=== PATIENT | male | born 1955 | race American Indian/Alaskan Native ===

== ENCOUNTER 2017-07-18 15:28 | Inpatient (IN) | payer OTHER ==
[~2017-07-18] VITALS: Ht 182.9 cm; Wt 102.6 kg
[~2017-07-18 15:28] MED LIST: ACET325 PO; ALLO100 PO; AMLO10 PO; AMLO5 PO; ASPI325; ASPI81CH PO; ATOR10 PO; ATOR40TA PO; Acidophilus La100 GM PO; Adalat/Procardi10 MG PO; CEPH500 PO; CHLO25B PO; CLOT1SO; COLCHICINE0.6 MG PO; Cipro500 MG PO; Cleocin HCl300 MG PO; Crutch1 EACH MISC; DEXT40GEL PO; DULO30 PO; FENO145 PO; FINA5 PO; FISH1000 PO; FLONASE ALLERG9.9 ML NS; FLUT110OIA INH; Flonase 0.05% N16 GM; GABA100 PO; GABA300 PO; Geri-Hydrolac140 GM; HYDACE10B PO; HYDMOR2 PO; HYDMOR4 PO; HYDR1TAB94 PO; HYOS.125 SL; Humalog100 UNIT/1 SC; Humulin R500 UNIT/1 IJ; Hydrocodone-Ap1 EA20 PO; INDO50 PO; INS70/30PN SC; INSDET100 SC; INSLIS75I SC; INSUGL100V SC; INSULANPEN; INSULANPEN SC; Indomethacin50 MG PO; Isosorbide Mono30 MG PO; LIDO700A20 TOP; LISI20 PO; LORA.5 PO; LORA1 PO; LORA2 PO; METCAR750 PO; METO10 PO; METO50 PO; METO50ER PO; MULVIT PO; Micro-K10 MEQ PO; NIFE10 PO; NIFE20 PO; NORT10 PO; NORT25 PO; Norco 10-325 T1 EACH PO; Norco 5-325 Ta1 EACH PO; OMEP10ER PO; OMEPRAZOLE MAGN20 MG PO; ONDA4 PO; ONDA4ODT MM; ONDA4ODT SL; OSEL75CA PO; PANT40 PO; PROC25S PR; PROM12.5S PR; PROM25S PR; Percocet 5-3251 EACH PO; Prilosec Otc20 MG PO; Prinivil10 MG PO; RANI150 PO; RASA1; ROSI4 PO; SENN187 PO; SPIHYD PO; TAMS.4ER PO; TORSE20 PO; TRAM50 PO; UREATC TOP; Zofran Odt4 MG SL; Zofran4 MG PO; Zofran8 MG PO; [UNRECOGNIZED DRUG - CODE] PO; [UNRECOGNIZED DRUG - CODE] PO; [UNRECOGNIZED DRUG - OTHER] IM
[2017-07-18 16:13] LABS: BASOPHILS ABSOLUTE AUTO 0.01 K/mm3 (0.00-0.23); BASOPHILS PERCENT AUTO 0 % (0-2); EOSINOPHILS ABSOLUTE AUTO 0.03 K/mm3 (0.00-0.68); EOSINOPHILS PERCENT AUTO 0 % (0-6); Hematocrit 36.6 % (37.0-53.0); IMMATURE GRAN ABSOLUTE AUTO 0.03 K/mm3 (0.00-0.10); IMMATURE GRAN PERCENT AUTO 0 % (0-1); LYMPHOCYTES ABSOLUTE AUTO 2.05 K/mm3 (0.84-5.20); LYMPHOCYTES PERCENT AUTO 19 % (21-46); MONOCYTES PERCENT AUTO 6 % (4-13); Mean Corpuscular HGB 31.9 pg (26.0-34.0); Mean Corpuscular HGB Conc 35.5 g/dL (31.5-36.5); Mean Corpuscular Volume 90 fL (80-100); Mean Platelet Volume 10.2 fL (9.1-12.4); NEUTROPHILS ABSOLUTE AUTO 8.16 K/mm3 (1.96-9.15); NEUTROPHILS PERCENT AUTO 75 % (41-73); Platelet Count 241 K/mm3 (150-400); RDW Coefficient Variation 13.5 % (11.7-14.2); RDW Standard Deviation 44.5 fL (35.1-46.3); Red Blood Cell Count 4.08 M/mm3 (4.30-5.90); White Blood Cell Count 10.88 K/mm3 (4.00-11.30)
[2017-07-18 16:33] LABS: Albumin, Blood 3.6 g/dL (3.4-5.0); Albumin/Globulin Ratio 0.7 (0.8-1.8); Bilirubin, Total 0.6 mg/dL (0.1-1.0); Bun/Creatinine Ratio 23.6 (12.0-20.0); Calcium, Blood 9.6 mg/dL (8.5-10.1); Creatinine, Blood 1.65 mg/dL (0.60-1.20); Globulin, Blood 5.2 g/dL (2.2-4.0); Potassium, Blood 4.3 mmol/L (3.5-5.5); Total Protein, Blood 8.8 g/dL (6.4-8.2); Troponin I 0.062 ng/mL (0.000-0.040)
[2017-07-19 05:50] LABS: Hematocrit 35.9 % (37.0-53.0); Hemoglobin 12.8 g/dL (13.5-17.5); Mean Corpuscular HGB 31.8 pg (26.0-34.0); Mean Corpuscular HGB Conc 35.7 g/dL (31.5-36.5); Mean Corpuscular Volume 89 fL (80-100); Mean Platelet Volume 10.2 fL (9.1-12.4); Platelet Count 234 K/mm3 (150-400); RDW Coefficient Variation 13.4 % (11.7-14.2); RDW Standard Deviation 43.7 fL (35.1-46.3); Red Blood Cell Count 4.03 M/mm3 (4.30-5.90); White Blood Cell Count 12.69 K/mm3 (4.00-11.30)
[2017-07-19 06:10] LABS: Bun/Creatinine Ratio 22.9 (12.0-20.0); Calcium, Blood 9.2 mg/dL (8.5-10.1); Creatinine, Blood 1.66 mg/dL (0.60-1.20); Potassium, Blood 4.2 mmol/L (3.5-5.5)
[2017-07-19 15:17] LABS: Source, Urine Clean Catch
[2017-07-19 15:22] LABS: Bilirubin, Urine Neg (Neg); Blood, Urine 3+ (Neg); Glucose Qualitative, Urine 3+ (Neg); Ketones, Urine 1+ (Neg); Leukocyte Esterase, Urine Neg (Neg); Nitrite, Urine Neg (Neg); Protein, Urine 4+ (Neg); Specific Gravity, Urine 1.015 (1.003-1.022); Urobilinogen, Urine NORM (Normal)
[2017-07-19 15:29] LABS: Appearance, Urine Clear (Clear); Color, Urine Yellow (P-Yellow)
[2017-07-19 15:30] LABS: Bacteria Mod /hpf; Red Blood Cells, Urine 0-2 /hpf (0-2); Squamous Epithelial Cells Not Seen /hpf (Few); White Blood Cells, Urine 0-2 /hpf (0-5)
[2017-07-21 05:54] LABS: Bun/Creatinine Ratio 18.2 (12.0-20.0); Calcium, Blood 8.9 mg/dL (8.5-10.1); Creatinine, Blood 1.48 mg/dL (0.60-1.20); Potassium, Blood 4.3 mmol/L (3.5-5.5)
[2017-07-21] MEDS ORDERED: DILT180 PO (13:46)
[2017-07-21] MEDS ORDERED: Novolog Fl100 UNIT/1 INJ (13:47)
[2017-07-21] MEDS ORDERED: NITR.4SL SL (13:49)
[2017-07-21] MEDS ORDERED: MIRALAX17 GM PO (13:51)
[2017-07-21] MEDS ORDERED: ONDA4ODT MM (13:52)
[2017-12-07] MEDS ORDERED: ATOR40TA PO (11:24)
[2017-12-07] MEDS ORDERED: TORSE20 PO (11:27)
== END 2017-07-21 14:44 | disposition home or self-care (01) | DRG 206 ==
LOC: ER 15:28 → MEDS 15:29 → ER 15:29 → MEDS 20:50 → ENPENDDIS 07-21 09:30 → MEDS 07-21 14:44
PROVIDERS: Internal Medicine; Physician Assistant
DX: M94.0 Chondrocostal junction syndrome [Tietze] (principal); E11.21 Type 2 diabetes mellitus with diabetic nephropathy; K31.84 Gastroparesis; I13.0 Hypertensive heart and chronic kidney disease with heart failure and stage 1 through stage 4 chronic kidney disease, or unspecified chronic kidney disease; I50.32 Chronic diastolic (congestive) heart failure; E87.1 Hypo-osmolality and hyponatremia; E11.43 Type 2 diabetes mellitus with diabetic autonomic (poly)neuropathy; R07.89 Other chest pain; I25.10 Atherosclerotic heart disease of native coronary artery without angina pectoris; R11.0 Nausea; T40.605A Adverse effect of unspecified narcotics, initial encounter; E11.22 Type 2 diabetes mellitus with diabetic chronic kidney disease; B19.20 Unspecified viral hepatitis C without hepatic coma; N18.3 Chronic kidney disease, stage 3 (moderate); E86.0 Dehydration; N40.0 Benign prostatic hyperplasia without lower urinary tract symptoms; F41.9 Anxiety disorder, unspecified; F32.9 Major depressive disorder, single episode, unspecified; M10.9 Gout, unspecified; F43.10 Post-traumatic stress disorder, unspecified; K83.4 Spasm of sphincter of Oddi; I25.5 Ischemic cardiomyopathy; I25.2 Old myocardial infarction; Z95.5 Presence of coronary angioplasty implant and graft; Z95.1 Presence of aortocoronary bypass graft; Z91.81 History of falling; Z79.82 Long term (current) use of aspirin; Z79.899 Other long term (current) drug therapy; Z79.4 Long term (current) use of insulin; Z88.5 Allergy status to narcotic agent
CPT/HCPCS: 36415; 71020; 71110; 78452; 80048; 80053; 81001; 82947; 84484; 85025; 85027; 87081; 87086; 93005; 93010; 93017; 96374; 96375; 99285; A9500; J0280; J0360; J1170; J1650; J1815; J2270; J2405; J2785; J3010; J7030

== ENCOUNTER 2017-08-08 18:34 | Observation (INO) | payer OTHER ==
[~2017-08-08] VITALS: Ht 182.9 cm; Wt 108.9 kg
[~2017-08-08 18:34] MED LIST changes: +DILT180 PO; +MIRALAX17 GM PO; +NITR.4SL SL; +Novolog Fl100 UNIT/1 INJ
[2017-08-08 19:20] LABS: BASOPHILS ABSOLUTE AUTO 0.01 K/mm3 (0.00-0.23); BASOPHILS PERCENT AUTO 0 % (0-2); EOSINOPHILS ABSOLUTE AUTO 0.01 K/mm3 (0.00-0.68); EOSINOPHILS PERCENT AUTO 0 % (0-6); Hematocrit 37.4 % (37.0-53.0); Hemoglobin 12.8 g/dL (13.5-17.5); IMMATURE GRAN ABSOLUTE AUTO 0.04 K/mm3 (0.00-0.10); IMMATURE GRAN PERCENT AUTO 0 % (0-1); LYMPHOCYTES ABSOLUTE AUTO 1.16 K/mm3 (0.84-5.20); LYMPHOCYTES PERCENT AUTO 11 % (21-46); MONOCYTES ABSOLUTE AUTO 0.35 K/mm3 (0.16-1.47); MONOCYTES PERCENT AUTO 3 % (4-13); Mean Corpuscular HGB 30.8 pg (26.0-34.0); Mean Corpuscular HGB Conc 34.2 g/dL (31.5-36.5); Mean Corpuscular Volume 90 fL (80-100); Mean Platelet Volume 9.4 fL (9.1-12.4); NEUTROPHILS ABSOLUTE AUTO 8.91 K/mm3 (1.96-9.15); NEUTROPHILS PERCENT AUTO 85 % (41-73); Platelet Count 189 K/mm3 (150-400); RDW Coefficient Variation 13.5 % (11.7-14.2); Red Blood Cell Count 4.15 M/mm3 (4.30-5.90); White Blood Cell Count 10.48 K/mm3 (4.00-11.30)
[2017-08-08] MEDS ORDERED: AMLODIPINE-BEN1 EAC1 PO (19:23)
[2017-08-08] MEDS ORDERED: Flonase 0.05% N16 GM (19:24)
[2017-08-08] MEDS ORDERED: LORA1 PO (19:24)
[2017-08-08] MEDS ORDERED: Omeprazole20 M1 (19:24)
[2017-08-08 19:37] LABS: Albumin, Blood 3.9 g/dL (3.4-5.0); Albumin/Globulin Ratio 0.8 (0.8-1.8); Bilirubin, Total 0.8 mg/dL (0.1-1.0); Bun/Creatinine Ratio 15.1 (12.0-20.0); Calcium, Blood 9.9 mg/dL (8.5-10.1); Creatinine, Blood 1.46 mg/dL (0.60-1.20); Globulin, Blood 5.1 g/dL (2.2-4.0); Potassium, Blood 4.7 mmol/L (3.5-5.5); Troponin I 0.049 ng/mL (0.000-0.040)
[2017-08-08 21:58] LABS: Source, Urine Clean Catch
[2017-08-08 22:01] LABS: Bilirubin, Urine Neg (Neg); Blood, Urine 3+ (Neg); Glucose Qualitative, Urine 4+ (Neg); Ketones, Urine 1+ (Neg); Leukocyte Esterase, Urine Neg (Neg); Nitrite, Urine Neg (Neg); Protein, Urine 4+ (Neg); Urobilinogen, Urine NORM (Normal)
[2017-08-08 22:08] LABS: Appearance, Urine Clear (Clear); Color, Urine Pale Yellow (P-Yellow)
[2017-08-08 22:11] LABS: White Blood Cells, Urine Not Seen /hpf (0-5)
[2017-08-08 22:12] LABS: Bacteria Not Seen /hpf; Red Blood Cells, Urine 0-2 /hpf (0-2); Squamous Epithelial Cells Not Seen /hpf (Few)
[2017-08-09 08:28] LABS: BASOPHILS ABSOLUTE AUTO 0.02 K/mm3 (0.00-0.23); BASOPHILS PERCENT AUTO 0 % (0-2); EOSINOPHILS ABSOLUTE AUTO 0.13 K/mm3 (0.00-0.68); EOSINOPHILS PERCENT AUTO 1 % (0-6); Hematocrit 34.4 % (37.0-53.0); Hemoglobin 11.7 g/dL (13.5-17.5); IMMATURE GRAN ABSOLUTE AUTO 0.04 K/mm3 (0.00-0.10); IMMATURE GRAN PERCENT AUTO 0 % (0-1); LYMPHOCYTES ABSOLUTE AUTO 1.65 K/mm3 (0.84-5.20); LYMPHOCYTES PERCENT AUTO 18 % (21-46); MONOCYTES ABSOLUTE AUTO 0.67 K/mm3 (0.16-1.47); MONOCYTES PERCENT AUTO 7 % (4-13); Mean Corpuscular HGB 31.3 pg (26.0-34.0); Mean Corpuscular Volume 92 fL (80-100); Mean Platelet Volume 9.8 fL (9.1-12.4); NEUTROPHILS ABSOLUTE AUTO 6.91 K/mm3 (1.96-9.15); NEUTROPHILS PERCENT AUTO 73 % (41-73); Platelet Count 151 K/mm3 (150-400); RDW Coefficient Variation 13.6 % (11.7-14.2); RDW Standard Deviation 45.2 fL (35.1-46.3); Red Blood Cell Count 3.74 M/mm3 (4.30-5.90); White Blood Cell Count 9.42 K/mm3 (4.00-11.30)
[2017-08-09 09:01] LABS: Albumin, Blood 3.5 g/dL (3.4-5.0); Albumin/Globulin Ratio 0.8 (0.8-1.8); Bilirubin, Total 0.9 mg/dL (0.1-1.0); Bun/Creatinine Ratio 16.9 (12.0-20.0); Calcium, Blood 9.2 mg/dL (8.5-10.1); Creatinine, Blood 1.36 mg/dL (0.60-1.20); Globulin, Blood 4.4 g/dL (2.2-4.0); Potassium, Blood 3.9 mmol/L (3.5-5.5); Total Protein, Blood 7.9 g/dL (6.4-8.2)
[2017-08-10 06:44] LABS: BASOPHILS ABSOLUTE AUTO 0.02 K/mm3 (0.00-0.23); BASOPHILS PERCENT AUTO 0 % (0-2); EOSINOPHILS ABSOLUTE AUTO 0.15 K/mm3 (0.00-0.68); EOSINOPHILS PERCENT AUTO 2 % (0-6); Hematocrit 32.9 % (37.0-53.0); Hemoglobin 11.2 g/dL (13.5-17.5); IMMATURE GRAN ABSOLUTE AUTO 0.02 K/mm3 (0.00-0.10); IMMATURE GRAN PERCENT AUTO 0 % (0-1); LYMPHOCYTES ABSOLUTE AUTO 1.95 K/mm3 (0.84-5.20); LYMPHOCYTES PERCENT AUTO 30 % (21-46); MONOCYTES ABSOLUTE AUTO 0.55 K/mm3 (0.16-1.47); MONOCYTES PERCENT AUTO 8 % (4-13); Mean Corpuscular HGB 31.5 pg (26.0-34.0); Mean Corpuscular Volume 92 fL (80-100); Mean Platelet Volume 9.9 fL (9.1-12.4); NEUTROPHILS ABSOLUTE AUTO 3.86 K/mm3 (1.96-9.15); NEUTROPHILS PERCENT AUTO 59 % (41-73); Platelet Count 135 K/mm3 (150-400); RDW Coefficient Variation 13.7 % (11.7-14.2); RDW Standard Deviation 46.2 fL (35.1-46.3); Red Blood Cell Count 3.56 M/mm3 (4.30-5.90); White Blood Cell Count 6.55 K/mm3 (4.00-11.30)
[2017-08-10 07:13] LABS: Alanine Aminotransfer (ALT/SGP 28 U/L (12-78); Albumin, Blood 3.2 g/dL (3.4-5.0); Albumin/Globulin Ratio 0.8 (0.8-1.8); Alk Phos 104 U/L (50-136); Anion Gap 9 mmol/L (6-16); Aspartate Aminotrans (AST/SGOT 15 U/L (12-37); Bilirubin, Direct 0.1 mg/dL (0.0-0.3); Bilirubin, Indirect 0.6 mg/dL (0.1-0.7); Bilirubin, Total 0.7 mg/dL (0.1-1.0); Blood Urea Nitrogen 22 mg/dL (8-24); Bun/Creatinine Ratio 17.5 (12.0-20.0); CO2, Blood 23 mmol/L (21-32); Calcium, Blood 8.8 mg/dL (8.5-10.1); Chloride, Blood 108 mmol/L (98-108); Creatinine, Blood 1.26 mg/dL (0.60-1.20); Globulin, Blood 3.9 g/dL (2.2-4.0); Glomerular Filtration Rate >60 (60-); Glucose, Blood 211 mg/dL (70-99); Potassium, Blood 3.6 mmol/L (3.5-5.5); Sodium, Blood 140 mmol/L (136-145); Total Protein, Blood 7.1 g/dL (6.4-8.2)
[2017-08-10] MEDS ORDERED: TAMS.4ER PO (14:03)
[2017-12-07] MEDS ORDERED: ATOR40TA PO (11:24)
[2017-12-07] MEDS ORDERED: TORSE20 PO (11:27)
== END 2017-08-10 14:18 | disposition home or self-care (01) ==
LOC: ER 18:34 → MEDS 18:35 → ENPENDDIS 08-10 13:00 → MEDS 08-10 14:18
PROVIDERS: Emergency Medicine; Family Medicine; Hospitalist
DX: R10.11 Right upper quadrant pain (principal); I13.10 Hypertensive heart and chronic kidney disease without heart failure, with stage 1 through stage 4 chronic kidney disease, or unspecified chronic kidney disease; E11.22 Type 2 diabetes mellitus with diabetic chronic kidney disease; N18.3 Chronic kidney disease, stage 3 (moderate); I25.10 Atherosclerotic heart disease of native coronary artery without angina pectoris; I45.5 Other specified heart block; I25.5 Ischemic cardiomyopathy; N40.0 Benign prostatic hyperplasia without lower urinary tract symptoms; K21.9 Gastro-esophageal reflux disease without esophagitis; F43.10 Post-traumatic stress disorder, unspecified; J30.9 Allergic rhinitis, unspecified; Z79.4 Long term (current) use of insulin; Z90.49 Acquired absence of other specified parts of digestive tract; Z86.19 Personal history of other infectious and parasitic diseases; Z79.899 Other long term (current) drug therapy; Z79.82 Long term (current) use of aspirin; Z95.1 Presence of aortocoronary bypass graft; Z98.890 Other specified postprocedural states
CPT/HCPCS: 36415; 74177; 76705; 78226; 80048; 80053; 80076; 81001; 82947; 83690; 84484; 85025; 93005; 93010; 96361; 96365; 96366; 96374; 96375; 96376; 99285; A9537; G0378; J0295; J0360; J1170; J1200; J1885; J2060; J2270; J2405; J7030; Q9967

== ENCOUNTER 2017-09-05 11:48 | Emergency (ER) | payer OTHER ==
[~2017-09-05] VITALS: Ht 182.9 cm; Wt 112.5 kg
[~2017-09-05 11:48] MED LIST changes: -ATOR40TA; -AZIT250 PO; -Acidophilus La100 GM; -CYCL10 PO; -DOCU100 PO; -FENT50TP TOP; -IBUP600 PO; -IBUP800 PO; -INSU100I6 SC; -Lotrel 10-40 M1 EACH PO; -METCAR500 PO; -Mucinex600 MG PO; -ONDA4ODT PO; -PRED20 PO; -PROM25S; -Prazosin HCl1 MG PO; -Senna8.6 MG PO
[2017-09-05] MEDS ORDERED: RANI150 PO (11:59)
[2017-09-05] MEDS ORDERED: TORSE20 PO (11:59)
[2017-09-05] MEDS ORDERED: PROM25S (11:59)
[2017-09-05] MEDS ORDERED: Senna8.6 MG PO (11:59)
[2017-09-05] MEDS ORDERED: NIFE10 PO (12:00)
[2017-09-05] MEDS ORDERED: METCAR500 PO (12:00)
[2017-09-05] MEDS ORDERED: Acidophilus La100 GM (12:00)
[2017-09-05] MEDS ORDERED: HYDMOR2 PO (12:01)
[2017-09-05] MEDS ORDERED: ALLO100 PO (12:01)
[2017-09-05] MEDS ORDERED: GABA100 PO (12:01)
[2017-09-05] MEDS ORDERED: ATOR40TA PO (12:01)
[2017-09-05] MEDS ORDERED: Mucinex600 MG PO (16:24)
[2017-09-05] MEDS ORDERED: Norco 5-325 Ta1 EACH PO (16:24)
[2017-09-05] MEDS ORDERED: AZIT250 PO (16:24)
[2017-09-05] MEDS ORDERED: IBUP800 PO (16:24)
[2017-12-07] MEDS ORDERED: ATOR40TA PO (11:24)
[2017-12-07] MEDS ORDERED: TORSE20 PO (11:27)
== END 2017-09-05 16:34 | disposition home or self-care (01) ==
LOC: ER 11:48
DX: R07.89 Other chest pain (principal); R05 Cough; Z79.899 Other long term (current) drug therapy; Z79.4 Long term (current) use of insulin; Z79.82 Long term (current) use of aspirin; F43.10 Post-traumatic stress disorder, unspecified; E11.43 Type 2 diabetes mellitus with diabetic autonomic (poly)neuropathy; K31.84 Gastroparesis
CPT/HCPCS: 36415; 71260; 83880; 84484; 93005; 93010; 99284; Q9967

== ENCOUNTER → 2017-09-05 | Outpatient (CLI) | payer OTHER ==
[~2017-09-05] MED LIST changes: +AMLODIPINE-BEN1 EAC1 PO; +ATOR40TA; +AZIT250 PO; +Acidophilus La100 GM; +CYCL10 PO; +DOCU100 PO; +FENT50TP TOP; +IBUP600 PO; +IBUP800 PO; +INSU100I6 SC; +Lotrel 10-40 M1 EACH PO; +METCAR500 PO; +Mucinex600 MG PO; +ONDA4ODT PO; +Omeprazole20 M1; +PRED20 PO; +PROM25S; +Prazosin HCl1 MG PO; +Senna8.6 MG PO
[2017-09-05 10:49] LABS: BASOPHILS ABSOLUTE AUTO 0.02 K/mm3 (0.00-0.23); BASOPHILS PERCENT AUTO 0 % (0-2); EOSINOPHILS PERCENT AUTO 8 % (0-6); Hematocrit 35.7 % (37.0-53.0); Hemoglobin 12.2 g/dL (13.5-17.5); IMMATURE GRAN ABSOLUTE AUTO 0.01 K/mm3 (0.00-0.10); IMMATURE GRAN PERCENT AUTO 0 % (0-1); LYMPHOCYTES ABSOLUTE AUTO 0.89 K/mm3 (0.84-5.20); LYMPHOCYTES PERCENT AUTO 19 % (21-46); MONOCYTES ABSOLUTE AUTO 0.65 K/mm3 (0.16-1.47); MONOCYTES PERCENT AUTO 14 % (4-13); Mean Corpuscular HGB 31.6 pg (26.0-34.0); Mean Corpuscular HGB Conc 34.2 g/dL (31.5-36.5); Mean Corpuscular Volume 93 fL (80-100); Mean Platelet Volume 10.1 fL (9.1-12.4); NEUTROPHILS PERCENT AUTO 59 % (41-73); Platelet Count 136 K/mm3 (150-400); RDW Coefficient Variation 14.5 % (11.7-14.2); RDW Standard Deviation 48.1 fL (35.1-46.3); Red Blood Cell Count 3.86 M/mm3 (4.30-5.90); White Blood Cell Count 4.77 K/mm3 (4.00-11.30)
[2017-09-05 11:03] LABS: Albumin, Blood 3.9 g/dL (3.4-5.0); Albumin/Globulin Ratio 0.8 (0.8-1.8); Bilirubin, Total 0.5 mg/dL (0.1-1.0); Bun/Creatinine Ratio 16.4 (12.0-20.0); Calcium, Blood 10.1 mg/dL (8.5-10.1); Creatinine, Blood 1.77 mg/dL (0.60-1.20); Globulin, Blood 4.7 g/dL (2.2-4.0); Potassium, Blood 5.2 mmol/L (3.5-5.5); Total Protein, Blood 8.6 g/dL (6.4-8.2); Troponin I 0.055 ng/mL (0.000-0.040)
== END | disposition home or self-care (01) ==
LOC: LAB EV 10:44
PROVIDERS: Physician Assistant
DX: R07.9 Chest pain, unspecified (principal)
CPT/HCPCS: 80053; 83880; 84484; 85025; 85379; 86140

== ENCOUNTER 2017-10-31 04:21 | Observation (INO) | payer OTHER ==
[~2017-10-31] VITALS: Ht 182.9 cm; Wt 107.1 kg
[~2017-10-31 04:21] MED LIST changes: +AZIT250 PO; +Acidophilus La100 GM; +IBUP800 PO; +METCAR500 PO; +Mucinex600 MG PO; +PROM25S; +Senna8.6 MG PO
[2017-10-31 05:12] LABS: BASOPHILS ABSOLUTE AUTO 0.02 K/mm3 (0.00-0.23); BASOPHILS PERCENT AUTO 0 % (0-2); EOSINOPHILS ABSOLUTE AUTO 0.11 K/mm3 (0.00-0.68); EOSINOPHILS PERCENT AUTO 1 % (0-6); Hematocrit 36.6 % (37.0-53.0); Hemoglobin 12.7 g/dL (13.5-17.5); IMMATURE GRAN ABSOLUTE AUTO 0.04 K/mm3 (0.00-0.10); IMMATURE GRAN PERCENT AUTO 1 % (0-1); LYMPHOCYTES ABSOLUTE AUTO 1.34 K/mm3 (0.84-5.20); LYMPHOCYTES PERCENT AUTO 15 % (21-46); MONOCYTES ABSOLUTE AUTO 0.29 K/mm3 (0.16-1.47); MONOCYTES PERCENT AUTO 3 % (4-13); Mean Corpuscular HGB 32.1 pg (26.0-34.0); Mean Corpuscular HGB Conc 34.7 g/dL (31.5-36.5); Mean Corpuscular Volume 92 fL (80-100); Mean Platelet Volume 10.5 fL (9.1-12.4); NEUTROPHILS ABSOLUTE AUTO 6.93 K/mm3 (1.96-9.15); NEUTROPHILS PERCENT AUTO 79 % (41-73); Platelet Count 167 K/mm3 (150-400); RDW Coefficient Variation 14.2 % (11.7-14.2); RDW Standard Deviation 48.5 fL (35.1-46.3); Red Blood Cell Count 3.96 M/mm3 (4.30-5.90); White Blood Cell Count 8.73 K/mm3 (4.00-11.30)
[2017-10-31 05:27] LABS: Albumin, Blood 4.2 g/dL (3.4-5.0); Albumin/Globulin Ratio 0.9 (0.8-1.8); Bilirubin, Total 0.7 mg/dL (0.1-1.0); Calcium, Blood 9.8 mg/dL (8.5-10.1); Creatinine, Blood 1.48 mg/dL (0.60-1.20); Globulin, Blood 4.8 g/dL (2.2-4.0); Potassium, Blood 4.8 mmol/L (3.5-5.5)
[2017-10-31 05:46] LABS: PCO2 Arterial 33.2 mmHg (35-45); PO2 Arterial 119 mmHg (80-100); pH Blood Arterial 7.34 (7.35-7.45)
[2017-10-31 07:33] LABS: Troponin I 0.037 ng/mL (0.000-0.040)
[2017-10-31 08:56] LABS: Potassium, Blood 5.7 mmol/L (3.5-5.5)
[2017-10-31 11:40] LABS: Potassium, Blood 4.8 mmol/L (3.5-5.5)
[2017-10-31] MEDS ORDERED: IBUP600 PO (12:16)
[2017-10-31] MEDS ORDERED: METO50ER PO (13:33)
[2017-10-31] MEDS ORDERED: Prazosin HCl1 MG PO (13:35)
[2017-10-31 20:34] LABS: Potassium, Blood 5.1 mmol/L (3.5-5.5)
[2017-11-01 04:20] LABS: BASOPHILS ABSOLUTE AUTO 0.01 K/mm3 (0.00-0.23); BASOPHILS PERCENT AUTO 0 % (0-2); EOSINOPHILS PERCENT AUTO 0 % (0-6); Hematocrit 33.2 % (37.0-53.0); Hemoglobin 11.1 g/dL (13.5-17.5); IMMATURE GRAN ABSOLUTE AUTO 0.05 K/mm3 (0.00-0.10); IMMATURE GRAN PERCENT AUTO 0 % (0-1); LYMPHOCYTES ABSOLUTE AUTO 1.42 K/mm3 (0.84-5.20); LYMPHOCYTES PERCENT AUTO 11 % (21-46); MONOCYTES ABSOLUTE AUTO 1.04 K/mm3 (0.16-1.47); MONOCYTES PERCENT AUTO 8 % (4-13); Mean Corpuscular HGB 31.4 pg (26.0-34.0); Mean Corpuscular HGB Conc 33.4 g/dL (31.5-36.5); Mean Corpuscular Volume 94 fL (80-100); Mean Platelet Volume 10.3 fL (9.1-12.4); NEUTROPHILS ABSOLUTE AUTO 10.03 K/mm3 (1.96-9.15); NEUTROPHILS PERCENT AUTO 80 % (41-73); Platelet Count 149 K/mm3 (150-400); RDW Coefficient Variation 14.6 % (11.7-14.2); RDW Standard Deviation 50.4 fL (35.1-46.3); Red Blood Cell Count 3.54 M/mm3 (4.30-5.90); White Blood Cell Count 12.55 K/mm3 (4.00-11.30)
[2017-11-01 04:46] LABS: Albumin, Blood 3.5 g/dL (3.4-5.0); Albumin/Globulin Ratio 0.8 (0.8-1.8); Bilirubin, Total 0.7 mg/dL (0.1-1.0); Bun/Creatinine Ratio 26.1 (12.0-20.0); Calcium, Blood 8.8 mg/dL (8.5-10.1); Creatinine, Blood 1.38 mg/dL (0.60-1.20); Globulin, Blood 4.2 g/dL (2.2-4.0); Potassium, Blood 5.3 mmol/L (3.5-5.5); Total Protein, Blood 7.7 g/dL (6.4-8.2)
[2017-11-01] MEDS ORDERED: NIFE10 PO (14:32)
[2017-11-01] MEDS ORDERED: Lotrel 10-40 M1 EACH PO (14:38)
[2017-11-01] MEDS ORDERED: CYCL10 PO (14:41)
[2017-11-01] MEDS ORDERED: INSU100I6 SC (14:47)
[2017-11-01] MEDS ORDERED: FENT50TP TOP (14:49)
[2017-11-01] MEDS ORDERED: LIDO700A20 TOP (14:50)
[2017-11-01] MEDS ORDERED: ONDA4ODT PO (14:54)
== END 2017-11-01 17:52 | disposition home or self-care (01) ==
LOC: ER 04:21 → ICUW 04:22 → ICUE 04:22 → ICUW 07:20 → ER 07:20 → ICUE 07:20 → ICUW 08:40 → ICUE 15:13
PROVIDERS: Emergency Medicine; Internal Medicine
DX: E11.10 Type 2 diabetes mellitus with ketoacidosis without coma (principal); R11.2 Nausea with vomiting, unspecified; E11.22 Type 2 diabetes mellitus with diabetic chronic kidney disease; I12.9 Hypertensive chronic kidney disease with stage 1 through stage 4 chronic kidney disease, or unspecified chronic kidney disease; N18.9 Chronic kidney disease, unspecified; M54.2 Cervicalgia; I25.10 Atherosclerotic heart disease of native coronary artery without angina pectoris; I25.5 Ischemic cardiomyopathy; F43.10 Post-traumatic stress disorder, unspecified; K21.9 Gastro-esophageal reflux disease without esophagitis; Z95.1 Presence of aortocoronary bypass graft; Z72.0 Tobacco use; Z79.82 Long term (current) use of aspirin; Z79.51 Long term (current) use of inhaled steroids; Z79.899 Other long term (current) drug therapy; Z79.84 Long term (current) use of oral hypoglycemic drugs
CPT/HCPCS: 36415; 36600; 80051; 80053; 82010; 82803; 82947; 83605; 83690; 83930; 84484; 85025; 87070; 87081; 93005; 93010; 96361; 96374; 96375; 96376; 99285; J0360; J1170; J1644; J1815; J2060; J2405; J2550; J2765; J3010; J7030

== ENCOUNTER 2017-11-11 08:52 | Emergency (ER) | payer OTHER ==
[~2017-11-11] VITALS: Ht 182.9 cm; Wt 108.9 kg
[~2017-11-11 08:52] MED LIST changes: +CYCL10 PO; +FENT50TP TOP; +IBUP600 PO; +INSU100I6 SC; +Lotrel 10-40 M1 EACH PO; +ONDA4ODT PO; +Prazosin HCl1 MG PO
[2017-11-11 10:11] LABS: BASOPHILS ABSOLUTE AUTO 0.02 K/mm3 (0.00-0.23); BASOPHILS PERCENT AUTO 0 % (0-2); EOSINOPHILS ABSOLUTE AUTO 0.23 K/mm3 (0.00-0.68); EOSINOPHILS PERCENT AUTO 2 % (0-6); Hematocrit 38.4 % (37.0-53.0); Hemoglobin 13.5 g/dL (13.5-17.5); IMMATURE GRAN ABSOLUTE AUTO 0.04 K/mm3 (0.00-0.10); IMMATURE GRAN PERCENT AUTO 0 % (0-1); LYMPHOCYTES ABSOLUTE AUTO 2.65 K/mm3 (0.84-5.20); LYMPHOCYTES PERCENT AUTO 22 % (21-46); MONOCYTES ABSOLUTE AUTO 0.83 K/mm3 (0.16-1.47); MONOCYTES PERCENT AUTO 7 % (4-13); Mean Corpuscular HGB 31.3 pg (26.0-34.0); Mean Corpuscular HGB Conc 35.2 g/dL (31.5-36.5); Mean Platelet Volume 10.6 fL (9.1-12.4); NEUTROPHILS ABSOLUTE AUTO 8.41 K/mm3 (1.96-9.15); NEUTROPHILS PERCENT AUTO 69 % (41-73); Platelet Count 173 K/mm3 (150-400); RDW Coefficient Variation 13.8 % (11.7-14.2); RDW Standard Deviation 45.1 fL (35.1-46.3); Red Blood Cell Count 4.31 M/mm3 (4.30-5.90); White Blood Cell Count 12.18 K/mm3 (4.00-11.30)
[2017-11-11 10:13] LABS: Mean Corpuscular Volume 89 fL (80-100)
[2017-11-11 10:41] LABS: Albumin, Blood 3.8 g/dL (3.4-5.0); Albumin/Globulin Ratio 0.8 (0.8-1.8); Bilirubin, Total 1.1 mg/dL (0.1-1.0); Bun/Creatinine Ratio 12.4 (12.0-20.0); Calcium, Blood 9.9 mg/dL (8.5-10.1); Creatinine, Blood 1.61 mg/dL (0.60-1.20); Globulin, Blood 4.8 g/dL (2.2-4.0); Potassium, Blood 4.1 mmol/L (3.5-5.5); Total Protein, Blood 8.6 g/dL (6.4-8.2)
[2017-11-11 11:49] LABS: Base Excess Venous -1.9 mmol/L; Bicarbonate Venous 23.9 mmol/L (24.0-30.0); PCO2 Venous 25.2 mmHg (38-42); PO2 Venous 171 mmHg (38-42); pH Blood Venous 7.52 (7.34-7.37)
[2017-11-11 12:10] LABS: Source, Urine Clean Catch
[2017-11-11 12:18] LABS: Bilirubin, Urine Neg (Neg); Blood, Urine 3+ (Neg); Glucose Qualitative, Urine Neg (Neg); Ketones, Urine 2+ (Neg); Leukocyte Esterase, Urine 1+ (Neg); Nitrite, Urine Neg (Neg); Protein, Urine 4+ (Neg); Urobilinogen, Urine NORM (Normal); pH, Urine 6.5 (5.0-8.0)
[2017-11-11 12:48] LABS: Appearance, Urine Clear (Clear); Color, Urine Yellow (P-Yellow)
[2017-11-11 12:50] LABS: Hyaline Casts 25-50 /lpf (0-2)
[2017-11-11 12:51] LABS: Bacteria Rare /hpf; Squamous Epithelial Cells Few /hpf (Few)
[2017-11-11 12:55] LABS: Calcium, Ionized (POC) 1.15 mmol/L (1.10-1.46); Chloride (POC) 102 mmol/L (98-108); Creatinine (POC) 1.6 mg/dL (0.8-1.3); Glucose (ISTAT POC) 146 mg/dL (70-99); Hemoglobin (POC) 12.2 g/dL (13.5-17.5); Potassium (POC) 3.8 mmol/L (3.5-5.5); Sodium (POC) 137 mmol/L (135-148); Total CO2 (POC) 22 mmol/L (21-32)
[2017-11-11] MEDS ORDERED: Percocet 5-3251 EACH PO (13:14)
[2017-11-11] MEDS ORDERED: Zofran8 MG PO (13:14)
== END 2017-11-11 13:20 | disposition home or self-care (01) ==
LOC: ER 08:52
PROVIDERS: Emergency Medicine; Physician Assistant
DX: R10.9 Unspecified abdominal pain (principal); G89.29 Other chronic pain; Z87.442 Personal history of urinary calculi; Z79.899 Other long term (current) drug therapy; Z79.4 Long term (current) use of insulin; Z79.82 Long term (current) use of aspirin; R11.2 Nausea with vomiting, unspecified; F43.10 Post-traumatic stress disorder, unspecified; E11.43 Type 2 diabetes mellitus with diabetic autonomic (poly)neuropathy; K31.84 Gastroparesis
CPT/HCPCS: 36415; 80047; 80053; 81001; 82803; 83690; 85014; 85025; 87086; 93005; 93010; 96361; 96372; 96374; 96375; 96376; 99284; J1815; J1885; J2405; J3010; J7030; J7120

== ENCOUNTER 2017-12-10 19:16 | Inpatient (IN) | payer OTHER ==
[~2017-12-10] VITALS: Ht 182.9 cm; Wt 111.4 kg
[2017-12-10 19:14] LABS: BASOPHILS ABSOLUTE AUTO 0.02 K/mm3 (0.00-0.23); BASOPHILS PERCENT AUTO 0 % (0-2); EOSINOPHILS ABSOLUTE AUTO 0.36 K/mm3 (0.00-0.68); EOSINOPHILS PERCENT AUTO 3 % (0-6); Hematocrit 28.7 % (37.0-53.0); Hemoglobin 9.6 g/dL (13.5-17.5); IMMATURE GRAN ABSOLUTE AUTO 0.04 K/mm3 (0.00-0.10); IMMATURE GRAN PERCENT AUTO 0 % (0-1); LYMPHOCYTES ABSOLUTE AUTO 1.94 K/mm3 (0.84-5.20); LYMPHOCYTES PERCENT AUTO 17 % (21-46); MONOCYTES ABSOLUTE AUTO 0.72 K/mm3 (0.16-1.47); MONOCYTES PERCENT AUTO 6 % (4-13); Mean Corpuscular HGB 31.4 pg (26.0-34.0); Mean Corpuscular HGB Conc 33.4 g/dL (31.5-36.5); Mean Corpuscular Volume 94 fL (80-100); Mean Platelet Volume 10.1 fL (9.1-12.4); NEUTROPHILS ABSOLUTE AUTO 8.25 K/mm3 (1.96-9.15); NEUTROPHILS PERCENT AUTO 73 % (41-73); Platelet Count 231 K/mm3 (150-400); RDW Coefficient Variation 13.3 % (11.7-14.2); RDW Standard Deviation 45.9 fL (35.1-46.3); Red Blood Cell Count 3.06 M/mm3 (4.30-5.90); White Blood Cell Count 11.33 K/mm3 (4.00-11.30)
[2017-12-10 22:40] LABS: Calcium, Ionized (POC) 1.12 mmol/L (1.10-1.46); Chloride (POC) 128 mmol/L (98-108); Creatinine (POC) 2.3 mg/dL (0.8-1.3); Glucose (ISTAT POC) 89 mg/dL (70-99); Hemoglobin (POC) 9.2 g/dL (13.5-17.5); Potassium (POC) 4.4 mmol/L (3.5-5.5); Sodium (POC) 137 mmol/L (135-148); Total CO2 (POC) 27 mmol/L (21-32)
[2017-12-10 23:03] LABS: Albumin, Blood 2.8 g/dL (3.4-5.0); Albumin/Globulin Ratio 0.6 (0.8-1.8); Bilirubin, Total 0.3 mg/dL (0.1-1.0); Bun/Creatinine Ratio 17.6 (12.0-20.0); Calcium, Blood 8.6 mg/dL (8.5-10.1); Creatinine, Blood 2.21 mg/dL (0.60-1.20); Globulin, Blood 4.8 g/dL (2.2-4.0); Potassium, Blood 5.1 mmol/L (3.5-5.5); Total Protein, Blood 7.6 g/dL (6.4-8.2)
[2017-12-11 04:42] LABS: Hematocrit 27.7 % (37.0-53.0); Mean Corpuscular HGB 30.1 pg (26.0-34.0); Mean Corpuscular HGB Conc 32.5 g/dL (31.5-36.5); Mean Corpuscular Volume 93 fL (80-100); Mean Platelet Volume 9.6 fL (9.1-12.4); Platelet Count 214 K/mm3 (150-400); RDW Coefficient Variation 13.2 % (11.7-14.2); RDW Standard Deviation 45.3 fL (35.1-46.3); Red Blood Cell Count 2.99 M/mm3 (4.30-5.90); White Blood Cell Count 9.02 K/mm3 (4.00-11.30)
[2017-12-11 05:08] LABS: Bun/Creatinine Ratio 18.6 (12.0-20.0); Calcium, Blood 8.7 mg/dL (8.5-10.1); Creatinine, Blood 1.88 mg/dL (0.60-1.20)
[2017-12-11 05:20] LABS: C-REACTIVE PROTEIN, EXT RANGE 12.7 mg/dL (0.000-0.300); Uric Acid, Blood 7.8 mg/dL (3.5-7.2)
[2017-12-12] MEDS ORDERED: CEPH500 PO (12:37)
[2017-12-12] MEDS ORDERED: PRED20 PO (12:38)
== END 2017-12-12 13:17 | disposition home or self-care (01) | DRG 603 ==
LOC: EDSTATUS 19:16 → ER 19:16 → MEDS 22:48 → ENPENDDIS 12-12 10:00 → MEDS 12-12 13:17
PROVIDERS: Emergency Medicine; Nurse Practitioner Acute Care; Physician Assistant Medical
DX: L03.113 Cellulitis of right upper limb (principal); M96.0 Pseudarthrosis after fusion or arthrodesis; N17.9 Acute kidney failure, unspecified; G44.209 Tension-type headache, unspecified, not intractable; M48.02 Spinal stenosis, cervical region; M48.03 Spinal stenosis, cervicothoracic region; M54.2 Cervicalgia; Z98.1 Arthrodesis status; D64.9 Anemia, unspecified; D72.829 Elevated white blood cell count, unspecified; N40.0 Benign prostatic hyperplasia without lower urinary tract symptoms; I25.10 Atherosclerotic heart disease of native coronary artery without angina pectoris; E11.9 Type 2 diabetes mellitus without complications; Z79.4 Long term (current) use of insulin; M10.9 Gout, unspecified; R53.81 Other malaise; E11.43 Type 2 diabetes mellitus with diabetic autonomic (poly)neuropathy; K31.84 Gastroparesis; N18.9 Chronic kidney disease, unspecified
CPT/HCPCS: 36415; 73200; 80047; 80048; 80053; 82306; 82947; 84550; 85014; 85025; 85027; 85651; 86140; 93971; 96360; 97110; 97165; 99285; G8987; G8988; J0360; J0690; J1644; J1815; J2930; J3010; J3370; J7030

== ENCOUNTER 2017-12-31 19:31 | Emergency (ER) | payer OTHER ==
[~2017-12-31] VITALS: Ht 182.9 cm; Wt 108.9 kg
[~2017-12-31 19:31] MED LIST changes: +PRED20 PO
[2017-12-31 20:25] LABS: BASOPHILS ABSOLUTE AUTO 0.02 K/mm3 (0.00-0.23); BASOPHILS PERCENT AUTO 0 % (0-2); EOSINOPHILS ABSOLUTE AUTO 0.33 K/mm3 (0.00-0.68); EOSINOPHILS PERCENT AUTO 4 % (0-6); Hematocrit 37.2 % (37.0-53.0); IMMATURE GRAN ABSOLUTE AUTO 0.01 K/mm3 (0.00-0.10); IMMATURE GRAN PERCENT AUTO 0 % (0-1); LYMPHOCYTES ABSOLUTE AUTO 1.84 K/mm3 (0.84-5.20); LYMPHOCYTES PERCENT AUTO 24 % (21-46); MONOCYTES PERCENT AUTO 5 % (4-13); Mean Corpuscular HGB 30.8 pg (26.0-34.0); Mean Corpuscular HGB Conc 32.3 g/dL (31.5-36.5); Mean Corpuscular Volume 95 fL (80-100); Mean Platelet Volume 10.9 fL (9.1-12.4); NEUTROPHILS ABSOLUTE AUTO 5.19 K/mm3 (1.96-9.15); NEUTROPHILS PERCENT AUTO 67 % (41-73); Platelet Count 138 K/mm3 (150-400); RDW Coefficient Variation 14.1 % (11.7-14.2); RDW Standard Deviation 48.8 fL (35.1-46.3); White Blood Cell Count 7.79 K/mm3 (4.00-11.30)
[2017-12-31 20:30] LABS: Albumin, Blood 3.3 g/dL (3.4-5.0); Albumin/Globulin Ratio 0.6 (0.8-1.8); Bilirubin, Total 0.5 mg/dL (0.1-1.0); Bun/Creatinine Ratio 12.9 (12.0-20.0); Calcium, Blood 9.4 mg/dL (8.5-10.1); Creatinine, Blood 1.39 mg/dL (0.60-1.20); Globulin, Blood 5.1 g/dL (2.2-4.0); Potassium, Blood 4.6 mmol/L (3.5-5.5); Total Protein, Blood 8.4 g/dL (6.4-8.2); Troponin I 0.037 ng/mL (0.000-0.040)
[2017-12-31 21:36] LABS: Source, Urine Clean Catch
[2017-12-31 21:50] LABS: Bilirubin, Urine Neg (Neg); Blood, Urine 3+ (Neg); Glucose Qualitative, Urine Neg (Neg); Ketones, Urine Neg (Neg); Leukocyte Esterase, Urine Neg (Neg); Nitrite, Urine Neg (Neg); Protein, Urine 3+ (Neg); Urobilinogen, Urine NORM (Normal)
[2017-12-31 21:59] LABS: Appearance, Urine Clear (Clear); Color, Urine Yellow (P-Yellow)
[2017-12-31 22:00] LABS: Bacteria Few /hpf; Squamous Epithelial Cells Few /hpf (Few)
== END 2017-12-31 23:00 | disposition home or self-care (01) ==
LOC: ER 19:31
PROVIDERS: Physician Assistant
DX: R11.2 Nausea with vomiting, unspecified (principal); R10.13 Epigastric pain; I25.10 Atherosclerotic heart disease of native coronary artery without angina pectoris; E11.43 Type 2 diabetes mellitus with diabetic autonomic (poly)neuropathy; K31.84 Gastroparesis; K21.9 Gastro-esophageal reflux disease without esophagitis; Z79.899 Other long term (current) drug therapy; Z79.4 Long term (current) use of insulin; Z79.52 Long term (current) use of systemic steroids; Z98.1 Arthrodesis status
CPT/HCPCS: 36415; 71046; 80053; 81001; 84484; 85025; 93005; 93010; 96374; 96375; 99283; J1200; J2765; J3490; J7120

== ENCOUNTER 2018-02-27 12:59 | Emergency (ER) | payer OTHER ==
[~2018-02-27] VITALS: Ht 182.9 cm; Wt 111.1 kg
[2018-02-27 13:43] LABS: BASOPHILS ABSOLUTE AUTO 0.02 K/mm3 (0.00-0.23); BASOPHILS PERCENT AUTO 0 % (0-2); EOSINOPHILS ABSOLUTE AUTO 0.31 K/mm3 (0.00-0.68); EOSINOPHILS PERCENT AUTO 3 % (0-6); Hematocrit 34.4 % (37.0-53.0); Hemoglobin 11.8 g/dL (13.5-17.5); IMMATURE GRAN ABSOLUTE AUTO 0.02 K/mm3 (0.00-0.10); IMMATURE GRAN PERCENT AUTO 0 % (0-1); LYMPHOCYTES ABSOLUTE AUTO 1.39 K/mm3 (0.84-5.20); LYMPHOCYTES PERCENT AUTO 15 % (21-46); MONOCYTES ABSOLUTE AUTO 0.59 K/mm3 (0.16-1.47); MONOCYTES PERCENT AUTO 6 % (4-13); Mean Corpuscular HGB 30.8 pg (26.0-34.0); Mean Corpuscular HGB Conc 34.3 g/dL (31.5-36.5); Mean Corpuscular Volume 90 fL (80-100); NEUTROPHILS ABSOLUTE AUTO 6.91 K/mm3 (1.96-9.15); NEUTROPHILS PERCENT AUTO 75 % (41-73); Platelet Count 124 K/mm3 (150-400); RDW Coefficient Variation 15.1 % (11.7-14.2); RDW Standard Deviation 49.3 fL (35.1-46.3); Red Blood Cell Count 3.83 M/mm3 (4.30-5.90); White Blood Cell Count 9.24 K/mm3 (4.00-11.30)
[2018-02-27 15:09] LABS: Albumin, Blood 3.8 g/dL (3.4-5.0); Albumin/Globulin Ratio 0.9 (0.8-1.8); Bilirubin, Total 0.7 mg/dL (0.1-1.0); Bun/Creatinine Ratio 19.3 (12.0-20.0); Calcium, Blood 9.3 mg/dL (8.5-10.1); Creatinine, Blood 1.61 mg/dL (0.60-1.20); Globulin, Blood 4.2 g/dL (2.2-4.0); Potassium, Blood 4.9 mmol/L (3.5-5.5)
[2018-02-27] MEDS ORDERED: Percocet 5-3251 EACH PO (15:27)
[2018-02-27] MEDS ORDERED: Zofran Odt4 MG SL (15:27)
== END 2018-02-27 15:58 | disposition home or self-care (01) ==
LOC: ER 12:59
PROVIDERS: Emergency Medicine; Physician Assistant
DX: R21 Rash and other nonspecific skin eruption (principal); Z79.899 Other long term (current) drug therapy; Z79.4 Long term (current) use of insulin; Z79.2 Long term (current) use of antibiotics; E11.43 Type 2 diabetes mellitus with diabetic autonomic (poly)neuropathy; K31.84 Gastroparesis; F43.10 Post-traumatic stress disorder, unspecified
CPT/HCPCS: 36415; 80053; 85025; 96361; 96374; 99283-25; J2405; J7030

== ENCOUNTER 2018-03-01 18:07 | Inpatient (IN) | payer OTHER ==
[~2018-03-01] VITALS: Ht 182.9 cm; Wt 113.2 kg
[2018-03-01] MEDS ORDERED: ATOR40TA (18:24)
[2018-03-01 18:36] LABS: BASOPHILS ABSOLUTE AUTO 0.02 K/mm3 (0.00-0.23); BASOPHILS PERCENT AUTO 0 % (0-2); EOSINOPHILS ABSOLUTE AUTO 0.07 K/mm3 (0.00-0.68); EOSINOPHILS PERCENT AUTO 1 % (0-6); Hematocrit 32.9 % (37.0-53.0); Hemoglobin 11.6 g/dL (13.5-17.5); IMMATURE GRAN ABSOLUTE AUTO 0.05 K/mm3 (0.00-0.10); IMMATURE GRAN PERCENT AUTO 1 % (0-1); LYMPHOCYTES ABSOLUTE AUTO 2.35 K/mm3 (0.84-5.20); LYMPHOCYTES PERCENT AUTO 22 % (21-46); MONOCYTES ABSOLUTE AUTO 0.93 K/mm3 (0.16-1.47); MONOCYTES PERCENT AUTO 9 % (4-13); Mean Corpuscular HGB 30.7 pg (26.0-34.0); Mean Corpuscular HGB Conc 35.3 g/dL (31.5-36.5); Mean Platelet Volume 10.5 fL (9.1-12.4); NEUTROPHILS ABSOLUTE AUTO 7.23 K/mm3 (1.96-9.15); NEUTROPHILS PERCENT AUTO 68 % (41-73); Platelet Count 141 K/mm3 (150-400); RDW Coefficient Variation 14.9 % (11.7-14.2); RDW Standard Deviation 47.4 fL (35.1-46.3); Red Blood Cell Count 3.78 M/mm3 (4.30-5.90); White Blood Cell Count 10.65 K/mm3 (4.00-11.30)
[2018-03-01 18:38] LABS: Mean Corpuscular Volume 87 fL (80-100)
[2018-03-01 19:11] LABS: Albumin, Blood 3.6 g/dL (3.4-5.0); Albumin/Globulin Ratio 0.9 (0.8-1.8); Bilirubin, Total 0.7 mg/dL (0.1-1.0); Bun/Creatinine Ratio 21.2 (12.0-20.0); Calcium, Blood 8.8 mg/dL (8.5-10.1); Creatinine, Blood 1.7 mg/dL (0.60-1.20); Globulin, Blood 3.9 g/dL (2.2-4.0); Potassium, Blood 3.7 mmol/L (3.5-5.5); Total Protein, Blood 7.5 g/dL (6.4-8.2); Troponin I 0.133 ng/mL (0.000-0.040)
[2018-03-02 03:04] LABS: Hematocrit 32.2 % (37.0-53.0); Hemoglobin 11.2 g/dL (13.5-17.5); Mean Corpuscular HGB 30.9 pg (26.0-34.0); Mean Corpuscular HGB Conc 34.8 g/dL (31.5-36.5); Mean Corpuscular Volume 89 fL (80-100); Mean Platelet Volume 9.9 fL (9.1-12.4); Platelet Count 119 K/mm3 (150-400); RDW Coefficient Variation 14.7 % (11.7-14.2); RDW Standard Deviation 47.9 fL (35.1-46.3); Red Blood Cell Count 3.62 M/mm3 (4.30-5.90); White Blood Cell Count 9.76 K/mm3 (4.00-11.30)
[2018-03-02 03:30] LABS: Albumin, Blood 3.2 g/dL (3.4-5.0); Albumin/Globulin Ratio 0.8 (0.8-1.8); Bilirubin, Total 0.7 mg/dL (0.1-1.0); Bun/Creatinine Ratio 19.5 (12.0-20.0); Calcium, Blood 8.5 mg/dL (8.5-10.1); Creatinine, Blood 1.54 mg/dL (0.60-1.20); Potassium, Blood 3.6 mmol/L (3.5-5.5); Total Protein, Blood 7.2 g/dL (6.4-8.2); Troponin I 0.115 ng/mL (0.000-0.040)
[2018-03-02 03:43] LABS: Creatine Kinase MB 2.7 ng/mL (0.0-3.6); Creatine Kinase MB Index 0.6 (0.0-4.0)
[2018-03-02 11:04] LABS: Troponin I 0.104 ng/mL (0.000-0.040)
[2018-03-02 11:18] LABS: Creatine Kinase MB 2.2 ng/mL (0.0-3.6); Creatine Kinase MB Index 0.7 (0.0-4.0)
[2018-03-03 04:52] LABS: BASOPHILS ABSOLUTE AUTO 0.01 K/mm3 (0.00-0.23); BASOPHILS PERCENT AUTO 0 % (0-2); EOSINOPHILS ABSOLUTE AUTO 0.08 K/mm3 (0.00-0.68); EOSINOPHILS PERCENT AUTO 1 % (0-6); Hematocrit 30.4 % (37.0-53.0); Hemoglobin 10.7 g/dL (13.5-17.5); IMMATURE GRAN ABSOLUTE AUTO 0.01 K/mm3 (0.00-0.10); IMMATURE GRAN PERCENT AUTO 0 % (0-1); LYMPHOCYTES ABSOLUTE AUTO 1.71 K/mm3 (0.84-5.20); LYMPHOCYTES PERCENT AUTO 29 % (21-46); MONOCYTES ABSOLUTE AUTO 0.59 K/mm3 (0.16-1.47); MONOCYTES PERCENT AUTO 10 % (4-13); Mean Corpuscular HGB 31.1 pg (26.0-34.0); Mean Corpuscular HGB Conc 35.2 g/dL (31.5-36.5); Mean Corpuscular Volume 88 fL (80-100); Mean Platelet Volume 9.6 fL (9.1-12.4); NEUTROPHILS ABSOLUTE AUTO 3.59 K/mm3 (1.96-9.15); NEUTROPHILS PERCENT AUTO 60 % (41-73); Platelet Count 101 K/mm3 (150-400); RDW Coefficient Variation 14.6 % (11.7-14.2); RDW Standard Deviation 47.2 fL (35.1-46.3); Red Blood Cell Count 3.44 M/mm3 (4.30-5.90); White Blood Cell Count 5.99 K/mm3 (4.00-11.30)
[2018-03-03 05:33] LABS: Albumin, Blood 2.9 g/dL (3.4-5.0); Albumin/Globulin Ratio 0.8 (0.8-1.8); Bilirubin, Total 0.8 mg/dL (0.1-1.0); Bun/Creatinine Ratio 16.5 (12.0-20.0); Calcium, Blood 8.4 mg/dL (8.5-10.1); Creatinine, Blood 1.58 mg/dL (0.60-1.20); Globulin, Blood 3.8 g/dL (2.2-4.0); Potassium, Blood 3.4 mmol/L (3.5-5.5); Total Protein, Blood 6.7 g/dL (6.4-8.2)
[2018-03-04 05:46] LABS: BASOPHILS ABSOLUTE AUTO 0.02 K/mm3 (0.00-0.23); BASOPHILS PERCENT AUTO 0 % (0-2); EOSINOPHILS PERCENT AUTO 0 % (0-6); Hematocrit 33.7 % (37.0-53.0); Hemoglobin 11.8 g/dL (13.5-17.5); IMMATURE GRAN ABSOLUTE AUTO 0.06 K/mm3 (0.00-0.10); IMMATURE GRAN PERCENT AUTO 0 % (0-1); LYMPHOCYTES ABSOLUTE AUTO 0.69 K/mm3 (0.84-5.20); LYMPHOCYTES PERCENT AUTO 5 % (21-46); MONOCYTES ABSOLUTE AUTO 1.12 K/mm3 (0.16-1.47); MONOCYTES PERCENT AUTO 8 % (4-13); Mean Corpuscular HGB 30.3 pg (26.0-34.0); Mean Corpuscular Volume 86 fL (80-100); Mean Platelet Volume 10.6 fL (9.1-12.4); NEUTROPHILS ABSOLUTE AUTO 12.21 K/mm3 (1.96-9.15); NEUTROPHILS PERCENT AUTO 87 % (41-73); Platelet Count 123 K/mm3 (150-400); RDW Coefficient Variation 14.8 % (11.7-14.2); RDW Standard Deviation 46.5 fL (35.1-46.3)
[2018-03-04 06:03] LABS: Bun/Creatinine Ratio 19.9 (12.0-20.0); Calcium, Blood 8.5 mg/dL (8.5-10.1); Creatinine, Blood 1.51 mg/dL (0.60-1.20); Potassium, Blood 3.6 mmol/L (3.5-5.5)
[2018-03-05] MEDS ORDERED: DOCU100 PO (08:44)
== END 2018-03-05 10:20 | disposition home or self-care (01) | DRG 419 ==
LOC: ER 18:07 → MEDS 18:08 → ICUW 18:08 → MEDS 21:10 → ICUW 03-03 19:15 → SURS 03-04 11:00
PROVIDERS: Emergency Medicine; Hospitalist; Internal Medicine; Surgery
PROC: BF141ZZ Fluoroscopy of Gallbladder, Bile Ducts and Pancreatic Ducts using Low Osmolar Contrast (ICD-10-PCS; 2018-03-03)
PROC: 0FT44ZZ Resection of Gallbladder, Percutaneous Endoscopic Approach (ICD-10-PCS; principal; 2018-03-03 14:00)
DX: K81.0 Acute cholecystitis (principal); B19.20 Unspecified viral hepatitis C without hepatic coma; Z95.4 Presence of other heart-valve replacement; Z95.1 Presence of aortocoronary bypass graft; F43.10 Post-traumatic stress disorder, unspecified; M10.9 Gout, unspecified; K21.9 Gastro-esophageal reflux disease without esophagitis; N40.0 Benign prostatic hyperplasia without lower urinary tract symptoms; Z79.4 Long term (current) use of insulin; I25.10 Atherosclerotic heart disease of native coronary artery without angina pectoris; E11.65 Type 2 diabetes mellitus with hyperglycemia; E87.6 Hypokalemia; M19.90 Unspecified osteoarthritis, unspecified site
CPT/HCPCS: 36415; 71045; 71046; 74300; 76705; 80048; 80053; 82550; 82553; 82947; 83036; 83690; 83735; 84484; 85025; 85027; 93005; 93010; 93306; 94660; 96361; 96374; 96375; 99285-25; C1729; C9113; G0378; J0360; J0690; J1100; J1650; J1885; J2001; J2060; J2250; J2370; J2405; J2550; J2710; J2765; J3010; J3480; J7030; J7120

== ENCOUNTER → 2018-11-18 18:01 | Emergency (ER) | payer SELFPAY ==
[~2018-11-18 18:01] MED LIST changes: +Aspirin EC81 MG PO; +CARV25 PO; +CLOP75 PO; +DOCU100 PO; +Glucose4 GM PO; -INSDET100 SC; -INSU100I6 SC; +Loratadine10 MG PO; +NIFE60ER PO; +NOVOLOG FL100 UNIT/1 SC; -Omeprazole20 M1; +Omeprazole20 M1 PO; +Zantac150 MG PO
== END | disposition left against medical advice (07) ==
LOC: ER 18:01
DX: Z53.21 Procedure and treatment not carried out due to patient leaving prior to being seen by health care provider (principal)

== ENCOUNTER 2018-11-18 18:06 | Inpatient (IN) | payer MEDICARE, OTHER ==
[~2018-11-18] VITALS: Ht 180.3 cm; Wt 109.1 kg
[~2018-11-18 18:06] MED LIST changes: -Aspirin EC81 MG PO; -CARV25 PO; -CLOP75 PO; -FINA5 PO; -Glucose4 GM PO; -Loratadine10 MG PO; -Omeprazole20 M1 PO; -Prazosin HCl1 MG PO; -Zantac150 MG PO
[2018-11-18 19:08] LABS: BASOPHILS ABSOLUTE AUTO 0.02 K/mm3 (0.00-0.23); BASOPHILS PERCENT AUTO 0 % (0-2); EOSINOPHILS ABSOLUTE AUTO 0.04 K/mm3 (0.00-0.68); EOSINOPHILS PERCENT AUTO 0 % (0-6); Hematocrit 35.5 % (37.0-53.0); Hemoglobin 12.1 g/dL (13.5-17.5); IMMATURE GRAN ABSOLUTE AUTO 0.07 K/mm3 (0.00-0.10); IMMATURE GRAN PERCENT AUTO 1 % (0-1); LYMPHOCYTES ABSOLUTE AUTO 1.94 K/mm3 (0.84-5.20); LYMPHOCYTES PERCENT AUTO 15 % (21-46); MONOCYTES PERCENT AUTO 6 % (4-13); Mean Corpuscular HGB 31.3 pg (26.0-34.0); Mean Corpuscular HGB Conc 34.1 g/dL (31.5-36.5); Mean Corpuscular Volume 92 fL (80-100); Mean Platelet Volume 10.8 fL (9.1-12.4); NEUTROPHILS ABSOLUTE AUTO 9.95 K/mm3 (1.96-9.15); NEUTROPHILS PERCENT AUTO 78 % (41-73); Platelet Count 160 K/mm3 (150-400); RDW Coefficient Variation 14.4 % (11.7-14.2); RDW Standard Deviation 48.3 fL (35.1-46.3); Red Blood Cell Count 3.86 M/mm3 (4.30-5.90); White Blood Cell Count 12.82 K/mm3 (4.00-11.30)
[2018-11-18 19:24] LABS: Albumin, Blood 3.6 g/dL (3.4-5.0); Albumin/Globulin Ratio 0.8 (0.8-1.8); Bilirubin, Total 0.7 mg/dL (0.1-1.0); Bun/Creatinine Ratio 16.9 (12.0-20.0); Calcium, Blood 8.9 mg/dL (8.5-10.1); Creatinine, Blood 2.25 mg/dL (0.60-1.20); Globulin, Blood 4.5 g/dL (2.2-4.0); Potassium, Blood 4.4 mmol/L (3.5-5.5); Total Protein, Blood 8.1 g/dL (6.4-8.2); Troponin I 0.189 ng/mL (0.000-0.040)
[2018-11-18 20:21] LABS: Prothrombin Time Results 10.6 Sec (9.7-11.5)
[2018-11-18] MEDS ORDERED: Aspirin EC81 MG PO (20:31)
[2018-11-18] MEDS ORDERED: Glucose4 GM PO (20:32)
[2018-11-18] MEDS ORDERED: Loratadine10 MG PO (20:32)
[2018-11-18] MEDS ORDERED: SENN187 PO (20:33)
[2018-11-18] MEDS ORDERED: METO50ER PO (20:57)
[2018-11-18] MEDS ORDERED: FINA5 PO (20:57)
[2018-11-18] MEDS ORDERED: Omeprazole20 M1 PO (20:58)
[2018-11-18] MEDS ORDERED: TAMS.4ER PO (20:58)
[2018-11-18] MEDS ORDERED: Zantac150 MG PO (20:59)
[2018-11-18] MEDS ORDERED: Prazosin HCl1 MG PO (20:59)
[2018-11-19 01:27] LABS: Hematocrit 34.2 % (37.0-53.0); Hemoglobin 11.6 g/dL (13.5-17.5)
--- NOTE | 2018-11-19 02:51 | NUR ---
ADMISSION: PATIENT ARRIVED TO [facility] AT APPROX 2200 VIA GURNEY FROM ER. PATIENT UNABLE TO GET TO BED, SLIDE SHEET TRANSFER. PATIENT ALERT AND ORIENTED X4, SKIN C/D/I, ADMISSION COMPLETED AND PATIENT ORIENTED TO ROOM, CALL LIGHT AND HOSPITAL POLICIES. PATIENT C/O RLQ ABDOMINAL PAIN AND BURNING SENSATION, 2225 MEDICATION ADMINISTERED PER MD ORDER. 2240 PATIENT STATED THAT PAIN MEDICATION BARELY HAD ANY EFFECT, 224 PATIENT ASLEEP AND SNORING. PATIENT CRYING AND STATING HE CANT TAKE THE PAIN ANYMORE WHEN STAFF IS IN THE ROOM, PATIENT SLEEPING AND QUIET WHEN STAFF IS NOT IN THE ROOM.
[2018-11-19 03:19] LABS: Stool Occult Blood Guaiac 1 Neg (Neg)
[2018-11-19 04:19] LABS: Adenovirus F 40/41 Not Detected (NOT DETECT); Astrovirus Not Detected (NOT DETECT); Campylobacter Sp Not Detected (NOT DETECT); Cryptosporidium Not Detected (NOT DETECT); Cyclospora Cayetanensis Not Detected (NOT DETECT); E. Coli O157 Not Detected (NOT DETECT); Entamoeba Histolytica Not Detected (NOT DETECT); Enteroaggregative E. coli-EAEC Not Detected (NOT DETECT); Enteropathogenic E. coli-EPEC Not Detected (NOT DETECT); Enterotoxigenic E. coli-ETEC Not Detected (NOT DETECT); Giardia Lamblia Not Detected (NOT DETECT); Norovirus GI/GII Not Detected (NOT DETECT); Plesiomonas Shigelloides Not Detected (NOT DETECT); Rotavirus A Not Detected (NOT DETECT); Salmonella Sp Not Detected (NOT DETECT); Sapovirus Not Detected (NOT DETECT); Shiga Toxin-prod E. coli-STEC Not Detected (NOT DETECT); Shigella/Enteroin E. coli-EIEC Not Detected (NOT DETECT); Vibrio Cholerae Not Detected (NOT DETECT); Vibrio Sp Not Detected (NOT DETECT); Yersinia Enterocolitica Not Detected (NOT DETECT)
[2018-11-19 05:10] LABS: Hematocrit 34.1 % (37.0-53.0); Hemoglobin 11.8 g/dL (13.5-17.5); Mean Corpuscular HGB 31.7 pg (26.0-34.0); Mean Corpuscular HGB Conc 34.6 g/dL (31.5-36.5); Mean Corpuscular Volume 92 fL (80-100); Mean Platelet Volume 10.2 fL (9.1-12.4); Platelet Count 144 K/mm3 (150-400); RDW Coefficient Variation 14.3 % (11.7-14.2); Red Blood Cell Count 3.72 M/mm3 (4.30-5.90); White Blood Cell Count 11.42 K/mm3 (4.00-11.30)
[2018-11-19 05:26] LABS: Bun/Creatinine Ratio 18.1 (12.0-20.0); Calcium, Blood 8.8 mg/dL (8.5-10.1); Creatinine, Blood 2.32 mg/dL (0.60-1.20); Potassium, Blood 4.2 mmol/L (3.5-5.5)
[2018-11-19 05:31] LABS: Source, Urine Catheter
[2018-11-19 05:36] LABS: Bilirubin, Urine Neg (Neg); Blood, Urine 3+ (Neg); Glucose Qualitative, Urine 2+ (Neg); Ketones, Urine Neg (Neg); Leukocyte Esterase, Urine Neg (Neg); Nitrite, Urine Neg (Neg); Protein, Urine 4+ (Neg); Specific Gravity, Urine 1.015 (1.003-1.022); Urobilinogen, Urine NORM (Normal)
[2018-11-19 05:53] LABS: Appearance, Urine Clear (Clear); Color, Urine Yellow (P-Yellow)
[2018-11-19 05:55] LABS: Bacteria Not Seen /hpf; Squamous Epithelial Cells Few /hpf (Few); White Blood Cells, Urine Rare /hpf (0-5)
--- NOTE | 2018-11-19 06:20 | NUR ---
SHIFT SUMMARY: PATIENT CONTINUED TO HAVE PAIN NOT WELL CONTROLLED WITH FENTANYL, MD NOTIFIED, ORDERS RECIEVED, NEW PAIN MEDICATION GIVEN PER MD ORDERS, PATIENT SLEEPING. PROTONIX GIVEN EARLY D/T SEVERE BURNING PAIN IN ABDOMINAL RLQ. BP STABLE AFTER PAIN MEDICATIONS, NO OTHER ISSUES NOTED, CALL LIGHT WITHIN REACH, BED LOW AND LOCKED WITH ALARM ON.
--- NOTE | 2018-11-19 07:25 | NUR ---
AM ASSESSMENT: Pt wailing in pain in his room, stating "I need something for pain! Please!!" Pt then starts to cough and gag as he is crying. Informed pt I would medicated him per orders. VS taken and BP very elevated. LS clear. HR reg. BT positive. Abd soft but pt states very tender, especially in R upper quadrant. Pulses palp. Medicated with Fentanyl per orders. Pt requesting dilaudid but not within the time frame for this. Will treat per orders. Right after medication given pt states his pain decreased to a 4/10. Will continue to monitor with call light in reach.
--- NOTE | 2018-11-19 11:26 | NUR ---
Echocardiogram completed.
--- NOTE | 2018-11-19 19:08 | NUR ---
shift summary: Pt resting in bed at this time. Dozing on and off. When he is woken pt alexandre and states that he is in pain then dozes back off at times. Pt has been C/O extreme pain in abd but when treated with dilaudid brings his pain down to a 4-5/10 and pt then goes to sleep. Pt had to be placed on 2L NC when he dozed off after narcotics given. CT of abd was ordered and obtained this afternoon. Cariologist saw Pt today and orders adjusted for BP control. See emar and orders. No other changes this shift. Pt continues to have severe abd pain when not asleep, and Nausia and gagging when he is craying. Report was given to night RN and care was transfered.
--- NOTE | 2018-11-20 02:39 | NUR ---
SHIFT SUMMARY: PATIENT STILL TEARFULL AND LOUDLY SOBBING WHEN STAFF ENTER ROOM STATING HE CANT HANDLE THE PAIN ANYMORE. PATIENT VERY IMPATIENT WITH STAFF AND DEMANDING THEY GET HIS DRINK BEFORE THEY FINISH THIER TASKS IN HIS ROOM. PATIENT ANGRY AT THE FREQUENT BLOOD SUGARS, REFUSED THE 0000 CBG. PATIENT APPEARS TO BE RETCHING AND VOMITING BUT UPON INSPECTION ONLY MUCUS IS SEEN IN HIS EMESIS BAG, WHEN ASKED IF HE IS SPITTING UP MUCUS FROM HIS LUNGS PATIENT STATES HE IS. ALL OTHER VSS, CALL LIGHT WITHIN REACH, BP GOOD WHEN PATIENT IS SLEEPING AND RELAXED.
[2018-11-20 04:33] LABS: BASOPHILS ABSOLUTE AUTO 0.01 K/mm3 (0.00-0.23); BASOPHILS PERCENT AUTO 0 % (0-2); EOSINOPHILS ABSOLUTE AUTO 0.04 K/mm3 (0.00-0.68); EOSINOPHILS PERCENT AUTO 1 % (0-6); Hematocrit 30.5 % (37.0-53.0); Hemoglobin 10.1 g/dL (13.5-17.5); IMMATURE GRAN ABSOLUTE AUTO 0.02 K/mm3 (0.00-0.10); IMMATURE GRAN PERCENT AUTO 0 % (0-1); LYMPHOCYTES ABSOLUTE AUTO 1.57 K/mm3 (0.84-5.20); LYMPHOCYTES PERCENT AUTO 21 % (21-46); MONOCYTES ABSOLUTE AUTO 0.54 K/mm3 (0.16-1.47); MONOCYTES PERCENT AUTO 7 % (4-13); Mean Corpuscular HGB 30.9 pg (26.0-34.0); Mean Corpuscular HGB Conc 33.1 g/dL (31.5-36.5); Mean Corpuscular Volume 93 fL (80-100); NEUTROPHILS ABSOLUTE AUTO 5.44 K/mm3 (1.96-9.15); NEUTROPHILS PERCENT AUTO 71 % (41-73); Platelet Count 131 K/mm3 (150-400); RDW Standard Deviation 47.8 fL (35.1-46.3); Red Blood Cell Count 3.27 M/mm3 (4.30-5.90); White Blood Cell Count 7.62 K/mm3 (4.00-11.30)
[2018-11-20 04:55] LABS: Bun/Creatinine Ratio 17.7 (12.0-20.0); Calcium, Blood 8.5 mg/dL (8.5-10.1); Creatinine, Blood 2.2 mg/dL (0.60-1.20)
--- NOTE | 2018-11-20 07:57 | NUR ---
The pt appeared to be resting comfortably when Sydni Collins Rn, and I entered the room for bedside handoff. He was quiet, eyes closed, and lying still. Upon our entrance, he spoke with us and then started crying loudly, holding his right lower quadrant, stating that he was having pain and saying, "oh why can't they find out what is causing this?" He is lying on his right side, and vital signs were taken and documented. I stated that he probably didn't want to eat at this time, due to the pain, which he affirmed.
--- NOTE | 2018-11-20 08:04 | NUR ---
The pt appears to be sleeping in the right side lying position. Eyes are closed, and respirations are even, unlabored.
--- NOTE | 2018-11-20 08:45 | NUR ---
Pt intermittently crying and pausing to talk with me. Affect is angry, defensive, raised voice in agitation at times. States, "I don't feel like talking right now" during my assessment and questions regarding his pain, condition, bowel habits. Also states, "if they don't give me some answers I'm just going to check myself out of the hospital, because they did the CT yesterday and I still don't have any answers." Explained that the hospitalist will be into see him, as he is rounding at this time.
--- NOTE | 2018-11-20 08:50 | NUR ---
Ambulatory to the bathroom for what he thought was a bowel movement; He passed some gas and voided light yellow urine. His walking is impulsive, rushed, and he also c/o feeling lightheaded.
[2018-11-20] MEDS ORDERED: INSULANPEN SC ×2 (09:47→09:48)
[2018-11-20] MEDS ORDERED: CARV25 PO (09:48)
[2018-11-20] MEDS ORDERED: CLOP75 PO (09:49)
--- NOTE | 2018-11-20 11:09 | NUR ---
Spoke at length with the pt's . She states that the pt had been constipated when all of his symptoms started, passing a very hard dry green/black stool at the [facility]. The pt tells me that he has not had any regular bowel movements. states that the pt has had multiple surgeries. The pt states that this pain he is having is the pain he has struggled with for 12 years. Normally he is sedentary at home, his states that he smokes marijuana "all day long, all the time". Discussed the possiblity of microscopic ischemic changes to small blood vessels as a result of smoking. states she doubts that the pt would be willing to stop smoking, since he has been a smoker for 40+ years, but perhaps would be willing to cut back. Discussed also the bowel care program which could be used at home with Miralax and docusate sodium to relieve his constipation.
== END 2018-11-20 13:21 | disposition home or self-care (01) | DRG 281 ==
LOC: ER 18:06 → PCU 20:37 → ERHOLD 20:37 → PCU 21:46
PROVIDERS: Emergency Medicine; Hospitalist; Nurse Practitioner Acute Care; ADMIT Internal Medicine
DX: I16.0 Hypertensive urgency (principal); I21.A1 Myocardial infarction type 2; N17.9 Acute kidney failure, unspecified; E87.2 Acidosis; I25.10 Atherosclerotic heart disease of native coronary artery without angina pectoris; B19.20 Unspecified viral hepatitis C without hepatic coma; M10.9 Gout, unspecified; Z95.5 Presence of coronary angioplasty implant and graft; E11.22 Type 2 diabetes mellitus with diabetic chronic kidney disease; I25.2 Old myocardial infarction; F43.10 Post-traumatic stress disorder, unspecified; K21.9 Gastro-esophageal reflux disease without esophagitis; I12.9 Hypertensive chronic kidney disease with stage 1 through stage 4 chronic kidney disease, or unspecified chronic kidney disease; G47.33 Obstructive sleep apnea (adult) (pediatric); Z87.891 Personal history of nicotine dependence; N40.0 Benign prostatic hyperplasia without lower urinary tract symptoms; E86.9 Volume depletion, unspecified; Z72.3 Lack of physical exercise; D69.6 Thrombocytopenia, unspecified; Z79.84 Long term (current) use of oral hypoglycemic drugs; Z79.82 Long term (current) use of aspirin; N18.3 Chronic kidney disease, stage 3 (moderate)
CPT/HCPCS: 36415; 71045; 74176; 80048; 80053; 81001; 82272; 82550; 82947; 83735; 83880; 84300; 84484; 85014; 85018; 85025; 85027; 85610; 85730; 86850; 86870; 86900; 86901; 86905; 87507; 93005; 93010; 93306; 96374; 96375; 96376; 99285-25; C9113; J0360; J1170; J1644; J2405; J3010; J7030

== ENCOUNTER 2018-12-10 16:12 | Inpatient (IN) | payer MEDICARE ==
[~2018-12-10] VITALS: Ht 180.3 cm; Wt 115.8 kg
[~2018-12-10 16:12] MED LIST changes: +Aspirin EC81 MG PO; +CARV25 PO; +CLOP75 PO; +FINA5 PO; +GABA400 PO; +Glucose4 GM PO; +Loratadine10 MG PO; +Omeprazole20 M1 PO; +PRAZ1 PO; +Zantac150 MG PO
[2018-12-10] MEDS ORDERED: ALBU2.5V5 NEB (16:34)
[2018-12-10] MEDS ORDERED: GENTEAL TEARS 015 ML BOTHEYES (16:36)
[2018-12-10] MEDS ORDERED: DIPH50 PO (16:36)
[2018-12-10] MEDS ORDERED: HYDR10 PO (16:57)
[2018-12-10] MEDS ORDERED: ONDA4 PO (17:04)
[2018-12-10] MEDS ORDERED: LORA.5 PO (17:58)
[2018-12-11 00:54] LABS: Source, Urine Catheter
[2018-12-11 00:57] LABS: Bilirubin, Urine Neg (Neg); Blood, Urine 4+ (Neg); Glucose Qualitative, Urine Neg (Neg); Ketones, Urine Neg (Neg); Leukocyte Esterase, Urine 1+ (Neg); Nitrite, Urine Neg (Neg); Protein, Urine 3+ (Neg); Urobilinogen, Urine NORM (Normal)
[2018-12-11 00:59] LABS: Appearance, Urine Clear (Clear); Color, Urine Yellow (P-Yellow)
[2018-12-11 01:02] LABS: Bacteria Mod /hpf; Squamous Epithelial Cells Not Seen /hpf (Few)
[2018-12-11] MEDS ORDERED: LACT PO (04:38)
[2018-12-11] MEDS ORDERED: Flonase 0.05% N16 GM (04:41)
[2018-12-11] MEDS ORDERED: Flonase 0.05% N16 GM INH (04:42)
--- NOTE | 2018-12-11 05:58 | NUR ---
END OF SHIFT SUMMARY ASSUMED CARE OF PT FROM ED @2155. PT TO ROOM VIAQ STRETCHER. PT COMPLAINING OF R SIDED CP. TYLENOL GIVEN PER EMAR. DR HALE CALLED REGARDING PAIN, DR COLMENARES TO CONTINUE ON THE TYLENOL, PLACES ORDER FOR NITRO SL IF TYLENOL DOES NOT SUCCESFULLY LOWER PAIN. PT HAD A VERY DIFFICULT TIME STAYING AWAKE FOR ADMISSION HX/ASSESMENT. PT HAS BEEN SLEEPING HEAVILY T/O SHIFT. PT'S INITIAL CBG UPON ADMITTING TO UNIT WAS 43, PT GIVEN OJ X 2 CARTONS, SANDWHICH, AND TAPIOCA X 2. CBG CHECKED AGAIN AND IT WAS 195. WILL BE CHECKED AGAIN WITH AM LAB DRAW. PT HAS BRITO UPON ADMISSION, NOT CHANGED OUT DUE TO IT BEING PLAC[facility] BY [facility] THAT DAY. URINE SAMPLE COLLECTED FROM TUBING AND HAS BEEN SENT TO LAB. PTS ASSESMENT INITALLY INDICATED NEED FOR MRSA CLEARANCE/CONTACT PRECAUTIONS. UPON FURTHER INVESTIGATION AND CALL FROM [employer], PT HAD BEEN CLEARED FROM MRSA ON A PREV HOSPITALIZATION. MRSA SWABS CANCELLED, PT REMOVED FROM ISOLATION. BNP 497, TROP 0.073, CREAT 2.4 UPON ADMISSION. PER [facility], POTASSIUM 5.8, DR PELLETIER, PT WILL BE DIURESING THIS DAY SHIFT. PT HAS REMAINED ON 4L NC THIS SHIFT. PT C/O OF CP AGAIN THIS EVENING BUT THEN FALLS ASLEEP UPON TALKING TO NURSE ABOUT PAIN. PT TO HAVE ECHO THIS AM. PT HAS BEEN PLACED ON 1500 ML FLUID RESTRICTION. CALL LIGHT WITHIN REACH. WILL CONTINUE TO MONITOR PT UNTIL SHIFT CHANGE.
[2018-12-11 07:02] LABS: Hematocrit 29.1 % (37.0-53.0); Hemoglobin 9.6 g/dL (13.5-17.5); Mean Corpuscular HGB 30.9 pg (26.0-34.0); Mean Corpuscular Volume 94 fL (80-100); Mean Platelet Volume 10.2 fL (9.1-12.4); Platelet Count 160 K/mm3 (150-400); RDW Coefficient Variation 14.6 % (11.7-14.2); Red Blood Cell Count 3.11 M/mm3 (4.30-5.90); White Blood Cell Count 4.85 K/mm3 (4.00-11.30)
[2018-12-11 07:28] LABS: Albumin, Blood 2.8 g/dL (3.4-5.0); Albumin/Globulin Ratio 0.7 (0.8-1.8); Bilirubin, Total 0.3 mg/dL (0.1-1.0); Bun/Creatinine Ratio 15.9 (12.0-20.0); Calcium, Blood 8.8 mg/dL (8.5-10.1); Creatinine, Blood 2.45 mg/dL (0.60-1.20); Magnesium, Blood 2.3 mg/dL (1.6-2.4); Phosphorus, Blood 4.9 mg/dL (2.5-4.9); Total Protein, Blood 6.8 g/dL (6.4-8.2)
--- NOTE | 2018-12-11 10:27 | NUR ---
partial echocardiogram complete
--- NOTE | 2018-12-11 12:31 | NUR ---
Patient is lying in bed and alert with spouse, Ai, bedside. Therapeutic alliance is easily established and patient openly shares about the struggles with depression and anxiety. I listen emapthically, provide pastoral risk reduction counselor, provide inspirational reading material and provide prayer. Patient responded well and showed signs of restored mora and hope and voiced appreciation for the visit.
--- NOTE | 2018-12-11 18:42 | NUR ---
SHIFT SUMMARY PT ALERT AND ORIENTED. VS STABLE. 02 SATS HAVE REMAINED ABOVE 90% ON 2L NC. PT DENIES ANY PAIN. BRITO CATHETER HAS BEEN REMOVED AND PT HAS VOIDED SINCE WITHOUT ANY PROBLEMS. PT ABLE TO AMBULATE TO BATHROOM NEEDED WITH SBA. WILL CONTINUE TO MONITOR AND REPORT TO ONCOMING RN. CALL LIGHT IN REACH.
--- NOTE | 2018-12-11 23:03 | NUR ---
PROVIDER NOTIFIED SR HALE CALLED REGARDING PT STATUS. TOLD THAT PT HAS NOT BEEN EXPERIENCING THE CP HE PRESENTED WITH SINCE LAST NOC SHIFT. VSS. AND THAT PT IS BEING DIURESED. ASKED IF STATUS COULD BE CHANGED TO MEDICAL STATUS. STATES THIS DECISION SHOULD BE MADE BY AM FOLLOWING PATIENTS CARE.
[2018-12-12 03:36] LABS: Hematocrit 29.4 % (37.0-53.0); Hemoglobin 9.8 g/dL (13.5-17.5); Mean Corpuscular HGB 31.9 pg (26.0-34.0); Mean Corpuscular HGB Conc 33.3 g/dL (31.5-36.5); Mean Corpuscular Volume 96 fL (80-100); Mean Platelet Volume 9.6 fL (9.1-12.4); Platelet Count 161 K/mm3 (150-400); RDW Coefficient Variation 14.6 % (11.7-14.2); RDW Standard Deviation 50.8 fL (35.1-46.3); Red Blood Cell Count 3.07 M/mm3 (4.30-5.90); White Blood Cell Count 5.58 K/mm3 (4.00-11.30)
[2018-12-12 03:51] LABS: Albumin, Blood 2.8 g/dL (3.4-5.0); Anion Gap 7 mmol/L (6-16); Blood Urea Nitrogen 38 mg/dL (8-24); Bun/Creatinine Ratio 15.6 (12.0-20.0); CO2, Blood 25 mmol/L (21-32); Calcium, Blood 8.7 mg/dL (8.5-10.1); Chloride, Blood 109 mmol/L (98-108); Creatinine, Blood 2.44 mg/dL (0.60-1.20); Glomerular Filtration Rate 28 (60-); Glucose, Blood 145 mg/dL (70-99); Phosphorus, Blood 3.5 mg/dL (2.5-4.9); Potassium, Blood 4.2 mmol/L (3.5-5.5); Sodium, Blood 141 mmol/L (136-145)
--- NOTE | 2018-12-12 05:04 | NUR ---
END OF SHIFT SUMMARY ASSUMED CARE OF PT @1900. PT ALERT AND ORIENTED, DENIES HAVING CHEST PAIN ALL DAY AND HAS CONTINUED TO DO SO THIS SHIFT. LUNGS HAVE REMAINED CLEAR. VSS THIS SHIFT BESIDE BP. BP HAS RISEN TO 170 SYSTOLICALLY. APRESOLINE PO GIVEN PER EMAR. CURENTLY WAITING FOR MEDICATION TO TAKE EFFECT TO REASSESS. CBG HAS REMAINED STABLE THIS SHIFT. PT HAD 5 BEAT RUN OF VTACH, ASYMPTOMATIC, NO INTERVENTION. PT HAS REQUIRED VERY LITTLE FROM STAFF THIS SHIFT. THIS NURSE HAS BEEN ABLE TO SIT DOWN WITH PATIENT AND TALK REGARDING CURRENT HEALTH, THINGS HE NEEDS TO DO TO BETTER HIS HEALTH, PSYCHOCOCIAL ASPECTS OF HIS PAST AND THEIR AFFECTS ON HIS HEALTH, ETC.
--- NOTE | 2018-12-12 09:00 | NUR ---
ASSUMED CARE PT ALERT AND ORIENTED. VS STABLE. BP ELEVATED. DR. MOISE NOTIFIED AND STATES SHE WILL PUT NEW ORDERS IN. PT ON 2L NC WITH SATS >90%. PT DENIES ANY PAIN. WILL CONTINUE TO MONITOR,.
--- NOTE | 2018-12-12 12:07 | NUR ---
BLOOD PRESSURE STILL ELEVATED. PT MEDICATED PER EMAR. WILL RECHECK BP.
--- NOTE | 2018-12-12 17:00 | NUR ---
REPORT CALLED TO MEDICAL FLOOR RN. PT TAKEN UP BY WHEELCHAIR
--- NOTE | 2018-12-12 17:19 | NUR ---
PT TRANSFERRED FROM PCU, SITTING UP AT THE EDGE OF THE BED EATING HIS DINNER, PT IS ALERT AND ORIENTED AND PLEASANT, ORIENTED PT TO THE ROOM AND CALL SYSTEM
--- NOTE | 2018-12-12 18:17 | NUR ---
SUMMARY PT SITTING UP IN BED WATCHING TV, JUST HAD A SHOWER AFTER DINNER, PT INDEPENDENT IN THE ROOM, DENIES PAIN OR SOB, WILL CONT TO MONITOR
--- NOTE | 2018-12-13 04:18 | NUR ---
SHIFT SUMMARY: PT IS ALERT AND ORIENTED. PT IS CALM AND COOPERATIVE WITH CARE. PT CALLS APPROPRIATELY. PT IS INDEPENDENT IN THE ROOM. PT EXPRESSED CONCERN ABOUT ELEVATED BP, MUCH IMPROVED OVERNIGHT. PT DENIES PAIN, NAUSEA, VOMITING, AND SOB. PT SLEPT INTERMITTENTLY THROUGHOUT THE NIGHT. NO ACUTE CHANGES OR COMPLICATIONS THIS SHIFT. BED IN LOW POSITION, CALL LIGHT WITHIN REACH. WILL REPORT TO DAY NURSE.
[2018-12-13 05:32] LABS: Anion Gap 4 mmol/L (6-16); Blood Urea Nitrogen 43 mg/dL (8-24); Bun/Creatinine Ratio 16.2 (12.0-20.0); CO2, Blood 27 mmol/L (21-32); Calcium, Blood 9.1 mg/dL (8.5-10.1); Chloride, Blood 107 mmol/L (98-108); Creatinine, Blood 2.66 mg/dL (0.60-1.20); Glomerular Filtration Rate 26 (60-); Glucose, Blood 142 mg/dL (70-99); Phosphorus, Blood 4.9 mg/dL (2.5-4.9); Potassium, Blood 4.5 mmol/L (3.5-5.5); Sodium, Blood 138 mmol/L (136-145)
[2018-12-13] MEDS ORDERED: HYDRA25 PO (11:51)
[2018-12-13] MEDS ORDERED: CLOP75 PO (11:55)
[2018-12-13] MEDS ORDERED: FURO20 PO (11:56)
--- NOTE | 2018-12-13 14:39 | NUR ---
DISCHARGE NOTE: PT WAS ALERT, ORIENTED, CALM AND COOPERATIVE IN ROOM. PT RECEIVED DISCHARGE EDUCATION AND DISCHARGE INSTRUCTIONS WITH S/O IN ROOM. PT STATES UNDERSTANDING OF DISCHARGE INSTRUCTIONS. IV REMOVED PRIOR TO DISCHARGE. WHEELCHAIR PROVIDED FOR PT, PT DENIED NEED AND SELF-AMBULATED TO CAR. PT APPEARED STEADY DURING AMBULATION. PRESCRIPTIONS FAXED TO [facility].
== END 2018-12-13 12:31 | disposition home or self-care (01) | DRG 280 ==
LOC: ER 16:12 → PCU 17:32 → MEDS 12-12 17:10 → ENPENDDIS 12-13 10:59 → MEDS 12-13 12:31
PROVIDERS: ADMIT Internal Medicine
DX: I13.0 Hypertensive heart and chronic kidney disease with heart failure and stage 1 through stage 4 chronic kidney disease, or unspecified chronic kidney disease (principal); I50.31 Acute diastolic (congestive) heart failure; I21.A1 Myocardial infarction type 2; J96.01 Acute respiratory failure with hypoxia; I47.2 Ventricular tachycardia; N17.9 Acute kidney failure, unspecified; N18.3 Chronic kidney disease, stage 3 (moderate); E11.22 Type 2 diabetes mellitus with diabetic chronic kidney disease; E87.5 Hyperkalemia; K21.9 Gastro-esophageal reflux disease without esophagitis; N40.0 Benign prostatic hyperplasia without lower urinary tract symptoms; G47.33 Obstructive sleep apnea (adult) (pediatric); M10.9 Gout, unspecified; E66.9 Obesity, unspecified; B19.20 Unspecified viral hepatitis C without hepatic coma; I25.10 Atherosclerotic heart disease of native coronary artery without angina pectoris; Z95.1 Presence of aortocoronary bypass graft; Z95.5 Presence of coronary angioplasty implant and graft; F43.10 Post-traumatic stress disorder, unspecified; Z79.4 Long term (current) use of insulin; Z87.891 Personal history of nicotine dependence; I25.2 Old myocardial infarction; Z68.34 Body mass index [BMI] 34.0-34.9, adult
CPT/HCPCS: 36415; 71046; 80053; 80069; 81001; 82947; 83735; 83880; 84100; 84443; 84484; 85027; 93005; 93010; 93308; 93321; 93971; 96374; 96375; 99285-25; J0360; J1650; J1940; J3010

== ENCOUNTER 2018-12-15 12:56 | Observation (INO) | payer MEDICARE ==
[~2018-12-15] VITALS: Ht 182.9 cm; Wt 115.1 kg
[~2018-12-15 12:56] MED LIST changes: +ALBU2.5V5 NEB; +DIPH50 PO; +FURO20 PO; +Flonase 0.05% N16 GM INH; +GENTEAL TEARS 015 ML BOTHEYES; +HYDR10 PO; +HYDRA25 PO; +LACT PO
[2018-12-15 13:31] LABS: BASOPHILS ABSOLUTE AUTO 0.02 K/mm3 (0.00-0.23); BASOPHILS PERCENT AUTO 0 % (0-2); EOSINOPHILS ABSOLUTE AUTO 0.63 K/mm3 (0.00-0.68); EOSINOPHILS PERCENT AUTO 8 % (0-6); Hematocrit 31.5 % (37.0-53.0); Hemoglobin 10.4 g/dL (13.5-17.5); IMMATURE GRAN ABSOLUTE AUTO 0.02 K/mm3 (0.00-0.10); IMMATURE GRAN PERCENT AUTO 0 % (0-1); LYMPHOCYTES PERCENT AUTO 27 % (21-46); MONOCYTES ABSOLUTE AUTO 0.67 K/mm3 (0.16-1.47); MONOCYTES PERCENT AUTO 9 % (4-13); Mean Corpuscular HGB 31.9 pg (26.0-34.0); Mean Corpuscular Volume 97 fL (80-100); Mean Platelet Volume 10.7 fL (9.1-12.4); NEUTROPHILS ABSOLUTE AUTO 4.14 K/mm3 (1.96-9.15); NEUTROPHILS PERCENT AUTO 55 % (41-73); Platelet Count 173 K/mm3 (150-400); RDW Coefficient Variation 14.6 % (11.7-14.2); RDW Standard Deviation 51.8 fL (35.1-46.3); Red Blood Cell Count 3.26 M/mm3 (4.30-5.90); White Blood Cell Count 7.48 K/mm3 (4.00-11.30)
[2018-12-15 13:49] LABS: Albumin, Blood 3.2 g/dL (3.4-5.0); Albumin/Globulin Ratio 0.7 (0.8-1.8); Bilirubin, Total 0.2 mg/dL (0.1-1.0); Bun/Creatinine Ratio 17.8 (12.0-20.0); Calcium, Blood 8.4 mg/dL (8.5-10.1); Creatinine, Blood 3.37 mg/dL (0.60-1.20); Globulin, Blood 4.3 g/dL (2.2-4.0); Potassium, Blood 5.2 mmol/L (3.5-5.5); Total Protein, Blood 7.5 g/dL (6.4-8.2); Troponin I 0.059 ng/mL (0.000-0.040)
--- NOTE | 2018-12-15 17:50 | NUR ---
ADMIT/SHIFT SUMMARY: ASSUMED CARE OF PT AT 1600, RECEVIED REPORT FROM LV SCHWARTZ RN. PT CAME UP TO UNIT VIA STRETCHER. PT TRANFERD TO BED INP, APPERED TO BE STEADY ON HIS FEET. PT IS ALERT AND ORIENTED X3.PT STATES THAT HE CAN BECOME DIZZY AND LIGHTHEADED. PT ALSO CLAIMS THAT HE FELL AT HOME IN THE SHOWER A FEW DAYS AGO, COULD NOT GIVE AN EXACT DATE. PT WAS INSTRUCTED TO USE URINAL IN BED AND IF HE NEEDED TO AMBULATE TO CALL FOR ASSISTANCE. PT IS EXPERIENCING DYSPNEA WITH ACTIVITY, AND IS CURRENTLY ON 3L OF 02 VIA [place] WITH 02 STAURATIONS ABOVE 90%. WHILE DOING MED RECONCILIATION, PT WAS BECOMING FRUSTRATED AND STATED " I DO KNOW WHAT ALL I TAKE, I TOOK ALL MY MEDS PERCRIBED, MORNING MEDS AT 0900 AND NIGHT MEDS AT 900 PM" HE CROSSED HIS ARMS AND BEGAN TO SIGH AND BREATH HARDER. PT WAS INSTRUCTED TO BRING IN HOME MEDS. PT WAS RECENTLY DISCHARGED TWO DAYS AGO AND MEDS ARE UP TO DATE. PT WAS ALSO UPSET THAT HE HAD NOT EATEN IN A WHILE AND HE STATED " I DO NOT SEE WHY YOU CANT JUST CALL THE KITCHEN AND GET ME A TRAY NOW" PT WAS THEN TOLD THAT TRAYS COME AT SCHEDULED TIMES AND THAT HE COULD HAVE A SNACK FROM THE [facility]. HE REFUSED ALL SNACKS. AFTER HIS TRAY WAS BROUGHT TO HIM, HE APOLOGIZED FOR HIS BEHAVIOR AND STATED THAT HE WOULD TRY AND BE MORE UNDERSTANDABLE. PT COMPLAINED OF CHRONIC NECK, HEAD AND UPPER BACK PAIN. WHEN ASKED WHAT HE TAKES AT HOME HE STATED " NOTHING". AFTER REVEWING THE EMAR PT WAS MEDICATED PERSCRIBED. WHEN ATTEMPTING TO REASSESS PAIN, PT WAS SLEEPING. WILL CONTINUE TO MONITOR PT STATUS UNTIL REPORT IS GIVEN TO ONCOMING SHIFT.
--- NOTE | 2018-12-16 01:34 | NUR ---
BLOOD SUGAR OF 41 PATIENT REQUESTED STAFF TO CHECK HIS BLOOD SUGAR. HE STATED HE FELT LIKE IT WAS GETTING LOW. BLOOD SUGAR WAS 41 WHEN CHECKED. PATIENT PROVIDED WITH ORANGE JUICE AND IS NOW EATING A TURKEY SANDWHICH. DR MACEDO NOTIFIED AND ORERED FOR PATIENT'S BLOOD SUGAR TO BE RECHECKED IN 2 HOURS. WILL CONTINUE TO MONITOR PATIENT.
--- NOTE | 2018-12-16 03:38 | NUR ---
BLOOD SUGAR OF 78: PATIENT GIVEN APPLE JUICE PER PATIENT REQUEST. PATIENT NOW RESTING AGAIN AND STATES HE'S GOING TO TRY TO GET MORE SLEEP. WILL CONTINUE TO MONITOR.
[2018-12-16 05:01] LABS: BASOPHILS ABSOLUTE AUTO 0.01 K/mm3 (0.00-0.23); BASOPHILS PERCENT AUTO 0 % (0-2); EOSINOPHILS ABSOLUTE AUTO 0.36 K/mm3 (0.00-0.68); EOSINOPHILS PERCENT AUTO 6 % (0-6); Hematocrit 29.5 % (37.0-53.0); Hemoglobin 9.3 g/dL (13.5-17.5); IMMATURE GRAN ABSOLUTE AUTO 0.02 K/mm3 (0.00-0.10); IMMATURE GRAN PERCENT AUTO 0 % (0-1); LYMPHOCYTES ABSOLUTE AUTO 1.19 K/mm3 (0.84-5.20); LYMPHOCYTES PERCENT AUTO 18 % (21-46); MONOCYTES ABSOLUTE AUTO 0.53 K/mm3 (0.16-1.47); MONOCYTES PERCENT AUTO 8 % (4-13); Mean Corpuscular HGB 31.4 pg (26.0-34.0); Mean Corpuscular HGB Conc 31.5 g/dL (31.5-36.5); Mean Corpuscular Volume 100 fL (80-100); Mean Platelet Volume 9.8 fL (9.1-12.4); NEUTROPHILS ABSOLUTE AUTO 4.38 K/mm3 (1.96-9.15); NEUTROPHILS PERCENT AUTO 68 % (41-73); Platelet Count 149 K/mm3 (150-400); RDW Coefficient Variation 14.5 % (11.7-14.2); RDW Standard Deviation 52.3 fL (35.1-46.3); Red Blood Cell Count 2.96 M/mm3 (4.30-5.90); White Blood Cell Count 6.49 K/mm3 (4.00-11.30)
[2018-12-16 05:22] LABS: Bun/Creatinine Ratio 18.8 (12.0-20.0); Calcium, Blood 8.2 mg/dL (8.5-10.1); Creatinine, Blood 2.88 mg/dL (0.60-1.20)
--- NOTE | 2018-12-16 07:48 | NUR ---
SHIFT SUMMARY: PATIENT MEDICATED FOR NECK PAIN PER EMAR LAST NIGHT. PATIENT STATED THAT HE HAD SURGERY ON HIS NECK AWHILE AGO AND THAT HE FELL A FEW DAYS AGO IN THE SHOWER AND HIS NECK IS SORE FROM THAT. PATIENT APPEARED TO SLEEP WELL THROUGHOUT THE NIGHT. BLOOD SUGAR CHARTED. REPORT GIVEN TO ONCOMING RN.
--- NOTE | 2018-12-16 14:53 | NUR ---
Patient is lying in bed and alert. Patient openly shares about the tension he lives in between fear that he each time he readmits to the hospital will be his last and the lack of hope to keep going because of the drain he places on those who are forced to take care of him. I explored with patient sources of meaning and dignity, provided emotional support and pastoral veterans' counselor. 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 I went a got my guitar and patient played and sang a song he wrote and I played a couple I wrote. Patient perked up and clearly was energized by music. I also provided prayer for the patient. Patient voiced appreciation for my time and care.
--- NOTE | 2018-12-16 18:17 | NUR ---
SHIFT SUMMARY: ASSUMED CARE OF PT AT 0700, RECEVIED REPORT FROM AMY CANO. PT IS ALERT AND ORIENTED X4. PT B/P HAS BEEN INCREASING DURING T/O SHIFT. WAS INFORMED AND SHE INCREASED HIS HYDRALAZINE FROM 10MG TO 25MG TID. PT IS AWARE OF CHANGES AND HE STATED " I AM WORRIED NOTHING CAN FIX IT" PT WAS THEN EDUCATED ON TX PLAN. PT IS CURRENTLY IN SINUS RUPA W/ FIRST DEGREE BLOCK WITH HR RANGING BETWEEN 50'S TO 60'S. PT HAS DENIED PAIN T/O SHIFT. WILL CONTINUE TO MONITOR PT UNTIL REPORT IS GIVEN TO ONCOMING SHIFT. CALL LIGHT WITHIN REACH, BED AT LOWEST LEVEL.
[2018-12-17 04:09] LABS: Albumin, Blood 2.8 g/dL (3.4-5.0); Anion Gap 4 mmol/L (6-16); Blood Urea Nitrogen 37 mg/dL (8-24); Bun/Creatinine Ratio 17.2 (12.0-20.0); CO2, Blood 24 mmol/L (21-32); Calcium, Blood 8.4 mg/dL (8.5-10.1); Chloride, Blood 113 mmol/L (98-108); Creatinine, Blood 2.15 mg/dL (0.60-1.20); Glomerular Filtration Rate 33 (60-); Glucose, Blood 145 mg/dL (70-99); Phosphorus, Blood 3.4 mg/dL (2.5-4.9); Sodium, Blood 141 mmol/L (136-145)
--- NOTE | 2018-12-17 05:45 | NUR ---
SHIFT SUMMARY PATIENT ALERT AND ORIENTED. PATIENT BP REMAINED ELEVATED THROUGHOUT SHIFT. HYDRALAZINE DC AND REPLACED WITH MINIPRESS AND PROCARDIA. HEART RHYTHM AT SINUS RHYTHM HEART RATE AT 67 PER INFANTRY WEAPONS OFFICER. BED LOCKED, LOW POSITION AND CALL LIGHT WITHIN REACH.
--- NOTE | 2018-12-17 08:07 | NUR ---
NURSING PCU DAYSHIFT: Assumed care of pt at approx 0700. A/O, immediately states "I want shipped to [facility]" during initial assessment. Skin is intact w/scattered bruising to abd and UE's, no breakdown noted. Denies any pain/discomfort, c/o chronic neuropathy in all ext's. Tele in place, NSR w/first degree, no c/o CP/pressure, SBP 170's prior to a.m. meds, no noted edema. L/S cta t/o, O2 sat low 90's on 1L NC, denies dyspnea, no noted cough. Abd mildly distended which pt states is normal, BT+, voiding w/o difficulty per pt. PIV x1, s/l. No s/s of acute distress at this time. Pt requesting transfer to [facility] for further care management, will discuss w/PMD. Call light in reach, cont to monitor for any changes.
--- NOTE | 2018-12-17 10:45 | NUR ---
Initial Visit: Palliative Care Consult for Readmission and Goals of Care. Pt currently on phone and states he is on hold. Pt engages in visit until no longer on hold. Pt began to discuss events leading up to hospitaly stay then requests visit to end so he can continue his phone call. He reports plan is for him to be discharged today and has no concerns. Spoke with Pt's bedside nurse Shannan and she reports Pt was feeling angry earlier but is doing better now. Shannan reports no concerns at this time. Palliative Care will remain available.
[2018-12-17] MEDS ORDERED: DOCU100 PO (12:48)
[2018-12-17] MEDS ORDERED: Percocet 5-3251 EACH PO (12:48)
--- NOTE | 2018-12-17 13:42 | NUR ---
NURSING PCU DISCHARGE SUMMARY: No acute changes noted t/o the a.m. Seen by PMD, discharge home d/o received. F/U appointments scheduled. Thorough discussion w/pt and spouse regarding plan of care, verbalized understanding and agreed w/outpatient plan. Records faxed to [facility], PIV dc'd w/cath intact. No s/s of acute distress at this time, cont to monitor until discharge is complete.
--- NOTE | 2018-12-17 14:20 | NUR ---
Patient is in the discharge process when I enter patien't room. Patient is receiving discharge instructions from RNShannan with spouse Ai leonel. Patient stated his appreciation for the hospital staff and for the visits from the spiritual care department. Patient expressed that I had a great impact on him and that he was inspired but our conversations. I walked patient out to his car.
== END 2018-12-17 14:20 | disposition home or self-care (01) ==
LOC: ER 12:56 → PCU 12:57
PROVIDERS: Emergency Medicine; ADMIT Internal Medicine
DX: N17.9 Acute kidney failure, unspecified (principal); I13.0 Hypertensive heart and chronic kidney disease with heart failure and stage 1 through stage 4 chronic kidney disease, or unspecified chronic kidney disease; E11.22 Type 2 diabetes mellitus with diabetic chronic kidney disease; I50.31 Acute diastolic (congestive) heart failure; N18.3 Chronic kidney disease, stage 3 (moderate); E86.0 Dehydration; E86.1 Hypovolemia; T50.2X5A Adverse effect of carbonic-anhydrase inhibitors, benzothiadiazides and other diuretics, initial encounter; I44.0 Atrioventricular block, first degree; I25.10 Atherosclerotic heart disease of native coronary artery without angina pectoris; E11.649 Type 2 diabetes mellitus with hypoglycemia without coma; E11.40 Type 2 diabetes mellitus with diabetic neuropathy, unspecified; I95.9 Hypotension, unspecified; R77.8 Other specified abnormalities of plasma proteins; K21.9 Gastro-esophageal reflux disease without esophagitis; N40.0 Benign prostatic hyperplasia without lower urinary tract symptoms; M10.9 Gout, unspecified; G47.33 Obstructive sleep apnea (adult) (pediatric); E66.9 Obesity, unspecified; Z86.19 Personal history of other infectious and parasitic diseases; Z90.49 Acquired absence of other specified parts of digestive tract; Z79.899 Other long term (current) drug therapy; Z79.4 Long term (current) use of insulin; Z79.82 Long term (current) use of aspirin; Z79.01 Long term (current) use of anticoagulants; Z87.891 Personal history of nicotine dependence; Z68.32 Body mass index [BMI] 32.0-32.9, adult
CPT/HCPCS: 36415; 71045; 71260; 80048; 80053; 80069; 82947; 83880; 84484; 85025; 93005; 93010; 96361-59; 96374-59; 96375-59; 99285-25; J0461; J0610; J1644; J2405; J7030; Q9967

== ENCOUNTER 2018-12-21 22:42 | Emergency (ER) | payer MEDICARE ==
[~2018-12-21] VITALS: Ht 182.9 cm; Wt 109.8 kg
[2018-12-21] MEDS ORDERED: FLUTICASONE-SA1 EAC3 INH (22:54)
[2018-12-21] MEDS ORDERED: HYDROMORPHO1 MG/1 M2 IM (22:59)
[2018-12-21] MEDS ORDERED: LORA.5 PO (23:02)
[2018-12-21 23:21] LABS: BASOPHILS ABSOLUTE AUTO 0.01 K/mm3 (0.00-0.23); BASOPHILS PERCENT AUTO 0 % (0-2); EOSINOPHILS ABSOLUTE AUTO 0.12 K/mm3 (0.00-0.68); EOSINOPHILS PERCENT AUTO 2 % (0-6); Hematocrit 31.4 % (37.0-53.0); Hemoglobin 10.4 g/dL (13.5-17.5); IMMATURE GRAN ABSOLUTE AUTO 0.01 K/mm3 (0.00-0.10); IMMATURE GRAN PERCENT AUTO 0 % (0-1); LYMPHOCYTES ABSOLUTE AUTO 1.03 K/mm3 (0.84-5.20); LYMPHOCYTES PERCENT AUTO 17 % (21-46); MONOCYTES PERCENT AUTO 7 % (4-13); Mean Corpuscular HGB 31.4 pg (26.0-34.0); Mean Corpuscular HGB Conc 33.1 g/dL (31.5-36.5); Mean Corpuscular Volume 95 fL (80-100); NEUTROPHILS ABSOLUTE AUTO 4.36 K/mm3 (1.96-9.15); NEUTROPHILS PERCENT AUTO 74 % (41-73); Platelet Count 149 K/mm3 (150-400); RDW Coefficient Variation 14.4 % (11.7-14.2); Red Blood Cell Count 3.31 M/mm3 (4.30-5.90); White Blood Cell Count 5.93 K/mm3 (4.00-11.30)
[2018-12-21 23:30] LABS: Bun/Creatinine Ratio 12.8 (12.0-20.0); Creatinine, Blood 2.11 mg/dL (0.60-1.20); Potassium, Blood 4.6 mmol/L (3.5-5.5)
[2018-12-22] MEDS ORDERED: PROM25S PR (00:50)
== END 2018-12-22 01:04 | disposition home or self-care (01) ==
LOC: ER 22:42
PROVIDERS: Physician Assistant
DX: R10.84 Generalized abdominal pain (principal); R11.2 Nausea with vomiting, unspecified; I12.9 Hypertensive chronic kidney disease with stage 1 through stage 4 chronic kidney disease, or unspecified chronic kidney disease; E11.22 Type 2 diabetes mellitus with diabetic chronic kidney disease; N18.9 Chronic kidney disease, unspecified; I25.2 Old myocardial infarction; I25.10 Atherosclerotic heart disease of native coronary artery without angina pectoris; Z88.5 Allergy status to narcotic agent; Z88.8 Allergy status to other drugs, medicaments and biological substances; Z79.899 Other long term (current) drug therapy; Z79.82 Long term (current) use of aspirin; Z79.4 Long term (current) use of insulin; Z87.891 Personal history of nicotine dependence
CPT/HCPCS: 80048; 85025; 96374; 96375; 99284-25; J0360; J1630

== ENCOUNTER 2019-03-04 04:52 | Inpatient (IN) | payer MEDICARE ==
[~2019-03-04] VITALS: Ht 170.2 cm; Wt 107.0 kg
[~2019-03-04 04:52] MED LIST changes: +FLUTICASONE-SA1 EAC3 INH; -FURO20 PO; +FURO40 PO; -GABA400 PO; +HYDROMORPHO1 MG/1 M2 IM
[2019-03-04 05:14] LABS: BASOPHILS ABSOLUTE AUTO 0.01 K/mm3 (0.00-0.23); BASOPHILS PERCENT AUTO 0 % (0-2); EOSINOPHILS ABSOLUTE AUTO 0.46 K/mm3 (0.00-0.68); EOSINOPHILS PERCENT AUTO 7 % (0-6); Hemoglobin 10.1 g/dL (13.5-17.5); IMMATURE GRAN ABSOLUTE AUTO 0.01 K/mm3 (0.00-0.10); IMMATURE GRAN PERCENT AUTO 0 % (0-1); LYMPHOCYTES ABSOLUTE AUTO 1.94 K/mm3 (0.84-5.20); LYMPHOCYTES PERCENT AUTO 28 % (21-46); MONOCYTES ABSOLUTE AUTO 0.57 K/mm3 (0.16-1.47); MONOCYTES PERCENT AUTO 8 % (4-13); Mean Corpuscular HGB 30.4 pg (26.0-34.0); Mean Corpuscular HGB Conc 32.6 g/dL (31.5-36.5); Mean Corpuscular Volume 93 fL (80-100); Mean Platelet Volume 10.6 fL (9.1-12.4); NEUTROPHILS ABSOLUTE AUTO 3.85 K/mm3 (1.96-9.15); NEUTROPHILS PERCENT AUTO 56 % (41-73); Platelet Count 136 K/mm3 (150-400); RDW Coefficient Variation 14.4 % (11.7-14.2); RDW Standard Deviation 48.9 fL (35.1-46.3); Red Blood Cell Count 3.32 M/mm3 (4.30-5.90); White Blood Cell Count 6.84 K/mm3 (4.00-11.30)
[2019-03-04] MEDS ORDERED: CARV6.25 PO (05:27)
[2019-03-04] MEDS ORDERED: Amlodipine Besy10 MG PO (05:28)
[2019-03-04] MEDS ORDERED: VITAMIN D31000 UNI2 PO (05:29)
[2019-03-04 05:37] LABS: Albumin, Blood 3.2 g/dL (3.4-5.0); Albumin/Globulin Ratio 0.8 (0.8-1.8); Bilirubin, Total 0.4 mg/dL (0.1-1.0); Bun/Creatinine Ratio 16.2 (12.0-20.0); Calcium, Blood 8.6 mg/dL (8.5-10.1); Creatinine, Blood 2.66 mg/dL (0.60-1.20); Potassium, Blood 4.8 mmol/L (3.5-5.5); Total Protein, Blood 7.2 g/dL (6.4-8.2); Troponin I 0.043 ng/mL (0.000-0.040)
--- NOTE | 2019-03-04 08:45 | NUR ---
ASSUMED CARE: RECEIVED REPORT FROM ED RN. PT ARIVES AND TRANSFERS TO ICU BED VIA PIVOT. PT STATES PAIN OF 2/10 PAIN UPON ARIVAL. A/O X 4, NO SIGNS OF DISTRESS. DR LIRA IN TO SEE PT. PT TO GO TO SUPPORT STAFF FOR ANGIO THIS MORNING. SUPPORT STAFF CALLED AND WILL BE ARIVING SOON TO GET PT. PT STATES 5/10 CHEST PAIN AT THIS TIME, MEDICATED PER ORDERS. FAMILY AND PT APPEARS TO BE WORRIED AND STRESSED WITH REPORT FROM OF POSSIBLE NEED FOR DIALYSIS. VSS AT THIS TIME. HOLDING ALL MEDS UNTIL AFTER CATH PROCEDURE.
[2019-03-04] MEDS ORDERED: INSULANPEN SC (09:16)
--- NOTE | 2019-03-04 09:54 | NUR ---
PROCECURE: PC TECHNICIAN STAFF IN ROOM AND PT LEAVING FOR PC TECHNICIAN PROCEDURE AT THIS TIME.
--- NOTE | 2019-03-04 11:28 | NUR ---
POST ANGIO: PT RETURNS FROM [facility] CARE SPECIALIST AT THIS TIME. TEMP 96.7, BLANKETS OVER PT AND PT DENIES NEEDING WARM BLANKETS. HEART RATE 58, PT APPEARS TO BE RELAXED. BLOOD PRESSURE 143/67 ON R ARM. OXYGEN SATURATIONS NOTED AT 92% ON 3L NC. NITRO IS CURRENTLY RUNNING @ 20MCG/MIN. PT LYING FLAT AND EDUCATED ON REMAING FLAT FOR AT LEAST 4 HOURS. R GROIN DRESSING C/D/I, NO BLEEDING, REDNESS OR TENDERNESS NOTED AT SITE. PT REPORTS 2/10 PAIN. WILL CONTINUE TO MONITOR AND ASSESS FURTHER.
[2019-03-04 13:34] LABS: Troponin I 0.031 ng/mL (0.000-0.040)
--- NOTE | 2019-03-04 17:24 | NUR ---
BLADDER SCAN AND STAND: PT STOOD AT SIDE OF BED TO URINATE AFTER LYING FLAT FOR OVER 5 HOURS AND SITTING UP AT 45 DEGREE ANGLE FOR APPROX 1 HOUR. NO BLEEDING, REDNESS OR HEMATOMA NOTED, MILD TENDERNESS WITH PALPATION. CALLED DR MÉNDEZ TO REPORT A BLADDER SCAN OF 325ML REMAINING. PT STATES HE DOES NOT WANT A BRITO CATH, DR MÉNDEZ NOTIFIED. NEW LAB ORDERS FOR AM RECEIVED.
--- NOTE | 2019-03-04 17:56 | NUR ---
SHIFT SUMMARY: PT ARIVED FROM ED ON NITRO DRIP AT 25 MCG/MIN RETURNED FROM WELDING EQUIPMENT REPAIRER SUPERVISOR WITH NITRO RUNNING AT 20MCG/MIN. PT C/O PAIN SINCE RETURN NO GREATER THAN 6/10 RELEIVED TO A TOLLERABLE LEVEL OF 3/10 WITH 25MCG OF FENTANYL. PT HAS STOOD AT THE SIDE OF THE BED WITH NO DIZZYNESS OR LIGHTHEADEDNESS, BUT PT DID HAVE SOME NAUSEA AFTERWARDS, RESOLVED WITH ZOFRAN. WILL CONTINUE TO MONITOR AND REPORT TO ONCOMING RN.
--- NOTE | 2019-03-04 19:10 | NUR ---
ASSESSMENT/ASSUMED CARE PT SLEEPING, AWAKENS EASILY TO VERBAL STIMULI. REPORTS CHEST DULL ACHE TO EPIGASTRIC AREA WITHOUT RADIATION. PAIN 2/10 WITH NITRO AT 20 MCQ/MIN. LUNGS CLEAR ON 4 LITERS O2 VIA NC, DECREASED TO 2 LITERS DUE TO SPO2 AT 100%. RESP EVEN AND NONLABORED. DENIES SOB OR COUGH. HEART RATE REGULAR. RIGHT GROIN STABLE AND SOFT TO PALPATION. NO BLEEDING OR HEMATOMA NOTED. BT+ ABD SOFT AND NONTENDER, DENIES N/V. IV 18G TO LEFT AC WITH NS AT TKO AND NTG AT 20 MCQ. IV 20G TO RIGHT FOREARM SALINE LOCKED, SITE CLEAR.
--- NOTE | 2019-03-04 20:20 | NUR ---
BLOOD GLUCOSE 203, 2 UNITS HUMALOG AND 32 UNITS LANTUS GIVEN. HS MEDS GIVEN. PT TOOK SNACK OF ICE CREAM
[2019-03-04 21:29] LABS: Troponin I 0.026 ng/mL (0.000-0.040)
--- NOTE | 2019-03-05 02:29 | NUR ---
SNACK PT AWAKE SITTING UP IN BED. STATES,"I'M A LITTLE HUNGRY". PT GIVEN SOUP AND CRACKERS. MOVING AND TURNING SELF IN BED.
[2019-03-05 03:10] LABS: BASOPHILS ABSOLUTE AUTO 0.01 K/mm3 (0.00-0.23); BASOPHILS PERCENT AUTO 0 % (0-2); EOSINOPHILS ABSOLUTE AUTO 0.41 K/mm3 (0.00-0.68); EOSINOPHILS PERCENT AUTO 6 % (0-6); Hematocrit 27.2 % (37.0-53.0); IMMATURE GRAN ABSOLUTE AUTO 0.02 K/mm3 (0.00-0.10); IMMATURE GRAN PERCENT AUTO 0 % (0-1); LYMPHOCYTES ABSOLUTE AUTO 1.27 K/mm3 (0.84-5.20); LYMPHOCYTES PERCENT AUTO 17 % (21-46); MONOCYTES ABSOLUTE AUTO 0.64 K/mm3 (0.16-1.47); MONOCYTES PERCENT AUTO 9 % (4-13); Mean Corpuscular HGB 31.1 pg (26.0-34.0); Mean Corpuscular HGB Conc 33.1 g/dL (31.5-36.5); Mean Corpuscular Volume 94 fL (80-100); Mean Platelet Volume 10.1 fL (9.1-12.4); NEUTROPHILS ABSOLUTE AUTO 5.08 K/mm3 (1.96-9.15); NEUTROPHILS PERCENT AUTO 68 % (41-73); Platelet Count 110 K/mm3 (150-400); RDW Coefficient Variation 14.4 % (11.7-14.2); RDW Standard Deviation 49.6 fL (35.1-46.3); Red Blood Cell Count 2.89 M/mm3 (4.30-5.90); White Blood Cell Count 7.43 K/mm3 (4.00-11.30)
--- NOTE | 2019-03-05 03:13 | NUR ---
NAUSEA PT C/O NAUSEA AFTER HARSH NONPRODUCTIVE COUGH. MED WITH ZOFRAN. PT TURNING AND MOVING SELF IN BED. VSS. LABS DRAWN.
[2019-03-05 03:32] LABS: Alanine Aminotransfer (ALT/SGP 76 U/L (12-78); Albumin, Blood 2.8 g/dL (3.4-5.0); Albumin/Globulin Ratio 0.8 (0.8-1.8); Alk Phos 135 U/L (50-136); Anion Gap 6 mmol/L (6-16); Aspartate Aminotrans (AST/SGOT 61 U/L (12-37); Bilirubin, Total 0.5 mg/dL (0.1-1.0); Blood Urea Nitrogen 43 mg/dL (8-24); Bun/Creatinine Ratio 16.9 (12.0-20.0); CO2, Blood 24 mmol/L (21-32); Calcium, Blood 8.5 mg/dL (8.5-10.1); Chloride, Blood 110 mmol/L (98-108); Creatinine, Blood 2.54 mg/dL (0.60-1.20); Globulin, Blood 3.6 g/dL (2.2-4.0); Glomerular Filtration Rate 27 (60-); Glucose, Blood 113 mg/dL (70-99); Magnesium, Blood 2.2 mg/dL (1.6-2.4); Potassium, Blood 4.9 mmol/L (3.5-5.5); Prostate Specific Antigen 0.483 ng/mL (0.000-4.000); Sodium, Blood 140 mmol/L (136-145); Total Protein, Blood 6.4 g/dL (6.4-8.2)
--- NOTE | 2019-03-05 05:39 | NUR ---
SHIFT SUMMARY PT SLEEPING MOST OF THE NIGHT. AWAKENS EASILY TO VERBAL STIMULI. NTG GTT TITRATED TO OFF THIS MORNING. BP STABLE. LUNGS CLEAR BUT DECREASE IN THE BASES, O2 TITRATED DOWN FROM 4 LITERS TO 2 LITERS VIA NC FOR SLEEP APNEA. RESP EVEN AND NONLABORED. HEART RATE REGULAR. PT REPORTED NAUSEA ONCE DURING THE NIGHT AFTER HARSHING COUGHING, MED WITH ZOFRAN WITH GOOD RELIEF. RIGHT GROIN STABLE. NO HEMATOMA OR BLEEDING. REPORT TO ON COMING NURSE
[2019-03-05] MEDS ORDERED: Donnatal E16.2 MG/5 PO (11:04)
[2019-03-05] MEDS ORDERED: CLOP75 PO (11:08)
[2019-03-05] MEDS ORDERED: Isosorbide Mono60 MG PO (11:10)
[2019-03-05] MEDS ORDERED: NITR.4SL SL (11:12)
[2019-03-05] MEDS ORDERED: PANT40 PO (11:13)
--- NOTE | 2019-03-05 12:15 | NUR ---
PT DISCHARGED VIA PRIVATE VEHICLE WITH HIS . DISCHARGE INSTRUCTIONS GIVEN TO PT AND HIS . ALL MEDICATIONS REVIEWED WITH THEM AND ALL QUESTIONS ANSWERED. ALL BELONGINGS DC'D WITH PT.
--- NOTE | 2019-03-05 14:35 | NUR ---
Provided theraputic listening, gentle pediatric genetic counselor, and prayer to Mr. Matson and his . He is being discharged soon and expressed gratitude for Compassionate care by [facility] staff.
== END 2019-03-05 12:15 | disposition home or self-care (01) | DRG 287 ==
LOC: ER 04:52 → ICUE 04:53 → ICUW 04:53 → ER 07:35 → ICUE 08:01
PROVIDERS: Emergency Medicine; ADMIT Internal Medicine
PROC: B2111ZZ Fluoroscopy of Multiple Coronary Arteries using Low Osmolar Contrast (ICD-10-PCS; principal; 2019-03-04)
PROC: 4A023N7 Measurement of Cardiac Sampling and Pressure, Left Heart, Percutaneous Approach (ICD-10-PCS; 2019-03-04)
DX: R07.89 Other chest pain (principal); I50.32 Chronic diastolic (congestive) heart failure; I13.0 Hypertensive heart and chronic kidney disease with heart failure and stage 1 through stage 4 chronic kidney disease, or unspecified chronic kidney disease; I25.110 Atherosclerotic heart disease of native coronary artery with unstable angina pectoris; E11.43 Type 2 diabetes mellitus with diabetic autonomic (poly)neuropathy; K22.0 Achalasia of cardia; Z95.1 Presence of aortocoronary bypass graft; Z79.82 Long term (current) use of aspirin; Z79.4 Long term (current) use of insulin; B19.20 Unspecified viral hepatitis C without hepatic coma; F43.10 Post-traumatic stress disorder, unspecified; E11.22 Type 2 diabetes mellitus with diabetic chronic kidney disease; M10.9 Gout, unspecified; Z87.891 Personal history of nicotine dependence; K21.9 Gastro-esophageal reflux disease without esophagitis; G47.30 Sleep apnea, unspecified; N40.0 Benign prostatic hyperplasia without lower urinary tract symptoms; N18.3 Chronic kidney disease, stage 3 (moderate); E66.9 Obesity, unspecified; E11.65 Type 2 diabetes mellitus with hyperglycemia; J44.9 Chronic obstructive pulmonary disease, unspecified; Z79.02 Long term (current) use of antithrombotics/antiplatelets; Z68.38 Body mass index [BMI] 38.0-38.9, adult
CPT/HCPCS: 36415; 71045; 76770; 80053; 82550; 82947; 83690; 83735; 84484; 85025; 85027; 93005; 93010; 93459; 96365; 96366; 96375; 96376; 99152; 99153; 99285-25; C1760; C1769; C1894; G0103; G0378; J1644; J2250; J2270; J2405; J3010; J7030; Q9967

== ENCOUNTER 2019-04-24 15:10 | Observation (INO) | payer MEDICARE ==
[~2019-04-24] VITALS: Ht 182.9 cm; Wt 106.6 kg
[~2019-04-24 15:10] MED LIST changes: +Amlodipine Besy10 MG PO; +CARV6.25 PO; +Donnatal E16.2 MG/5 PO; +Isosorbide Mono60 MG PO; +VITAMIN D31000 UNI2 PO
[2019-04-24 16:04] LABS: BASOPHILS ABSOLUTE AUTO 0.01 K/mm3 (0.00-0.23); BASOPHILS PERCENT AUTO 0 % (0-2); EOSINOPHILS ABSOLUTE AUTO 0.02 K/mm3 (0.00-0.68); EOSINOPHILS PERCENT AUTO 0 % (0-6); Hematocrit 30.3 % (37.0-53.0); Hemoglobin 10.3 g/dL (13.5-17.5); IMMATURE GRAN ABSOLUTE AUTO 0.03 K/mm3 (0.00-0.10); IMMATURE GRAN PERCENT AUTO 0 % (0-1); LYMPHOCYTES ABSOLUTE AUTO 1.43 K/mm3 (0.84-5.20); LYMPHOCYTES PERCENT AUTO 14 % (21-46); MONOCYTES ABSOLUTE AUTO 0.54 K/mm3 (0.16-1.47); MONOCYTES PERCENT AUTO 5 % (4-13); Mean Corpuscular HGB 31.4 pg (26.0-34.0); Mean Corpuscular Volume 92 fL (80-100); Mean Platelet Volume 9.9 fL (9.1-12.4); NEUTROPHILS ABSOLUTE AUTO 8.46 K/mm3 (1.96-9.15); NEUTROPHILS PERCENT AUTO 81 % (41-73); Platelet Count 128 K/mm3 (150-400); RDW Coefficient Variation 14.6 % (11.7-14.2); RDW Standard Deviation 49.1 fL (35.1-46.3); Red Blood Cell Count 3.28 M/mm3 (4.30-5.90); White Blood Cell Count 10.49 K/mm3 (4.00-11.30)
[2019-04-24 16:31] LABS: Albumin, Blood 3.5 g/dL (3.4-5.0); Albumin/Globulin Ratio 0.8 (0.8-1.8); Bilirubin, Total 0.7 mg/dL (0.1-1.0); Bun/Creatinine Ratio 19.4 (12.0-20.0); Calcium, Blood 8.9 mg/dL (8.5-10.1); Creatinine, Blood 2.52 mg/dL (0.60-1.20); Globulin, Blood 4.2 g/dL (2.2-4.0); Potassium, Blood 3.9 mmol/L (3.5-5.5); Total Protein, Blood 7.7 g/dL (6.4-8.2)
[2019-04-24 17:34] LABS: Source, Urine Clean Catch
[2019-04-24 17:41] LABS: Bilirubin, Urine Neg (Neg); Blood, Urine 3+ (Neg); Glucose Qualitative, Urine 2+ (Neg); Ketones, Urine Neg (Neg); Leukocyte Esterase, Urine Neg (Neg); Nitrite, Urine Neg (Neg); Protein, Urine 4+ (Neg); Specific Gravity, Urine 1.015 (1.003-1.022); Urobilinogen, Urine NORM (Normal)
[2019-04-24 18:01] LABS: Appearance, Urine Clear (Clear); Color, Urine Yellow (P-Yellow)
[2019-04-24 18:08] LABS: Bacteria Few /hpf; Squamous Epithelial Cells Rare /hpf (Few)
[2019-04-24] MEDS ORDERED: LACT PO (18:57)
[2019-04-24] MEDS ORDERED: ONDA4 PO (18:57)
[2019-04-24] MEDS ORDERED: HYDR10 PO (18:58)
[2019-04-24] MEDS ORDERED: Flonase 0.05% N16 GM (18:59)
[2019-04-24] MEDS ORDERED: ARTIFICIAL TEA1 EACH BOTHEYES (19:00)
[2019-04-24 22:30] LABS: Hematocrit 29.6 % (37.0-53.0); Hemoglobin 9.9 g/dL (13.5-17.5)
--- NOTE | 2019-04-24 23:36 | NUR ---
PT ARRIVED TO THE FLOOR AT 2210 IN CONSIDERABLE ABD PAIN. MORPHINE WAS GIVEN TO DECENT EFFECT. OTHER VSS. PT WAS ABLE TO TRANSFER INDEPENDENTLY TO THE BED FROM THE STRETCHER. WILL CONTINUE TO MONITOR.
[2019-04-25 00:43] LABS: Troponin I 0.102 ng/mL (0.000-0.040)
--- NOTE | 2019-04-25 04:19 | NUR ---
SHIFT SUMMARY PT'S PAIN WAS NOT ADEQUATELY COVERED WITH THE ORDERED MORPHINE. HOSPITALIST WAS CONTACTED AND CHANGED THE ANALGESIC TO DILAUDID. DILAUDID WAS MUCH MORE EFFECTIVE. PT HASN'T HAD ANY BM THIS SHIFT. ZOFRAN GIVEN ONCE FOR NAUSEA. PT REFUSED TO WEAR THE SEQUENTIAL COMPRESSION DEVICES DESPITE EDUCATION. PT WAS GIVEN HYDRALAZINE X1 FOR HTN. NO OTHER COMPLAINTS AT THIS TIME. WILL CONTINUE TO MONITOR.
[2019-04-25 04:42] LABS: Hematocrit 29.9 % (37.0-53.0); Hemoglobin 9.9 g/dL (13.5-17.5); Mean Corpuscular HGB 30.7 pg (26.0-34.0); Mean Corpuscular HGB Conc 33.1 g/dL (31.5-36.5); Mean Corpuscular Volume 93 fL (80-100); Mean Platelet Volume 11.3 fL (9.1-12.4); Platelet Count 117 K/mm3 (150-400); RDW Coefficient Variation 14.6 % (11.7-14.2); RDW Standard Deviation 49.9 fL (35.1-46.3); Red Blood Cell Count 3.22 M/mm3 (4.30-5.90); White Blood Cell Count 8.23 K/mm3 (4.00-11.30)
[2019-04-25 05:03] LABS: Albumin, Blood 3.2 g/dL (3.4-5.0); Albumin/Globulin Ratio 0.8 (0.8-1.8); Bilirubin, Total 0.6 mg/dL (0.1-1.0); Bun/Creatinine Ratio 18.8 (12.0-20.0); Calcium, Blood 8.5 mg/dL (8.5-10.1); Creatinine, Blood 2.5 mg/dL (0.60-1.20); Globulin, Blood 3.8 g/dL (2.2-4.0); Potassium, Blood 3.4 mmol/L (3.5-5.5)
--- NOTE | 2019-04-25 06:22 | NUR ---
PT WAS GETTING UPSET OVER THE FACT THAT HE WAS NPO HE HAS "NOT EATEN OR DRANK ANYTHING IN 3 DAYS". THE HOSPITALIST WAS CALLED AND PUT HIM ON AN ADA DIET. THIS RN SUGGESTED TO THE PT TO KEEP A CLEAR LIQUID DIET UNTIL THE GI CONSULT COULD BE DONE. PT WAS ALSO EDUCATED THAT HE HAD A DIABETIC DIET, AND SHOULD HE WANT SOLID FOOD, THIS RN WOULD SUPPLY HIM WITH SOLID FOOD. PT CHOSE TO KEEP WITH A CLEAR LIQUID DIET AT THIS TIME, DRINKING DIET SATNAM MIST AND WATER. WILL CONTINUE TO MONITOR.
[2019-04-25 08:55] LABS: Troponin I 0.098 ng/mL (0.000-0.040)
--- NOTE | 2019-04-25 10:48 | NUR ---
MORNING ASSESSMENT: PATIENT CONTINUES TO HAVE SHARP GASTRIC/ABDOMINAL PAIN. PATIENT DENIES NAUSEA. NO EMESIS OR BOWEL MOVEMENT. NO SIGNS OR SYMPTOMS OF BLEEDING. PRIOR TO NPO STATUS, PATIENT WAS ABLE TO TOLERATE A JELLO WITHOUT NAUSEA OR INCREASED GASTRIC DISCOMFORT. DR. BROWN ROUNDED ON PATIENT. PLAN IS FOR THE PATIENT TO GO FOR AN EGD TODAY. HE IS NOW STRICT NPO. PATIENT IS AWARE.
[2019-04-25 10:51] LABS: Hematocrit 31.2 % (37.0-53.0); Hemoglobin 10.2 g/dL (13.5-17.5)
--- NOTE | 2019-04-25 11:24 | NUR ---
PT TRANSPORTED TO [facility]. AGREES WITH PLANNED PROCEDURE.
--- NOTE | 2019-04-25 11:25 | NUR ---
04/25/19 Karan5 Tavon Bui See Anesthesia recordO2 VIA N/C INTACT THROUGHOUT SEDATION/PROCEDURE.
--- NOTE | 2019-04-25 12:12 | NUR ---
RETURN FROM PROCEDURE: PATIENT RESTING COMFORTABLY IN BED. ABLE TO TRANSFER FROM STRETCHER TO BED WITHOUT DIFFICULTY. PATIENT DENIES NAUSEA OR DIZZINESS. PATIENT REPORTS HE IS FEELING BETTER. PATIENT MILDLY DROWSY FROM PROCEDURE. PATIENT DENIES NEEDS. INITIAL POST-PROCEDURE VITALS SHOW ELEVATED BP (175/98). MEDICATED WITH IV HYDRALAZINE. TELEMETRY BACK ON PER ORDERS.
[2019-04-25] MEDS ORDERED: Amlodipine Besy10 MG PO (13:43)
--- NOTE | 2019-04-25 16:00 | NUR ---
LATE ENTRY: DISCHARGE SUMMARY PER MD ORDERS, PATIENT IS READY FOR DISCHARGE. AFTER EGD SCOPE, DR BROWN ROUNDED ON PATIENT AND INFORMED PATIENT AND RN THAT THE PATIENT IS READY FOR DISCHARGE FROM HIS PERSPECTIVE. PATIENT HAS PERMISSION TO HAVE X-RAY AN OUTPATIENT. NOTIFIED DR. LABOY. PATIENT HAD ELEVATED BP'S THIS AFTERNOON DURING POST-PROCEDURE VITALS. MEDICATED WITH PRN MEDICATION. ONCE ARRIVED, VERIFIED THAT PATIENT IS STILL ON AMLODIPINE. MEDICATED PER SCHEDULED MEDICATIONS. NOTIFIED DR. LABOY. PER DR. LABOY, PATIENT NEEDED ANOTHER BP TAKEN PRIOR TO DISCHARGE TO ENSURE DECREASED BP. PATIENT DOWN TO 168/90. PATIENT AND PATIENT'S REPORT THAT THIS IS A NORMAL BLOOD PRESSURE FOR THE PATIENT AT TIMES. PATIENT AND REPORTED THAT THEY ARE NOT CONCERNED ABOUT THIS BLOOD PRESSURE. PATIENT IS FREE FROM CP, SOB, DIZZINESS, NUMBNESS, OR PAIN IN THE EXTREMETIES. NOTIFIED DR. LABOY. PATIENT CONTINUES TO BE READY FOR DISCHARGE. NO NAUSEA OR EMESIS THROUGHOUT SHIFT. PATIENT TOLERATED FOOD THIS AFTERNOON WITHOUT INCREASED PAIN, NAUSEA OR EMESIS. NO BOWEL MOVEMENT. NO SIGNS OR SYMPTOMS OF BLEEDING. PATIENT EXPRESSED FRUSTRATION OF HAVING THIS PROBLEM FOR A LONG TIME WITHOUT GETTING A SOLUTION. PATIENT IS READY TO GO HOME. [facility] DISCHARGE INSTRUCTIONS AND EDUCATION PROVIDED TO PATIENT. PATIENT EXPRESSES UNDERSTANDING OF FOLLOW-UP XRAY AND APPOINTMENTS. ALL QUESTIONS AND CONCERNS ADDRESSED. PATIENT DISCHARGED IN WHEELCHAIR WITH RN. PATIENT STABLE AT TIME OF DISCHARGE.
== END 2019-04-25 16:06 | disposition home or self-care (01) ==
LOC: ER 15:10 → MEDS 15:11
PROVIDERS: Internal Medicine Gastroenterology; Physician Assistant; ADMIT Internal Medicine
PROC: 0DJ08ZZ Inspection of Upper Intestinal Tract, Via Natural or Artificial Opening Endoscopic (ICD-10-PCS; principal; 2019-04-25 11:00)
DX: K25.4 Chronic or unspecified gastric ulcer with hemorrhage (principal); K29.51 Unspecified chronic gastritis with bleeding; E11.65 Type 2 diabetes mellitus with hyperglycemia; R79.89 Other specified abnormal findings of blood chemistry; K21.9 Gastro-esophageal reflux disease without esophagitis; I13.0 Hypertensive heart and chronic kidney disease with heart failure and stage 1 through stage 4 chronic kidney disease, or unspecified chronic kidney disease; E11.22 Type 2 diabetes mellitus with diabetic chronic kidney disease; I50.32 Chronic diastolic (congestive) heart failure; N18.4 Chronic kidney disease, stage 4 (severe); I25.10 Atherosclerotic heart disease of native coronary artery without angina pectoris; G47.33 Obstructive sleep apnea (adult) (pediatric); F43.10 Post-traumatic stress disorder, unspecified; N40.0 Benign prostatic hyperplasia without lower urinary tract symptoms; M10.9 Gout, unspecified; Z98.890 Other specified postprocedural states; Z79.899 Other long term (current) drug therapy; Z79.82 Long term (current) use of aspirin; Z79.01 Long term (current) use of anticoagulants; Z79.4 Long term (current) use of insulin
CPT/HCPCS: 36415; 71046; 80053; 81001; 82272; 82550; 82947; 83690; 83880; 84484; 85014; 85018; 85025; 85027; 86850; 86870; 86900; 86901; 93005; 93010; 96361; 96374; 96375; 96376; 99285-25; C9113; G0378; J0360; J1170; J2270; J2405; J2704; J7030; J7120

== ENCOUNTER 2019-06-07 15:35 | Emergency (ER) | payer OTHER, MEDICARE ==
[~2019-06-07] VITALS: Ht 180.3 cm; Wt 111.1 kg
[~2019-06-07 15:35] MED LIST changes: +ARTIFICIAL TEA1 EACH BOTHEYES
[2019-06-07 16:05] LABS: BASOPHILS ABSOLUTE AUTO 0.02 K/mm3 (0.00-0.23); BASOPHILS PERCENT AUTO 0 % (0-2); EOSINOPHILS ABSOLUTE AUTO 0.75 K/mm3 (0.00-0.68); EOSINOPHILS PERCENT AUTO 7 % (0-6); Hematocrit 36.8 % (37.0-53.0); Hemoglobin 12.3 g/dL (13.5-17.5); IMMATURE GRAN ABSOLUTE AUTO 0.03 K/mm3 (0.00-0.10); IMMATURE GRAN PERCENT AUTO 0 % (0-1); LYMPHOCYTES ABSOLUTE AUTO 2.21 K/mm3 (0.84-5.20); LYMPHOCYTES PERCENT AUTO 21 % (21-46); MONOCYTES ABSOLUTE AUTO 0.69 K/mm3 (0.16-1.47); MONOCYTES PERCENT AUTO 7 % (4-13); Mean Corpuscular HGB 31.3 pg (26.0-34.0); Mean Corpuscular HGB Conc 33.4 g/dL (31.5-36.5); Mean Corpuscular Volume 94 fL (80-100); Mean Platelet Volume 9.1 fL (9.1-12.4); NEUTROPHILS ABSOLUTE AUTO 6.78 K/mm3 (1.96-9.15); NEUTROPHILS PERCENT AUTO 65 % (41-73); Platelet Count 157 K/mm3 (150-400); RDW Coefficient Variation 14.3 % (11.7-14.2); RDW Standard Deviation 49.1 fL (35.1-46.3); Red Blood Cell Count 3.93 M/mm3 (4.30-5.90); White Blood Cell Count 10.48 K/mm3 (4.00-11.30)
[2019-06-07 16:25] LABS: Potassium, Blood 4.9 mmol/L (3.5-5.5)
[2019-06-07 16:26] LABS: Albumin, Blood 3.8 g/dL (3.4-5.0); Albumin/Globulin Ratio 0.8 (0.8-1.8); Bilirubin, Total 0.4 mg/dL (0.1-1.0); Bun/Creatinine Ratio 20.6 (12.0-20.0); Calcium, Blood 9.6 mg/dL (8.5-10.1); Creatinine, Blood 2.62 mg/dL (0.60-1.20); Globulin, Blood 4.5 g/dL (2.2-4.0); Total Protein, Blood 8.3 g/dL (6.4-8.2)
[2019-08-06] MEDS ORDERED: Pepcid20 MG PO (18:26)
== END 2019-06-07 18:09 | disposition home or self-care (01) ==
LOC: ER 15:35
PROVIDERS: Physician Assistant
DX: E11.43 Type 2 diabetes mellitus with diabetic autonomic (poly)neuropathy (principal); K31.84 Gastroparesis; E11.22 Type 2 diabetes mellitus with diabetic chronic kidney disease; I12.9 Hypertensive chronic kidney disease with stage 1 through stage 4 chronic kidney disease, or unspecified chronic kidney disease; N18.9 Chronic kidney disease, unspecified; I25.2 Old myocardial infarction; Z87.891 Personal history of nicotine dependence; Z79.899 Other long term (current) drug therapy; Z79.82 Long term (current) use of aspirin; Z79.02 Long term (current) use of antithrombotics/antiplatelets; Z79.4 Long term (current) use of insulin
CPT/HCPCS: 36415; 80053; 82947; 83690; 85025; 93005; 93010; 96361; 96374; 96375; 96376; 99284-25; J2405; J2765; J3010; J7030

== ENCOUNTER 2019-08-04 17:37 | Emergency (ER) | payer OTHER ==
[~2019-08-04] VITALS: Ht 182.9 cm; Wt 113.4 kg
[2019-08-04 18:24] LABS: BASOPHILS ABSOLUTE AUTO 0.02 K/mm3 (0.00-0.23); BASOPHILS PERCENT AUTO 0 % (0-2); EOSINOPHILS ABSOLUTE AUTO 0.18 K/mm3 (0.00-0.68); EOSINOPHILS PERCENT AUTO 2 % (0-6); Hemoglobin 11.6 g/dL (13.5-17.5); IMMATURE GRAN ABSOLUTE AUTO 0.03 K/mm3 (0.00-0.10); IMMATURE GRAN PERCENT AUTO 0 % (0-1); LYMPHOCYTES PERCENT AUTO 16 % (21-46); MONOCYTES ABSOLUTE AUTO 0.36 K/mm3 (0.16-1.47); MONOCYTES PERCENT AUTO 4 % (4-13); Mean Corpuscular HGB 31.3 pg (26.0-34.0); Mean Corpuscular HGB Conc 34.1 g/dL (31.5-36.5); Mean Corpuscular Volume 92 fL (80-100); Mean Platelet Volume 9.6 fL (9.1-12.4); NEUTROPHILS ABSOLUTE AUTO 6.24 K/mm3 (1.96-9.15); NEUTROPHILS PERCENT AUTO 77 % (41-73); Platelet Count 128 K/mm3 (150-400); RDW Coefficient Variation 14.4 % (11.7-14.2); RDW Standard Deviation 48.6 fL (35.1-46.3); Red Blood Cell Count 3.71 M/mm3 (4.30-5.90); White Blood Cell Count 8.13 K/mm3 (4.00-11.30)
[2019-08-04] MEDS ORDERED: LORA.5 PO (18:42)
[2019-08-04] MEDS ORDERED: Zantac150 MG PO (18:44)
[2019-08-04] MEDS ORDERED: PROM25 PO (18:45)
[2019-08-04] MEDS ORDERED: Norco 5-325 Ta1 EACH PO ×2 (18:45→20:47)
[2019-08-04 18:49] LABS: Albumin, Blood 4.2 g/dL (3.4-5.0); Bilirubin, Total 0.8 mg/dL (0.1-1.0); Bun/Creatinine Ratio 17.7 (12.0-20.0); Calcium, Blood 9.2 mg/dL (8.5-10.1); Globulin, Blood 4.2 g/dL (2.2-4.0); Potassium, Blood 4.6 mmol/L (3.5-5.5); Total Protein, Blood 8.4 g/dL (6.4-8.2); Troponin I 0.062 ng/mL (0.000-0.040)
[2019-08-04] MEDS ORDERED: Zofran4 MG PO (20:47)
[2019-08-04] MEDS ORDERED: METO10 PO (20:47)
[2019-08-06] MEDS ORDERED: Pepcid20 MG PO (18:26)
== END 2019-08-04 21:03 | disposition home or self-care (01) ==
LOC: ER 17:37
PROVIDERS: Physician Assistant
DX: E11.43 Type 2 diabetes mellitus with diabetic autonomic (poly)neuropathy (principal); K31.84 Gastroparesis; I25.10 Atherosclerotic heart disease of native coronary artery without angina pectoris; I12.9 Hypertensive chronic kidney disease with stage 1 through stage 4 chronic kidney disease, or unspecified chronic kidney disease; E11.22 Type 2 diabetes mellitus with diabetic chronic kidney disease; N18.9 Chronic kidney disease, unspecified; I25.2 Old myocardial infarction; Z79.899 Other long term (current) drug therapy; Z79.82 Long term (current) use of aspirin; Z79.4 Long term (current) use of insulin
CPT/HCPCS: 36415; 71046; 80053; 83690; 84484; 85025; 93005; 93010; 96361; 96374; 96375; 99284-25; J0780; J1170; J2270; J2765; J7030

== ENCOUNTER 2019-08-08 05:31 | Inpatient (IN) | payer OTHER, MEDICARE ==
[~2019-08-08] VITALS: Ht 182.9 cm; Wt 109.9 kg
[~2019-08-08 05:31] MED LIST changes: +PROM25 PO; +Pepcid20 MG PO
[2019-08-08 06:11] LABS: BASOPHILS ABSOLUTE AUTO 0.02 K/mm3 (0.00-0.23); BASOPHILS PERCENT AUTO 0 % (0-2); EOSINOPHILS ABSOLUTE AUTO 0.13 K/mm3 (0.00-0.68); EOSINOPHILS PERCENT AUTO 2 % (0-6); Hematocrit 30.6 % (37.0-53.0); Hemoglobin 10.7 g/dL (13.5-17.5); IMMATURE GRAN ABSOLUTE AUTO 0.02 K/mm3 (0.00-0.10); IMMATURE GRAN PERCENT AUTO 0 % (0-1); LYMPHOCYTES ABSOLUTE AUTO 1.56 K/mm3 (0.84-5.20); LYMPHOCYTES PERCENT AUTO 21 % (21-46); MONOCYTES ABSOLUTE AUTO 0.71 K/mm3 (0.16-1.47); MONOCYTES PERCENT AUTO 10 % (4-13); Mean Corpuscular HGB 31.3 pg (26.0-34.0); Mean Corpuscular Volume 90 fL (80-100); Mean Platelet Volume 10.8 fL (9.1-12.4); NEUTROPHILS ABSOLUTE AUTO 5.03 K/mm3 (1.96-9.15); NEUTROPHILS PERCENT AUTO 67 % (41-73); Platelet Count 117 K/mm3 (150-400); RDW Standard Deviation 45.6 fL (35.1-46.3); Red Blood Cell Count 3.42 M/mm3 (4.30-5.90); White Blood Cell Count 7.47 K/mm3 (4.00-11.30)
[2019-08-08 06:36] LABS: Albumin, Blood 3.7 g/dL (3.4-5.0); Albumin/Globulin Ratio 0.9 (0.8-1.8); Bilirubin, Total 0.9 mg/dL (0.1-1.0); Bun/Creatinine Ratio 17.6 (12.0-20.0); Calcium, Blood 8.9 mg/dL (8.5-10.1); Creatinine, Blood 2.79 mg/dL (0.60-1.20); Globulin, Blood 3.9 g/dL (2.2-4.0); Potassium, Blood 3.9 mmol/L (3.5-5.5); Total Protein, Blood 7.6 g/dL (6.4-8.2)
[2019-08-08 06:38] LABS: Troponin I 0.126 ng/mL (0.000-0.040)
[2019-08-08 06:49] LABS: Source, Urine Clean Catch
[2019-08-08 07:08] LABS: Appearance, Urine Clear (Clear); Bilirubin, Urine Neg (Neg); Blood, Urine 2+ (Neg); Color, Urine Yellow (P-Yellow); Glucose Qualitative, Urine 4+ (Neg); Ketones, Urine Neg (Neg); Leukocyte Esterase, Urine Neg (Neg); Nitrite, Urine Neg (Neg); Protein, Urine 4+ (Neg); Specific Gravity, Urine 1.015 (1.003-1.022); Urobilinogen, Urine NORM (Normal)
[2019-08-08 07:19] LABS: Bacteria Few /hpf; Squamous Epithelial Cells Not Seen /hpf (Few); White Blood Cells, Urine 0-2 /hpf (0-5)
[2019-08-09 04:48] LABS: BASOPHILS ABSOLUTE AUTO 0.01 K/mm3 (0.00-0.23); BASOPHILS PERCENT AUTO 0 % (0-2); EOSINOPHILS ABSOLUTE AUTO 0.13 K/mm3 (0.00-0.68); EOSINOPHILS PERCENT AUTO 3 % (0-6); Hematocrit 27.7 % (37.0-53.0); Hemoglobin 9.6 g/dL (13.5-17.5); IMMATURE GRAN ABSOLUTE AUTO 0.01 K/mm3 (0.00-0.10); IMMATURE GRAN PERCENT AUTO 0 % (0-1); LYMPHOCYTES PERCENT AUTO 33 % (21-46); MONOCYTES ABSOLUTE AUTO 0.51 K/mm3 (0.16-1.47); MONOCYTES PERCENT AUTO 10 % (4-13); Mean Corpuscular HGB 31.3 pg (26.0-34.0); Mean Corpuscular HGB Conc 34.7 g/dL (31.5-36.5); Mean Corpuscular Volume 90 fL (80-100); Mean Platelet Volume 10.1 fL (9.1-12.4); NEUTROPHILS ABSOLUTE AUTO 2.63 K/mm3 (1.96-9.15); NEUTROPHILS PERCENT AUTO 54 % (41-73); Platelet Count 101 K/mm3 (150-400); RDW Coefficient Variation 14.2 % (11.7-14.2); RDW Standard Deviation 46.7 fL (35.1-46.3); Red Blood Cell Count 3.07 M/mm3 (4.30-5.90); White Blood Cell Count 4.89 K/mm3 (4.00-11.30)
[2019-08-09 05:05] LABS: International Normalized Ratio 0.97; Prothrombin Time Results 10.4 Sec (9.7-11.5)
[2019-08-09 05:11] LABS: Albumin, Blood 3.3 g/dL (3.4-5.0); Albumin/Globulin Ratio 0.9 (0.8-1.8); Bilirubin, Total 0.6 mg/dL (0.1-1.0); Bun/Creatinine Ratio 16.5 (12.0-20.0); Calcium, Blood 8.4 mg/dL (8.5-10.1); Creatinine, Blood 2.67 mg/dL (0.60-1.20); Globulin, Blood 3.5 g/dL (2.2-4.0); Total Protein, Blood 6.8 g/dL (6.4-8.2); Troponin I 0.109 ng/mL (0.000-0.040)
[2019-08-09 12:39] LABS: Amylase, Blood 23 U/L (25-115); C-REACTIVE PROTEIN, EXT RANGE <0.290 mg/dL (0.000-0.300)
[2019-08-09 13:24] LABS: U Amphetamine Screen Not Detected; U Barbituate Screen Not Detected; U Benzodiazapine Screen DETECTED; U Buprenorphine Screen Not Detected; U Cannabinoids Screen DETECTED; U Cocaine Screen Not Detected; U Methadone Screen Not Detected; U Methamphetamine Screen Not Detected; U Opiates Screen DETECTED; U Oxycodone Screen Not Detected; U Phencyclidine Screen Not Detected; U Propoxyphene Screen Not Detected
[2019-08-10 04:24] LABS: BASOPHILS ABSOLUTE AUTO 0.01 K/mm3 (0.00-0.23); BASOPHILS PERCENT AUTO 0 % (0-2); EOSINOPHILS ABSOLUTE AUTO 0.36 K/mm3 (0.00-0.68); EOSINOPHILS PERCENT AUTO 7 % (0-6); Hematocrit 28.6 % (37.0-53.0); Hemoglobin 10.1 g/dL (13.5-17.5); IMMATURE GRAN PERCENT AUTO 0 % (0-1); LYMPHOCYTES PERCENT AUTO 33 % (21-46); MONOCYTES ABSOLUTE AUTO 0.45 K/mm3 (0.16-1.47); MONOCYTES PERCENT AUTO 9 % (4-13); Mean Corpuscular HGB 31.3 pg (26.0-34.0); Mean Corpuscular HGB Conc 35.3 g/dL (31.5-36.5); Mean Corpuscular Volume 89 fL (80-100); Mean Platelet Volume 10.8 fL (9.1-12.4); NEUTROPHILS ABSOLUTE AUTO 2.48 K/mm3 (1.96-9.15); NEUTROPHILS PERCENT AUTO 51 % (41-73); Platelet Count 115 K/mm3 (150-400); RDW Coefficient Variation 14.2 % (11.7-14.2); RDW Standard Deviation 45.7 fL (35.1-46.3); Red Blood Cell Count 3.23 M/mm3 (4.30-5.90)
[2019-08-10 05:16] LABS: Albumin, Blood 3.3 g/dL (3.4-5.0); Albumin/Globulin Ratio 0.9 (0.8-1.8); Bilirubin, Total 0.7 mg/dL (0.1-1.0); Calcium, Blood 8.8 mg/dL (8.5-10.1); Creatinine, Blood 2.47 mg/dL (0.60-1.20); Globulin, Blood 3.6 g/dL (2.2-4.0); Potassium, Blood 4.5 mmol/L (3.5-5.5); Total Protein, Blood 6.9 g/dL (6.4-8.2)
[2019-08-11 04:55] LABS: BASOPHILS ABSOLUTE AUTO 0.01 K/mm3 (0.00-0.23); BASOPHILS PERCENT AUTO 0 % (0-2); EOSINOPHILS ABSOLUTE AUTO 0.36 K/mm3 (0.00-0.68); EOSINOPHILS PERCENT AUTO 7 % (0-6); Hematocrit 25.9 % (37.0-53.0); Hemoglobin 9.1 g/dL (13.5-17.5); IMMATURE GRAN ABSOLUTE AUTO 0.01 K/mm3 (0.00-0.10); IMMATURE GRAN PERCENT AUTO 0 % (0-1); LYMPHOCYTES ABSOLUTE AUTO 1.46 K/mm3 (0.84-5.20); LYMPHOCYTES PERCENT AUTO 27 % (21-46); MONOCYTES PERCENT AUTO 9 % (4-13); Mean Corpuscular HGB 31.6 pg (26.0-34.0); Mean Corpuscular HGB Conc 35.1 g/dL (31.5-36.5); Mean Corpuscular Volume 90 fL (80-100); NEUTROPHILS ABSOLUTE AUTO 3.03 K/mm3 (1.96-9.15); NEUTROPHILS PERCENT AUTO 56 % (41-73); Platelet Count 109 K/mm3 (150-400); RDW Coefficient Variation 14.1 % (11.7-14.2); RDW Standard Deviation 46.5 fL (35.1-46.3); Red Blood Cell Count 2.88 M/mm3 (4.30-5.90); White Blood Cell Count 5.37 K/mm3 (4.00-11.30)
[2019-08-11 05:15] LABS: Bun/Creatinine Ratio 15.8 (12.0-20.0); Calcium, Blood 8.5 mg/dL (8.5-10.1); Creatinine, Blood 2.6 mg/dL (0.60-1.20); Magnesium, Blood 1.9 mg/dL (1.6-2.4); Phosphorus, Blood 3.4 mg/dL (2.5-4.9)
[2019-08-11] MEDS ORDERED: FERSU300 PO (14:07)
[2019-08-11] MEDS ORDERED: PRAZ1 PO (14:14)
[2019-08-12 05:21] LABS: Hematocrit 28.4 % (37.0-53.0); Hemoglobin 9.5 g/dL (13.5-17.5); Mean Corpuscular HGB 31.3 pg (26.0-34.0); Mean Corpuscular HGB Conc 33.5 g/dL (31.5-36.5); Mean Platelet Volume 10.9 fL (9.1-12.4); Platelet Count 119 K/mm3 (150-400); RDW Coefficient Variation 14.7 % (11.7-14.2); RDW Standard Deviation 50.2 fL (35.1-46.3); Red Blood Cell Count 3.04 M/mm3 (4.30-5.90); White Blood Cell Count 6.04 K/mm3 (4.00-11.30)
[2019-08-12 05:33] LABS: Mean Corpuscular Volume 93 fL (80-100)
[2019-08-12 05:40] LABS: Bun/Creatinine Ratio 14.9 (12.0-20.0); Calcium, Blood 8.7 mg/dL (8.5-10.1); Creatinine, Blood 2.76 mg/dL (0.60-1.20); Potassium, Blood 4.4 mmol/L (3.5-5.5)
[2019-08-12] MEDS ORDERED: ZENPEP DR 20,01 EACH PO (09:36)
[2019-08-12] MEDS ORDERED: PANT40 PO (09:37)
[2019-08-15 07:08] LABS: CREATININE, URINE 67.8 mg/dL (Not Estab.)
== END 2019-08-12 11:56 | disposition home or self-care (01) | DRG 292 ==
LOC: ER 05:31 → MEDS 05:32 → ENPENDDIS 08-12 09:30 → MEDS 08-12 11:56
PROVIDERS: Emergency Medicine; Family Medicine; Internal Medicine Gastroenterology; Nurse Practitioner Acute Care; ADMIT Internal Medicine
DX: I13.0 Hypertensive heart and chronic kidney disease with heart failure and stage 1 through stage 4 chronic kidney disease, or unspecified chronic kidney disease (principal); I25.729 Atherosclerosis of autologous artery coronary artery bypass graft(s) with unspecified angina pectoris; I50.32 Chronic diastolic (congestive) heart failure; N18.4 Chronic kidney disease, stage 4 (severe); I25.119 Atherosclerotic heart disease of native coronary artery with unspecified angina pectoris; E11.22 Type 2 diabetes mellitus with diabetic chronic kidney disease; Z79.4 Long term (current) use of insulin; F43.10 Post-traumatic stress disorder, unspecified; B18.2 Chronic viral hepatitis C; K21.9 Gastro-esophageal reflux disease without esophagitis; N40.0 Benign prostatic hyperplasia without lower urinary tract symptoms; G47.33 Obstructive sleep apnea (adult) (pediatric); F32.9 Major depressive disorder, single episode, unspecified; E11.43 Type 2 diabetes mellitus with diabetic autonomic (poly)neuropathy; K31.84 Gastroparesis; E11.69 Type 2 diabetes mellitus with other specified complication; E66.9 Obesity, unspecified; Z68.33 Body mass index [BMI] 33.0-33.9, adult
CPT/HCPCS: 36415; 51701; 51798; 71046; 74176; 80048; 80053; 81001; 82150; 82947; 83036; 83605; 83690; 83735; 84100; 84110; 84484; 85025; 85027; 85610; 85651; 86140; 93005; 93010; 96372; 96374-59; 96375; 96375-59; 96376; 99285-25; C1751; C9113; G0378; J0360; J1170; J1200; J1630; J1644; J2270; J2405; J2550; J2765; J7030

== ENCOUNTER 2019-11-23 15:16 | Emergency (ER) | payer OTHER ==
[~2019-11-23] VITALS: Ht 180.3 cm; Wt 108.9 kg
[~2019-11-23 15:16] MED LIST changes: +ATOR80 PO; +CREON DR 24,001 EACH PO; +FERROUS GLUCON324 MG PO; +FERSU300 PO; +Isopto Tears15 ML BOTHEYES; +THERA-D2000 UNIT PO; -VITAMIN D31000 UNI2 PO; +ZENPEP DR 20,01 EACH PO
== END 2019-11-23 17:00 | disposition home or self-care (01) ==
LOC: ER 15:16
DX: I13.0 Hypertensive heart and chronic kidney disease with heart failure and stage 1 through stage 4 chronic kidney disease, or unspecified chronic kidney disease (principal); E11.22 Type 2 diabetes mellitus with diabetic chronic kidney disease; N18.4 Chronic kidney disease, stage 4 (severe); I50.32 Chronic diastolic (congestive) heart failure; I25.10 Atherosclerotic heart disease of native coronary artery without angina pectoris; E11.43 Type 2 diabetes mellitus with diabetic autonomic (poly)neuropathy; K31.84 Gastroparesis; Z79.02 Long term (current) use of antithrombotics/antiplatelets; I25.2 Old myocardial infarction; F32.9 Major depressive disorder, single episode, unspecified; K21.9 Gastro-esophageal reflux disease without esophagitis; F43.10 Post-traumatic stress disorder, unspecified; Z79.899 Other long term (current) drug therapy; Z79.82 Long term (current) use of aspirin; Z79.4 Long term (current) use of insulin
CPT/HCPCS: 96374; 99283-25; J0360

== ENCOUNTER 2020-03-02 16:35 | Inpatient (IN) | payer OTHER ==
[~2020-03-02] VITALS: Ht 182.9 cm; Wt 109.4 kg
[~2020-03-02 16:35] MED LIST changes: +BASAGLAR K100 UNIT/1 SC
[2020-03-02] MEDS ORDERED: CALC.25 PO (17:01)
[2020-03-02] MEDS ORDERED: FAMO20 PO (17:02)
[2020-03-02] MEDS ORDERED: PRAZ1 PO (17:05)
[2020-03-02 17:08] LABS: BASOPHILS ABSOLUTE AUTO 0.01 K/mm3 (0.00-0.23); BASOPHILS PERCENT AUTO 0 % (0-2); EOSINOPHILS ABSOLUTE AUTO 0.49 K/mm3 (0.00-0.68); EOSINOPHILS PERCENT AUTO 7 % (0-6); Hematocrit 30.6 % (37.0-53.0); Hemoglobin 9.9 g/dL (13.5-17.5); IMMATURE GRAN ABSOLUTE AUTO 0.01 K/mm3 (0.00-0.10); IMMATURE GRAN PERCENT AUTO 0 % (0-1); LYMPHOCYTES ABSOLUTE AUTO 1.36 K/mm3 (0.84-5.20); LYMPHOCYTES PERCENT AUTO 19 % (21-46); MONOCYTES ABSOLUTE AUTO 0.53 K/mm3 (0.16-1.47); MONOCYTES PERCENT AUTO 7 % (4-13); Mean Corpuscular HGB 31.4 pg (26.0-34.0); Mean Corpuscular HGB Conc 32.4 g/dL (31.5-36.5); Mean Corpuscular Volume 97 fL (80-100); Mean Platelet Volume 10.4 fL (9.1-12.4); NEUTROPHILS ABSOLUTE AUTO 4.75 K/mm3 (1.96-9.15); NEUTROPHILS PERCENT AUTO 67 % (41-73); Platelet Count 123 K/mm3 (150-400); RDW Coefficient Variation 14.6 % (11.7-14.2); RDW Standard Deviation 52.2 fL (35.1-46.3); Red Blood Cell Count 3.15 M/mm3 (4.30-5.90); White Blood Cell Count 7.15 K/mm3 (4.00-11.30)
[2020-03-02 17:50] LABS: Albumin, Blood 3.6 g/dL (3.4-5.0); Bilirubin, Total 0.4 mg/dL (0.1-1.0); Bun/Creatinine Ratio 15.8 (12.0-20.0); Calcium, Blood 8.6 mg/dL (8.5-10.1); Creatinine, Blood 4.19 mg/dL (0.60-1.20); Globulin, Blood 3.7 g/dL (2.2-4.0); Potassium, Blood 4.1 mmol/L (3.5-5.5); Total Protein, Blood 7.3 g/dL (6.4-8.2)
[2020-03-02] MEDS ORDERED: SODBIC650 PO (19:36)
[2020-03-02] MEDS ORDERED: BASAGLAR K100 UNIT/1 SC (19:38)
[2020-03-03 02:34] LABS: Adenovirus F 40/41 Not Detected (NOT DETECT); Astrovirus Not Detected (NOT DETECT); Campylobacter Sp Not Detected (NOT DETECT); Cryptosporidium Not Detected (NOT DETECT); Cyclospora Cayetanensis Not Detected (NOT DETECT); E. Coli O157 Not Detected (NOT DETECT); Entamoeba Histolytica Not Detected (NOT DETECT); Enteroaggregative E. coli-EAEC Not Detected (NOT DETECT); Enteropathogenic E. coli-EPEC Not Detected (NOT DETECT); Enterotoxigenic E. coli-ETEC Not Detected (NOT DETECT); Giardia Lamblia Not Detected (NOT DETECT); Norovirus GI/GII Not Detected (NOT DETECT); Plesiomonas Shigelloides Not Detected (NOT DETECT); Rotavirus A Not Detected (NOT DETECT); Salmonella Sp Not Detected (NOT DETECT); Sapovirus Not Detected (NOT DETECT); Shiga Toxin-prod E. coli-STEC Not Detected (NOT DETECT); Shigella/Enteroin E. coli-EIEC Not Detected (NOT DETECT); Vibrio Cholerae Not Detected (NOT DETECT); Vibrio Sp Not Detected (NOT DETECT); Yersinia Enterocolitica Not Detected (NOT DETECT)
--- NOTE | 2020-03-03 05:05 | NUR ---
SHIFT SUMMARY ADMITTED FOR GASTROPARESIS VS. PANCREATITIS. FULL CODE. PT VOMITING FREQUENTLY. CALLED HOSPITALIST - NEW NAUSEA MEDS IN EMAR. PLEASE ALTERNATE REGLAN AND ZOFRAN USE. PT HAVING DIARRHEA. STOOL SAMPLE ACCQUIRED THIS SHIFT - NEGATIVE. TELEMETRY: NSR @ 63 BPM. Q 6 HRS GLUCOSE CHECKS WHILE NPO.
[2020-03-03 05:16] LABS: Bun/Creatinine Ratio 15.4 (12.0-20.0); Calcium, Blood 8.6 mg/dL (8.5-10.1); Creatinine, Blood 4.21 mg/dL (0.60-1.20); Potassium, Blood 3.8 mmol/L (3.5-5.5)
--- NOTE | 2020-03-03 17:30 | NUR ---
RAPID RESPONSE NOTE- PT ALERT AND ORIENTED AND HAS HAD FREQUENT NEED FOR PAIN MEDICATION T/O THE SHIFT. PT WAS CALLING FOR PAIN MEDICATION, ASH HANDLER ENTERED WITH RN TO PERFORM FOLLOW UP VITALS FOR THE PRIOR ADMINISTRATION OF IV HYDRALIZINE. PT WAS CRYING WITH THE ABD PAIN, WRITHING AROUND IN THE BED MIXED THE PAIN MED IN [address] THROUGH THE PUSH THE PT EXHALED AND ALL MOVEMENT STOPPED. PT DID NOT INHALE AND WAS STARING AT THE CEILING, PULSE VISIBLE IN HIS CHEST THERE WAS NO OTHER MOVEMENT, SHOUTING AND STERNAL RUB SHAKING THE PT GAINED MINIMAL RESPONSE, CALLED RAPID RESPONSE TEAM. SBP WAS OVER 200 ON INITIAL VITALS RECHECK WAS IN THE 190'S PO CARVEDILOL WAS BEING PREPARED TO BE GIVEN AT THE TIME OF THE RAPID RESPONSE. MORE SHOUTS AND STERNAL RUB GOT THE PT RESPONDING FULLY. BITUMEN PLANT OPERATOR ARRIVED AND PT WAS NEARLY ASYMPTOMATIC. CRYING IN PAIN AGAIN, AND THEN THE PT LOOKED AROUND THE ROOM AND SAID "YOU GUYS ARE FREAKING ME OUT NOW!" "WHATS GOING ON." WHEN STAFF EXPLAINED WHAT HAD HAPPENED HE BEGAN TO CRY STATING "I'M SORRY I DIDN'T MEAN TO DO THAT." PT CALLED HIS SHORTLY AFTER. CALLED PT SPOUSE AND GAVE A FULL UPDATE SHE IS AWARE OF THE INCIDENT. CALLED DR SHI AFTER BITUMEN PLANT OPERATOR. APPROX [phone]. MED ORDERS CHANGED SEE ORDER MANAGEMENT FOR DETAILS.
--- NOTE | 2020-03-03 20:45 | NUR ---
SHIFT SUMMAARY- BEDSIDE REPORT COMPLETED PT SEEMS TO BE RESTING COMFORTABLY WITH NO S&S OF PAIN OR N/V RESP E/U ON 2L VIA NC. TELE STATES THERE HAVE BEEN NO EVENTS. SEE PREVIOUS NOTES FOR MORE DETAILS.
[2020-03-04 04:41] LABS: BASOPHILS ABSOLUTE AUTO 0.01 K/mm3 (0.00-0.23); BASOPHILS PERCENT AUTO 0 % (0-2); EOSINOPHILS ABSOLUTE AUTO 0.07 K/mm3 (0.00-0.68); EOSINOPHILS PERCENT AUTO 1 % (0-6); Hematocrit 28.7 % (37.0-53.0); Hemoglobin 9.2 g/dL (13.5-17.5); IMMATURE GRAN ABSOLUTE AUTO 0.03 K/mm3 (0.00-0.10); IMMATURE GRAN PERCENT AUTO 1 % (0-1); LYMPHOCYTES ABSOLUTE AUTO 0.98 K/mm3 (0.84-5.20); LYMPHOCYTES PERCENT AUTO 18 % (21-46); MONOCYTES ABSOLUTE AUTO 0.39 K/mm3 (0.16-1.47); MONOCYTES PERCENT AUTO 7 % (4-13); Mean Corpuscular HGB 31.6 pg (26.0-34.0); Mean Corpuscular HGB Conc 32.1 g/dL (31.5-36.5); Mean Corpuscular Volume 99 fL (80-100); Mean Platelet Volume 10.7 fL (9.1-12.4); NEUTROPHILS ABSOLUTE AUTO 4.01 K/mm3 (1.96-9.15); NEUTROPHILS PERCENT AUTO 73 % (41-73); Platelet Count 107 K/mm3 (150-400); RDW Coefficient Variation 14.8 % (11.7-14.2); RDW Standard Deviation 53.9 fL (35.1-46.3); Red Blood Cell Count 2.91 M/mm3 (4.30-5.90); White Blood Cell Count 5.49 K/mm3 (4.00-11.30)
[2020-03-04 05:08] LABS: Albumin, Blood 3.4 g/dL (3.4-5.0); Albumin/Globulin Ratio 0.9 (0.8-1.8); Bilirubin, Total 0.3 mg/dL (0.1-1.0); Bun/Creatinine Ratio 14.7 (12.0-20.0); Calcium, Blood 8.3 mg/dL (8.5-10.1); Creatinine, Blood 4.28 mg/dL (0.60-1.20); Globulin, Blood 3.7 g/dL (2.2-4.0); Potassium, Blood 3.9 mmol/L (3.5-5.5); Total Protein, Blood 7.1 g/dL (6.4-8.2)
--- NOTE | 2020-03-04 07:09 | NUR ---
CAMPAIGN DIRECTOR SUMMARY PT A/O X4. INDEPENDENT TO BSC. PT DID NOT COMPLAIN OF PAIN OVERNIGHT AND SLEPT GREAT. HE WAS IRRITIBLE WHENEVER STAFF CAME IN. PT DOES NOT LIKE BEING NPO. WHEN I GAVE HIS SCHEDULED NIGHT MEDS HE CHOKED ON THEM AND THROWN UP A LITTLE WHEN THIS HAPPENED. THIS WAS THE ONLY TIME PT HAD EMESIS. SCOPOLAMINE PATCH APPLIED IN BEGINNING OF THE SHIFT AND IT IS STILL IN PLACE NOW. PT COMPLAINED OF FEELING NAUSEOUS THIS MORNING ARUND 0500. HE REFUSED IV PHENERGAN. HE SAID HE RECIEVED IT BEFORE AND MADE HIM REALLY SICK. VSS.
--- NOTE | 2020-03-04 20:04 | NUR ---
SHIFT SUMMARY- PT ALERT AND ORIENTED. NO PAIN T/O THE SHIFT UNTIL THE END, PT BEGAN TO GET UP AND DOWN TO THE BATHROOM HAVING GREEN LIQUID STOOLS WITH SOME SOLID PIECES (CORN AND OTHER NOT COMPLETELY DIGESTED FOODS). AT THE TIME THE STOOL FREQUENCY INCREASED THE PT BECAME ANXIOUS AND WAS MEDICATED WITH HOME DOSE OF ATIVAN. PRIOR TO THE END OF SHIFT THE PT WAS MEDICATED WITH 0.5 MG OF DILAUDID, HE RELAXED AND HIS RESP RATE DECREASED PT STATED PAIN WAS DOWN TO 6/10 FROM 8 AND THEN DOWN TO 4/10 ON NEXT ROUNDS. FREQUENT ROUNDS FOR PT SAFETY AFTER THE PAIN MEDS D/T PREVIOUS ISSUE YESTERDAY EVENING SEE RAPID RESPONSE NOTE. BEDSIDE REPORT NOT PERFORMED THE PT REQUESTED STAFF DO IT OUTSIDE THE ROOM. CALLED PT JUST PRIOR TO SHIFT CHANGE TO UPDATE HER AT THE PT REQUEST. PT AWARE OF THE CALL. PT DIET WAS INCREASED (PT WAS QUITE INSISTENT THAT HE WAS GOING TO LEAVE IF HE DIDN'T GET SOME WATER) TO CLEAR LIQUIDS.
[2020-03-05 05:00] LABS: BASOPHILS ABSOLUTE AUTO 0.01 K/mm3 (0.00-0.23); BASOPHILS PERCENT AUTO 0 % (0-2); EOSINOPHILS ABSOLUTE AUTO 0.01 K/mm3 (0.00-0.68); EOSINOPHILS PERCENT AUTO 0 % (0-6); Hematocrit 26.8 % (37.0-53.0); Hemoglobin 8.8 g/dL (13.5-17.5); IMMATURE GRAN ABSOLUTE AUTO 0.03 K/mm3 (0.00-0.10); IMMATURE GRAN PERCENT AUTO 1 % (0-1); LYMPHOCYTES ABSOLUTE AUTO 1.03 K/mm3 (0.84-5.20); LYMPHOCYTES PERCENT AUTO 16 % (21-46); MONOCYTES ABSOLUTE AUTO 0.49 K/mm3 (0.16-1.47); MONOCYTES PERCENT AUTO 8 % (4-13); Mean Corpuscular HGB 31.5 pg (26.0-34.0); Mean Corpuscular HGB Conc 32.8 g/dL (31.5-36.5); Mean Corpuscular Volume 96 fL (80-100); Mean Platelet Volume 10.5 fL (9.1-12.4); NEUTROPHILS ABSOLUTE AUTO 4.76 K/mm3 (1.96-9.15); NEUTROPHILS PERCENT AUTO 75 % (41-73); Platelet Count 104 K/mm3 (150-400); RDW Coefficient Variation 14.3 % (11.7-14.2); RDW Standard Deviation 50.5 fL (35.1-46.3); Red Blood Cell Count 2.79 M/mm3 (4.30-5.90); White Blood Cell Count 6.33 K/mm3 (4.00-11.30)
[2020-03-05 05:28] LABS: Albumin, Blood 3.2 g/dL (3.4-5.0); Albumin/Globulin Ratio 0.9 (0.8-1.8); Bilirubin, Total 0.4 mg/dL (0.1-1.0); Calcium, Blood 7.9 mg/dL (8.5-10.1); Creatinine, Blood 4.32 mg/dL (0.60-1.20); Globulin, Blood 3.6 g/dL (2.2-4.0); Magnesium, Blood 2.4 mg/dL (1.6-2.4); Potassium, Blood 3.6 mmol/L (3.5-5.5); Thyroid Stimulating Hormone 1.05 uIU/mL (0.360-4.800); Total Protein, Blood 6.8 g/dL (6.4-8.2)
--- NOTE | 2020-03-05 06:25 | NUR ---
SHIFT SUMMARY: VSS. AFEB. AAOX3. ABLE TO COMMUNICATE NEEDS. SOME AGITATION ABOUT ATIVAN BEING SCHEDULED. SPOKE W/HOSPITALIST AND ORDER CHANGED TO PRN. ATIVAN ADMINISTERED X 1. PRN ANALGESICS X2 FOR ABD PAIN. PT STATES HELPFUL. ABD TENDER W/PALPATION. BT HYPOACTIVE. NO BM TONIGHT. DENIES N/V. NO ACUTE CHANGES OVERNIGHT.
--- NOTE | 2020-03-05 17:30 | NUR ---
SUMMARY PT IS A/O X 3-4. HE APPEARS WEAK/FATIGUE. STATES FEELING OF MALAISE, NO ENERGY. HE HAS SLEPT MOST OF DAY. IRRITABLE/GRUMPY AFFECT. HE IS SCEPTICAL OF MEDICATIONS & TREATMENT. REFUSES SCHEDULED CREON STATES THAT IT IS CAUSING DIARRHEA. HE STATE "MILD" NAUSEA, NO VOMITING T/O DAY, STATE ABDOMEN HURTS HE HAS DECLINED ANTIEMETICS. POOR APPETITE, MINIMAL ORAL INTAKE, DR ALBRIGHT ADV DIET TO [place] ADA. BLOOD SUGAR 153-171. THIS AFTERNOONS VITAL SIGNS DIE REPAIRER STAMPING REPORT BIOX 80 ON RA, PLACED ON O2 @ 4L, BIOX UP TO 93%, LUNG SOUNDS SEEM CLEAR, NO BLE EDEMA. HE HAS BEEN SOB w EXERT T/O DAY. TELE NSR 60-70 TODAY. HAS ONLY GOT UP TO USE BSC. GFR 15 THIS AM, DR MÉNDEZ CONSULTED, CHANGE IVF TO NS w BICARB @ 100 ML/HR. 24 HR URINE COLLECTION STARTED. BLADDER SCANS 300-380. HE HAS NOT REQUIRED STRAIT CATHS. BP HAS BEEN ELEVATED, SBP >160, HAVE GIVEN PRN HYDRALAZINE X2.
--- NOTE | 2020-03-05 23:58 | NUR ---
AFIB CALL FROM [facility] AROUND 2330 THAT PT CONVERTED TO AFIB FROM NSR 70'S .RATE IN THE 80'S. HE ALSO REPORTED THAT PT HAD A 3 SEC PAUSE. PT IS ASYMPTOMATIC AND SLEEPING. DR. MCGINNIS CALLED AND NOTIFIED. NO ADDITIONAL ORDERS GIVEN.
--- NOTE | 2020-03-05 23:59 | NUR ---
INCREASED SOB PT REPORTS INCREASED SOB AT 2200. PT STATES THAT HE HAS BEEN SOB BEFORE HIS ADMISSION, BUT HE REPORTS THAT IT HAS GOTTEN WORST. UPON ASSESSMENT PT BREATHING IS LABORED. LUNGS WITH EXPIRATORY WHEEZES. NO CRACKLES AUSCULTATED. PT HAS HX OF CHF. PT HAS HAD MAINTENANCE FLUIDS INFUSING AT 100ML/HR. DR. MCGINNIS CALLED AND NOTIFIED OF PT SOB. RECEIVED ORDER TO DC FLUIDS.
--- NOTE | 2020-03-06 05:03 | NUR ---
SHIFT SUMMARY PT CONTINUES TO FEEL GENERALLY UNWELL. HE CONTINUES TO REPORT ABD PAIN, DIARRHEA AND MILD NAUSEA. PT MEDICATED FOR ABD PAIN WITH EFFECT. PT DECLINES ANYTHING FOR NAUSEA. PT IS LABILE, AND BECOMES EASILY IRRITABLE WITH STAFF. PT HYPERTENSIVE, MEDICATED WITH PRN HYDRALYZINE ORDRED. PT REMAINS HYPERTENSIVE BUT TRENDS AROUND HIS BASELINE SINCE HIS ADMISSION WHICH IS USUALLY SBP 170'S. UNMEDICATED PT IN THE 190'S. PT ON SCHEDULED PO ANTIHYPERTESIVES ALSO. PT HAS HAD SOME INCREASED SOB THIS SHIFT. LUNG SOUNDS ARE DIMINISHED WITH SOME EXPIRATORY WHEEZES. HX OF CHF. DR. MCGINNIS NOTIFIED AND IVF WERE DC'D. Q SHIFT POST VOID BLADDER SCAN WAS 505, PT WAS ABLE TO VOID AGAIN AFTER SCAN AND VOIDED 125. PT IS ADAMANT THAT HE DOES NOT WANT TO BE STRAIGHT CATH AND REFUSES IF BLADDER SCAN IS EVER OVER 400. NO OTHER CHANGES TO REPORT THIS SHIFT. BED IN LOWEST POSITION, CALL LIGHT WITHIN REACH.
[2020-03-06 05:06] LABS: BASOPHILS ABSOLUTE AUTO 0.02 K/mm3 (0.00-0.23); BASOPHILS PERCENT AUTO 0 % (0-2); EOSINOPHILS ABSOLUTE AUTO 0.02 K/mm3 (0.00-0.68); EOSINOPHILS PERCENT AUTO 0 % (0-6); Hematocrit 26.2 % (37.0-53.0); Hemoglobin 8.6 g/dL (13.5-17.5); IMMATURE GRAN ABSOLUTE AUTO 0.05 K/mm3 (0.00-0.10); IMMATURE GRAN PERCENT AUTO 1 % (0-1); LYMPHOCYTES ABSOLUTE AUTO 0.76 K/mm3 (0.84-5.20); LYMPHOCYTES PERCENT AUTO 11 % (21-46); MONOCYTES ABSOLUTE AUTO 0.56 K/mm3 (0.16-1.47); MONOCYTES PERCENT AUTO 8 % (4-13); Mean Corpuscular HGB 31.7 pg (26.0-34.0); Mean Corpuscular HGB Conc 32.8 g/dL (31.5-36.5); Mean Corpuscular Volume 97 fL (80-100); Mean Platelet Volume 10.7 fL (9.1-12.4); NEUTROPHILS ABSOLUTE AUTO 5.33 K/mm3 (1.96-9.15); NEUTROPHILS PERCENT AUTO 79 % (41-73); Platelet Count 89 K/mm3 (150-400); RDW Coefficient Variation 14.6 % (11.7-14.2); Red Blood Cell Count 2.71 M/mm3 (4.30-5.90); White Blood Cell Count 6.74 K/mm3 (4.00-11.30)
[2020-03-06 05:39] LABS: Albumin, Blood 3.1 g/dL (3.4-5.0); Anion Gap 6 mmol/L (6-16); Blood Urea Nitrogen 69 mg/dL (8-24); Bun/Creatinine Ratio 15.9 (12.0-20.0); CO2, Blood 20 mmol/L (21-32); CPK Creatine Kinase 198 U/L (39-308); Calcium, Blood 8.2 mg/dL (8.5-10.1); Chloride, Blood 115 mmol/L (98-108); Creatinine, Blood 4.33 mg/dL (0.60-1.20); Glomerular Filtration Rate 15 (60-); Glucose, Blood 175 mg/dL (70-99); Magnesium, Blood 2.4 mg/dL (1.6-2.4); Phosphorus, Blood 3.9 mg/dL (2.5-4.9); Potassium, Blood 3.3 mmol/L (3.5-5.5); Sodium, Blood 141 mmol/L (136-145); Uric Acid, Blood 8.5 mg/dL (3.5-7.2)
--- NOTE | 2020-03-06 15:47 | NUR ---
SUMMARY PT CONTINUES TO STATE MALAISE, WEAKNESS/FATIGUE, UPPER ABDOMINAL PAIN. HE IS ANXIOUS FEARFUL @ X'S R/T UNCERTAINTY OF SOURCE. FREQUENT REASSURANCE PROVIDED. HE CAN BECOME IRRITABLE w HOSP ROUTINE, STATE NEED FOR REST/SLEEP, REQUESTS DOOR CLOSED, LIGHTS OUT. HE IS SBA/IND TO BSC. HAVE GIVEN IV DILAUDID 0.5MG FOR PAIN RELIEF/CONTROL. HE STATE NAUSEA RELIEF HOWEVER STATE UNABLE TO EAT, POOR APPETITE R/T MULT DAYS N/V. STATE DIARRHEA HAS IMPROVED SOMEWHAT, DR ALBRIGHT ORDER IMODIUM PRN. DR ALBRIGHT REVIEW & ADJUST MEDS. LOW K+ THIS AM, DR MÉNDEZ ORDER ORAL SUPPLEMENT. 24HR URINE COLLECTED/SENT TODAY. PT STATE SHORTNESS OF BREATH THAT INCREASES w EXERTION, O2 TITRATED 2L BIOX 95% BP CONTINUES ELEVATED, PRN HYDRALAZINE GIVEN. PT'S CALL THIS AM, PROVIDED UPDATE, STATE SHE WILL BE IN TOMORROW TO VISIT.
--- NOTE | 2020-03-06 22:27 | NUR ---
CONVERTED AFIB TO NSR CALL FROM [facility] AT 2227 THAT PT CONVERTED FROM AFIB TO NSR RATE IN THE 70'S.
--- NOTE | 2020-03-07 04:38 | NUR ---
PT REFUSED BLADDER SCAN, NURSE NOTIFIED.
--- NOTE | 2020-03-07 04:48 | NUR ---
SHIFT SUMMARY PT CONTINUES TO HAVE INTERMITTENT ABD PAIN. PT WAS IN TEARS THIS SHIFT DUE TO THE PAIN. MEDICATED PER EMAR WITH EFFECT. PT APPEARS TO HAVE BEEN ABLE TO REST COMFORTABLY SINCE THAT TIME AND DENIES NEEDS WHEN ASKED. PT REPORTS THAT HE DOES FEEL BETTER THAN HE DID YESTERDAY. APPETITE IS IMPROVED AND HE DID EAT SOME OF HIS DINNER TRAY. SOB WITH EXERTION WITH A DRY NON PRODUCTIVE COUGH. 2L O2 IN PLACE. [place] [facility] HE REFUSED Q SHIFT BLADDER SCAN, BUT HAS BEEN VOIDING THIS SHIFT. PT FLAT/WITHDRAWN AND SEEMS GENERALLY DEPRESSED AND UNMOVTIVATED. NO ACUTE CHANGES IN PT ASSESSMENT. BED IN LOWEST POSITION, CALL LIGHT WITHIN REACH.
[2020-03-07 05:35] LABS: BASOPHILS ABSOLUTE AUTO 0.01 K/mm3 (0.00-0.23); BASOPHILS PERCENT AUTO 0 % (0-2); EOSINOPHILS ABSOLUTE AUTO 0.04 K/mm3 (0.00-0.68); EOSINOPHILS PERCENT AUTO 1 % (0-6); Hematocrit 25.4 % (37.0-53.0); Hemoglobin 8.5 g/dL (13.5-17.5); IMMATURE GRAN ABSOLUTE AUTO 0.04 K/mm3 (0.00-0.10); IMMATURE GRAN PERCENT AUTO 1 % (0-1); LYMPHOCYTES ABSOLUTE AUTO 0.86 K/mm3 (0.84-5.20); LYMPHOCYTES PERCENT AUTO 16 % (21-46); MONOCYTES ABSOLUTE AUTO 0.46 K/mm3 (0.16-1.47); MONOCYTES PERCENT AUTO 8 % (4-13); Mean Corpuscular HGB Conc 33.5 g/dL (31.5-36.5); Mean Corpuscular Volume 96 fL (80-100); Mean Platelet Volume 11.2 fL (9.1-12.4); NEUTROPHILS ABSOLUTE AUTO 4.05 K/mm3 (1.96-9.15); NEUTROPHILS PERCENT AUTO 74 % (41-73); Platelet Count 103 K/mm3 (150-400); RDW Coefficient Variation 14.6 % (11.7-14.2); RDW Standard Deviation 50.5 fL (35.1-46.3); Red Blood Cell Count 2.66 M/mm3 (4.30-5.90); White Blood Cell Count 5.46 K/mm3 (4.00-11.30)
[2020-03-07 05:57] LABS: Albumin, Blood 3.1 g/dL (3.4-5.0); Albumin/Globulin Ratio 0.9 (0.8-1.8); Bilirubin, Total 0.4 mg/dL (0.1-1.0); Bun/Creatinine Ratio 16.6 (12.0-20.0); Calcium, Blood 8.5 mg/dL (8.5-10.1); Creatinine, Blood 4.63 mg/dL (0.60-1.20); Globulin, Blood 3.6 g/dL (2.2-4.0); Magnesium, Blood 2.6 mg/dL (1.6-2.4); Phosphorus, Blood 3.5 mg/dL (2.5-4.9); Potassium, Blood 3.4 mmol/L (3.5-5.5); Total Protein, Blood 6.7 g/dL (6.4-8.2)
--- NOTE | 2020-03-07 06:23 | NUR ---
PERMACATH PLACEMENT DR. MÉNDEZ IN TO SEE PT THIS SHIFT AT 0620. PT RENAL FUNCTION CONTINUES TO DECLINE. DR. MÉNDEZ WOULD LIKE TO PLACE PERMACATH TODAY AND START DIALYSIS. DR. MÉNDEZ EXPLAINED TO PT IN FULL THE REASON FOR NEEDING DIALYSIS AND PERMACATH PLACEMENT. PT IS RESISTANT TO HAVING DIALYSIS AND BECAME UPSET WITH THE NEWS. DR. MÉNDEZ IS RECOMMENDING STAYING IN THE HOSPITAL LONGER TO START DIALYSIS AND MONITOR RENAL FUNCTION. PT IS CURRENTLY DECLINING THIS PLAN AT THIS POINT IN TIME BUT HAS AGREED TO PERMACATH PLACEMENT AND OUTPAITENT DIALYSIS. RECEIVED ORDER TO PUT IN CONSULT FOR PERMACATH PLACEMENT FOR DR. MACK, AND TO NOTIFY PIPELINE CONSTRUCTION INSPECTOR. PIPELINE CONSTRUCTION INSPECTOR CALLED AND NOTIFED. LEFT MESSAGE ON [facility]. CONSULT BEING PLACED AT THIS TIME WITH FREDERICK. NURSING METAL HARDENER ELMER MOHAMUD, RN , CREAM RIPENER KEV WU AWARE. PT NOW NPO FOR POSSIBLE PROCEDURE.
--- NOTE | 2020-03-07 19:44 | NUR ---
SHIFT SUMMARY: NO ACUTE CHANGES/EVENTS TO REPORT THIS SHIFT. PT A&O; IRRITABLE. MEDICATED FOR ABD PAIN PER EMAR. AWAITING PERMACATH PLACEMENT TO BEGIN DIALYSIS; SURGERY PLANNED FOR 03/08; PT TO BE NPO AT MIDNIGHT. REPORT GIVEN TO ONCOMING RN.
--- NOTE | 2020-03-08 04:42 | NUR ---
TUNNELLER SUMMARY A&O, NO ACUTE DISTRESS. APPEARPED TO SLEEP T/O MOST OF THE NIGHT. C/O ABD PAIN THAT WAS MEDICATED PER EMAR. UP TO BSC WITH LOOSE STOOLS. SOME DYSPNEA NOTED WITH EXERTION. BED IN LOWEST POSITION WITH CALL LIGHT IN REACH. WILL CONTINUE TO MONITOR AND REPORT TO ONCOMING RN.
[2020-03-08 05:19] LABS: Anion Gap 7 mmol/L (6-16); Blood Urea Nitrogen 81 mg/dL (8-24); Bun/Creatinine Ratio 17.2 (12.0-20.0); CO2, Blood 18 mmol/L (21-32); Calcium, Blood 8.1 mg/dL (8.5-10.1); Chloride, Blood 118 mmol/L (98-108); Creatinine, Blood 4.72 mg/dL (0.60-1.20); Glomerular Filtration Rate 13 (60-); Glucose, Blood 196 mg/dL (70-99); Magnesium, Blood 2.4 mg/dL (1.6-2.4); Phosphorus, Blood 3.5 mg/dL (2.5-4.9); Potassium, Blood 3.4 mmol/L (3.5-5.5); Sodium, Blood 143 mmol/L (136-145)
[2020-03-08 05:31] LABS: Hematocrit 25.7 % (37.0-53.0); Hemoglobin 8.3 g/dL (13.5-17.5)
[2020-03-08 14:09] LABS: A/G RATIO 1.2 (0.7-1.7); ALPHA-1-GLOBULIN 0.1 g/dL (0.0-0.4); ALPHA-2-GLOBULIN 0.8 g/dL (0.4-1.0); BETA GLOBULIN 0.7 g/dL (0.7-1.3); GAMMA GLOBULIN 1.1 g/dL (0.4-1.8); GLOBULIN, TOTAL 2.7 g/dL (2.2-3.9); IMMUNOGLOBULIN A, QN, SERUM 309 mg/dL (61-437); IMMUNOGLOBULIN G, QN, SERUM 1134 mg/dL (603-1613); IMMUNOGLOBULIN M, QN, SERUM 32 mg/dL (20-172); M-SPIKE 0.2 g/dL (Not Observed); PROTEIN, TOTAL, SERUM 5.7 g/dL (6.0-8.5)
--- NOTE | 2020-03-08 18:39 | NUR ---
SHIFT SUMAMRY: NO ACUTE CHANGES TO REPORT THIS SHIFT. PT A&O; PAINFUL; COOPERATIVE WITH CARE. MEDICATED FOR ABDOMINAL PAIN PER EMAR. AWAITING PERMACATH PLACE; PROCEDURES RESCHEDULED FROM 03/08 TO 03/09; PT TO BE NPO AT MIDNIGHT. WCTM.
[2020-03-09 04:59] LABS: BASOPHILS ABSOLUTE AUTO 0.01 K/mm3 (0.00-0.23); BASOPHILS PERCENT AUTO 0 % (0-2); EOSINOPHILS ABSOLUTE AUTO 0.11 K/mm3 (0.00-0.68); EOSINOPHILS PERCENT AUTO 2 % (0-6); Hematocrit 25.8 % (37.0-53.0); Hemoglobin 8.5 g/dL (13.5-17.5); IMMATURE GRAN ABSOLUTE AUTO 0.04 K/mm3 (0.00-0.10); IMMATURE GRAN PERCENT AUTO 1 % (0-1); LYMPHOCYTES PERCENT AUTO 24 % (21-46); MONOCYTES ABSOLUTE AUTO 0.47 K/mm3 (0.16-1.47); MONOCYTES PERCENT AUTO 9 % (4-13); Mean Corpuscular HGB 31.8 pg (26.0-34.0); Mean Corpuscular HGB Conc 32.9 g/dL (31.5-36.5); Mean Corpuscular Volume 97 fL (80-100); Mean Platelet Volume 9.4 fL (9.1-12.4); NEUTROPHILS ABSOLUTE AUTO 3.47 K/mm3 (1.96-9.15); NEUTROPHILS PERCENT AUTO 64 % (41-73); NRBC ABSOLUTE 0.03 K/mm3 (0.00-0.02); NRBC Auto 0.6 /100 WBC (0.0-0.2); Platelet Count 107 K/mm3 (150-400); RDW Coefficient Variation 14.7 % (11.7-14.2); RDW Standard Deviation 51.6 fL (35.1-46.3); Red Blood Cell Count 2.67 M/mm3 (4.30-5.90)
[2020-03-09 05:26] LABS: Anion Gap 7 mmol/L (6-16); Blood Urea Nitrogen 80 mg/dL (8-24); Bun/Creatinine Ratio 16.3 (12.0-20.0); CO2, Blood 18 mmol/L (21-32); Calcium, Blood 8.1 mg/dL (8.5-10.1); Chloride, Blood 115 mmol/L (98-108); Creatinine, Blood 4.91 mg/dL (0.60-1.20); Glomerular Filtration Rate 13 (60-); Glucose, Blood 147 mg/dL (70-99); Magnesium, Blood 2.6 mg/dL (1.6-2.4); Phosphorus, Blood 3.4 mg/dL (2.5-4.9); Potassium, Blood 3.3 mmol/L (3.5-5.5); Sodium, Blood 140 mmol/L (136-145)
--- NOTE | 2020-03-09 05:32 | NUR ---
SHIFT SUMMARY PT HAS HAD NO ACUTE CHANGES THIS SHIFT, A&O, COOPERATIVE W/CARE, TEARFUL AT TIMES STATING HE IS TIRED OF THE PAIN, MEDICATED PER MAR FOR PAIN, NO OTHER C/O ANY KIND, NPO SINCE MID FOR PERMA CATH PLACEMENT THIS AM, SLEPT T/O THE NIGHT & SLEEPING AT THIS TIME, CALL LIGHT IN REACH, WILL CONT TO MONITOR UNTIL REPORT GIVEN TO DAY RN.
--- NOTE | 2020-03-09 09:40 | NUR ---
PT QUITE UPSET THIS MORNING ABOUT DELAYS IN PERMCATH PLACEMENT. SPOKE WITH HEART CENTER AND CARDIOLOGY OFFICE THIS MORNING WELL PTS AND THEN LISTENED TO PTS CONCERNS AND FRUSTRATION. HEART CENTER HERE NOW TO PICK PT UP FOR PROCEDURE. MEDICATED WITH DILAUDID FOR ABDOMENAL PAIN.
[2020-03-09 11:09] LABS: ANTIGLOMERULAR BM AB 3 units (0-20)
--- NOTE | 2020-03-09 11:15 | NUR ---
PT RETURNED TO ROOM FROM HEART CENTER WITH PERMCATH PLACED. AT BEDSIDE ON RETURN. SPOKE WITH DIALYSIS ROOM WITH PLANS FOR DIALYSIS AT 1200. PT AND AWARE. GAVE MORNING MEDICATIONS.
[2020-03-09 14:09] LABS: A/G RATIO 1.2 (0.7-1.7); ALBUMIN 3.3 g/dL (2.9-4.4); ALPHA-1-GLOBULIN 0.1 g/dL (0.0-0.4); ALPHA-2-GLOBULIN 0.8 g/dL (0.4-1.0); BETA GLOBULIN 0.8 g/dL (0.7-1.3); GAMMA GLOBULIN 1.1 g/dL (0.4-1.8); GLOBULIN, TOTAL 2.8 g/dL (2.2-3.9); IMMUNOGLOBULIN A, QN, SERUM 310 mg/dL (61-437); IMMUNOGLOBULIN G, QN, SERUM 1130 mg/dL (603-1613); IMMUNOGLOBULIN M, QN, SERUM 32 mg/dL (20-172); M-SPIKE 0.2 g/dL (Not Observed); PROTEIN, TOTAL, SERUM 6.1 g/dL (6.0-8.5)
[2020-03-09 15:09] LABS: M-SPIKE, % Not Observed % (Not Observed); PROTEIN,TOTAL,URINE 189.7 mg/dL (Not Estab.)
--- NOTE | 2020-03-09 19:44 | NUR ---
SHIFT SUMMARY PTS PAIN CONTROL APPEARS TO HAVE IMPROVED DAY HAS PROGRESSED. HAS CONTINUED TO EXPRESS ONGOING FRUSTRATION WITH DELAYS HE HAS EXPERIENCED AND AMBIGUOUS INFORMATION HE HAS RECEIVED THROUGHOUT HIS ILLNESS OVER THE LAST FEW YEARS. MOOD HAS IMPROVED GREATLY SINCE RETURN FROM CATH PLACEMENT AND DIALYSIS. OBTAINED NEW ORDERS FOR TRAMADOL AND DIET. HAD 2 EPISODES OF DIARRHEA TODAY AND NO MORE AFTER IMODIUM GIVEN. HEPARIN INJECTION GIVEN IN L ABDOMEN BLED ON INITIAL INJECTION WITH A BANDAID PLACED. DIALYSIS INFORMED ME OF IT BLEEDING THROUGH BANDAID AND A LITTLE BLOOD ON GOWN. LATER MORE BLEEDING NOTED AND 2X2 GAUZE APPLIED WITH TAPE. AT 1745 CALLED INTO ROOM WITH LOWER CORNER OF GOWN SATURATED AND A BIT OF PAD UNDER HIM COVERED IN BLOOD WELL THE 2X2 GAUZE, WHICH WAS SEVERAL, SOAKED THROUGH. MORE GAUZE APPLIED WITH PRESSURE TAPE AND NO FURTHER BLEEDING NOTED UP TO THIS TIME. PT AWARE TO CALL IF HE NOTICES FURTHER BLEEDING.
[2020-03-10 04:38] LABS: BASOPHILS ABSOLUTE AUTO 0.02 K/mm3 (0.00-0.23); BASOPHILS PERCENT AUTO 0 % (0-2); EOSINOPHILS ABSOLUTE AUTO 0.13 K/mm3 (0.00-0.68); EOSINOPHILS PERCENT AUTO 2 % (0-6); Hematocrit 25.3 % (37.0-53.0); Hemoglobin 8.5 g/dL (13.5-17.5); IMMATURE GRAN ABSOLUTE AUTO 0.06 K/mm3 (0.00-0.10); IMMATURE GRAN PERCENT AUTO 1 % (0-1); LYMPHOCYTES ABSOLUTE AUTO 1.37 K/mm3 (0.84-5.20); LYMPHOCYTES PERCENT AUTO 25 % (21-46); MONOCYTES ABSOLUTE AUTO 0.59 K/mm3 (0.16-1.47); MONOCYTES PERCENT AUTO 11 % (4-13); Mean Corpuscular HGB 31.8 pg (26.0-34.0); Mean Corpuscular HGB Conc 33.6 g/dL (31.5-36.5); Mean Corpuscular Volume 95 fL (80-100); Mean Platelet Volume 10.9 fL (9.1-12.4); NEUTROPHILS ABSOLUTE AUTO 3.42 K/mm3 (1.96-9.15); NEUTROPHILS PERCENT AUTO 61 % (41-73); NRBC ABSOLUTE 0.04 K/mm3 (0.00-0.02); NRBC Auto 0.7 /100 WBC (0.0-0.2); Platelet Count 114 K/mm3 (150-400); RDW Coefficient Variation 14.7 % (11.7-14.2); RDW Standard Deviation 50.2 fL (35.1-46.3); Red Blood Cell Count 2.67 M/mm3 (4.30-5.90); White Blood Cell Count 5.59 K/mm3 (4.00-11.30)
[2020-03-10 04:56] LABS: Anion Gap 5 mmol/L (6-16); Blood Urea Nitrogen 49 mg/dL (8-24); Bun/Creatinine Ratio 14.3 (12.0-20.0); CO2, Blood 24 mmol/L (21-32); Calcium, Blood 8.2 mg/dL (8.5-10.1); Chloride, Blood 111 mmol/L (98-108); Creatinine, Blood 3.43 mg/dL (0.60-1.20); Glomerular Filtration Rate 19 (60-); Glucose, Blood 117 mg/dL (70-99); Magnesium, Blood 2.4 mg/dL (1.6-2.4); Phosphorus, Blood 2.5 mg/dL (2.5-4.9); Potassium, Blood 3.1 mmol/L (3.5-5.5); Sodium, Blood 140 mmol/L (136-145)
--- NOTE | 2020-03-10 07:36 | NUR ---
SHIFT SUMMARY AOX4. VSS. TELE NSR c PVC HR 60'S. DENIES N/V OR DYSPNEA. REPORTS PAIN IN R SIDE NECK & MID ABD, MEDICATED 3X W/0.5 MG DILAUDID & 1X W/TYLENOL. REPORTS MILD RELIEF W/PAIN DECREASING TO 6/10. ABD IS FIRM, DISTENDED & PT REPORTS HE FEELS BLOATED. 1 EPISODE DIARRHEA LAST NIGHT, GAVE IMODIUM & NONE SINCE. [facility]ESSING IS C/D/I, BRUISING AROUND SITE. CALL LIGHT IN REACH.
[2020-03-10 09:12] LABS: HBSAG SCREEN Negative (Negative); HEP A AB, IGM Negative (Negative); HEP B CORE AB, IGM Negative (Negative); HEP C VIRUS AB >11.0 (0.0-0.9)
[2020-03-10 12:05] LABS: ANTIGLOMERULAR BM AB 3 units (0-20)
--- NOTE | 2020-03-10 12:57 | NUR ---
Patient is lying in bed and alert. Patient tells me about his 1st dialysis and about the emotional effects it was on him. Patient states that he feels like this is the beginning of the end. We talk at length about this perspective. I listen empathically, reinforce helpful attitudes and practices and provide anxiety containment, pastoral career guidance counselor and prayer. Patient responds well and shows signs of improved hope and peace. I will continue to address the emotional components of his medical conditions.
[2020-03-10 13:08] LABS: ANA DIRECT Negative (Negative); ANTIMYELOPEROXIDASE (MPO) ABS <9.0 U/mL (0.0-9.0); ANTIPROTEINASE 3 (PR-3) ABS <3.5 U/mL (0.0-3.5); ATYPICAL PANCA <1:20 titer (Neg:<1:20); CYTOPLASMIC (C-ANCA) <1:20 titer (Neg:<1:20); PERINUCLEAR (P-ANCA) <1:20 titer (Neg:<1:20)
[2020-03-10 13:08] LABS: ANA DIRECT Negative (Negative); ANTIMYELOPEROXIDASE (MPO) ABS <9.0 U/mL (0.0-9.0); ANTIPROTEINASE 3 (PR-3) ABS <3.5 U/mL (0.0-3.5); ATYPICAL PANCA <1:20 titer (Neg:<1:20); CYTOPLASMIC (C-ANCA) <1:20 titer (Neg:<1:20); PERINUCLEAR (P-ANCA) <1:20 titer (Neg:<1:20)
--- NOTE | 2020-03-10 18:29 | NUR ---
SHIFT SUMMARY PT IMPROVED MOOD TODAY OVER YESTERDAY. HAS BEEN UP TO COMMODE WITH THICK LIQUID STOOL THIS A.M. MEDICATED CONSISTANTLY WITH DILAUDID. OUT TO DIALYIS AT 1200. RAPID COVID COMPLETED. PLANS FOR PT TO DISCHARGE HOME TOMORROW AFTER FOLLOW UP COVID TEST FOR [facility]. HERE THIS AFTERNOON. REPORTS HAVING NO APPETITE. EATING SMALL AMOUNTS OF FOOD AT A TIME. NO FURTHER BLEEDING FROM HEPARIN INJECTION SITE FROM YESTERDAY.
--- NOTE | 2020-03-11 04:46 | NUR ---
SHIFT SUMMARY PT HAS HAD NO ACUTE CHANGES, MEDICATED Q4 W/DILAUDID FOR PAIN & 1X W/ULTRAM, ABD PAIN CONSISTENTLY 01/28 PT USUALLY SLEEPING AT REASSESSMENT, SLEPT T/O THE NIGHT, NO OTHER C/O ANY KIND, SLEEPING AT THIS TIME, CALL LIGHT IN REACH, WILL CONT TO MONITOR UNTIL REPORT GIVEN TO DAY RN.
[2020-03-11 05:23] LABS: BASOPHILS ABSOLUTE AUTO 0.01 K/mm3 (0.00-0.23); BASOPHILS PERCENT AUTO 0 % (0-2); EOSINOPHILS ABSOLUTE AUTO 0.17 K/mm3 (0.00-0.68); EOSINOPHILS PERCENT AUTO 3 % (0-6); Hematocrit 25.6 % (37.0-53.0); Hemoglobin 8.4 g/dL (13.5-17.5); IMMATURE GRAN ABSOLUTE AUTO 0.04 K/mm3 (0.00-0.10); IMMATURE GRAN PERCENT AUTO 1 % (0-1); LYMPHOCYTES ABSOLUTE AUTO 1.12 K/mm3 (0.84-5.20); LYMPHOCYTES PERCENT AUTO 21 % (21-46); MONOCYTES ABSOLUTE AUTO 0.61 K/mm3 (0.16-1.47); MONOCYTES PERCENT AUTO 11 % (4-13); Mean Corpuscular HGB 31.2 pg (26.0-34.0); Mean Corpuscular HGB Conc 32.8 g/dL (31.5-36.5); Mean Corpuscular Volume 95 fL (80-100); Mean Platelet Volume 11.3 fL (9.1-12.4); NEUTROPHILS ABSOLUTE AUTO 3.48 K/mm3 (1.96-9.15); NEUTROPHILS PERCENT AUTO 64 % (41-73); NRBC ABSOLUTE 0.02 K/mm3 (0.00-0.02); NRBC Auto 0.4 /100 WBC (0.0-0.2); Platelet Count 117 K/mm3 (150-400); RDW Coefficient Variation 14.9 % (11.7-14.2); RDW Standard Deviation 50.4 fL (35.1-46.3); Red Blood Cell Count 2.69 M/mm3 (4.30-5.90); White Blood Cell Count 5.43 K/mm3 (4.00-11.30)
[2020-03-11 05:41] LABS: Anion Gap 4 mmol/L (6-16); Blood Urea Nitrogen 33 mg/dL (8-24); Bun/Creatinine Ratio 11.7 (12.0-20.0); CO2, Blood 27 mmol/L (21-32); Calcium, Blood 8.2 mg/dL (8.5-10.1); Chloride, Blood 110 mmol/L (98-108); Creatinine, Blood 2.82 mg/dL (0.60-1.20); Glomerular Filtration Rate 24 (60-); Glucose, Blood 125 mg/dL (70-99); Magnesium, Blood 2.3 mg/dL (1.6-2.4); Phosphorus, Blood 2.7 mg/dL (2.5-4.9); Potassium, Blood 3.1 mmol/L (3.5-5.5); Sodium, Blood 141 mmol/L (136-145)
--- NOTE | 2020-03-11 11:01 | NUR ---
Patient is resting in bed but easily awakens to the sound of his name. Patient tells me his struggle with depression and what thoughts are his struggle in regards to his health and family. Patient also talks about the great friends and family that support him. Patient asks if we could talk about anything but his medical issues so I allow patient to tell many stories about his past and what has been good. I encourage patient to find the good in his present as well. I provide therapeutic listening, pastoral consumer credit counselor and prayer. Patient responds well and shows signs of improved hope and restored mora. I will continue to remain available to patient and family.
[2020-03-11] MEDS ORDERED: ONDA4 PO (11:21)
[2020-03-11] MEDS ORDERED: LOPE2C PO (11:21)
[2020-03-11] MEDS ORDERED: MIRT30 PO (11:21)
[2020-03-11] MEDS ORDERED: K-Dur20 MEQ PO (11:22)
[2020-03-11] MEDS ORDERED: TRAM50 PO (11:23)
[2020-03-11] MEDS ORDERED: ACET325 PO (11:24)
--- NOTE | 2020-03-11 13:38 | NUR ---
DISCHARGE SUMMARY PATIENT IS PLEASANT, ALERT AN D ORIENTED. INDEPENDENT IN THE ROOM. SPOKE WITH SPOUSE AND PATIENT. IV REMOVED. ALL ISNTRUCTIONS GIVEN TO THE PATIENT AND SPOUSE. KARY CUTE CONCERNS AT TIME OF DISCHARGE. DIALYSIS OUTPATIENT SET UP PRIOR TO DISCAHRGE AND ALL PAPERS SENT OT PRIMARY AND PHARMACY OF CHOICE. PATIENT WALKED OUT BY STAFF.
== END 2020-03-11 13:14 | disposition home or self-care (01) | DRG 73 ==
LOC: ER 16:35 → MEDS 16:36
PROVIDERS: Family Medicine; Internal Medicine; Internal Medicine Nephrology; Student in an Organized Health Care Education/Training Program; ADMIT Internal Medicine
PROC: 5A1D70Z Performance of Urinary Filtration, Intermittent, Less than 6 Hours Per Day (ICD-10-PCS; principal; 2020-03-09)
PROC: 05H533Z Insertion of Infusion Device into Right Subclavian Vein, Percutaneous Approach (ICD-10-PCS; 2020-03-09)
DX: E11.43 Type 2 diabetes mellitus with diabetic autonomic (poly)neuropathy (principal); N18.6 End stage renal disease; I50.32 Chronic diastolic (congestive) heart failure; E87.2 Acidosis; I13.2 Hypertensive heart and chronic kidney disease with heart failure and with stage 5 chronic kidney disease, or end stage renal disease; N17.9 Acute kidney failure, unspecified; K31.84 Gastroparesis; F41.9 Anxiety disorder, unspecified; E11.22 Type 2 diabetes mellitus with diabetic chronic kidney disease; Z99.2 Dependence on renal dialysis; G47.33 Obstructive sleep apnea (adult) (pediatric); I25.2 Old myocardial infarction; K21.9 Gastro-esophageal reflux disease without esophagitis; I25.10 Atherosclerotic heart disease of native coronary artery without angina pectoris; F32.9 Major depressive disorder, single episode, unspecified; E86.0 Dehydration; E86.9 Volume depletion, unspecified; E88.09 Other disorders of plasma-protein metabolism, not elsewhere classified
CPT/HCPCS: 0097U; 36415; 71045; 74176; 76937; 80048; 80053; 80069; 80074; 81050; 82550; 82784; 82947; 83516; 83520; 83690; 83735; 83880; 84100; 84156; 84165; 84166; 84443; 84550; 85014; 85018; 85025; 86038; 86256; 86317; 86334; 86335; 93005; 93010; 96361; 96372; 96374; 96375; 96376; 99152; 99285-25; A9270; A9270-GY; C1750; C1769; C1894; G0378; J0360; J0696; J0881; J1170; J1644; J2250; J2270; J2405; J2765; J3010; J3480; J7030; J7040; U0002

== ENCOUNTER 2020-03-21 10:12 | Emergency (ER) | payer OTHER ==
[~2020-03-21] VITALS: Ht 177.8 cm; Wt 106.6 kg
[~2020-03-21 10:12] MED LIST changes: -ATOR80 PO; +CALC.25 PO; +FAMO20 PO; +FLUT.05NI; +HYDRA50 PO; +K-Dur20 MEQ PO; +LOPE2C PO; +MIRT30 PO; +SODBIC650 PO; -THERA-D2000 UNIT PO; +Vitamin D2000 UNIT PO
[2020-03-21 12:34] LABS: Adenovirus F 40/41 Not Detected (NOT DETECT); Astrovirus Not Detected (NOT DETECT); Campylobacter Sp Not Detected (NOT DETECT); Cryptosporidium Not Detected (NOT DETECT); Cyclospora Cayetanensis Not Detected (NOT DETECT); E. Coli O157 Not Detected (NOT DETECT); Entamoeba Histolytica Not Detected (NOT DETECT); Enteroaggregative E. coli-EAEC Not Detected (NOT DETECT); Enteropathogenic E. coli-EPEC Not Detected (NOT DETECT); Enterotoxigenic E. coli-ETEC Not Detected (NOT DETECT); Giardia Lamblia Not Detected (NOT DETECT); Norovirus GI/GII Not Detected (NOT DETECT); Plesiomonas Shigelloides Not Detected (NOT DETECT); Rotavirus A Not Detected (NOT DETECT); Salmonella Sp Not Detected (NOT DETECT); Sapovirus Not Detected (NOT DETECT); Shiga Toxin-prod E. coli-STEC Not Detected (NOT DETECT); Shigella/Enteroin E. coli-EIEC Not Detected (NOT DETECT); Vibrio Cholerae Not Detected (NOT DETECT); Vibrio Sp Not Detected (NOT DETECT); Yersinia Enterocolitica Not Detected (NOT DETECT)
== END 2020-03-21 13:16 | disposition home or self-care (01) ==
LOC: ER 10:12
PROVIDERS: Emergency Medicine
DX: R19.7 Diarrhea, unspecified (principal); R50.9 Fever, unspecified; E11.43 Type 2 diabetes mellitus with diabetic autonomic (poly)neuropathy; K31.84 Gastroparesis; F43.10 Post-traumatic stress disorder, unspecified; Z79.899 Other long term (current) drug therapy; Z79.02 Long term (current) use of antithrombotics/antiplatelets; Z79.4 Long term (current) use of insulin
CPT/HCPCS: 0097U; 96365-59; 96368; 99284-25; J1580; J3370

== ENCOUNTER 2020-07-06 13:22 | Day surgery (SDC) | payer OTHER ==
[~2020-07-06] VITALS: Ht 180.3 cm; Wt 105.9 kg
[~2020-07-06 13:22] MED LIST changes: +Crestor40 MG; +MIDO5 PO; +RENAL VITAMIN0.8 MG PO
[2020-07-06 14:27] LABS: BASOPHILS ABSOLUTE AUTO 0.04 K/mm3 (0.00-0.23); BASOPHILS PERCENT AUTO 1 % (0-2); EOSINOPHILS ABSOLUTE AUTO 0.93 K/mm3 (0.00-0.68); EOSINOPHILS PERCENT AUTO 12 % (0-6); Hematocrit 36.6 % (37.0-53.0); Hemoglobin 11.9 g/dL (13.5-17.5); IMMATURE GRAN ABSOLUTE AUTO 0.02 K/mm3 (0.00-0.10); IMMATURE GRAN PERCENT AUTO 0 % (0-1); LYMPHOCYTES ABSOLUTE AUTO 2.05 K/mm3 (0.84-5.20); LYMPHOCYTES PERCENT AUTO 27 % (21-46); MONOCYTES ABSOLUTE AUTO 0.63 K/mm3 (0.16-1.47); MONOCYTES PERCENT AUTO 8 % (4-13); Mean Corpuscular HGB 31.9 pg (26.0-34.0); Mean Corpuscular HGB Conc 32.5 g/dL (31.5-36.5); Mean Corpuscular Volume 98 fL (80-100); Mean Platelet Volume 10.7 fL (9.1-12.4); NEUTROPHILS ABSOLUTE AUTO 4.05 K/mm3 (1.96-9.15); NEUTROPHILS PERCENT AUTO 52 % (41-73); Platelet Count 144 K/mm3 (150-400); RDW Coefficient Variation 15.1 % (11.7-14.2); RDW Standard Deviation 53.1 fL (35.1-46.3); Red Blood Cell Count 3.73 M/mm3 (4.30-5.90); White Blood Cell Count 7.72 K/mm3 (4.00-11.30)
[2020-07-06 14:32] LABS: International Normalized Ratio 0.96; Prothrombin Time Results 10.3 Sec (9.7-11.5)
[2020-07-06 14:33] LABS: Bun/Creatinine Ratio 5.4 (12.0-20.0); Calcium, Blood 9.1 mg/dL (8.5-10.1); Creatinine, Blood 3.73 mg/dL (0.60-1.20); Potassium, Blood 5.1 mmol/L (3.5-5.5)
--- NOTE | 2020-07-06 18:11 | NUR ---
PATIENT A&O. IV SITE DCED WITH CATHETER INTACT. LEFT INNER ELBOW DRESSING IN PLACE. BLEB OF BLOOD ON JELL DRESSING. NO SWELLING OR TENDERNESS AT SITE. ARM NUMB. SLING IN PLACE FOR SUPPORT. DENIES DISCOMFORT. DISCHARGE INSTRUCTIONS AND PRECAUTIONS GIVEN. PATIENT TRANSFERRED TO WAITING CAR VIA WHEEL CHAIR. INSTRUCTIONS AND PRECAUTIONS CONCERNING LEFT ARM GIVEN TO .
== END 2020-07-06 22:44 | disposition home or self-care (01) ==
LOC: MHTC 13:22 → VAS 13:22 → MHTC 13:30
PROVIDERS: Radiology Diagnostic Radiology
PROC: 031C3ZF Bypass Left Radial Artery to Lower Arm Vein, Percutaneous Approach (ICD-10-PCS; principal; 2020-07-06)
DX: I12.0 Hypertensive chronic kidney disease with stage 5 chronic kidney disease or end stage renal disease (principal); E11.22 Type 2 diabetes mellitus with diabetic chronic kidney disease; N18.6 End stage renal disease; E11.40 Type 2 diabetes mellitus with diabetic neuropathy, unspecified; Z99.2 Dependence on renal dialysis; N40.0 Benign prostatic hyperplasia without lower urinary tract symptoms; F43.10 Post-traumatic stress disorder, unspecified; Z95.5 Presence of coronary angioplasty implant and graft; Z90.49 Acquired absence of other specified parts of digestive tract; Z87.891 Personal history of nicotine dependence; Z79.02 Long term (current) use of antithrombotics/antiplatelets; Z79.82 Long term (current) use of aspirin; Z79.4 Long term (current) use of insulin; Z79.899 Other long term (current) drug therapy; Z91.030 Bee allergy status
CPT/HCPCS: 36415; 76937; 80048; 82947; 85025; 85610; 99152; A9270-GY; C1725; C1769; C1889; C1894; J1644; J2250; J3010; J7030; J7040

== ENCOUNTER 2020-08-01 05:48 | Day surgery (SDC) | payer OTHER ==
[~2020-08-01] VITALS: Ht 180.3 cm; Wt 106.0 kg
[~2020-08-01 05:48] MED LIST changes: -Crestor40 MG; +Crestor40 MG PO; +ISOSORBIDE MONO60 MG PO; -Isosorbide Mono60 MG PO
[2020-08-01] MEDS ORDERED: Aspirin EC81 MG PO (06:40)
[2020-08-01] MEDS ORDERED: CINA30 PO ×2 (06:42)
--- NOTE | 2020-08-01 10:11 | NUR ---
PT BACK TO RECOVERY ROOM VIA GURNEY AFTER PROCEDURE. SLEEPING, BUT ROUSES EASILY TO STIMULI. VSS. PERITONEAL DIALYSIS CATH SITE CLEAN, DRY, INTACT. GAUZE AND TEGADERM DRESSING IN PLACE. NO BLEEDING OR SWELLING NOTED AT SITE.
--- NOTE | 2020-08-01 10:34 | NUR ---
PT'S SPOUSE, FRANK, HAS BEEN CALLED AND GIVEN VERBAL DC INSTRUCTIONS FOR PT AFTER CARE AND FOLLOW UP INFORMATION. VIDA AT [facility] WILL GIVE PT INFORMATION TOMORROW AT DIALYSIS. PT CONTINUES TO SLEEP. VSS, CALL LIGHT IN REACH.
--- NOTE | 2020-08-01 12:18 | NUR ---
Patient up to bed side to get dressed byself. Denies any discomfort. dressings dry and intact. Patient discharged home. Transferred to waiting acr via wheelchair. wfe driving.
[2021-01-01] MEDS ORDERED: AMOCLA875 PO (15:06)
[2021-01-23] MEDS ORDERED: HYDR1TAB94 PO (16:41)
== END 2020-08-01 12:10 | disposition home or self-care (01) ==
LOC: MHTC 05:48
DX: I12.0 Hypertensive chronic kidney disease with stage 5 chronic kidney disease or end stage renal disease (principal); E11.22 Type 2 diabetes mellitus with diabetic chronic kidney disease; N18.6 End stage renal disease; E11.40 Type 2 diabetes mellitus with diabetic neuropathy, unspecified; N40.0 Benign prostatic hyperplasia without lower urinary tract symptoms; F43.10 Post-traumatic stress disorder, unspecified; Z87.891 Personal history of nicotine dependence; Z20.828 Contact with and (suspected) exposure to other viral communicable diseases; Z91.030 Bee allergy status; Z79.02 Long term (current) use of antithrombotics/antiplatelets; Z79.4 Long term (current) use of insulin; Z99.2 Dependence on renal dialysis; Z79.899 Other long term (current) drug therapy
CPT/HCPCS: 49418; 76937; 82947; 99152; 99153; C1750; C1769; C1887; C1894; J0690; J1644; J2250; J3010; J7030; J7040; Q9967

== ENCOUNTER 2020-08-05 06:02 | Emergency (ER) | payer OTHER, MEDICARE ==
[~2020-08-05] VITALS: Ht 172.7 cm; Wt 102.1 kg
[~2020-08-05 06:02] MED LIST changes: +CINA30 PO
[2020-08-05 07:52] LABS: BASOPHILS ABSOLUTE AUTO 0.02 K/mm3 (0.00-0.23); BASOPHILS PERCENT AUTO 0 % (0-2); EOSINOPHILS ABSOLUTE AUTO 0.88 K/mm3 (0.00-0.68); EOSINOPHILS PERCENT AUTO 13 % (0-6); Hematocrit 31.8 % (37.0-53.0); Hemoglobin 11.1 g/dL (13.5-17.5); IMMATURE GRAN ABSOLUTE AUTO 0.02 K/mm3 (0.00-0.10); IMMATURE GRAN PERCENT AUTO 0 % (0-1); LYMPHOCYTES PERCENT AUTO 25 % (21-46); MONOCYTES ABSOLUTE AUTO 0.58 K/mm3 (0.16-1.47); MONOCYTES PERCENT AUTO 8 % (4-13); Mean Corpuscular HGB 35.2 pg (26.0-34.0); Mean Corpuscular HGB Conc 34.9 g/dL (31.5-36.5); Mean Corpuscular Volume 101 fL (80-100); Mean Platelet Volume 10.9 fL (9.1-12.4); NEUTROPHILS ABSOLUTE AUTO 3.75 K/mm3 (1.96-9.15); NEUTROPHILS PERCENT AUTO 54 % (41-73); Platelet Count 113 K/mm3 (150-400); RDW Coefficient Variation 14.9 % (11.7-14.2); RDW Standard Deviation 54.2 fL (35.1-46.3); Red Blood Cell Count 3.15 M/mm3 (4.30-5.90); White Blood Cell Count 6.95 K/mm3 (4.00-11.30)
[2020-08-05] MEDS ORDERED: BASAGLAR K100 UNIT/1 (07:52)
[2020-08-05 08:07] LABS: International Normalized Ratio 0.92; Prothrombin Time Results 9.9 Sec (9.7-11.5)
[2020-08-05 08:14] LABS: Albumin, Blood 3.5 g/dL (3.4-5.0); Albumin/Globulin Ratio 0.8 (0.8-1.8); Bilirubin, Total 0.4 mg/dL (0.1-1.0); Bun/Creatinine Ratio 6.4 (12.0-20.0); Calcium, Blood 8.6 mg/dL (8.5-10.1); Creatinine, Blood 7.81 mg/dL (0.60-1.20); Globulin, Blood 4.3 g/dL (2.2-4.0); Total Protein, Blood 7.8 g/dL (6.4-8.2)
[2020-08-05 11:15] LABS: Influenza A, PCR Negative (NEGATIVE); Influenza B, PCR Negative (NEGATIVE); Resp Syncytial Virus, PCR Negative (NEGATIVE); SARS-Cov-2 (COVID-19) PCR, MMC Negative (NEGATIVE)
--- NOTE | 2020-08-05 12:36 | NUR ---
Ambulatory in Day Surgery History, Chart, Medications and Allergies reviewed before start of procedure.Lungs clear T/O to Auscultation. Patient confirms NPO status and agrees with scheduled surgery. Pre-Op teaching done. Pt verbalizes understanding.
--- NOTE | 2020-08-05 16:15 | NUR ---
Discharge instructions reviewed with patient. Patient verbalizes understanding. Copy given to patient to take home. PT ABLE TO AMBULATE AND DRESS SELF s DIFFICULTY. DENIES NAUSEA p FOOD/DRINK Patient States Post-Procedure ride home has been arranged. OTD IN NAD VIA TO SAFE RIDE HOME FRANK.
[2021-01-01] MEDS ORDERED: AMOCLA875 PO (15:06)
[2021-01-23] MEDS ORDERED: HYDR1TAB94 PO (16:41)
== END 2020-08-05 11:52 | disposition home or self-care (01) ==
LOC: ER 06:02
PROVIDERS: Emergency Medicine; Surgery
DX: T82.42XA Displacement of vascular dialysis catheter, initial encounter (principal); I25.2 Old myocardial infarction; K31.84 Gastroparesis; E11.22 Type 2 diabetes mellitus with diabetic chronic kidney disease; I13.0 Hypertensive heart and chronic kidney disease with heart failure and stage 1 through stage 4 chronic kidney disease, or unspecified chronic kidney disease; N18.4 Chronic kidney disease, stage 4 (severe); I50.30 Unspecified diastolic (congestive) heart failure; I25.10 Atherosclerotic heart disease of native coronary artery without angina pectoris; E11.43 Type 2 diabetes mellitus with diabetic autonomic (poly)neuropathy; Z79.4 Long term (current) use of insulin; Z79.899 Other long term (current) drug therapy; Z79.82 Long term (current) use of aspirin; Z79.02 Long term (current) use of antithrombotics/antiplatelets; Z20.822 Contact with and (suspected) exposure to COVID-19
CPT/HCPCS: 0241U; 36415; 77001; 80053; 82947; 85025; 85610; 85730; 99285-25; C1750; J0690; J1644; J1815; J2370; J2405; J2704; J3010; J7030

== ENCOUNTER 2020-09-07 10:50 | Day surgery (SDC) | payer OTHER ==
[~2020-09-07] VITALS: Ht 177.8 cm; Wt 110.0 kg
[~2020-09-07 10:50] MED LIST changes: +BASAGLAR K100 UNIT/1
--- NOTE | 2020-09-07 16:16 | NUR ---
2CC AIR REMOVED FROM TR BAND. SITE SOFT AND NONTENDER. DRESSING D&i TO LEFT FEMORAL ARTERY.
--- NOTE | 2020-09-07 17:15 | NUR ---
HEREWITH PATIENT. PATIENT UP TO BATHROOM. TOLERATED WELL. LEFT GROIN SITE REMAINS SOFT AND NONTENDER DRESSING DRY AND INTACT. LEFT RADIAL SITE SOFT AND NONTENDER.
--- NOTE | 2020-09-07 17:30 | NUR ---
TR BAND REMOVED.CLOTH DOT PLACED. WRIST BOARD PLACED. SITE SOFT AND NONTENDER.LEFT GROIN SITE DRESSING DRY AND INTACT. NO SWELLING NO BLEEDING. PATIENT DRESSING. DISCHARGE INSTRUCTIONS AND PRECAUTIONS GIVEN TO AND PATIENT. VERBALIZED UNDERSTANDING AND NO FURTHER QUESTIONS. PATIENT TRANSFERRED TO CAR VIA WHEEL CHAIR BY SANDRA CANO. DRIVING.
[2021-01-01] MEDS ORDERED: AMOCLA875 PO (15:06)
[2021-01-23] MEDS ORDERED: HYDR1TAB94 PO (16:41)
== END 2020-09-07 17:45 | disposition home or self-care (01) ==
LOC: MHTC 10:50
DX: I70.8 Atherosclerosis of other arteries (principal); E11.22 Type 2 diabetes mellitus with diabetic chronic kidney disease; I12.0 Hypertensive chronic kidney disease with stage 5 chronic kidney disease or end stage renal disease; N18.6 End stage renal disease; E11.40 Type 2 diabetes mellitus with diabetic neuropathy, unspecified; B19.20 Unspecified viral hepatitis C without hepatic coma; Z79.02 Long term (current) use of antithrombotics/antiplatelets; Z99.2 Dependence on renal dialysis; Z79.82 Long term (current) use of aspirin
CPT/HCPCS: 36140; 36221; 75710; 76937; 99152; 99153; C1760; C1769; C1887; C1894; J1644; J2250; J3010; J7030; J7050; Q9967

== ENCOUNTER 2020-09-14 20:58 | Emergency (ER) | payer OTHER ==
[~2020-09-14] VITALS: Ht 180.3 cm; Wt 111.6 kg
[2021-01-01] MEDS ORDERED: AMOCLA875 PO (15:06)
[2021-01-23] MEDS ORDERED: HYDR1TAB94 PO (16:41)
== END 2020-09-14 21:25 | disposition home or self-care (01) ==
LOC: ER 20:58
DX: T82.42XA Displacement of vascular dialysis catheter, initial encounter (principal); Z79.02 Long term (current) use of antithrombotics/antiplatelets; Z79.899 Other long term (current) drug therapy; Z79.82 Long term (current) use of aspirin
CPT/HCPCS: 99282

== ENCOUNTER 2020-09-26 08:23 | Day surgery (SDC) | payer OTHER ==
[~2020-09-26] VITALS: Ht 180.3 cm; Wt 111.4 kg
--- NOTE | 2020-09-26 09:35 | NUR ---
DR AVALOS AT BEDSIDE FOR PRE PROCEDURE ANESTHESIA ASSESSMENT
--- NOTE | 2020-09-26 11:10 | NUR ---
TO RECOVERY ROOM WITH ANESTHESIOLOGIST. PT IS SLEEPING, WAKES UP WITH STIMULATION. TR BAND INTACT WITH 8 CC AIR. CIRCULATION,MOTION, SENSATION NORMAL.
--- NOTE | 2020-09-26 13:50 | NUR ---
IV DC'D, CATH INTACT. PT GIVEN DC INSTRUCTIONS, VERBALIZED UNDERSTANDING. LEFT RADIAL SITE SOFT, NON-TENDER. NO BLEEDING OR SWELLING NOTED. OUT TO CAR VIA WHEELCHAIR BY RN.
[2021-01-01] MEDS ORDERED: AMOCLA875 PO (15:06)
[2021-01-23] MEDS ORDERED: HYDR1TAB94 PO (16:41)
== END 2020-09-26 13:50 | disposition home or self-care (01) ==
LOC: MHTC 08:23
DX: I12.0 Hypertensive chronic kidney disease with stage 5 chronic kidney disease or end stage renal disease (principal); N18.6 End stage renal disease; I77.1 Stricture of artery; E11.22 Type 2 diabetes mellitus with diabetic chronic kidney disease; Z91.030 Bee allergy status; Z79.4 Long term (current) use of insulin
CPT/HCPCS: 36902; 36907; 76937; 93005; 93010; A9270; C1725; C1769; C1887; C1894; J1644; J2250; J2370; J2405; J2704; J3010; J7030; J7120; Q9967

== ENCOUNTER 2020-12-26 08:27 | Emergency (ER) | payer OTHER ==
[~2020-12-26] VITALS: Ht 180.3 cm; Wt 110.2 kg
[2020-12-26 09:42] LABS: BASOPHILS ABSOLUTE AUTO 0.03 K/mm3 (0.00-0.23); BASOPHILS PERCENT AUTO 0 % (0-2); EOSINOPHILS ABSOLUTE AUTO 0.79 K/mm3 (0.00-0.68); EOSINOPHILS PERCENT AUTO 11 % (0-6); Hematocrit 30.2 % (37.0-53.0); Hemoglobin 10.5 g/dL (13.5-17.5); IMMATURE GRAN ABSOLUTE AUTO 0.01 K/mm3 (0.00-0.10); IMMATURE GRAN PERCENT AUTO 0 % (0-1); LYMPHOCYTES PERCENT AUTO 19 % (21-46); MONOCYTES ABSOLUTE AUTO 0.81 K/mm3 (0.16-1.47); MONOCYTES PERCENT AUTO 12 % (4-13); Mean Corpuscular HGB 33.4 pg (26.0-34.0); Mean Corpuscular HGB Conc 34.8 g/dL (31.5-36.5); Mean Corpuscular Volume 96 fL (80-100); Mean Platelet Volume 10.4 fL (9.1-12.4); NEUTROPHILS ABSOLUTE AUTO 4.04 K/mm3 (1.96-9.15); NEUTROPHILS PERCENT AUTO 58 % (41-73); Platelet Count 124 K/mm3 (150-400); RDW Coefficient Variation 13.3 % (11.7-14.2); RDW Standard Deviation 46.7 fL (35.1-46.3); Red Blood Cell Count 3.14 M/mm3 (4.30-5.90); White Blood Cell Count 6.98 K/mm3 (4.00-11.30)
[2020-12-26 09:57] LABS: Albumin/Globulin Ratio 0.7 (0.8-1.8); Bilirubin, Total 0.3 mg/dL (0.1-1.0); Bun/Creatinine Ratio 8.9 (12.0-20.0); Calcium, Blood 10.8 mg/dL (8.5-10.1); Creatinine, Blood 7.45 mg/dL (0.60-1.20); Globulin, Blood 4.1 g/dL (2.2-4.0); Potassium, Blood 4.6 mmol/L (3.5-5.5); Total Protein, Blood 7.1 g/dL (6.4-8.2)
[2020-12-26] MEDS ORDERED: Bactrim Ds Tab1 EACH PO (10:55)
[2020-12-26] MEDS ORDERED: HYDR1TAB94 PO (10:55)
[2020-12-26] MEDS ORDERED: CEPH500 PO (10:55)
[2021-01-01] MEDS ORDERED: AMOCLA875 PO (15:06)
[2021-01-23] MEDS ORDERED: HYDR1TAB94 PO (16:41)
== END 2020-12-26 11:46 | disposition home or self-care (01) ==
LOC: ER 08:27
PROVIDERS: Physician Assistant
DX: L02.31 Cutaneous abscess of buttock (principal); E11.43 Type 2 diabetes mellitus with diabetic autonomic (poly)neuropathy; K31.84 Gastroparesis; E11.22 Type 2 diabetes mellitus with diabetic chronic kidney disease; I13.0 Hypertensive heart and chronic kidney disease with heart failure and stage 1 through stage 4 chronic kidney disease, or unspecified chronic kidney disease; I50.32 Chronic diastolic (congestive) heart failure; Z79.899 Other long term (current) drug therapy; Z79.02 Long term (current) use of antithrombotics/antiplatelets; Z79.82 Long term (current) use of aspirin
CPT/HCPCS: 10060; 36415; 80053; 83690; 85025; 87070; 87075; 87205; 96374-59; 96376-59; 99283-25; A9270; J1170

== ENCOUNTER 2021-01-04 20:02 | Emergency (ER) | payer OTHER ==
[~2021-01-04] VITALS: Ht 180.3 cm; Wt 106.1 kg
[~2021-01-04 20:02] MED LIST changes: +AMOCLA875 PO; +Bactrim Ds Tab1 EACH PO
[2021-01-04 20:42] LABS: BASOPHILS ABSOLUTE AUTO 0.04 K/mm3 (0.00-0.23); BASOPHILS PERCENT AUTO 1 % (0-2); EOSINOPHILS ABSOLUTE AUTO 0.79 K/mm3 (0.00-0.68); EOSINOPHILS PERCENT AUTO 10 % (0-6); Hematocrit 32.7 % (37.0-53.0); Hemoglobin 11.3 g/dL (13.5-17.5); IMMATURE GRAN ABSOLUTE AUTO 0.03 K/mm3 (0.00-0.10); IMMATURE GRAN PERCENT AUTO 0 % (0-1); LYMPHOCYTES PERCENT AUTO 19 % (21-46); MONOCYTES ABSOLUTE AUTO 0.78 K/mm3 (0.16-1.47); MONOCYTES PERCENT AUTO 10 % (4-13); Mean Corpuscular HGB 32.9 pg (26.0-34.0); Mean Corpuscular HGB Conc 34.6 g/dL (31.5-36.5); Mean Corpuscular Volume 95 fL (80-100); Mean Platelet Volume 10.1 fL (9.1-12.4); NEUTROPHILS ABSOLUTE AUTO 4.96 K/mm3 (1.96-9.15); NEUTROPHILS PERCENT AUTO 61 % (41-73); Platelet Count 148 K/mm3 (150-400); RDW Coefficient Variation 13.6 % (11.7-14.2); RDW Standard Deviation 47.4 fL (35.1-46.3); Red Blood Cell Count 3.43 M/mm3 (4.30-5.90)
[2021-01-04 21:15] LABS: Albumin, Blood 3.5 g/dL (3.4-5.0); Albumin/Globulin Ratio 0.7 (0.8-1.8); Bilirubin, Total 0.2 mg/dL (0.1-1.0); Bun/Creatinine Ratio 7.2 (12.0-20.0); Calcium, Blood 10.1 mg/dL (8.5-10.1); Creatinine, Blood 8.53 mg/dL (0.60-1.20); Globulin, Blood 4.8 g/dL (2.2-4.0); Potassium, Blood 4.8 mmol/L (3.5-5.5); Total Protein, Blood 8.3 g/dL (6.4-8.2)
[2021-01-04] MEDS ORDERED: ATOR40TA PO (22:05)
[2021-01-04] MEDS ORDERED: CREON DR 24,001 EACH PO (22:07)
[2021-01-04] MEDS ORDERED: Calcium Acetat667 MG PO (22:07)
[2021-01-04] MEDS ORDERED: IRON18 MG PO (22:08)
[2021-01-23] MEDS ORDERED: HYDR1TAB94 PO (16:41)
== END 2021-01-05 00:13 | disposition home or self-care (01) ==
LOC: ER 20:02
PROVIDERS: Physician Assistant
DX: R41.82 Altered mental status, unspecified (principal); I25.2 Old myocardial infarction; E11.22 Type 2 diabetes mellitus with diabetic chronic kidney disease; I13.2 Hypertensive heart and chronic kidney disease with heart failure and with stage 5 chronic kidney disease, or end stage renal disease; I50.32 Chronic diastolic (congestive) heart failure; N18.6 End stage renal disease; K21.9 Gastro-esophageal reflux disease without esophagitis; Z79.02 Long term (current) use of antithrombotics/antiplatelets; Z79.899 Other long term (current) drug therapy
CPT/HCPCS: 36415; 70450; 71046; 80053; 85025; 93005; 93010; 99284-25

== ENCOUNTER 2021-01-24 18:45 | Observation (INO) | payer OTHER ==
[~2021-01-24] VITALS: Ht 180.3 cm; Wt 102.0 kg
[~2021-01-24 18:45] MED LIST changes: +Calcium Acetat667 MG PO; +IRON18 MG PO
[2021-01-24 19:26] LABS: BASOPHILS ABSOLUTE AUTO 0.02 K/mm3 (0.00-0.23); BASOPHILS PERCENT AUTO 0 % (0-2); EOSINOPHILS ABSOLUTE AUTO 0.03 K/mm3 (0.00-0.68); EOSINOPHILS PERCENT AUTO 0 % (0-6); Hematocrit 33.3 % (37.0-53.0); Hemoglobin 11.4 g/dL (13.5-17.5); IMMATURE GRAN ABSOLUTE AUTO 0.02 K/mm3 (0.00-0.10); IMMATURE GRAN PERCENT AUTO 0 % (0-1); LYMPHOCYTES ABSOLUTE AUTO 1.07 K/mm3 (0.84-5.20); LYMPHOCYTES PERCENT AUTO 14 % (21-46); MONOCYTES ABSOLUTE AUTO 0.36 K/mm3 (0.16-1.47); MONOCYTES PERCENT AUTO 5 % (4-13); Mean Corpuscular HGB 32.9 pg (26.0-34.0); Mean Corpuscular HGB Conc 34.2 g/dL (31.5-36.5); Mean Corpuscular Volume 96 fL (80-100); Mean Platelet Volume 10.8 fL (9.1-12.4); NEUTROPHILS ABSOLUTE AUTO 6.08 K/mm3 (1.96-9.15); NEUTROPHILS PERCENT AUTO 80 % (41-73); Platelet Count 152 K/mm3 (150-400); RDW Coefficient Variation 13.9 % (11.7-14.2); RDW Standard Deviation 48.3 fL (35.1-46.3); Red Blood Cell Count 3.47 M/mm3 (4.30-5.90); White Blood Cell Count 7.58 K/mm3 (4.00-11.30)
[2021-01-24 19:54] LABS: Albumin, Blood 3.3 g/dL (3.4-5.0); Albumin/Globulin Ratio 0.6 (0.8-1.8); Bilirubin, Total 0.5 mg/dL (0.1-1.0); Bun/Creatinine Ratio 8.8 (12.0-20.0); Calcium, Blood 8.7 mg/dL (8.5-10.1); Creatinine, Blood 6.95 mg/dL (0.60-1.20); Globulin, Blood 5.2 g/dL (2.2-4.0); Potassium, Blood 4.8 mmol/L (3.5-5.5); Total Protein, Blood 8.5 g/dL (6.4-8.2); Troponin I 0.046 ng/mL (0.000-0.040)
[2021-01-24 23:14] LABS: Magnesium, Blood 2.9 mg/dL (1.6-2.4)
[2021-01-25 00:02] LABS: Troponin I 0.043 ng/mL (0.000-0.040)
[2021-01-25 02:31] LABS: Albumin, Blood 3.1 g/dL (3.4-5.0); Anion Gap 9 mmol/L (6-16); Blood Urea Nitrogen 69 mg/dL (8-24); Bun/Creatinine Ratio 9.3 (12.0-20.0); CO2, Blood 27 mmol/L (21-32); Chloride, Blood 97 mmol/L (98-108); Creatinine, Blood 7.41 mg/dL (0.60-1.20); Glomerular Filtration Rate 8 (60-); Glucose, Blood 411 mg/dL (70-99); Phosphorus, Blood 6.1 mg/dL (2.5-4.9); Potassium, Blood 4.3 mmol/L (3.5-5.5); Sodium, Blood 133 mmol/L (136-145)
[2021-01-25 08:43] LABS: BASOPHILS ABSOLUTE AUTO 0.02 K/mm3 (0.00-0.23); BASOPHILS PERCENT AUTO 0 % (0-2); EOSINOPHILS ABSOLUTE AUTO 0.13 K/mm3 (0.00-0.68); EOSINOPHILS PERCENT AUTO 2 % (0-6); Hemoglobin 10.7 g/dL (13.5-17.5); IMMATURE GRAN ABSOLUTE AUTO 0.02 K/mm3 (0.00-0.10); IMMATURE GRAN PERCENT AUTO 0 % (0-1); LYMPHOCYTES ABSOLUTE AUTO 2.41 K/mm3 (0.84-5.20); LYMPHOCYTES PERCENT AUTO 32 % (21-46); MONOCYTES ABSOLUTE AUTO 0.66 K/mm3 (0.16-1.47); MONOCYTES PERCENT AUTO 9 % (4-13); Mean Corpuscular HGB 33.2 pg (26.0-34.0); Mean Corpuscular HGB Conc 33.4 g/dL (31.5-36.5); Mean Corpuscular Volume 99 fL (80-100); Mean Platelet Volume 10.2 fL (9.1-12.4); NEUTROPHILS ABSOLUTE AUTO 4.32 K/mm3 (1.96-9.15); NEUTROPHILS PERCENT AUTO 57 % (41-73); Platelet Count 133 K/mm3 (150-400); RDW Coefficient Variation 13.8 % (11.7-14.2); RDW Standard Deviation 49.6 fL (35.1-46.3); Red Blood Cell Count 3.22 M/mm3 (4.30-5.90); White Blood Cell Count 7.56 K/mm3 (4.00-11.30)
[2021-01-25] MEDS ORDERED: FURO40 PO (08:50)
[2021-01-25] MEDS ORDERED: LANTUS SOL100 UNIT/1 SC (08:54)
[2021-01-25] MEDS ORDERED: SERT50 PO (08:55)
[2021-01-25 09:12] LABS: Albumin, Blood 3.1 g/dL (3.4-5.0); Albumin/Globulin Ratio 0.6 (0.8-1.8); Bilirubin, Total 0.4 mg/dL (0.1-1.0); Bun/Creatinine Ratio 9.6 (12.0-20.0); Creatinine, Blood 7.74 mg/dL (0.60-1.20); Globulin, Blood 4.8 g/dL (2.2-4.0); Potassium, Blood 4.2 mmol/L (3.5-5.5); Total Protein, Blood 7.9 g/dL (6.4-8.2)
[2021-01-25] MEDS ORDERED: Flonase 0.05% N16 GM (09:35)
[2021-01-25] MEDS ORDERED: LORA.5 PO (09:37)
[2021-01-25] MEDS ORDERED: MIRT30 PO (09:38)
--- NOTE | 2021-01-25 14:12 | NUR ---
Patient is lying in bed and alert. Patient tells me about his at-home dialysis, his joys and struggles and his Hinduism mora. I provide therapeutic listening and prayer. Patient responds well and shows signs of an elevated mood. I will continue to remain available to patient and family.
[2021-01-25 17:46] LABS: Amylase, Blood 84 U/L (25-115)
--- NOTE | 2021-01-25 19:08 | NUR ---
SHIFT SUMMARY MEDICATED FOR PAIN PER EMAR X2 THIS SHIFT. NO COMPLAINTS OF NAUSEA AND PT REPORTS FEELING BETTER THIS EVENING WITH NO PAIN. PT REQUESTING TO HAVE SOMETHING TO EAT OR DRINK. THIS RN EXPLAINED TO PT REASON FOR NPO ORDER. IV CLINIMIX STARTED PER DR. MÉNDEZ ORDER. PT'S LIPASE SLIGHTLY BUMPED FROM EARLIER SO PT CONTINUES TO BE NPO AT THIS TIME. PHD INTERN HERE AND STARTING PERITONEAL DIALYSIS. CALL LIGHT IN REACH. WILL REPORT TO ONCOMING RN.
--- NOTE | 2021-01-25 20:05 | NUR ---
TO ROOM 326 TO START PERITONEAL DIALYSIS ON 65 YO MALE PATIENT. PT IS REGULAR PD PT OF DR MÉNDEZ AND SELF MANAGES WITH HIS SPOUSE AT HOME. PT IS HERE WITH PANCREATITIS AND CHEST PAIN. PT IS A&O, PLEASANT AND COOPERATIVE. DENIES PAIN AT THIS TIME. PT HAD A NUCLEAR MED STUDY EARLY FOR CARDIAC STRESS. PT CONTINUES TO BE NPO. PD CATH SITE CLEANED AND REDRESSED PER PROTOCOL WITH PROPER ASEPTIC TECHNIQUE. PT CONNECTED AT 1925 TO FIRST BAG OF FLUID 1.5%. TOLERATED WELL. REPORT TO NIGHT NURSE. JEANMARIE CANO
--- NOTE | 2021-01-26 05:35 | NUR ---
SHIFT SUMMARY- PT. A&O, ON PERITONEAL DIALYSIS DURING THE NIGHT. C/O LYNN LAST NIGHT, MEDICATED PER EMAR WITH GOOD EFFECT. PT. NPO DUE DX'S OF PANCREATITS, ALSO 2ND PART OF STRESS TEST TO BE DONE TODAY. USES URINAL AT THE BEDSIDE W/O DIFFICULTY. NO OTHER NEEDS T/O THE NIGHT, VSS. CALL LIGHT WITHIN REACH AND SIDE RAILS UPX2. WILL CONT TO MONITOR.
[2021-01-26 06:16] LABS: Hematocrit 33.1 % (37.0-53.0); Hemoglobin 11.2 g/dL (13.5-17.5)
[2021-01-26 06:30] LABS: Albumin, Blood 3.1 g/dL (3.4-5.0); Anion Gap 10 mmol/L (6-16); Blood Urea Nitrogen 65 mg/dL (8-24); Bun/Creatinine Ratio 9.6 (12.0-20.0); CO2, Blood 25 mmol/L (21-32); Calcium, Blood 8.3 mg/dL (8.5-10.1); Chloride, Blood 100 mmol/L (98-108); Creatinine, Blood 6.76 mg/dL (0.60-1.20); Glomerular Filtration Rate 9 (60-); Glucose, Blood 313 mg/dL (70-99); Phosphorus, Blood 5.4 mg/dL (2.5-4.9); Potassium, Blood 3.9 mmol/L (3.5-5.5); Sodium, Blood 135 mmol/L (136-145)
--- NOTE | 2021-01-26 11:12 | NUR ---
PT REFUSING TO TAKE ALL MEDS INCLUDING INSULIN. PT WAS ENCOURAGED TO TAKE HIS INSULIN WELL HIS HEART MEDICATIONS. PT STATED HE DOES NOT WANT TO TAKE ANYTHING ON AN EMPTY STOMACH. RAS WAS INFORMED AND ORDERED TO GO AHEAD AND START PT ON ADA DIET AFTER STRESS TEST IS COMPLETED. PT LIKELY TO BE DISCHARGED PENDING STRESS TEST RESULTS.
--- NOTE | 2021-01-26 17:43 | NUR ---
SHIFT SUMMARY PT REFUSING MOST OF CARE THIS SHIFT - REFUSED 2ND PORTION OF STRESS TEST AND ALL MEDICATIONS INCLUDING LONG ACTING INSULIN DESPITE ELEVATED SUGARS AND EDUCATION REGARDING RISKS. PT STATED "I DO NOT WANT TO TAKE ANYTHING ON AN EMPTY STOMACH". PROVIDER NOTIFIED AND INSULIN KWIKPEN ADDED TO EMAR. PT PLACED ON ADA DIET DUE TO POTENTIAL DC AFTER STRESS TEST COMPLETED. PT CALLED AND REPORTED SEVERE AMOUNTS OF PAIN IN THE ABD, PLACED BACK ON NPO AND THIS IS WHEN HE REFUSED HIS STRESS TEST. PT IS CURRENTLY RESTING NOW AND APPEARS TO BE IN NO DISTRESS. CALLS APPROPRAITELY.
--- NOTE | 2021-01-27 06:13 | NUR ---
SHIFT SUMMARY- AT THE BEGINNING OF SHIFT PT. VERY ANXIOUS, CRYING, AND C/O SEVERE ABD PAIN. YELLING OUT "HELP ME". CALL PLACED TO HOSPITALIST, RECEIVED ORDER FOR PRN ATIVAN. ADMINISTERED ATIVAN PER ORDER AND GAVE PAIN MED WELL. PT. REPORTED GOOD RELIEF. CALM, PLEASANT, AND COOPERATIVE WITH CARE. AGREED TO HAVE PERITONEAL DIALYSIS LAST NIGHT. MEDICATED MULTIPLE TIMES T/O THE NIGHT FOR ABD PAIN AND 1X FOR N/V. TOLERATED WELL. SLEPT T/O THE NIGHT, NO APPARENT DISTRESS NOTED. CONT TO USE URINAL AT BEDSIDE, HAD BM. DENIES NEED AT THIS TIME. RESTING QUIETLY IN BED, VSS, AND CLINIMIX INFUSING. CALL LIGHT WITHIN REACH AND SIDE RAILS UPX2. WILL CONT TO MONITOR.
--- NOTE | 2021-01-27 07:25 | NUR ---
PT IN BED, WAKENS EASILY, IN NO APPARENT DISTRESS. OVERNIGHT CCPD COMPLEAT. PT AESEPTICALLY DISCONNECTED AND CAPPED. EXIT SITE CARE DONE AND NEW DRESSING APPLIED. CYCLER STRIPPED AND CLEANED. DR MÉNDEZ CONSULTED VIA PHONE.
--- NOTE | 2021-01-27 16:54 | NUR ---
SHIFT SUMMARY NO ACUTE CHANGES, A&O, COOPERATIVE c CARE THIS SHIFT AND TAKING SCHEDULED MEDS DIET IS BEING ADVANCED TOLERATED. PT IRRITATED BRIEFLY TODAY BECAUSE 2ND PORTION OF STRESS TEST COULD NOT BE COMPLETED UNTIL TOMORROW. PROVIDER AND RN DISCUSSED c PT, PT WILLING TO STAY ANOTHER NIGHT. PT TO BE NPO AFTER MIDNIGHT, HE IS AWARE OF THIS. IMDUR ALSO NEEDING TO BE HELD IN AM. TREATED FOR PAIN AND ANXIETY X1, PT APPEARS TO BE IN LESS DISTRESS THIS SHIFT AND NOT REQUESTING PAIN MEDS OFTEN PRIOR SHIFT. PT IS CURRENTLY RESTING IN BED, CALL LIGHT WITHIN REACH. CALLS APPROPRIATELY.
--- NOTE | 2021-01-27 19:16 | NUR ---
PATIENT COMFORTABLE IN BED WATCHING TV AFTER DINNER. CYCLER STRUNG, PROGRAMMED AND PRIMED PER ORDERS. WHEN PRIME COMPLETED, PT AESEPTICALLY CONNECTED AND OVERNIGHT CCPD THERAPY STARTED. EXIT SITE CARE DONE AND NEW STERILE DRESSING APPLIED WITH 2 STRAIN RELIEFS. MED FLOOR STAFF AWARE OF OVERNIGHT THERPY IN PROGRESS AND EXPECTED COMPLETION BY APPROXIMATELY 0600 IN THE AM.
--- NOTE | 2021-01-27 22:08 | NUR ---
BLOOD GLUCOSE: BLOOD GLUCOSE AT HS IS 419, BLOOD GLUCOSE CHECKS AND SS ARE ORDERED Q 6 H. PATIENT IS EATING NOW AND NEEDS TO BE CHANGED TO AC&HS. DR MCGINNIS IS UPDATED ON ABOVE INFORMATION. BLOOD GLUCOSE CHECKS ARE CHANGED TO AC&HS COVER PER SCALE FOR BLOOD GLUCOSE OF 419.
--- NOTE | 2021-01-28 04:53 | NUR ---
SHIFT SUMMARY: PATIENT CONTINUES TO REPORT ABD. PAIN INTERMITTENTLY. PAIN COMES ON QUICKLY AND PATIENT IS IN TEARS AT TIMES. PRN NORCO GIVES POOR EFFECT, PATIENT HAS GOOD EFFECT FROM IV DILAUDID. PRN ATIVAN WAS GIVEN X1 FOR ANXIETY WITH GOOD FAIR EFFECT. HS COREG WAS HELD FOR HR OF 58 AND MIDIDRINE WAS HELD DUE TO SBP BEING ABOVE 130.
[2021-01-28 06:19] LABS: Albumin, Blood 2.7 g/dL (3.4-5.0); Anion Gap 7 mmol/L (6-16); Blood Urea Nitrogen 60 mg/dL (8-24); Bun/Creatinine Ratio 11.5 (12.0-20.0); CO2, Blood 27 mmol/L (21-32); Calcium, Blood 7.8 mg/dL (8.5-10.1); Chloride, Blood 102 mmol/L (98-108); Creatinine, Blood 5.21 mg/dL (0.60-1.20); Glomerular Filtration Rate 11 (60-); Glucose, Blood 317 mg/dL (70-99); Magnesium, Blood 2.4 mg/dL (1.6-2.4); Phosphorus, Blood 4.3 mg/dL (2.5-4.9); Potassium, Blood 3.2 mmol/L (3.5-5.5); Sodium, Blood 136 mmol/L (136-145)
--- NOTE | 2021-01-28 07:56 | NUR ---
DIALYSIS- PD DISCONNECTED PER PROTOCAL AT 0730. PT ALSEEP BUT EASILY WOKEN UP. SITE CLEAR, FLUID CLEAR. ID 1 ML. UF [id number]. PT HAS BEEN IN A LOT OF PAIN. WILL BE HAVING SECOND PART CARDIAC TESTING.
[2021-01-28] MEDS ORDERED: TAMS.4ER PO (13:46)
[2021-01-28] MEDS ORDERED: FINA5 PO (13:46)
--- NOTE | 2021-01-28 15:07 | NUR ---
DISCHARGE DISCHARGE INSTRUCTIONS, MEDICATION LIST AND FOLLOW UP APPOINTMENTS REVIEWED WITH PT.. QUESTIONS/CONCERNS ANSWERED. PT VERBALLY INDICATED UNDERSTANDING OF ALL INSTRUCTIONS RECEIVED. ESCORTED OUT VIA W/C BY LEON
== END 2021-01-28 14:23 | disposition home or self-care (01) ==
LOC: ER 18:45 → ERHOLD 18:46 → MEDS 18:46
PROVIDERS: Emergency Medicine; Family Medicine; Internal Medicine Nephrology; Physician Assistant; ADMIT Internal Medicine
DX: R07.9 Chest pain, unspecified (principal); K86.1 Other chronic pancreatitis; I13.2 Hypertensive heart and chronic kidney disease with heart failure and with stage 5 chronic kidney disease, or end stage renal disease; I50.32 Chronic diastolic (congestive) heart failure; N18.6 End stage renal disease; E11.22 Type 2 diabetes mellitus with diabetic chronic kidney disease; I25.10 Atherosclerotic heart disease of native coronary artery without angina pectoris; J44.9 Chronic obstructive pulmonary disease, unspecified; E86.9 Volume depletion, unspecified; E87.1 Hypo-osmolality and hyponatremia; D64.9 Anemia, unspecified; E88.09 Other disorders of plasma-protein metabolism, not elsewhere classified; I25.2 Old myocardial infarction; Z99.2 Dependence on renal dialysis; Z79.4 Long term (current) use of insulin
CPT/HCPCS: 36415; 71045; 78452; 80053; 80069; 82150; 82947; 83690; 83735; 84484; 85014; 85018; 85025; 93005; 93010; 93017; 96372; 96374; 96375; 96376; 99285-25; A9270; A9500; G0257; G0378; J0706; J1170; J1644; J1650; J1885; J2060; J2270; J2405; J2785; J3010; J3480; J7131

== ENCOUNTER 2021-05-10 16:07 | Emergency (ER) | payer OTHER ==
[~2021-05-10] VITALS: Ht 180.3 cm; Wt 98.0 kg
[~2021-05-10 16:07] MED LIST changes: +LANTUS SOL100 UNIT/1 SC; +SERT50 PO
[2021-05-10 17:04] LABS: BASOPHILS ABSOLUTE AUTO 0.02 K/mm3 (0.00-0.23); BASOPHILS PERCENT AUTO 0 % (0-2); EOSINOPHILS ABSOLUTE AUTO 0.13 K/mm3 (0.00-0.68); EOSINOPHILS PERCENT AUTO 1 % (0-6); Hematocrit 34.8 % (37.0-53.0); Hemoglobin 12.4 g/dL (13.5-17.5); IMMATURE GRAN ABSOLUTE AUTO 0.04 K/mm3 (0.00-0.10); IMMATURE GRAN PERCENT AUTO 0 % (0-1); LYMPHOCYTES ABSOLUTE AUTO 1.37 K/mm3 (0.84-5.20); LYMPHOCYTES PERCENT AUTO 13 % (21-46); MONOCYTES ABSOLUTE AUTO 0.45 K/mm3 (0.16-1.47); MONOCYTES PERCENT AUTO 4 % (4-13); Mean Corpuscular HGB 32.9 pg (26.0-34.0); Mean Corpuscular HGB Conc 35.6 g/dL (31.5-36.5); Mean Corpuscular Volume 92 fL (80-100); Mean Platelet Volume 10.9 fL (9.1-12.4); NEUTROPHILS ABSOLUTE AUTO 8.97 K/mm3 (1.96-9.15); NEUTROPHILS PERCENT AUTO 82 % (41-73); Platelet Count 172 K/mm3 (150-400); RDW Coefficient Variation 13.6 % (11.7-14.2); RDW Standard Deviation 45.6 fL (35.1-46.3); Red Blood Cell Count 3.77 M/mm3 (4.30-5.90); White Blood Cell Count 10.98 K/mm3 (4.00-11.30)
[2021-05-10 17:20] LABS: Prothrombin Time Results 10.5 Sec (9.7-11.5)
[2021-05-10 17:25] LABS: Albumin, Blood 3.5 g/dL (3.4-5.0); Albumin/Globulin Ratio 0.7 (0.8-1.8); Bilirubin, Total 0.7 mg/dL (0.1-1.0); Bun/Creatinine Ratio 10.1 (12.0-20.0); Calcium, Blood 11.1 mg/dL (8.5-10.1); Creatinine, Blood 6.06 mg/dL (0.60-1.20); Potassium, Blood 4.5 mmol/L (3.5-5.5); Total Protein, Blood 8.5 g/dL (6.4-8.2); Troponin I 0.024 ng/mL (0.000-0.040)
[2021-05-10] MEDS ORDERED: HALO.5 PO (18:21)
== END 2021-05-10 20:55 | disposition home or self-care (01) ==
LOC: ER 16:07
PROVIDERS: Physician Assistant
DX: R11.2 Nausea with vomiting, unspecified (principal); R07.89 Other chest pain; E86.0 Dehydration; I13.2 Hypertensive heart and chronic kidney disease with heart failure and with stage 5 chronic kidney disease, or end stage renal disease; E11.22 Type 2 diabetes mellitus with diabetic chronic kidney disease; I50.9 Heart failure, unspecified; N18.6 End stage renal disease; Z99.2 Dependence on renal dialysis; Z79.899 Other long term (current) drug therapy; Z79.02 Long term (current) use of antithrombotics/antiplatelets; Z79.4 Long term (current) use of insulin; Z79.82 Long term (current) use of aspirin
CPT/HCPCS: 71045; 80053; 82150; 83690; 83880; 84484; 85025; 85610; 85730; 93005; 93010; 96374; 96375; 96376; 99285-25; A9270; J1170; J1630; J2765; J7120

== ENCOUNTER 2021-05-12 14:54 | Inpatient (IN) | payer OTHER ==
[~2021-05-12] VITALS: Ht 180.3 cm; Wt 99.3 kg
[~2021-05-12 14:54] MED LIST changes: +HALO.5 PO
[2021-05-12 15:45] LABS: BASOPHILS ABSOLUTE AUTO 0.02 K/mm3 (0.00-0.23); BASOPHILS PERCENT AUTO 0 % (0-2); EOSINOPHILS ABSOLUTE AUTO 0.05 K/mm3 (0.00-0.68); EOSINOPHILS PERCENT AUTO 0 % (0-6); Hematocrit 34.8 % (37.0-53.0); Hemoglobin 12.4 g/dL (13.5-17.5); IMMATURE GRAN ABSOLUTE AUTO 0.06 K/mm3 (0.00-0.10); IMMATURE GRAN PERCENT AUTO 0 % (0-1); LYMPHOCYTES ABSOLUTE AUTO 1.87 K/mm3 (0.84-5.20); LYMPHOCYTES PERCENT AUTO 13 % (21-46); MONOCYTES ABSOLUTE AUTO 0.83 K/mm3 (0.16-1.47); MONOCYTES PERCENT AUTO 6 % (4-13); Mean Corpuscular HGB 32.8 pg (26.0-34.0); Mean Corpuscular HGB Conc 35.6 g/dL (31.5-36.5); Mean Corpuscular Volume 92 fL (80-100); NEUTROPHILS ABSOLUTE AUTO 11.19 K/mm3 (1.96-9.15); NEUTROPHILS PERCENT AUTO 80 % (41-73); Platelet Count 148 K/mm3 (150-400); RDW Coefficient Variation 13.3 % (11.7-14.2); RDW Standard Deviation 44.7 fL (35.1-46.3); Red Blood Cell Count 3.78 M/mm3 (4.30-5.90); White Blood Cell Count 14.02 K/mm3 (4.00-11.30)
[2021-05-12 16:03] LABS: Troponin I 0.072 ng/mL (0.000-0.040)
[2021-05-12 16:04] LABS: Albumin, Blood 3.3 g/dL (3.4-5.0); Albumin/Globulin Ratio 0.7 (0.8-1.8); Bilirubin, Total 0.6 mg/dL (0.1-1.0); Bun/Creatinine Ratio 10.4 (12.0-20.0); Calcium, Blood 9.9 mg/dL (8.5-10.1); Creatinine, Blood 5.5 mg/dL (0.60-1.20); Globulin, Blood 4.9 g/dL (2.2-4.0); Potassium, Blood 3.9 mmol/L (3.5-5.5); Total Protein, Blood 8.2 g/dL (6.4-8.2)
[2021-05-12] MEDS ORDERED: CALPHRON PO (17:10)
[2021-05-12] MEDS ORDERED: ACIDOPHILUS1 EAC3 PO (17:12)
[2021-05-12] MEDS ORDERED: HUMULIN N100 UNIT/1 SC (17:12)
[2021-05-12 17:39] LABS: CHOL/HDL RATIO 2.9; Cholesterol 98 mg/dL (50-200); HDL Cholesterol 34 mg/dL (>39); LDL/HDL RATIO 0.1; Low Density Lipoprotein Chol 3 mg/dL (0-110); Triglycerides 307 mg/dL (30-160); Very Low Density Lipoprot Chol 61 mg/dL (6-32)
[2021-05-12] MEDS ORDERED: DOCU100 PO (18:13)
[2021-05-12] MEDS ORDERED: Flonase 0.05% N16 GM (18:14)
[2021-05-12] MEDS ORDERED: FURO40 PO (18:14)
[2021-05-12] MEDS ORDERED: HUMULIN R100 UNIT/2 IP (18:17)
[2021-05-12] MEDS ORDERED: LORA.5 PO (18:19)
[2021-05-12] MEDS ORDERED: RENAL VITAMIN0.8 MG PO (18:20)
[2021-05-12] MEDS ORDERED: NARCAN4 M1 (18:21)
[2021-05-12] MEDS ORDERED: NITR.4SL SL (18:21)
[2021-05-12 18:23] LABS: Source, Urine Clean Catch
[2021-05-12 18:48] LABS: Appearance, Urine Clear (Clear); Bilirubin, Urine Neg (Neg); Blood, Urine 1+ (Neg); Color, Urine Yellow (P-Yellow); Glucose Qualitative, Urine Neg (Neg); Ketones, Urine Neg (Neg); Leukocyte Esterase, Urine 2+ (Neg); Nitrite, Urine Neg (Neg); Protein, Urine 2+ (Neg); Specific Gravity, Urine 1.015 (1.003-1.022); Urobilinogen, Urine NORM (Normal)
[2021-05-12 18:52] LABS: White Blood Cells, Urine 0-2 /hpf (0-5)
[2021-05-12 18:53] LABS: Bacteria Few /hpf; Squamous Epithelial Cells Rare /hpf (Few)
--- NOTE | 2021-05-12 21:01 | NUR ---
DR. MÉNDEZ NOTIFIED OF CONSULT FOR PERITONEAL DIALYSIS. DR. MÉNDEZ REQUESTED TO HAVE NURSING PORTER SAMPLE CASE CONTACT DIALYSIS NURSE FOR ORDERS. NURSING [facility] NOTIFIED. NURSING [employer] [employer] CALLED BACK AND STATED THAT DIALYSIS NURSE WAS MADE AWARE.
[2021-05-12 22:37] LABS: Body Fluid WBC Count 50 /mm3 (0-999)
[2021-05-12 22:38] LABS: RBC Count, Body Fluid 236 /mm3 (0-0)
[2021-05-12 22:59] LABS: Appearance, Body Fluid Clear (Clear); Color, Body Fluid Yellow (None-Yellow)
[2021-05-12 23:01] LABS: Total Cell Count, Body Fluid 100
[2021-05-12 23:53] LABS: Troponin I 0.07 ng/mL (0.000-0.040)
--- NOTE | 2021-05-13 00:01 | NUR ---
DIALYSIS-PD PT ASKING FOR PAIN MEDS EVERYTIME I GO IN THE ROOM. TOOK CELL CT STAT AND CALLED RESULTS TO DR MÉNDEZ. CONNECTED PT TO TX. DUE TO HIS PAIN DECREASED HIS FILLS TO 1700 ML.
[2021-05-13] MEDS ORDERED: SEVEC800 PO (05:35)
--- NOTE | 2021-05-13 06:54 | NUR ---
PT IS A&OX4. ON BED REST. PT IS NPO, ON 2L O2NC. PT HAD FREQUENT C/O PAIN R/T PANCREATITIS. ELEVATED BP AND ELEVATED BG ON THIS SHIFT. PRN MEDICATIONS ADMINISTERED PER EMAR. PT HAD GOOD EFFECTS FOR A SHORT WHILE. NOTIFIED.PT HAS PERITONEAL DIALYSIS RUNNING. ADLS PROVIDED. SAFETY MEASURES IN PLACE. WILL CONTINUE TO MONITOR.
[2021-05-13 07:31] LABS: BASOPHILS ABSOLUTE AUTO 0.03 K/mm3 (0.00-0.23); BASOPHILS PERCENT AUTO 0 % (0-2); EOSINOPHILS ABSOLUTE AUTO 0.07 K/mm3 (0.00-0.68); EOSINOPHILS PERCENT AUTO 1 % (0-6); Hemoglobin 13.2 g/dL (13.5-17.5); IMMATURE GRAN ABSOLUTE AUTO 0.03 K/mm3 (0.00-0.10); IMMATURE GRAN PERCENT AUTO 0 % (0-1); LYMPHOCYTES PERCENT AUTO 16 % (21-46); MONOCYTES ABSOLUTE AUTO 0.68 K/mm3 (0.16-1.47); MONOCYTES PERCENT AUTO 6 % (4-13); Mean Corpuscular HGB 32.9 pg (26.0-34.0); Mean Corpuscular HGB Conc 35.7 g/dL (31.5-36.5); Mean Corpuscular Volume 92 fL (80-100); NEUTROPHILS ABSOLUTE AUTO 9.18 K/mm3 (1.96-9.15); NEUTROPHILS PERCENT AUTO 77 % (41-73); Platelet Count 163 K/mm3 (150-400); RDW Coefficient Variation 13.2 % (11.7-14.2); RDW Standard Deviation 44.5 fL (35.1-46.3); Red Blood Cell Count 4.01 M/mm3 (4.30-5.90); White Blood Cell Count 11.89 K/mm3 (4.00-11.30)
[2021-05-13 07:55] LABS: Albumin, Blood 3.4 g/dL (3.4-5.0); Albumin/Globulin Ratio 0.7 (0.8-1.8); Bilirubin, Total 0.6 mg/dL (0.1-1.0); Bun/Creatinine Ratio 10.1 (12.0-20.0); Calcium, Blood 9.8 mg/dL (8.5-10.1); Creatinine, Blood 5.07 mg/dL (0.60-1.20); Magnesium, Blood 2.3 mg/dL (1.6-2.4); Phosphorus, Blood 3.1 mg/dL (2.5-4.9); Potassium, Blood 3.7 mmol/L (3.5-5.5); Total Protein, Blood 8.4 g/dL (6.4-8.2)
[2021-05-13 07:59] LABS: Troponin I 0.076 ng/mL (0.000-0.040)
--- NOTE | 2021-05-13 09:58 | NUR ---
PT AWAKE, ANXIOUS, URGENTLY REQUESTING PAIN MED FOR ABD DISCOMFORT DUE TO SUSPECTED PANCREATITIS. CHIEF FUNDRAISING OFFICER INFORMED OF PT NEEDS AND SHE IS ADDRESSING ISSUES ON URGENT BASIS. OVERNIGHT CCPD COMPLETE. EFFLUENT CLEAR/ MARY W/O FIBRIN. PT DISCONNECTED AND CAPPED. CYCLER STRIPPED AND CLEANED. DR MÉNDEZ CONSULTED VIA PHONE FOR NEW ORDERS/ PLAN OF CARE.
--- NOTE | 2021-05-13 18:19 | NUR ---
PT IN SIGNIFICANT PAIN MOST OF DAY DESPITE MULTIPLE PAIN MEDS GIVEN. DILAUDID WOULD LAST LESS THAN AN HOUR AND PT WOULD BE WRITHING IN BED MOANING AND CRYING OUT. MD NOTIFIED THIS MORNING AND CAME TO VISIT EARLY WITH ORDERS FOR EXTRA DILAUDID GIVEN. MINIAL EFFECT. TREATED FOR NAUSEA AND DRY HEAVES WELL. IN TO VISIT THIS AFTERNOON AND RECOMMENDED ATIVAN TO HELP HIM REST. 1 TIME ORDER GIVEN AND PT SLEPT FOR SEVERAL HOURS BUT IS NOW WAKING AGAIN AND MOANING AND CRYING LOUDLY IN ROOM. CLEAR LIQUID MEAL OFFERED WELL PAIN MEDS. PT REPORTS HX SLEEP APNEA BUT UNABLE TO TOLERATED CPAP MASK. CONTINUOUS PULSE OX PLACED FOR SAFETY. MEDICATED FOR HTN WITH EFFECT.
--- NOTE | 2021-05-13 20:06 | NUR ---
WHILE STARTING THE IV, THE PT HAD EXTREEM CRYING THE ENTIRE TIME, STATING HE COULDN'T TAKE IT ANYMORE, THE PAIN FROM THE IV START, THAT HE NEEDED PAIN MEDICATION. AN US WAS BEING USED TO START THE IV, EASILY GUIDING THE NEEDLE INTO THE VEIN, IT WAS NOT A DIFFICULT START AND DID NOT REQUIRE MUCH MOVEMENT FROM THE NEEDLE TO GET INTO THE VEIN. HE THEN BEGAN TO RECITE THE LORDS PRAYER. WHEN THE RN RACHEL FRNACO CAME TO CHECK ON HIM HE REQUESTED SATNAM MIST, STATING HE HAD BEEN WAITING FOR AN HOUR FOR SOMEONE TO BRING SOME TO HIM. RACHEL IMMEDIATELY GOT HIM SOME SATNAM MIST, BROUGHT IT INTO THE ROOM AND SET IT ON THE PT'S TABLE. THE PT GLANCED AT THE CUP AND STATED "THAT'S NOT SATNAM MIST". RACHEL REASSURRED HIM THAT IT WAS SATNAM MIST. THE PT STATED "NO IT'S NOT". RACHEL REASSURED HIM THAT HE HAD GOT THE SODA OUT OF THE SATNAM MIST TAP. THE PT STATES "LET ME TASTE IT". RACHEL HANDS HIM THE CUP, THE PT TASTES IT, THEN THE PT STATES "OK, IT IS SATNAM MIST."
--- NOTE | 2021-05-13 23:39 | NUR ---
AT SHIFT COMMENCE, VOICED PAIN OF ABD (DX PANCREATITIS), HE WAS HOOKED UP TO PD. RECEIVED PO PAIN MEDS, BUT EVENTUALLY VOICED WANTING IV PAIN MEDS AND WAS TEARY EYED. RECEIVED IV ANALGESIC WHEN MED WAS DUE - SEE MAR FOR DETAILS. PT VERBALLY DEMANDING AND ACCUSATORY. WILL CONTINUE TO ADDRESS PAIN ISSUES AND ENCOURAGE PT TO BE MORE AMIABLE TO STAFF. CURRENTLY RESTING QUIEETLY. CALL LIGHT IN REACH
--- NOTE | 2021-05-13 23:43 | NUR ---
LATE ENTRY - CHARTED ON WRONG PT EARLIER 1921 PATIENT REASTING QUIETLY AFTER MEDICATION FOR PAIN EARLIER. CYCLER STRUNG, PRIMED AND PROGRAMMED PER DR MÉNDEZ'S RX. PT AESEPTICALLY CONNECTED WHEN PRIME COMPLETE AND OVERNIGHT THERAPY STARTED. PT QUIET AND COMFORTABLE AT THIS TIME, EXIT SITE CARE DEFERRED UNTIL TOMORROW AM AFTER DISCONNECT. MED FLOOR STAFF AWARE OF CCPD THERAPY IN PROGRESS T/O NIGHT.
--- NOTE | 2021-05-14 03:32 | NUR ---
CASHIER WRAPPER SUMMARY HAS BEEN AWAKE AT INTERVALS THROUGH SHIFT WITH C/O ABD PAIN. SEE MAR FOR DETAILS RE MEDICATIONS FOR PAIN, ETC. PD WAS CONNECTED AT HS, RUNNING CONTINUOUSLY AT THIS TIME. BP ELEVATED AND RECEIVED MED, EFFECTIVE WAS 181/91 AND ABOUT AN HR LATER WAS 144/75. BECAME AGITATED LATER AND REQUESTED "ATIVAN" TO SLEEP. CALL PLACED TO MD, ORDER FOR ONE TIME DOSE OBTAINED AND GIVEN. CURRENTLY RESTING QUIETLY. CALL LIGHT IN REACH.
--- NOTE | 2021-05-14 03:59 | NUR ---
[employer] REPORTED PT FLIPPED TO "A FIB", THEN FLIPPED BACK TO SINUS RHYTHM. UPON ASSESSMENT AT BEDSIDE, PT SAID HE WAS "FINE", NOTED SOME LEG TWITCHING, BUT VSS. HR 86. BP 150/84. NO C/O PAIN. PD IN PROCESS. CALL LIGHT IN REACH.
--- NOTE | 2021-05-14 04:41 | NUR ---
MED TELE REPORTS FLIPPED BACK TO A FIB IN THE 140'S. CALL PLACED TO MD POLICE DISPATCHER, ORDERS FOR CARDIZEM IV 15 MG PUSH X 1. MED GIVEN OVER 5 MIN. HR REMAINS IN LOW 100S BUT STILL IN A FIB. PAIN OF ABD CONTINUES, ANALGESIC ADMINISTERED. CHARGE NURSE REVIEWED PT FOR SECOND OPINION. CALL LIGHT IN REACH. WILL CONTINUE TO MONITOR
[2021-05-14 05:16] LABS: BASOPHILS ABSOLUTE AUTO 0.03 K/mm3 (0.00-0.23); BASOPHILS PERCENT AUTO 0 % (0-2); EOSINOPHILS ABSOLUTE AUTO 0.07 K/mm3 (0.00-0.68); EOSINOPHILS PERCENT AUTO 1 % (0-6); Hematocrit 38.6 % (37.0-53.0); Hemoglobin 13.6 g/dL (13.5-17.5); IMMATURE GRAN ABSOLUTE AUTO 0.04 K/mm3 (0.00-0.10); IMMATURE GRAN PERCENT AUTO 0 % (0-1); LYMPHOCYTES ABSOLUTE AUTO 1.89 K/mm3 (0.84-5.20); LYMPHOCYTES PERCENT AUTO 18 % (21-46); MONOCYTES ABSOLUTE AUTO 0.73 K/mm3 (0.16-1.47); MONOCYTES PERCENT AUTO 7 % (4-13); Mean Corpuscular HGB 32.3 pg (26.0-34.0); Mean Corpuscular HGB Conc 35.2 g/dL (31.5-36.5); Mean Corpuscular Volume 92 fL (80-100); Mean Platelet Volume 10.7 fL (9.1-12.4); NEUTROPHILS ABSOLUTE AUTO 7.52 K/mm3 (1.96-9.15); NEUTROPHILS PERCENT AUTO 73 % (41-73); Platelet Count 160 K/mm3 (150-400); RDW Coefficient Variation 13.5 % (11.7-14.2); Red Blood Cell Count 4.21 M/mm3 (4.30-5.90); White Blood Cell Count 10.28 K/mm3 (4.00-11.30)
[2021-05-14 05:53] LABS: Albumin, Blood 3.3 g/dL (3.4-5.0); Anion Gap 14 mmol/L (6-16); Blood Urea Nitrogen 49 mg/dL (8-24); Bun/Creatinine Ratio 9.4 (12.0-20.0); CO2, Blood 18 mmol/L (21-32); Calcium, Blood 9.9 mg/dL (8.5-10.1); Chloride, Blood 101 mmol/L (98-108); Creatinine, Blood 5.19 mg/dL (0.60-1.20); Glomerular Filtration Rate 11 (60-); Glucose, Blood 359 mg/dL (70-99); Magnesium, Blood 2.2 mg/dL (1.6-2.4); Phosphorus, Blood 3.3 mg/dL (2.5-4.9); Sodium, Blood 133 mmol/L (136-145)
--- NOTE | 2021-05-14 06:43 | NUR ---
IRREGULAR HR CONTINUED, A FIB INCREASED INTO THE 140'S AGAIN, ASYMPTOMATIC [facility]ART [place] - I.E. NO CHEST PAIN. MD NOTIFIED, ORDERS OBTAINED FOR TRANSFER TO PCU FOR A CARDIZEM DRIP. PT TRANSFERRED TO PCU, PT ASKED FOR HIS TO BE NOTIFIED AND SHE WAS NOTIFIED OF TRANSFER TO PCU ROOM 15.
--- NOTE | 2021-05-14 08:00 | NUR ---
ASSUMPTION OF CARE NOTES PT NOW SLEEPING BUT RESPONDS TO VERBAL STIMULI, WHEN DIALYSIS NURSE WAS IN ROOM EARLIER THIS AM PT REPORTED PAIN. DILTIAZEM NOW INFUSING PER EMAR ORDERS AT 5MG/HR IN LEFT WRIST AC IV.
--- NOTE | 2021-05-14 08:28 | NUR ---
PT MOVED FROM MED FLOOR TO PCU THIS AM DUE TO CARDIAC IRREGULARITY. CCPD COMPLETE. PT DISCONNECTED AND CAPPED. CYCLER STRIPPED AND CLEANED. EXIT SITE CARE DONE. NEW STERILE DRESSING APPLIED WITH STRIN RELIEFS. DR MÉNDEZ CONSULTED FOR ORDERS / PLAN OF CARE.
--- NOTE | 2021-05-14 11:10 | NUR ---
CARE NOTE: PATIENT REPORTS 10/10 CHEST PAIN, DESCRIBING IT PRESSURE AND SHARP/SHOOTING. SITTING UP IN BED ROCKING BACK AND FORTH HOLDING CHEST. DR. WYLIE NOTIFIED, NEW ORDERS IN PLACE. EKG, LABS DRAWN AND CHEST XRAY DONE. VITAL SIGNS STABLE. NO CHANGES IN TELE RHYTHM, REMAINS AFIB. HR INCREASED TO 120'S FOR 1-2 MIN AND NOW BACK IN 80-90'S. UPON REASSESSMENT PATIENT REPORTS 5/10 PAIN. LAYING IN BED DRINKING ENSURE. WILL CONTINUE TO MONITOR AND UPDATE DR. WYLIE WITH LAB AND XRAY RESULTS.
--- NOTE | 2021-05-14 14:28 | NUR ---
CARE NOTE THIS NURSE TURNED MOIRA ZARATEIP PER DR. WYLIE'S ORDERS AT 1405, BUSINESS TAXES SPECIALIST MADE AWARE. WILL CONTINUE TO MONITOR CARDIAC STATUS. PT NOW APPEARS TO BE SLEEPING. CALL LIGHT IN REACH.
--- NOTE | 2021-05-14 18:09 | NUR ---
SHIFT SUMMARY PT HAS REMAINED ALERT AND ORIENTED THROUGHOUT SHIFT. HE IS EMOTIONALLY LABILE WHEN STAFF IS IN ROOM. PT HAS COMPLAINED OF PAIN IN ABDOMEN THROUGHOUT SHIFT THAT HAS HAD LITTLE IMPROVEMENT WITH MEDICATION ADMINISTRATION PER PT REPORT. HE HAS BEEN SLEEPING FOR MAJORITY OF SHIFT AND APPEARS COMFORTABLE BUT WHEN THIS NURSE IS IN ROOM HE HAS BEEN TEARFUL AT TIMES W/ COMPLAINTS OF PAIN. SPO2 REMAINS IN UPPER 90'S VIA ROOM AIR, HE IS IN AFIB SUSTAINING IN 70'S-90'S. PT COMPLAINED OF CHEST PAIN THIS EARLY AFTERNOON, DOCTOR MADE AWARE. EKG, CHEST X-RAY AND TROPONIN TREND ORDERED. PT REPORTED CHEST PAIN HAD RESOLVED UPON REASSESSMENT. IN AFTERNOON PT WAS ALSO DEMONSTRATING 3 SECOND HEART BEAT PAUSES X 3. THIS NURSE WENT INTO PATIENT ROOM TO ASSESS AND PATIENT HAD BEEN SLEEPING/WAS ASYMPTOMATIC. PT STATED THAT HE WAS UPSET THAT WE KEPT COMING INTO THE ROOM BOTHERING HIM/WAKING HIM UP. DR. WYLIE WAS MADE AWARE OF PAUSES, ORDERS FOR CARDIOLOGY CONSULT GIVEN FOR TOMORROW AM. [facility] NOTIFIED. SEE TELE STRIP IN CHART TO REFER TO PAUSES. DR. MÉNDEZ WAS NOTIFIED BY THIS NURSE IN REGARD TO POTASSIUM VALUE, ORDERS FOR KCL GIVEN. PT HAS BOTH A RIGHT FOREARM IV AND A LEFT WRIST IV THAT IS SALINE LOCKED. PT CONTINUES TO UTILIZE BEDSIDE URINAL. PT NOW RESTING. WILL CONTIUE TO MONITOR UNTIL REPORT GIVEN.
--- NOTE | 2021-05-14 18:57 | NUR ---
PT QUIET THIS EVENING. RESTING IN RELATIVE COMFORT. STILL NAUSEATED AT EATING POORLY CYCLER STRUNG, PRIMED AND PROGRAMMED PER RX. PT AESEPTICALLY CONNECTED WHEN PRIME COMLETE. EXIT SITE CARE DONE. VERY SMALL AMOUNT DRAINAGE NOTED. STERILE DRESSING APPLIED WITH 3 STRAIN RELIEFS.
--- NOTE | 2021-05-14 23:30 | NUR ---
THE PATIENT'S WAS CALLED BACK TO GIVE HER AN UPDATE ON HER . SHE STATED SHE WANTED TO TALK TO HER BUT HE STATED HE DID NOT TO TALK TO HIS BECAUSE HE WAS HURTING BAD. HIS WAS NOTIFED AND SHE STATED TO JUST LET THE PATIENT KNOW SHE LOVES HIM AND THINKING OF HIM WHICH RN DID.
--- NOTE | 2021-05-14 23:54 | NUR ---
DR HOBSON WAS CALLED TO ASK IF THE FREQUENCY OF THE PRN FENTANYL COULD BE DECREASE DUE TO THE PATIENT'S PAIN LEVEL, FREQUENCY AND INTENSITY. NEW ORDERS WERE PUT IN.
[2021-05-15 04:05] LABS: BASOPHILS ABSOLUTE AUTO 0.02 K/mm3 (0.00-0.23); BASOPHILS PERCENT AUTO 0 % (0-2); EOSINOPHILS ABSOLUTE AUTO 0.22 K/mm3 (0.00-0.68); EOSINOPHILS PERCENT AUTO 2 % (0-6); Hematocrit 34.4 % (37.0-53.0); Hemoglobin 12.3 g/dL (13.5-17.5); IMMATURE GRAN ABSOLUTE AUTO 0.03 K/mm3 (0.00-0.10); IMMATURE GRAN PERCENT AUTO 0 % (0-1); LYMPHOCYTES ABSOLUTE AUTO 2.71 K/mm3 (0.84-5.20); LYMPHOCYTES PERCENT AUTO 27 % (21-46); MONOCYTES ABSOLUTE AUTO 0.76 K/mm3 (0.16-1.47); MONOCYTES PERCENT AUTO 8 % (4-13); Mean Corpuscular HGB 33.1 pg (26.0-34.0); Mean Corpuscular HGB Conc 35.8 g/dL (31.5-36.5); Mean Corpuscular Volume 93 fL (80-100); Mean Platelet Volume 10.6 fL (9.1-12.4); NEUTROPHILS ABSOLUTE AUTO 6.32 K/mm3 (1.96-9.15); NEUTROPHILS PERCENT AUTO 63 % (41-73); Platelet Count 153 K/mm3 (150-400); RDW Coefficient Variation 13.4 % (11.7-14.2); RDW Standard Deviation 45.3 fL (35.1-46.3); Red Blood Cell Count 3.72 M/mm3 (4.30-5.90); White Blood Cell Count 10.06 K/mm3 (4.00-11.30)
[2021-05-15 04:23] LABS: Albumin, Blood 2.8 g/dL (3.4-5.0); Anion Gap 10 mmol/L (6-16); Blood Urea Nitrogen 54 mg/dL (8-24); Bun/Creatinine Ratio 9.9 (12.0-20.0); CO2, Blood 24 mmol/L (21-32); Calcium, Blood 9.4 mg/dL (8.5-10.1); Chloride, Blood 100 mmol/L (98-108); Creatinine, Blood 5.45 mg/dL (0.60-1.20); Glomerular Filtration Rate 11 (60-); Glucose, Blood 301 mg/dL (70-99); Magnesium, Blood 2.1 mg/dL (1.6-2.4); Phosphorus, Blood 3.3 mg/dL (2.5-4.9); Potassium, Blood 3.3 mmol/L (3.5-5.5); Sodium, Blood 134 mmol/L (136-145)
--- NOTE | 2021-05-15 07:41 | NUR ---
TAM SUMMARY. PATIENT IS RESTING IN BED COMFORTABLY. BED IS IN LOW POSITION. CALL LIGHT IS IN REACH. THE PATIENT COMPLAINED OF PAIN DURING THE SHIFT SEE EMAR FOR PAIN MANAGEMENT. HIS BLOOD PRESSURE DID GO UP AND HE WAS MEDICATED WITH PRN BLOOD PRESSURE MEDICATION. HE ALSO HAD PERITONEAL DIALYSIS DURING THE NIGHT IT ENDED THIS MORNING. PATIENT IS ON ROOM AIR SATURATING ABOVE 95%. CONTROLLED AFIB DURING THE NIGHT. RN UPDATED THE PATIENT'S THIS MORNING AND SHE WAS INFOMRED SHE IS ALLOWED TO COME IN ANYTIME AFTER 10AM SINCE SHE WORKS AT 1PM. PATIENT ABLE TO USE BEDSIDE COMMODE WITH ASSISTANCE. PATIENT WOULD EASILY GET IRRITATED AND AGITATED DURING THE NIGHT AND RN WOULD TRY TO EDUCATE AND TALK TO PAITENT TO HELP HIM CALM DOWN. WILL CONTINUE TO MONITOR. REPORT GIVEN TO SAMUEL CANO.
--- NOTE | 2021-05-15 08:21 | NUR ---
NOTIFIED DR SHI OF [facility] THIS AM. NO NEW ORDERS, WILL CONTINUE TO MONITOR.
--- NOTE | 2021-05-15 10:25 | NUR ---
Echocardiogram completed.
--- NOTE | 2021-05-15 11:20 | NUR ---
DIALYSIS-PD DCED TX PER PROTOCAL AT 0730. ID [id number], UF [id number] ML. SOLUTION CLEAR. PT TALKING TO . SHE ASKED TO TALK TO ME. SHE SAID THAT THEY HAVE BEEN TREATING TUNNEL INFECTION AT THE PORT SITE, USING GENTAMYCIN OINT. CLEANED AND REDRESSED. I WILL PLACE AN ORDER FOR GENTAMYCIN OINT.
--- NOTE | 2021-05-15 14:44 | NUR ---
SHIFT SUMMARY/DISCHARGE PATIENT ALERT AND ORIENTED X4 UNTIL DISCHARGE. VSS. DENIES CHEST PAIN OR PRESSURE. REMAINED ON RA WITH OXYGEN SATURATION ABOVE 90%. PERITONEAL DIALYSIS PORT PRESENT, DRESSING IS C/D/I. PATIENT'S SAT AT THE BEDSIDE WITH THE PATIENT THIS MORNING. UPON DISCHARGE, PATIENT WAS EDUCATED ON DISCHARGE INSTRUCTIONS, MEDICATIONS AND FOLLOW UP APPOINTMENTS. PATIENT WAS ESCORTED OUT BY STAFF VIA WHEELCHAIR WITH ALL PERSONAL BELONGINGS.
== END 2021-05-15 13:34 | disposition home or self-care (01) | DRG 438 ==
LOC: ER 14:54 → MEDS 16:52 → PCU 16:52 → MEDS 18:45 → PCU 05-14 06:28
PROVIDERS: Family Medicine; Internal Medicine Nephrology; Physician Assistant; ADMIT Internal Medicine
PROC: 3E1M39Z Irrigation of Peritoneal Cavity using Dialysate, Percutaneous Approach (ICD-10-PCS; principal; 2021-05-13)
DX: K86.1 Other chronic pancreatitis (principal); N18.6 End stage renal disease; I13.2 Hypertensive heart and chronic kidney disease with heart failure and with stage 5 chronic kidney disease, or end stage renal disease; I50.32 Chronic diastolic (congestive) heart failure; N25.81 Secondary hyperparathyroidism of renal origin; E87.1 Hypo-osmolality and hyponatremia; E11.22 Type 2 diabetes mellitus with diabetic chronic kidney disease; E78.5 Hyperlipidemia, unspecified; E11.65 Type 2 diabetes mellitus with hyperglycemia; I25.10 Atherosclerotic heart disease of native coronary artery without angina pectoris; F43.10 Post-traumatic stress disorder, unspecified; B19.20 Unspecified viral hepatitis C without hepatic coma; M10.9 Gout, unspecified; F32.A Depression, unspecified; E88.09 Other disorders of plasma-protein metabolism, not elsewhere classified; K21.9 Gastro-esophageal reflux disease without esophagitis; G47.30 Sleep apnea, unspecified; I49.5 Sick sinus syndrome; I48.0 Paroxysmal atrial fibrillation; D72.829 Elevated white blood cell count, unspecified; E87.6 Hypokalemia; E86.9 Volume depletion, unspecified; D64.9 Anemia, unspecified; E11.51 Type 2 diabetes mellitus with diabetic peripheral angiopathy without gangrene; I51.7 Cardiomegaly; I51.5 Myocardial degeneration; I25.2 Old myocardial infarction; Z99.2 Dependence on renal dialysis; Z95.1 Presence of aortocoronary bypass graft; Z79.899 Other long term (current) drug therapy; Z79.02 Long term (current) use of antithrombotics/antiplatelets; Z79.82 Long term (current) use of aspirin; Z79.4 Long term (current) use of insulin
CPT/HCPCS: 36415; 71045; 74176; 76705; 80053; 80061; 80069; 81001; 82550; 82947; 83690; 83735; 84100; 84132; 84443; 84484; 85025; 87070; 87075; 87086; 87205; 89051; 93005; 93010; 93246; 93306; 94762; 96372-59; 96374; 96375; 96376; 99285-25; A9270; C9113; J0360; J1170; J1644; J1815; J2405; J3010; J3480; J7030; J7050

== ENCOUNTER 2021-05-25 13:19 | Emergency (ER) | payer OTHER ==
[~2021-05-25] VITALS: Ht 180.3 cm; Wt 98.0 kg
[~2021-05-25 13:19] MED LIST changes: +ACIDOPHILUS1 EAC3 PO; +CALPHRON PO; +HUMULIN N100 UNIT/1 SC; +HUMULIN R100 UNIT/2 IP; +NARCAN4 M1; +SEVEC800 PO
[2021-05-25 13:51] LABS: BASOPHILS ABSOLUTE AUTO 0.02 K/mm3 (0.00-0.23); BASOPHILS PERCENT AUTO 0 % (0-2); EOSINOPHILS ABSOLUTE AUTO 0.48 K/mm3 (0.00-0.68); EOSINOPHILS PERCENT AUTO 5 % (0-6); Hematocrit 30.3 % (37.0-53.0); Hemoglobin 10.3 g/dL (13.5-17.5); IMMATURE GRAN ABSOLUTE AUTO 0.03 K/mm3 (0.00-0.10); IMMATURE GRAN PERCENT AUTO 0 % (0-1); LYMPHOCYTES ABSOLUTE AUTO 1.19 K/mm3 (0.84-5.20); LYMPHOCYTES PERCENT AUTO 11 % (21-46); MONOCYTES ABSOLUTE AUTO 0.62 K/mm3 (0.16-1.47); MONOCYTES PERCENT AUTO 6 % (4-13); Mean Corpuscular HGB 33.3 pg (26.0-34.0); Mean Corpuscular Volume 98 fL (80-100); Mean Platelet Volume 10.3 fL (9.1-12.4); NEUTROPHILS ABSOLUTE AUTO 8.22 K/mm3 (1.96-9.15); NEUTROPHILS PERCENT AUTO 78 % (41-73); Platelet Count 109 K/mm3 (150-400); RDW Coefficient Variation 14.1 % (11.7-14.2); RDW Standard Deviation 50.7 fL (35.1-46.3); Red Blood Cell Count 3.09 M/mm3 (4.30-5.90); White Blood Cell Count 10.56 K/mm3 (4.00-11.30)
[2021-05-25 14:13] LABS: Albumin, Blood 2.3 g/dL (3.4-5.0); Albumin/Globulin Ratio 0.5 (0.8-1.8); Bilirubin, Total 0.4 mg/dL (0.1-1.0); Bun/Creatinine Ratio 8.4 (12.0-20.0); Calcium, Blood 8.9 mg/dL (8.5-10.1); Creatinine, Blood 4.64 mg/dL (0.60-1.20); Globulin, Blood 4.2 g/dL (2.2-4.0); Potassium, Blood 5.2 mmol/L (3.5-5.5); Total Protein, Blood 6.5 g/dL (6.4-8.2)
[2021-05-25] MEDS ORDERED: AURYXIA210 MG PO ×2 (14:13→14:14)
[2021-05-25] MEDS ORDERED: ACIDOPHILUS1 EAC3 PO (14:17)
[2021-05-25] MEDS ORDERED: CARV6.25 PO (14:18)
[2021-05-25] MEDS ORDERED: RENAL VITAMIN0.8 MG PO (14:18)
[2021-05-25] MEDS ORDERED: Benadryl 50 mg50 MG PO (15:19)
[2021-05-25] MEDS ORDERED: Prednisone20 MG PO (15:19)
[2021-05-25] MEDS ORDERED: Cleocin HCl300 MG PO (15:19)
== END 2021-05-25 15:34 | disposition home or self-care (01) ==
LOC: ER 13:19
PROVIDERS: Emergency Medicine
DX: K14.8 Other diseases of tongue (principal); E11.22 Type 2 diabetes mellitus with diabetic chronic kidney disease; I13.2 Hypertensive heart and chronic kidney disease with heart failure and with stage 5 chronic kidney disease, or end stage renal disease; I50.32 Chronic diastolic (congestive) heart failure; N18.6 End stage renal disease; K21.9 Gastro-esophageal reflux disease without esophagitis; Z79.899 Other long term (current) drug therapy
CPT/HCPCS: 80053; 85025; 96374; 99285-25; A9270; J1100

== ENCOUNTER 2021-06-15 09:21 | Emergency (ER) | payer OTHER ==
[~2021-06-15] VITALS: Ht 182.9 cm; Wt 98.0 kg
[~2021-06-15 09:21] MED LIST changes: +AURYXIA210 MG PO; +Benadryl 50 mg50 MG PO; +Prednisone20 MG PO
[2021-06-15 09:55] LABS: BASOPHILS ABSOLUTE AUTO 0.02 K/mm3 (0.00-0.23); BASOPHILS PERCENT AUTO 0 % (0-2); EOSINOPHILS ABSOLUTE AUTO 0.22 K/mm3 (0.00-0.68); EOSINOPHILS PERCENT AUTO 3 % (0-6); Hematocrit 36.4 % (37.0-53.0); Hemoglobin 12.9 g/dL (13.5-17.5); IMMATURE GRAN ABSOLUTE AUTO 0.03 K/mm3 (0.00-0.10); IMMATURE GRAN PERCENT AUTO 0 % (0-1); LYMPHOCYTES ABSOLUTE AUTO 1.34 K/mm3 (0.84-5.20); LYMPHOCYTES PERCENT AUTO 17 % (21-46); MONOCYTES ABSOLUTE AUTO 0.47 K/mm3 (0.16-1.47); MONOCYTES PERCENT AUTO 6 % (4-13); Mean Corpuscular HGB 32.9 pg (26.0-34.0); Mean Corpuscular HGB Conc 35.4 g/dL (31.5-36.5); Mean Corpuscular Volume 93 fL (80-100); Mean Platelet Volume 10.7 fL (9.1-12.4); NEUTROPHILS ABSOLUTE AUTO 6.04 K/mm3 (1.96-9.15); NEUTROPHILS PERCENT AUTO 74 % (41-73); Platelet Count 159 K/mm3 (150-400); RDW Coefficient Variation 13.2 % (11.7-14.2); Red Blood Cell Count 3.92 M/mm3 (4.30-5.90); White Blood Cell Count 8.12 K/mm3 (4.00-11.30)
[2021-06-15 10:16] LABS: Albumin, Blood 3.3 g/dL (3.4-5.0); Albumin/Globulin Ratio 0.7 (0.8-1.8); Bilirubin, Total 0.7 mg/dL (0.1-1.0); Bun/Creatinine Ratio 7.5 (12.0-20.0); Calcium, Blood 10.3 mg/dL (8.5-10.1); Creatinine, Blood 4.25 mg/dL (0.60-1.20); Globulin, Blood 4.9 g/dL (2.2-4.0); Potassium, Blood 4.3 mmol/L (3.5-5.5); Total Protein, Blood 8.2 g/dL (6.4-8.2); Troponin I 0.044 ng/mL (0.000-0.040)
[2021-06-15 10:21] LABS: Base Excess Venous 3.3 mmol/L; Bicarbonate Venous 27.6 mmol/L (24.0-30.0); PCO2 Venous 32.3 mmHg (38-42); PO2 Venous 80.6 mmHg (38-42); pH Blood Venous 7.52 (7.34-7.37)
[2021-06-15 10:55] LABS: Influenza A, PCR NEGATIVE (NEGATIVE); Influenza B, PCR NEGATIVE (NEGATIVE); Resp Syncytial Virus, PCR NEGATIVE (NEGATIVE); SARS-Cov-2 (COVID-19) PCR, MMC NEGATIVE (NEGATIVE)
[2021-06-15 13:42] LABS: Automated BF WBC Count 0.004 K/mm3 (0-999); Body Fluid WBC Count 4 /mm3 (0-999)
[2021-06-15 14:14] LABS: RBC Count, Body Fluid 30 /mm3 (0-0)
[2021-06-15 14:23] LABS: Appearance, Body Fluid Clear (Clear); Color, Body Fluid No color (None-Yellow)
[2021-06-15 14:38] LABS: Total Cell Count, Body Fluid 30
[2021-06-15] MEDS ORDERED: PHENERGAN25 MG PR (15:11)
[2021-06-15] MEDS ORDERED: HYDR1TAB94 PO (15:11)
== END 2021-06-15 15:30 | disposition home or self-care (01) ==
LOC: ER 09:21
PROVIDERS: Emergency Medicine
DX: R10.9 Unspecified abdominal pain (principal); R11.2 Nausea with vomiting, unspecified; I13.2 Hypertensive heart and chronic kidney disease with heart failure and with stage 5 chronic kidney disease, or end stage renal disease; N18.6 End stage renal disease; I50.32 Chronic diastolic (congestive) heart failure; Z99.2 Dependence on renal dialysis; Z79.899 Other long term (current) drug therapy; Z79.82 Long term (current) use of aspirin; Z79.4 Long term (current) use of insulin; Z79.52 Long term (current) use of systemic steroids; M10.9 Gout, unspecified; E78.5 Hyperlipidemia, unspecified; E11.9 Type 2 diabetes mellitus without complications; I25.10 Atherosclerotic heart disease of native coronary artery without angina pectoris; F43.10 Post-traumatic stress disorder, unspecified; K21.9 Gastro-esophageal reflux disease without esophagitis; G47.33 Obstructive sleep apnea (adult) (pediatric); Z20.822 Contact with and (suspected) exposure to COVID-19
CPT/HCPCS: 0241U; 36415; 71045; 74176; 80053; 82803; 83690; 84484; 85025; 89051; 93005; 93010; 96374; 96375; 96376; 99285-25; A9270; J1170; J2405

== ENCOUNTER 2021-06-17 08:31 | Emergency (ER) | payer OTHER ==
[~2021-06-17] VITALS: Ht 182.9 cm; Wt 88.5 kg
[~2021-06-17 08:31] MED LIST changes: +PHENERGAN25 MG PR
[2021-06-17 09:09] LABS: BASOPHILS ABSOLUTE AUTO 0.01 K/mm3 (0.00-0.23); BASOPHILS PERCENT AUTO 0 % (0-2); EOSINOPHILS ABSOLUTE AUTO 0.13 K/mm3 (0.00-0.68); EOSINOPHILS PERCENT AUTO 1 % (0-6); Hematocrit 34.9 % (37.0-53.0); Hemoglobin 12.2 g/dL (13.5-17.5); IMMATURE GRAN ABSOLUTE AUTO 0.04 K/mm3 (0.00-0.10); IMMATURE GRAN PERCENT AUTO 0 % (0-1); LYMPHOCYTES ABSOLUTE AUTO 1.31 K/mm3 (0.84-5.20); LYMPHOCYTES PERCENT AUTO 12 % (21-46); MONOCYTES ABSOLUTE AUTO 0.64 K/mm3 (0.16-1.47); MONOCYTES PERCENT AUTO 6 % (4-13); Mean Corpuscular HGB 32.8 pg (26.0-34.0); Mean Corpuscular Volume 94 fL (80-100); Mean Platelet Volume 10.3 fL (9.1-12.4); NEUTROPHILS ABSOLUTE AUTO 8.65 K/mm3 (1.96-9.15); NEUTROPHILS PERCENT AUTO 80 % (41-73); Platelet Count 161 K/mm3 (150-400); RDW Coefficient Variation 12.5 % (11.7-14.2); Red Blood Cell Count 3.72 M/mm3 (4.30-5.90); White Blood Cell Count 10.78 K/mm3 (4.00-11.30)
[2021-06-17 09:32] LABS: Troponin I 0.079 ng/mL (0.000-0.040)
[2021-06-17 09:38] LABS: Albumin/Globulin Ratio 0.7 (0.8-1.8); Bilirubin, Total 0.6 mg/dL (0.1-1.0); Bun/Creatinine Ratio 9.3 (12.0-20.0); Calcium, Blood 9.5 mg/dL (8.5-10.1); Creatinine, Blood 3.87 mg/dL (0.60-1.20); Globulin, Blood 4.5 g/dL (2.2-4.0); Potassium, Blood 4.3 mmol/L (3.5-5.5); Total Protein, Blood 7.5 g/dL (6.4-8.2)
[2021-06-17 13:57] LABS: Glucose, Blood 567 mg/dL (70-99)
[2021-06-17] MEDS ORDERED: FAMO10 PO (15:48)
== END 2021-06-17 16:00 | disposition home or self-care (01) ==
LOC: ER 08:31
PROVIDERS: Emergency Medicine
DX: I13.2 Hypertensive heart and chronic kidney disease with heart failure and with stage 5 chronic kidney disease, or end stage renal disease (principal); E11.22 Type 2 diabetes mellitus with diabetic chronic kidney disease; N18.6 End stage renal disease; I50.30 Unspecified diastolic (congestive) heart failure; R10.9 Unspecified abdominal pain; M10.9 Gout, unspecified; E78.5 Hyperlipidemia, unspecified; I25.10 Atherosclerotic heart disease of native coronary artery without angina pectoris; G47.33 Obstructive sleep apnea (adult) (pediatric); Z99.2 Dependence on renal dialysis; Z79.899 Other long term (current) drug therapy
CPT/HCPCS: 36415; 80053; 82947; 83690; 84484; 85025; 93005; 93010; 96374; 96375; 96376; 99284-25; A9270; J1170; J1815; J2060; J2405; J2550; J7030

== ENCOUNTER 2021-07-26 15:19 | Emergency (ER) | payer OTHER ==
[~2021-07-26] VITALS: Ht 180.3 cm; Wt 97.1 kg
[~2021-07-26 15:19] MED LIST changes: +FAMO10 PO
[2021-07-26 15:58] LABS: BASOPHILS ABSOLUTE AUTO 0.02 K/mm3 (0.00-0.23); BASOPHILS PERCENT AUTO 0 % (0-2); EOSINOPHILS ABSOLUTE AUTO 0.61 K/mm3 (0.00-0.68); EOSINOPHILS PERCENT AUTO 7 % (0-6); Hematocrit 32.3 % (37.0-53.0); Hemoglobin 11.5 g/dL (13.5-17.5); IMMATURE GRAN ABSOLUTE AUTO 0.01 K/mm3 (0.00-0.10); IMMATURE GRAN PERCENT AUTO 0 % (0-1); LYMPHOCYTES ABSOLUTE AUTO 1.67 K/mm3 (0.84-5.20); LYMPHOCYTES PERCENT AUTO 20 % (21-46); MONOCYTES ABSOLUTE AUTO 0.56 K/mm3 (0.16-1.47); MONOCYTES PERCENT AUTO 7 % (4-13); Mean Corpuscular HGB 33.2 pg (26.0-34.0); Mean Corpuscular HGB Conc 35.6 g/dL (31.5-36.5); Mean Corpuscular Volume 93 fL (80-100); Mean Platelet Volume 9.9 fL (9.1-12.4); NEUTROPHILS ABSOLUTE AUTO 5.33 K/mm3 (1.96-9.15); NEUTROPHILS PERCENT AUTO 65 % (41-73); Platelet Count 141 K/mm3 (150-400); RDW Coefficient Variation 13.1 % (11.7-14.2); RDW Standard Deviation 44.6 fL (35.1-46.3); Red Blood Cell Count 3.46 M/mm3 (4.30-5.90)
[2021-07-26 16:39] LABS: Albumin, Blood 3.2 g/dL (3.4-5.0); Albumin/Globulin Ratio 0.8 (0.8-1.8); Bilirubin, Total 0.4 mg/dL (0.1-1.0); Calcium, Blood 9.6 mg/dL (8.5-10.1); Creatinine, Blood 5.36 mg/dL (0.60-1.20); Globulin, Blood 4.1 g/dL (2.2-4.0); Potassium, Blood 5.1 mmol/L (3.5-5.5); Total Protein, Blood 7.3 g/dL (6.4-8.2)
[2021-07-26] MEDS ORDERED: HYDR1TAB94 PO (18:20)
[2021-07-26] MEDS ORDERED: Cleocin HCl300 MG PO (18:20)
== END 2021-07-26 18:36 | disposition home or self-care (01) ==
LOC: ER 15:19
PROVIDERS: Physician Assistant
DX: L02.211 Cutaneous abscess of abdominal wall (principal); I13.2 Hypertensive heart and chronic kidney disease with heart failure and with stage 5 chronic kidney disease, or end stage renal disease; E11.22 Type 2 diabetes mellitus with diabetic chronic kidney disease; N18.6 End stage renal disease; I50.32 Chronic diastolic (congestive) heart failure; M10.9 Gout, unspecified; E78.5 Hyperlipidemia, unspecified; I25.10 Atherosclerotic heart disease of native coronary artery without angina pectoris; Z99.2 Dependence on renal dialysis; I25.2 Old myocardial infarction; K21.9 Gastro-esophageal reflux disease without esophagitis; G47.33 Obstructive sleep apnea (adult) (pediatric); Z79.4 Long term (current) use of insulin; Z79.899 Other long term (current) drug therapy
CPT/HCPCS: 76705; 80053; 83690; 85025; 86140; 99284-25; A9270

== ENCOUNTER 2021-09-17 22:50 | Inpatient (IN) | payer OTHER ==
[~2021-09-17] VITALS: Ht 180.3 cm; Wt 100.6 kg
[2021-09-17 23:32] LABS: BASOPHILS ABSOLUTE AUTO 0.03 K/mm3 (0.00-0.23); BASOPHILS PERCENT AUTO 0 % (0-2); EOSINOPHILS ABSOLUTE AUTO 0.75 K/mm3 (0.00-0.68); EOSINOPHILS PERCENT AUTO 8 % (0-6); Hematocrit 34.8 % (37.0-53.0); Hemoglobin 11.9 g/dL (13.5-17.5); IMMATURE GRAN ABSOLUTE AUTO 0.02 K/mm3 (0.00-0.10); IMMATURE GRAN PERCENT AUTO 0 % (0-1); LYMPHOCYTES ABSOLUTE AUTO 2.08 K/mm3 (0.84-5.20); LYMPHOCYTES PERCENT AUTO 23 % (21-46); MONOCYTES ABSOLUTE AUTO 0.66 K/mm3 (0.16-1.47); MONOCYTES PERCENT AUTO 7 % (4-13); Mean Corpuscular HGB 33.1 pg (26.0-34.0); Mean Corpuscular HGB Conc 34.2 g/dL (31.5-36.5); Mean Corpuscular Volume 97 fL (80-100); Mean Platelet Volume 10.3 fL (9.1-12.4); NEUTROPHILS ABSOLUTE AUTO 5.68 K/mm3 (1.96-9.15); NEUTROPHILS PERCENT AUTO 62 % (41-73); Platelet Count 142 K/mm3 (150-400); RDW Coefficient Variation 13.3 % (11.7-14.2); Red Blood Cell Count 3.59 M/mm3 (4.30-5.90); White Blood Cell Count 9.22 K/mm3 (4.00-11.30)
[2021-09-17 23:59] LABS: Albumin, Blood 3.3 g/dL (3.4-5.0); Albumin/Globulin Ratio 0.7 (0.8-1.8); Bilirubin, Total 0.3 mg/dL (0.1-1.0); Bun/Creatinine Ratio 8.1 (12.0-20.0); Calcium, Blood 9.9 mg/dL (8.5-10.1); Creatinine, Blood 6.3 mg/dL (0.60-1.20); Globulin, Blood 4.6 g/dL (2.2-4.0); Potassium, Blood 5.2 mmol/L (3.5-5.5); Total Protein, Blood 7.9 g/dL (6.4-8.2)
--- NOTE | 2021-09-18 02:57 | NUR ---
SHIFT SUMMARY: PATIENT ARRIVED TO THE UNIT CALM AND COOPERATIVE, DURING ADMISSION ASSESSMENT PATIENT BECAME DIAPHERTIC, TREMULOS, AND DROSWY. STAT CBG OBTAINED AND RESULTED 40. PATIENT GIVEN SNACKS TO RAISE BLOOD SUGAR WHILE MD CONTACTED. PATIENT COMPLAINED OF ONGOING PAIN, STATED MEDICATION IN ED DID NOT PROVIDE ANY RELEIF. THIS WAS RELAYED TO DR. MCGINNIS ALONG WITH AIME MALIN. NEW ORDERS OBTAINED. PATIENT HAS CONSUMED SNACKS AND STATES HE IS FEELING MUCH BETTER RECHECK CBG 75. WCTM.
[2021-09-18] MEDS ORDERED: CREON DR 24,001 EACH PO (05:08)
[2021-09-18] MEDS ORDERED: DICLOFENAC SOD100 G1 TOP (05:09)
[2021-09-18] MEDS ORDERED: FLUO10 PO (05:10)
[2021-09-18] MEDS ORDERED: HYDR1TAB94 PO (05:13)
[2021-09-18] MEDS ORDERED: NITR.4SL SL (05:17)
[2021-09-18] MEDS ORDERED: SEVEC800 PO (05:18)
[2021-09-18] MEDS ORDERED: RENAL VITAMIN0.8 MG PO (05:18)
[2021-09-18] MEDS ORDERED: TRAZ50 PO (05:19)
[2021-09-18] MEDS ORDERED: TAMS.4ER PO (05:19)
[2021-09-18 06:50] LABS: Bun/Creatinine Ratio 8.4 (12.0-20.0); Calcium, Blood 9.3 mg/dL (8.5-10.1); Creatinine, Blood 6.31 mg/dL (0.60-1.20); Potassium, Blood 4.3 mmol/L (3.5-5.5)
[2021-09-18 09:35] LABS: Automated BF WBC Count 0.172 K/mm3 (0-999); Body Fluid WBC Count 172 /mm3 (0-999)
[2021-09-18 10:44] LABS: RBC Count, Body Fluid 405 /mm3 (0-0)
[2021-09-18 11:18] LABS: Appearance, Body Fluid Clear (Clear); Color, Body Fluid Yellow (None-Yellow); Total Cell Count, Body Fluid 100
--- NOTE | 2021-09-18 15:37 | NUR ---
Patient is lying in bed in the dark and resting. He awakens quickly to the sound of his name. He immediately tells me about his medical history, his family, his Sabianism belief system and his struggle with depression. We talk at length about his struggle of feeling like a burden because of his physical limitations and needs. We explore sources of meaning, value and worth and discuss the Sabianism foundational beliefs about those topics. I nomralize his feelings and struggles, and provide therapeutic listening, pastoral travel counselor and prayer. Patient responds well and shows signs of being reflective and of having some new insights. I will continue to remain available to patient and family.
--- NOTE | 2021-09-18 15:38 | NUR ---
SHIFT SUMMARY PT RESTING QUIETLY AT START OF SHIFT. WOKE EASILY FOR CARE, BUT GRUMPY AND IRRATABLE, WANTING TO SLEEP. AM MEDS ORDERED AND GIVEN. PT C/O L SIDE ABD PAIN. MEDICATED PER EMAR. [place] FROM DIALYSIS HERE TO OBTAIN FLUID FOR CX FROM PERITONEAL DIALYSIS PORT. ABD US ORDERED PER DR MÉNDEZ. IMAGING HERE TO RM AT BREAKFAST. PT USING URINAL AT BS MOST OF DAY. UP TO BTHRM A COUPLE OF TIMES TO ATTEMPT BM. C/O NAUSEA AFTER GETTING UP TO BTHRM. MEDICATED PER EMAR, PT REPORTING MEDICATION EFFECTIVE. DR MACARIO AND DR HOBSON IN TO SEE PT THIS AM. PT STILL SOMEWHAT IRRATABLE, BUT IMPROVING. PAIN MEDICATION ADJUSTED AND MANAGED. PT HAS BEEN RESTING QUIETLY THIS AFTERNOON. MEDICATED AGAIN FOR NAUSEA/ VOMITING. WHITE SOURER HERE TO CHANGE DRSG TO L ABD AND SET UP PERITONEAL DIALYSIS FOR TONIGHT. DENIES FURTHER NEEDS AT THIS TIME. CALL LT IN REACH.
--- NOTE | 2021-09-18 21:49 | NUR ---
DIALYSIS-PD PT VERY SLEEPY, BUT WAKES UP EASILY. CATH SITE RED BUT DRY. CLEANED AND DRESSED. CONNECTED PT TO TX PER PROTOCAL. [place]OL [id number] ML. 11 HOURS, 2000 ML DWELL VOLUME, LAST FILL 400 ML. 5 CYCLES. 1:46 DWELL TIME.
[2021-09-19 05:44] LABS: BASOPHILS ABSOLUTE AUTO 0.01 K/mm3 (0.00-0.23); BASOPHILS PERCENT AUTO 0 % (0-2); EOSINOPHILS ABSOLUTE AUTO 0.03 K/mm3 (0.00-0.68); EOSINOPHILS PERCENT AUTO 0 % (0-6); Hematocrit 37.2 % (37.0-53.0); Hemoglobin 12.9 g/dL (13.5-17.5); IMMATURE GRAN ABSOLUTE AUTO 0.04 K/mm3 (0.00-0.10); IMMATURE GRAN PERCENT AUTO 0 % (0-1); LYMPHOCYTES ABSOLUTE AUTO 0.63 K/mm3 (0.84-5.20); LYMPHOCYTES PERCENT AUTO 7 % (21-46); MONOCYTES ABSOLUTE AUTO 0.18 K/mm3 (0.16-1.47); MONOCYTES PERCENT AUTO 2 % (4-13); Mean Corpuscular HGB 33.3 pg (26.0-34.0); Mean Corpuscular HGB Conc 34.7 g/dL (31.5-36.5); Mean Corpuscular Volume 96 fL (80-100); Mean Platelet Volume 10.2 fL (9.1-12.4); NEUTROPHILS ABSOLUTE AUTO 8.18 K/mm3 (1.96-9.15); NEUTROPHILS PERCENT AUTO 90 % (41-73); Platelet Count 133 K/mm3 (150-400); RDW Coefficient Variation 13.2 % (11.7-14.2); RDW Standard Deviation 46.4 fL (35.1-46.3); Red Blood Cell Count 3.87 M/mm3 (4.30-5.90); White Blood Cell Count 9.07 K/mm3 (4.00-11.30)
[2021-09-19 06:37] LABS: Albumin, Blood 3.3 g/dL (3.4-5.0); Anion Gap 11 mmol/L (6-16); Blood Urea Nitrogen 49 mg/dL (8-24); Bun/Creatinine Ratio 7.8 (12.0-20.0); CO2, Blood 24 mmol/L (21-32); Calcium, Blood 9.8 mg/dL (8.5-10.1); Chloride, Blood 100 mmol/L (98-108); Creatinine, Blood 6.25 mg/dL (0.60-1.20); Glomerular Filtration Rate 9 (60-); Glucose, Blood 419 mg/dL (70-99); Magnesium, Blood 2.6 mg/dL (1.6-2.4); Phosphorus, Blood 5.9 mg/dL (2.5-4.9); Potassium, Blood 4.7 mmol/L (3.5-5.5); Sodium, Blood 135 mmol/L (136-145)
--- NOTE | 2021-09-19 06:46 | NUR ---
Patient continue to have nausea and vomiting, abdominal pain throughout the night, Medicated per EMAR. He stayed Irritable until he slept a litle. His Peritoneal treatment ended. Bed in low position , call light in reach. We will continue to monitor for acute changes.
--- NOTE | 2021-09-19 06:52 | NUR ---
RESTING QUIETLY IN BED. WAKENS EASILY TO FULL ORIENT. OVERNIGHT CCPD COMPLETE ORDERED. PT AESEPTICALLY DISCONNECTED AND CAPPED. CYCLER STRIPPED AND CLEANED. DR MÉNDEZ CONSULTED VIA PHONE FOR NEW ORDERES / PLAN OF CARE.
--- NOTE | 2021-09-19 15:54 | NUR ---
MONITORING ELEVATED BLOOD PRESSURE, PRN B/P MED WELL SCHEDULED MEDS ADMINISTRATED. BG ELEVATED, INSULIN ADJUSTED PER MD. PATIENT CONTINUES ON IV ABT'S. C/O NAUSEA AND ABDOMINAL PAIN THIS MORNING, PRN MEDS GIVEN AND EFFECTIVE. WILL CNTINUE TO MONITOR.
--- NOTE | 2021-09-19 16:05 | NUR ---
Patient struggling with understanding what the plan of care is for him and struggling with some personal issues that we had discussed yesterday. 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 I also speak with pt's RN about his confusion, who immediately responded and went into pt's rm to discuss plan of care. I also provide prayer for pt which he says was "very meaningful and uplifting." I will continue to kylah available to patient and family.
--- NOTE | 2021-09-19 18:04 | NUR ---
DIALYSIS-PD PT SEEMS MORE AWAKE THEN LAST NIGHT. SAYS HE FEEL HORRIBLE, BUT LOOKS BETTER THAN THE NIGHT BEFORE. HE WAS TALKATIVE. SAYS HE IS VERY CONCERNED ABOUT THE WOUND AROUND HIS PD CATH. SAYS HIS TAKES CARE OF IT AND IT LOOKS LIKE IT IS IMPROVING AND THEN COMES BACK WITH A VENGEANCE. IT IS VERY TENDER TO THE TOUCH. SAME PD PROGRAM LAST NIGHT. NOT ALOT OF "UF" THIS AM, BUT PT DOES STILL URINATE.
[2021-09-20 05:08] LABS: BASOPHILS ABSOLUTE AUTO 0.01 K/mm3 (0.00-0.23); BASOPHILS PERCENT AUTO 0 % (0-2); EOSINOPHILS ABSOLUTE AUTO 0.04 K/mm3 (0.00-0.68); EOSINOPHILS PERCENT AUTO 0 % (0-6); Hematocrit 32.9 % (37.0-53.0); Hemoglobin 11.5 g/dL (13.5-17.5); IMMATURE GRAN ABSOLUTE AUTO 0.03 K/mm3 (0.00-0.10); IMMATURE GRAN PERCENT AUTO 0 % (0-1); LYMPHOCYTES ABSOLUTE AUTO 1.27 K/mm3 (0.84-5.20); LYMPHOCYTES PERCENT AUTO 13 % (21-46); MONOCYTES PERCENT AUTO 6 % (4-13); Mean Corpuscular HGB 33.7 pg (26.0-34.0); Mean Corpuscular Volume 97 fL (80-100); Mean Platelet Volume 9.7 fL (9.1-12.4); NEUTROPHILS ABSOLUTE AUTO 7.52 K/mm3 (1.96-9.15); NEUTROPHILS PERCENT AUTO 80 % (41-73); Platelet Count 131 K/mm3 (150-400); RDW Coefficient Variation 13.2 % (11.7-14.2); RDW Standard Deviation 47.3 fL (35.1-46.3); Red Blood Cell Count 3.41 M/mm3 (4.30-5.90); White Blood Cell Count 9.47 K/mm3 (4.00-11.30)
[2021-09-20 05:49] LABS: Anion Gap 9 mmol/L (6-16); Blood Urea Nitrogen 49 mg/dL (8-24); Bun/Creatinine Ratio 6.8 (12.0-20.0); CO2, Blood 28 mmol/L (21-32); Calcium, Blood 9.6 mg/dL (8.5-10.1); Chloride, Blood 100 mmol/L (98-108); Creatinine, Blood 7.24 mg/dL (0.60-1.20); Glomerular Filtration Rate 8 (60-); Glucose, Blood 318 mg/dL (70-99); Phosphorus, Blood 5.2 mg/dL (2.5-4.9); Potassium, Blood 4.5 mmol/L (3.5-5.5); Sodium, Blood 137 mmol/L (136-145)
--- NOTE | 2021-09-20 09:56 | NUR ---
DIALYSIS-PD PT SLEEPY, ALITTLE GRUMPY. DC'D TX PER PROTOCAL. FLUID CLEAR, SITE REMAINS RED. UF 800 ML ID [id number] ML. [employer] LAWYER.
--- NOTE | 2021-09-20 16:45 | NUR ---
MONITORING FOR ELEVATED BP AMD BS. PATIENT CONTINUES ON IV ANTIBIOTICS. AT 11:14 PATIENT C/O OF CHEST PAIN WELL ABDPMINAL PAIN. DR. MACARIO NOTIFIED. ATTEMPTED TO ADMINISTRATED PAIN MEDICATION, BUT PATIENT REFUSED TO TAKE PO MEDS, STATED HE HIS NOT ABLE TO SWALLOW WHOLE PILL, OFFERED MED CRUSHED, AND PATIENT STILL REFUSED. PATIENT DENIES ANY PAIN AT THIS TIME. WILL CONTINUE TO MONITOR.
--- NOTE | 2021-09-20 18:00 | NUR ---
TO ROOM 335 FOR EVENING PD TREATMENT. PT CLAMMY AND DIAPHORETIC. CBG 43 PER RN, GIVEN OJ AND PEANUT BUTTER BY RN. PT STATES HE IS HUNGRY AND DINNER IS COMING PER TECH.PD INITIATED UNDER ASEPTIC TECHNIQUE. SITE DRESSED WITH CLEAN GAUZE. TX INITIATED PER MD ORDERS. PT IS ALERT AND FEELING BETTER. LEFT IN STABLE CONDITION. CYNDY
[2021-09-21 05:31] LABS: Hematocrit 32.9 % (37.0-53.0); Hemoglobin 11.5 g/dL (13.5-17.5)
[2021-09-21 05:58] LABS: Albumin, Blood 2.9 g/dL (3.4-5.0); Anion Gap 10 mmol/L (6-16); Blood Urea Nitrogen 49 mg/dL (8-24); Bun/Creatinine Ratio 6.2 (12.0-20.0); CO2, Blood 26 mmol/L (21-32); Calcium, Blood 9.2 mg/dL (8.5-10.1); Chloride, Blood 98 mmol/L (98-108); Creatinine, Blood 7.94 mg/dL (0.60-1.20); Glomerular Filtration Rate 7 (60-); Glucose, Blood 348 mg/dL (70-99); Magnesium, Blood 2.5 mg/dL (1.6-2.4); Phosphorus, Blood 4.5 mg/dL (2.5-4.9); Sodium, Blood 134 mmol/L (136-145)
--- NOTE | 2021-09-21 07:04 | NUR ---
pt sleeping on R side; PD tx complete. dc'd per protocol. pt stable, site clear. michelle
[2021-09-21] MEDS ORDERED: Vitamin B-Comp1 EACH PO (11:48)
[2021-09-21] MEDS ORDERED: CEFP200 PO (11:49)
[2021-09-21] MEDS ORDERED: HYDRA50 PO (11:50)
[2021-09-21] MEDS ORDERED: HUMALOG KW100 UNIT/1 SC (11:51)
--- NOTE | 2021-09-21 12:11 | NUR ---
Patient tells me about his struggles with PTSD and shares many of the images that haunt him and the scares he has from hand to hand combat. He talks about the guilt he feels and the depression that he carries. I encourage self-care, hear confession, and provide therapeutic listening, anxiety containment, spiritual guidance and prayer. Patient responds well and shows signs of catharsis and increased peace. I will continue to remain available to pt and family.
--- NOTE | 2021-09-21 16:45 | NUR ---
DISCHARGE SUMMARY IV REMOVED PRIOR TO DISCHARGE. DISCHARGE EDUCATION PROVIDED, REVIEWED WITH AND SIGNED BY PT. PT TRANSFERED VIA WHEELCHAIR, ALONG WITH PERSONAL BELONGINGS, TO [facility] WHERE HE WAS PICKED UP BY HIS . MEDS FAXED TO PHARMACY.
== END 2021-09-21 13:10 | disposition home or self-care (01) | DRG 919 ==
LOC: ER 22:50 → MEDS 22:51
PROVIDERS: Emergency Medicine; Family Medicine; Internal Medicine Nephrology; ADMIT Internal Medicine
PROC: 3E1M39Z Irrigation of Peritoneal Cavity using Dialysate, Percutaneous Approach (ICD-10-PCS; principal; 2021-09-19)
DX: T85.71XA Infection and inflammatory reaction due to peritoneal dialysis catheter, initial encounter (principal); N18.6 End stage renal disease; L02.211 Cutaneous abscess of abdominal wall; K86.1 Other chronic pancreatitis; I13.2 Hypertensive heart and chronic kidney disease with heart failure and with stage 5 chronic kidney disease, or end stage renal disease; N25.81 Secondary hyperparathyroidism of renal origin; B96.20 Unspecified Escherichia coli [E. coli] as the cause of diseases classified elsewhere; E11.22 Type 2 diabetes mellitus with diabetic chronic kidney disease; N40.0 Benign prostatic hyperplasia without lower urinary tract symptoms; F41.9 Anxiety disorder, unspecified; Z28.21 Immunization not carried out because of patient refusal; D63.1 Anemia in chronic kidney disease; I25.10 Atherosclerotic heart disease of native coronary artery without angina pectoris; I50.9 Heart failure, unspecified; J44.9 Chronic obstructive pulmonary disease, unspecified; M10.9 Gout, unspecified; K21.9 Gastro-esophageal reflux disease without esophagitis; I25.2 Old myocardial infarction; I16.0 Hypertensive urgency; E78.5 Hyperlipidemia, unspecified; G47.00 Insomnia, unspecified; Z98.890 Other specified postprocedural states; Z99.2 Dependence on renal dialysis; Z90.49 Acquired absence of other specified parts of digestive tract; Z95.1 Presence of aortocoronary bypass graft; Z79.899 Other long term (current) drug therapy; Z79.02 Long term (current) use of antithrombotics/antiplatelets; Y82.8 Other medical devices associated with adverse incidents
CPT/HCPCS: 36415; 74177; 76705; 80048; 80053; 80069; 82947; 83690; 83735; 84132; 85014; 85018; 85025; 87070; 87075; 87077; 87186; 87205; 89051; 96366; 96367; 96372; 96375; 96376; 99285-25; A9270; G0378; J0690; J0696; J0744; J1170; J1644; J1815; J2405; J2550; J3010; J7050; Q9967

== ENCOUNTER 2021-10-03 09:54 | Day surgery (SDC) | payer OTHER ==
[~2021-10-03] VITALS: Ht 180.3 cm; Wt 105.2 kg
[~2021-10-03 09:54] MED LIST changes: +CEFP200 PO; +DICLOFENAC SOD100 G1 TOP; +FLUO10 PO; +GABAPENTIN250 MG/51 PO; +HUMALOG KW100 UNIT/1 SC; +TRAZ50 PO; +Vitamin B-Comp1 EACH PO
--- NOTE | 2021-10-03 14:39 | NUR ---
PT BLEEDING FROM INSERTION SITE OF PERM CATH. DR. EPLLETIER, PRESSURE DRESSING APPLIED. PT HAD REACHED OVER AND STRAINED FOR A PHONE CALL, WHICH LEAD TO PT BLEEDING. WILL CONTINUE TO MONITOR
--- NOTE | 2021-10-03 15:27 | NUR ---
PT STILL BLEEDING, DR AWARE. NEW PRESSURE DRESSING APPLIED. WILL CONTINUE TO MONITOR FOR 2 HOURS.
[2021-10-03 17:41] LABS: BASOPHILS ABSOLUTE AUTO 0.04 K/mm3 (0.00-0.23); BASOPHILS PERCENT AUTO 0 % (0-2); EOSINOPHILS ABSOLUTE AUTO 0.63 K/mm3 (0.00-0.68); EOSINOPHILS PERCENT AUTO 4 % (0-6); Hematocrit 32.5 % (37.0-53.0); Hemoglobin 11.2 g/dL (13.5-17.5); IMMATURE GRAN ABSOLUTE AUTO 0.06 K/mm3 (0.00-0.10); IMMATURE GRAN PERCENT AUTO 0 % (0-1); LYMPHOCYTES PERCENT AUTO 11 % (21-46); MONOCYTES ABSOLUTE AUTO 0.89 K/mm3 (0.16-1.47); MONOCYTES PERCENT AUTO 6 % (4-13); Mean Corpuscular HGB 32.8 pg (26.0-34.0); Mean Corpuscular HGB Conc 34.5 g/dL (31.5-36.5); Mean Corpuscular Volume 95 fL (80-100); Mean Platelet Volume 9.9 fL (9.1-12.4); NEUTROPHILS ABSOLUTE AUTO 11.06 K/mm3 (1.96-9.15); NEUTROPHILS PERCENT AUTO 78 % (41-73); Platelet Count 136 K/mm3 (150-400); RDW Coefficient Variation 13.2 % (11.7-14.2); Red Blood Cell Count 3.41 M/mm3 (4.30-5.90); White Blood Cell Count 14.28 K/mm3 (4.00-11.30)
[2021-10-03 17:58] LABS: International Normalized Ratio 0.98; Prothrombin Time Results 10.3 Sec (9.7-11.5)
--- NOTE | 2021-10-03 18:00 | NUR ---
CHECKED PERM CATH SITE WHERE CATH WAS TUNNLED THROUGH AT 1700. SITE BLED THROUGH THE PRESSURE DRESSING. REMOVED PRESSURE DRESSING AND HELP MANUAL PRESSURE WITH ULTRAFOAM AND GAUZE [id number]. PT THEN REPORTED ABD PAIN. LARGE GRAPEFRUITE SIZED LUMP PALPIABLE FROM WHERE THE PD CATH WAS REMOVED. PT THEN REPORTS NAUSEA AND STARTED VOMITING. MD NOTIFIED. VERBAL ORDERS FOR FENTANYL 100MCG IV FOR PAIN AND ZOFRAN 4MG IV FOR NAUSEA. PT RATES ABD PAIN 11/10. NO FURTHER ORDERS FOR ABD PAIN. THERE IS A SMALL AMOUNT OF BLOOD NOTIED ON THE ABD DRESSING BUT IS NOT SATURATED. PT VSS. PT THEN ADMITTED TO HOSPITALIST TO PCU RM 12. PT TAKEN TO PCU VIA PCU BED. AT BEDSIDE. ASSUMING RN INFORMED TO CALL DR. MACK AND DR. DEWITT WITH LAB RESULTS ONCE RECIEVED. NUMBERS PROVIDED TO RN. FULL REPORT GIVEN TO ACCEPTING RN AT BEDSIDE. RECIEVING RN DENIES ANY QUESTIONS OR CONCERNS UPON ASSUMING CARE OF PT.
--- NOTE | 2021-10-03 18:38 | NUR ---
ARRIVAL TO PCU/SHIFT SUMMARY PATIENT ARRIVED TO PCU VIA PCU BED. ARRIVED AT 1750. PATIENT VSS. PATIENT NEURO IS INTACT. PERRLA. PATIENT REPORTS NUMBNESS AND TINGLING TO LOWER EXTREMITEIS AND UPPER EXTREMITIES FINGERTIPS. PATIENT REPORTS NO CHEST PAIN/PRESSURE. TELE SR 64. STRONG RADIAL AND PEDIS PULSES. PATIENT LUNG SOUNDS CLEAR/DIM AND REPORTS NO SHORTNESS OF BREATH. PATIENT REPORS ABD PAIN, LEFT LOWER QUADRANT, WHERE THEY REMOVED CATH. THERE IS SLIGHT OOZING OF BLOOD AT SITE. PATIENT RATES PAIN AT 7. PATIENT HAS A GRAPEFRUTI SIZE HEMATOMA THAT YOU CAN FEEL AND IS PAINFUL TO TOUCH. PATIENT REPORTS RIGHT NECK PAIN AT 5, THAT IS PAINFUL TO TOUCH, THIS IS THE SITE FROM THE PERMA CATH PLACEMENT. PATIENT HAS APPROX AV[place]ADO SIZE HEMATOMA THAT IS PAINFUL TO TOUCH AND BRUSING AT SITE. PATIENT MEDICATED PER EMAR. PATIENT HAS HYPOACTIVE BOWEL SOUNDS AND ABD IS TENDER TO TOUCH. ROSY NUMBER IS ON THE BOARD IN THE ROOM AND WANTS TO BE CALLED WITH ANY CHANGES. MD DEWITT IN TO SEE PATIENT. CALL LIGHT IS WITHIN REACH AND BED IN LOWEST POSITION. WILL CONTINUE TO MONITOR AND PROVIDE CARE UNTIL HAND OFF WITH NEXT SHIFT.
[2021-10-03 22:49] LABS: Albumin, Blood 2.8 g/dL (3.4-5.0); Anion Gap 4 mmol/L (6-16); Blood Urea Nitrogen 42 mg/dL (8-24); Bun/Creatinine Ratio 7.1 (12.0-20.0); CO2, Blood 27 mmol/L (21-32); Calcium, Blood 8.6 mg/dL (8.5-10.1); Chloride, Blood 103 mmol/L (98-108); Creatinine, Blood 5.93 mg/dL (0.60-1.20); Glomerular Filtration Rate 10 (60-); Glucose, Blood 321 mg/dL (70-99); Phosphorus, Blood 5.6 mg/dL (2.5-4.9); Potassium, Blood 6.2 mmol/L (3.5-5.5); Sodium, Blood 134 mmol/L (136-145)
[2021-10-04 02:15] LABS: BASOPHILS ABSOLUTE AUTO 0.02 K/mm3 (0.00-0.23); BASOPHILS PERCENT AUTO 0 % (0-2); EOSINOPHILS ABSOLUTE AUTO 0.42 K/mm3 (0.00-0.68); EOSINOPHILS PERCENT AUTO 5 % (0-6); Hematocrit 25.8 % (37.0-53.0); Hemoglobin 9.1 g/dL (13.5-17.5); IMMATURE GRAN ABSOLUTE AUTO 0.02 K/mm3 (0.00-0.10); IMMATURE GRAN PERCENT AUTO 0 % (0-1); LYMPHOCYTES ABSOLUTE AUTO 1.43 K/mm3 (0.84-5.20); LYMPHOCYTES PERCENT AUTO 16 % (21-46); MONOCYTES ABSOLUTE AUTO 0.57 K/mm3 (0.16-1.47); MONOCYTES PERCENT AUTO 6 % (4-13); Mean Corpuscular HGB Conc 35.3 g/dL (31.5-36.5); Mean Corpuscular Volume 96 fL (80-100); Mean Platelet Volume 10.1 fL (9.1-12.4); NEUTROPHILS ABSOLUTE AUTO 6.42 K/mm3 (1.96-9.15); NEUTROPHILS PERCENT AUTO 72 % (41-73); Platelet Count 105 K/mm3 (150-400); RDW Coefficient Variation 13.3 % (11.7-14.2); RDW Standard Deviation 46.5 fL (35.1-46.3); Red Blood Cell Count 2.68 M/mm3 (4.30-5.90); White Blood Cell Count 8.88 K/mm3 (4.00-11.30)
--- NOTE | 2021-10-04 05:55 | NUR ---
SHIFT SUMMARY PT RESTED SOME THROUGH THE NIGHT. ALERT AND ORIENTED, ABLE TO MAKE NEEDS KNOWN. COOPERATIVE [facility] PLAN OF CARE. C/O 10/10 PAIN IN R NECK AND LLQ R/T HEMATOMA DEVELOPMENT. TEARFUL AT TIMES, SEE EMAR FOR PAIN RELIEF. SATS >95% ON ROOM AIR. TELE READS NSR. VOIDING TO URINAL - ADEQUATE UOP. MONITORING LABS FOR NEPHROLOGY AND MONITORING H/H FOR CONCERNS FOR BLEEDING. HEADED DOWN FOR CT AT THIS TIME @0558. WILL DRAW AM LABS AFTER PATIENT IS BACK FROM CT. VSS. CALL LIGHT WITHIN REACH, BED IN LOWEST POSITION. WILL CONTINUE TO MONITOR.
[2021-10-04 06:36] LABS: BASOPHILS ABSOLUTE AUTO 0.02 K/mm3 (0.00-0.23); BASOPHILS PERCENT AUTO 0 % (0-2); EOSINOPHILS PERCENT AUTO 6 % (0-6); Hematocrit 26.7 % (37.0-53.0); Hemoglobin 9.2 g/dL (13.5-17.5); IMMATURE GRAN ABSOLUTE AUTO 0.03 K/mm3 (0.00-0.10); IMMATURE GRAN PERCENT AUTO 0 % (0-1); LYMPHOCYTES PERCENT AUTO 24 % (21-46); MONOCYTES PERCENT AUTO 7 % (4-13); Mean Corpuscular HGB 33.2 pg (26.0-34.0); Mean Corpuscular HGB Conc 34.5 g/dL (31.5-36.5); Mean Corpuscular Volume 96 fL (80-100); Mean Platelet Volume 9.8 fL (9.1-12.4); NEUTROPHILS ABSOLUTE AUTO 5.34 K/mm3 (1.96-9.15); NEUTROPHILS PERCENT AUTO 62 % (41-73); Platelet Count 107 K/mm3 (150-400); RDW Coefficient Variation 13.4 % (11.7-14.2); RDW Standard Deviation 47.2 fL (35.1-46.3); Red Blood Cell Count 2.77 M/mm3 (4.30-5.90); White Blood Cell Count 8.59 K/mm3 (4.00-11.30)
[2021-10-04 06:42] LABS: Albumin, Blood 2.8 g/dL (3.4-5.0); Albumin/Globulin Ratio 0.7 (0.8-1.8); Bilirubin, Total 0.3 mg/dL (0.1-1.0); Bun/Creatinine Ratio 7.2 (12.0-20.0); Calcium, Blood 9.1 mg/dL (8.5-10.1); Creatinine, Blood 6.26 mg/dL (0.60-1.20); Globulin, Blood 3.8 g/dL (2.2-4.0); Magnesium, Blood 2.8 mg/dL (1.6-2.4); Total Protein, Blood 6.6 g/dL (6.4-8.2)
--- NOTE | 2021-10-04 08:05 | NUR ---
RACHAEL Concepcion contacted me with pt request to have a spiritual care visit. Pt explains about his challenging medical situation and requests that I come back and pray with his Patricia and himself later this afternoon. I, of course agree. I provide therapeutic listening and a calming presence. I will continue to remain available to patient and family.
--- NOTE | 2021-10-04 08:23 | NUR ---
AM NOTE: PATIENT ALERT AND ORIENTED X4. NEURO AT PATIENT BASELINE. HISTORY OF NEUROPATHY. PERRLA. ON ROOM AIR, SATING UPPER 90'S. DENIES SOB/COUGH. LUNGS SOUNDING CLEAR. TELE SHOWING SINUS RHYTHM WITH HR 60-70'S. DENIES CHEST PAIN/PRESSURE. NO SIGNS OF EDEMA. COMPLAINS OF SOME ABDOMINAL TENDERNESS. POST PERITONEAL CATH REMOVAL. LLQ HEMATOMA UNCHANGED, DRESSING IN PLACE WITH MINIMAL DRAINAGE. BRUISING TO LLQ. RIGHT CHEST/NECK PERMCATH IN PLACE. MODERATE HEMATOMA, UNCHANGED. BRUISING TO SITE. DIALYSIS NURSE [place] IN THIS AM TO ASSESS PORT. POSSIBLE DIALYSIS TODAY. PATIENT COMPLAINS OF 9/10 INTERMITTENT PAIN TO RIGHT NECK. SEE [facility] FOR PAIN MEDS. ABDOMINAL CT DONE THIS AM, RESULTS PENDING. ACHS BLOOD SUGARS. ABLE TO TURN SELF IN BED. VERY ANXIOUS AND TEARFUL THIS AM. ABLE TO CONSOLE PATIENT WITH WORDS AND AM CARES. [facility] CALLED THIS AM PER PATIENT REQUEST. CALL LIGHT IN REACH. WILL CONTINUE TO MONITOR.
--- NOTE | 2021-10-04 15:47 | NUR ---
DISCHARGE: NO ACUTE CHANGES. SEE PREVIOUS NOTE. DIALYSIS COMPLETED. DR. COX AND DR. MACK CALLED TO UPDATE ON DIALYSIS STATUS. DISCHARGE ORDERS IN PLACE. PATIENT AND BOTH EDUCATED ON DISCHARGE ORDERS. TO STOP PLAVIX UNTIL FOLLOW UP WITH DR. MACK. FOLLOW UP APPOINTMENTS WITH DR. MÉNDEZ, DR. MACK AND [facility]. [facility]IENT TO [facility] TODAY TO SET [facility]. DISCUSSED NEXT HEMODIALYSIS APPOINTMENT AND IMPORTANCE OF WATCHING FOR SIGNS AND SYMPTOMS OF INFECTION AT PORT. IV REMOVAL WNL. PATIENT AND ABLE TO TEACH BACK INSTRUCTIONS. TAKEN TO CAR VIA WHEELCHAIR WITH ALL PERSONAL BELONGINGS.
[2021-11-22] MEDS ORDERED: HUMALOG KW100 UNIT/1 SC ×2 (20:37→20:39)
[2021-11-23] MEDS ORDERED: ASPI81CH PO (12:43)
[2021-11-23] MEDS ORDERED: CLOP75 PO (12:43)
[2021-11-23] MEDS ORDERED: PANT40 PO (12:44)
[2021-12-27] MEDS ORDERED: ALLO100 PO (12:00)
[2021-12-27] MEDS ORDERED: Calcium Acetat667 MG PO (12:02)
[2021-12-27] MEDS ORDERED: THERA-D2000 UNIT PO (12:04)
[2021-12-27] MEDS ORDERED: CREON DR 24,001 EACH PO (12:05)
[2021-12-27] MEDS ORDERED: COLACE100 MG PO (12:06)
[2021-12-27] MEDS ORDERED: HYDR10 PO (12:09)
[2021-12-27] MEDS ORDERED: AMIL5 PO (13:01)
[2021-12-27] MEDS ORDERED: RENAL VITAMIN0.8 MG PO (13:03)
[2021-12-27] MEDS ORDERED: INSULANI SC (13:07)
[2021-12-27] MEDS ORDERED: HUMULIN N100 UNIT/1 SC (13:08)
[2022-02-02] MEDS ORDERED: CALCITRIOL0.5 MC1 PO (10:24)
[2022-02-02] MEDS ORDERED: GABA300 PO (10:27)
[2022-02-02] MEDS ORDERED: HYDROCODONE-AC1 EA18 PO (10:28)
[2022-02-02] MEDS ORDERED: LOSA25 PO (10:30)
[2022-02-02] MEDS ORDERED: MIDO5 PO (10:31)
[2022-04-14] MEDS ORDERED: EPLE25 PO (10:59)
[2022-04-14] MEDS ORDERED: FLUDROCORTISON0.1 M1 PO (11:00)
[2022-04-14] MEDS ORDERED: HUMALOG KW100 UNIT/1 SC (11:01)
[2022-04-14] MEDS ORDERED: SENNA LAXATIVE8.6 MG PO (11:02)
== END 2021-10-04 14:52 | disposition home or self-care (01) ==
LOC: PCU 09:54 → MHTC 09:54 → PCU 17:49 → MHTC 10-04 14:52
PROVIDERS: Internal Medicine; Internal Medicine Nephrology; Radiology Diagnostic Radiology
DX: E11.22 Type 2 diabetes mellitus with diabetic chronic kidney disease (principal); I12.0 Hypertensive chronic kidney disease with stage 5 chronic kidney disease or end stage renal disease; N18.6 End stage renal disease; T85.71XA Infection and inflammatory reaction due to peritoneal dialysis catheter, initial encounter; S30.1XXA Contusion of abdominal wall, initial encounter; S10.93XA Contusion of unspecified part of neck, initial encounter; I25.10 Atherosclerotic heart disease of native coronary artery without angina pectoris; F41.9 Anxiety disorder, unspecified; G47.00 Insomnia, unspecified; E78.5 Hyperlipidemia, unspecified; M10.9 Gout, unspecified; N40.0 Benign prostatic hyperplasia without lower urinary tract symptoms; K86.1 Other chronic pancreatitis; Z79.4 Long term (current) use of insulin
CPT/HCPCS: 36558; 49422; 74176; 76937; 77001; 80053; 80069; 82947; 83735; 85025; 85384; 85610; 85730; 99152; 99153; A9270; C1750; C1769; C1887; C1894; J0690; J1170; J1644; J1815; J2250; J2405; J3010; J7030; J7040; Q9967

== ENCOUNTER 2021-10-09 16:35 | Inpatient (IN) | payer OTHER ==
[~2021-10-09] VITALS: Ht 180.3 cm; Wt 96.1 kg
[~2021-10-09 16:35] MED LIST changes: -GABAPENTIN250 MG/51 PO
[2021-10-09 17:10] LABS: BASOPHILS ABSOLUTE AUTO 0.02 K/mm3 (0.00-0.23); BASOPHILS PERCENT AUTO 0 % (0-2); EOSINOPHILS ABSOLUTE AUTO 0.21 K/mm3 (0.00-0.68); EOSINOPHILS PERCENT AUTO 3 % (0-6); Hematocrit 27.5 % (37.0-53.0); Hemoglobin 9.9 g/dL (13.5-17.5); IMMATURE GRAN ABSOLUTE AUTO 0.02 K/mm3 (0.00-0.10); IMMATURE GRAN PERCENT AUTO 0 % (0-1); LYMPHOCYTES ABSOLUTE AUTO 0.85 K/mm3 (0.84-5.20); LYMPHOCYTES PERCENT AUTO 14 % (21-46); MONOCYTES ABSOLUTE AUTO 0.37 K/mm3 (0.16-1.47); MONOCYTES PERCENT AUTO 6 % (4-13); Mean Corpuscular Volume 95 fL (80-100); Mean Platelet Volume 10.1 fL (9.1-12.4); NEUTROPHILS ABSOLUTE AUTO 4.84 K/mm3 (1.96-9.15); NEUTROPHILS PERCENT AUTO 77 % (41-73); Platelet Count 126 K/mm3 (150-400); RDW Coefficient Variation 13.6 % (11.7-14.2); RDW Standard Deviation 46.4 fL (35.1-46.3); Red Blood Cell Count 2.91 M/mm3 (4.30-5.90); White Blood Cell Count 6.31 K/mm3 (4.00-11.30)
[2021-10-09 17:30] LABS: Albumin, Blood 3.4 g/dL (3.4-5.0); Albumin/Globulin Ratio 0.7 (0.8-1.8); Bilirubin, Total 0.8 mg/dL (0.1-1.0); Bun/Creatinine Ratio 6.8 (12.0-20.0); Calcium, Blood 9.8 mg/dL (8.5-10.1); Creatinine, Blood 6.15 mg/dL (0.60-1.20); Globulin, Blood 4.6 g/dL (2.2-4.0); Potassium, Blood 5.2 mmol/L (3.5-5.5)
--- NOTE | 2021-10-09 22:20 | NUR ---
Arrived from ER to unit. Admission assessment attempted, yelling out, thrashing and rolling around on bed. Will not lay supine in bed for assessement- laying prone in bed. states abd hurts and lying on abd is only way can lay. Unable to assess abd wound at this time. Dialysis nurse to start dialysis.
--- NOTE | 2021-10-09 23:35 | NUR ---
AFTER HOURS DIALYSIS ORDERED BY DR MÉNDEZ FOR CHRONIC HEMODIALYSIS PATIENT WHO MISSED SCHEDULED OUTPATIENT TREATMENT TODAY AND PRESENTED TO ER WITH HYPERTENSION , FLUID EXCESS , AND ACUTE ABD PAIN POST PD CATH REMOVAL LAST WEEK.
--- NOTE | 2021-10-10 00:30 | NUR ---
Continues to scream out, rolling around in bed. yelling "I hate my life, I can't handle this pain". unable to calm. Nurse unable to do any care due to thrashing and rolling around in bed. Dr Vasquez called. Order recv'd.
[2021-10-10 00:56] LABS: Hematocrit 34.8 % (37.0-53.0); Hemoglobin 12.5 g/dL (13.5-17.5)
--- NOTE | 2021-10-10 01:15 | NUR ---
resting quietly, dialysis complete, blood pressure 79/53. nitro drip stopped. Will continue to monitor.
[2021-10-10 02:31] LABS: Source, Urine Foley catheter
[2021-10-10 02:33] LABS: Bilirubin, Urine Neg (Neg); Blood, Urine 1+ (Neg); Glucose Qualitative, Urine 4+ (Neg); Ketones, Urine 1+ (Neg); Leukocyte Esterase, Urine Neg (Neg); Nitrite, Urine Neg (Neg); Protein, Urine 3+ (Neg); Urobilinogen, Urine NORM (Normal)
[2021-10-10 02:49] LABS: Color, Urine Yellow (P-Yellow)
[2021-10-10 02:50] LABS: Appearance, Urine Clear (Clear)
[2021-10-10 02:51] LABS: Bacteria Rare /hpf; Squamous Epithelial Cells Rare /hpf (Few); White Blood Cells, Urine 0-2 /hpf (0-5)
[2021-10-10 05:18] LABS: BASOPHILS ABSOLUTE AUTO 0.01 K/mm3 (0.00-0.23); BASOPHILS PERCENT AUTO 0 % (0-2); EOSINOPHILS ABSOLUTE AUTO 0.01 K/mm3 (0.00-0.68); EOSINOPHILS PERCENT AUTO 0 % (0-6); Hemoglobin 11.3 g/dL (13.5-17.5); IMMATURE GRAN ABSOLUTE AUTO 0.04 K/mm3 (0.00-0.10); IMMATURE GRAN PERCENT AUTO 0 % (0-1); LYMPHOCYTES ABSOLUTE AUTO 0.96 K/mm3 (0.84-5.20); LYMPHOCYTES PERCENT AUTO 9 % (21-46); MONOCYTES ABSOLUTE AUTO 0.55 K/mm3 (0.16-1.47); MONOCYTES PERCENT AUTO 5 % (4-13); Mean Corpuscular HGB 34.1 pg (26.0-34.0); Mean Corpuscular HGB Conc 35.3 g/dL (31.5-36.5); Mean Corpuscular Volume 97 fL (80-100); Mean Platelet Volume 9.8 fL (9.1-12.4); NEUTROPHILS ABSOLUTE AUTO 9.44 K/mm3 (1.96-9.15); NEUTROPHILS PERCENT AUTO 86 % (41-73); Platelet Count 148 K/mm3 (150-400); RDW Coefficient Variation 13.7 % (11.7-14.2); RDW Standard Deviation 47.2 fL (35.1-46.3); Red Blood Cell Count 3.31 M/mm3 (4.30-5.90); White Blood Cell Count 11.01 K/mm3 (4.00-11.30)
[2021-10-10 05:42] LABS: Albumin, Blood 3.8 g/dL (3.4-5.0); Albumin/Globulin Ratio 0.8 (0.8-1.8); Bilirubin, Total 0.9 mg/dL (0.1-1.0); Bun/Creatinine Ratio 6.6 (12.0-20.0); Calcium, Blood 9.8 mg/dL (8.5-10.1); Creatinine, Blood 4.22 mg/dL (0.60-1.20); Magnesium, Blood 2.5 mg/dL (1.6-2.4); Phosphorus, Blood 5.3 mg/dL (2.5-4.9); Potassium, Blood 4.5 mmol/L (3.5-5.5); Total Protein, Blood 8.8 g/dL (6.4-8.2)
--- NOTE | 2021-10-10 06:08 | NUR ---
Medicated as needed for pain and anxiety per eMAR. Nitro drip on standby, blood pressure stable. resting at this time, lying prone. when awake very restless, rolling around in bed and yelling out. responds well to ativan and pain meds.
--- NOTE | 2021-10-10 12:54 | NUR ---
PT HAS BEEN A/O X4. PLEASANT AND COOPERATIVE. LESS ANXIOUS NOW AND HAS BEEN USING CALL LIGHT APPROPRIATELY. ABLE TO SIT UP AND EAT MEALS WITHOUT ASSISTANCE. STARTED ON PO BP MEDS THIS AM. TAKES MEDS WITH WATER WITHOUT DIFFICULTY. NO DIALYSIS TODAY. PERMACATH TO RCW WITH DEEP PURPLE BRUISING. 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 PT IS MOVING TO PCU 12, REPORT GIVEN TO IVY CANO. NO SIGN OF DISTRESS.
--- NOTE | 2021-10-10 13:53 | NUR ---
PT ARRIVED TO PCU 12 VIA BED FROM ICU. PT STATES HE IS UNABLE TO STAND AND TRANSFER D/T PAIN. PT SILD ACROSS ONTO PCU BED, ORIENTED TO ROOM, CALL LIGHT AND UNIT ROUTINES. CALL LIGHT IN REACH. PT PROVIDED WITH KPAD FOR HEAT THERAPY FOR PAIN IN ABD. NO FURTHER NEEDS IDENTIFIED AT THIS TIME. PT ROLLED ONTO R SIDE AND APPEARED TO FALL ASLEEP, EYES CLOSED, RESPIRATIONS UNLABORED AND EVEN.
--- NOTE | 2021-10-10 17:36 | NUR ---
NO ACUTE EVENTS SINCE PT TRANSFERRED TO PCU 12. PT HAS APPEARED TO SLEEP MOST OF THE TIME W/O SIGNS OF DISTRESS. WHEN AWOKEN FOR MEDICATION PT C/O PAIN, MEDICATED W PRN FENTANYL PER ORDERS. PT CONTINUES TO CRY, MOAN AND COMPLAIN OF PAIN IN HIS ABD. PT GIVEN A HEATING PAD, REPOSITIONED AND EDUCATED TO SUPPORT HIS ABD WITH A PILLOW WHEN HE COUGHS OR MOVES. DR COX IS AWARE OF PT'S C/O OF CONTINUED PAIN. WILL CONTINUE TO MONITOR AND GIVE REPORT TO ONCOMING RN.
--- NOTE | 2021-10-10 21:45 | NUR ---
PHYSICIAN NOTIFIED PT REPORTS CRUSHING CHEST PAIN ON L SIDE UP INTO NECK. PT SCREAMING IN BED STATING, "GOD PLEASE TAKE ME,I CAN'T DO THIS." 12 LEAD EKG DONE, 1 NITRO GIVEN ON OVERIDE. PHYSICIAN NOTIFIED AND AWARE. ORDERS TO GIVE FENTANYL SCHEDULED PRN.
[2021-10-11 04:22] LABS: BASOPHILS ABSOLUTE AUTO 0.02 K/mm3 (0.00-0.23); BASOPHILS PERCENT AUTO 0 % (0-2); EOSINOPHILS ABSOLUTE AUTO 0.18 K/mm3 (0.00-0.68); EOSINOPHILS PERCENT AUTO 2 % (0-6); Hematocrit 30.2 % (37.0-53.0); Hemoglobin 10.5 g/dL (13.5-17.5); IMMATURE GRAN ABSOLUTE AUTO 0.03 K/mm3 (0.00-0.10); IMMATURE GRAN PERCENT AUTO 0 % (0-1); LYMPHOCYTES ABSOLUTE AUTO 1.54 K/mm3 (0.84-5.20); LYMPHOCYTES PERCENT AUTO 16 % (21-46); MONOCYTES ABSOLUTE AUTO 0.76 K/mm3 (0.16-1.47); MONOCYTES PERCENT AUTO 8 % (4-13); Mean Corpuscular HGB 33.4 pg (26.0-34.0); Mean Corpuscular HGB Conc 34.8 g/dL (31.5-36.5); Mean Corpuscular Volume 96 fL (80-100); Mean Platelet Volume 9.9 fL (9.1-12.4); NEUTROPHILS ABSOLUTE AUTO 7.05 K/mm3 (1.96-9.15); NEUTROPHILS PERCENT AUTO 74 % (41-73); Platelet Count 146 K/mm3 (150-400); RDW Standard Deviation 47.4 fL (35.1-46.3); Red Blood Cell Count 3.14 M/mm3 (4.30-5.90); White Blood Cell Count 9.58 K/mm3 (4.00-11.30)
[2021-10-11 04:49] LABS: Albumin, Blood 3.3 g/dL (3.4-5.0); Anion Gap 12 mmol/L (6-16); Blood Urea Nitrogen 46 mg/dL (8-24); Bun/Creatinine Ratio 7.5 (12.0-20.0); CO2, Blood 25 mmol/L (21-32); Calcium, Blood 9.4 mg/dL (8.5-10.1); Chloride, Blood 97 mmol/L (98-108); Creatinine, Blood 6.17 mg/dL (0.60-1.20); Glomerular Filtration Rate 9 (60-); Glucose, Blood 149 mg/dL (70-99); Magnesium, Blood 2.4 mg/dL (1.6-2.4); Phosphorus, Blood 5.9 mg/dL (2.5-4.9); Potassium, Blood 4.1 mmol/L (3.5-5.5); Sodium, Blood 134 mmol/L (136-145)
--- NOTE | 2021-10-11 06:12 | NUR ---
SHIFT SUMMARY PT ALERT AND ORIENTED X 4. VERY ANXIOUS AT TIMES. YELLING OUT AND CRYING DURING SHIFT. MEDICATED FOR ANXIETY AND PAIN, SEE EMAR. PT REPORTS CP AT BEGINNING OF SHIFT, SEE NOTE. 12 LEAD EKG DONE, NO ST CHANGES. PHYSICIAN AWARE. PT SBA TO COMMODE. HR STABLE. BP STABLE. OXYGEN SATURATION MAINTAINED ABOVE 92% ON RA. PT ABLE TO TURN SELF IN BED NEEDED. BED ALARM IN PLACE. WILL CONT TO MONITOR UNTIL REPORT GIVEN TO DAYSHIFT RN.
--- NOTE | 2021-10-11 11:06 | NUR ---
PT CONVERTED TO AFIB PER MANAGER WIRELESS RATE RANGING 115-130'S, PT CURRENTLY DOING DIALYSIS AT THIS TIME AND IS RESTING. CARVEDILOL AND LOSARTAN WAS HELD PER DIALYSIS NURSE, PT BP IS STABLE AT THIS TIME SYSTOLIC AT 110'S-130'S, CARVEDILOL MORNING DOSE WAS GIVEN, DR DEWITT CALLED AND MADE AWARE. PT DENIES CHEST PAIN MOSTLY ABD PAIN FROM PERITONEAL CATH/HEMATOMA. WILL MONITOR PT
--- NOTE | 2021-10-11 15:17 | NUR ---
Patient is lying on his side and moaning in pain and shows me all his bruises. Pt's spouse, Ai is bedside. Pt states that he was recently given pain medications. They ask for prayer, which I gladly provide. Pt responds well and ask if I could come tomorrow to visit because he is not able to focus on conversation. I agree to do so.
--- NOTE | 2021-10-11 18:21 | NUR ---
PT SUMMARY: SEE PREVIOUS NOTES. PT REMAINS AFIB RANGE 90-110'S, BP SYSTOLIC 120', SATS ABOVE 95% ON RA, AFEBRILE. PT SBA TO THE BATHROOM HAD A BED BATH TODAY AFTER DIALYSIS. CAME IN TO VISIT WAS ABLE TO TALK TO DR BROOKE CLIFTON PT'S PLAN OF CARE. PT STILL CRIES AND MOANS FOR PAIN NOW STARTING TO GET BETTER SINCE OXYCODONE INCREASED TO 10 MG. PT REFUSED MEALS FOR BREAKFAST AND LUNCH, HAS BEEN REQUESTING FULL LIQUID AND SOUP, OFFERED NEPRO FOR LUNCH HAD ABOUT 50%, PT HAD TOMATO SOUP AND CRACKERS FOR DINNER ABLE TO TOLERATE. PT NOW RESTING IN BED, PLAN TO DC TOMORROW IF STABLE. NO OTHER ISSUES FOR THE SHIFT, PT ABLE TO MAKE NEEDS KNOWN, TAMRA LIGHTS IN REACH WILL REPORT TO ONCOMING SHIFT.
[2021-10-12 04:15] LABS: Hematocrit 35.5 % (37.0-53.0); Hemoglobin 12.2 g/dL (13.5-17.5)
[2021-10-12 04:42] LABS: Albumin, Blood 3.5 g/dL (3.4-5.0); Anion Gap 9 mmol/L (6-16); Blood Urea Nitrogen 36 mg/dL (8-24); Bun/Creatinine Ratio 6.6 (12.0-20.0); CO2, Blood 30 mmol/L (21-32); Calcium, Blood 9.7 mg/dL (8.5-10.1); Chloride, Blood 97 mmol/L (98-108); Creatinine, Blood 5.42 mg/dL (0.60-1.20); Glomerular Filtration Rate 11 (60-); Glucose, Blood 52 mg/dL (70-99); Magnesium, Blood 2.6 mg/dL (1.6-2.4); Phosphorus, Blood 5.1 mg/dL (2.5-4.9); Potassium, Blood 3.5 mmol/L (3.5-5.5); Sodium, Blood 136 mmol/L (136-145)
--- NOTE | 2021-10-12 05:19 | NUR ---
SHIFT SUMMARY PT ALERT AND ORIENTED X4. CRIES AND MOANS OUT AT TIMES. PAIN APPEARED TO BE MANAGABLE AT START OF SHIFT. AT AROUND 2200 PT STARTED TO CRY, STATING HE IS IN THE MOST PAIN HES EVER BEEN IN, 04/30, AND HE WISHES HIS LIFE WOULD END. RELIEVED PER IV FENTANYL. PT EDUCATED THAT HE WILL NOT BE RECEIVING THIS AT HOME. ON RA SATS OVER 95%. BP STABLE. CONVERTED FROM AFLUTTER TO SR AT 2043. AFEBRILE. IN BED SLEEPING WITH CALL ALARM AT SIDE. WILL CONTINUE TO MONITOR UNTIL REPORT GIVEN TO DAYSHIFT RN
[2021-10-12] MEDS ORDERED: CLOP75 PO (10:59)
[2021-10-12] MEDS ORDERED: Carvedilol12.5 MG PO (11:16)
[2021-10-12] MEDS ORDERED: LOSA25 PO (11:16)
[2021-10-12] MEDS ORDERED: OXYC10ER PO (11:17)
[2021-10-12] MEDS ORDERED: ONDA4ODT MM (11:17)
--- NOTE | 2021-10-12 12:15 | NUR ---
DISCHARGE UPDATE DISCHARGE INSTRUCTIONS GONE OVER WITH PT AND PT AT 1155. PT LEFT UNIT AT 1200 VIA WHEELCHAIR AND ON RA. PT BELONGINGS IN BAGS AND WITH PT DURING DISCHARGE. DISCHARGE PACKET WITH PT .
--- NOTE | 2021-10-12 13:46 | NUR ---
Patient is lying in bed and alert. Patient tells me that he will d/c today. He shares about the reconnection he was able to have with his daughter, [facility] frustration with the [facility] to his who is his inpatient care manager rn and his frustrations with feeling like he is not getting the answers he needs about his medical conditions. He explains that he feels like he is in a cycle of infections over and over. He also states that he feels like he is on a downward trend and that "he won't live very much longer." I talk with patient about all that he has overcome, all the good that is still up ahead and about the wonderful possibilities of someone from the outside coming into his home to provide aid (maybe his would love the help). I provide therapeutic listening, companionship and prayer. Patient responds well and shows signs of an elevated hope for today and the future.
== END 2021-10-12 11:58 | disposition home or self-care (01) | DRG 304 ==
LOC: ER 16:35 → ICUE 21:56 → ICUW 21:56 → ICUE 22:09 → PCU 10-10 13:39
PROVIDERS: Emergency Medicine; Family Medicine; Internal Medicine Nephrology; ADMIT Internal Medicine
DX: I16.1 Hypertensive emergency (principal); N18.6 End stage renal disease; I50.32 Chronic diastolic (congestive) heart failure; I12.0 Hypertensive chronic kidney disease with stage 5 chronic kidney disease or end stage renal disease; E11.22 Type 2 diabetes mellitus with diabetic chronic kidney disease; M10.9 Gout, unspecified; E78.5 Hyperlipidemia, unspecified; F43.10 Post-traumatic stress disorder, unspecified; B18.2 Chronic viral hepatitis C; I25.2 Old myocardial infarction; Z95.5 Presence of coronary angioplasty implant and graft; F32.A Depression, unspecified; K21.9 Gastro-esophageal reflux disease without esophagitis; G47.33 Obstructive sleep apnea (adult) (pediatric); Z90.49 Acquired absence of other specified parts of digestive tract; Z98.890 Other specified postprocedural states; Z98.84 Bariatric surgery status; Z79.899 Other long term (current) drug therapy; Z79.82 Long term (current) use of aspirin; Z79.4 Long term (current) use of insulin
CPT/HCPCS: 36415; 71275; 74177; 80053; 80069; 81001; 82947; 83690; 83735; 84100; 84484; 85014; 85018; 85025; 93005; 93010; 96365; 96366; 96367; 96375; 96376; 99285-25; A9270; C9113; J1170; J1644; J1815; J2060; J2405; J3010; Q9967

== ENCOUNTER 2021-11-20 21:43 | Emergency (ER) | payer OTHER ==
[~2021-11-20] VITALS: Ht 180.3 cm; Wt 98.0 kg
[~2021-11-20 21:43] MED LIST changes: +Carvedilol12.5 MG PO; +LOSA25 PO; +OXYC10ER PO
[2021-11-20 22:52] LABS: BASOPHILS ABSOLUTE AUTO 0.02 K/mm3 (0.00-0.23); BASOPHILS PERCENT AUTO 0 % (0-2); EOSINOPHILS ABSOLUTE AUTO 0.01 K/mm3 (0.00-0.68); EOSINOPHILS PERCENT AUTO 0 % (0-6); Hematocrit 35.1 % (37.0-53.0); Hemoglobin 12.7 g/dL (13.5-17.5); IMMATURE GRAN ABSOLUTE AUTO 0.08 K/mm3 (0.00-0.10); IMMATURE GRAN PERCENT AUTO 1 % (0-1); LYMPHOCYTES ABSOLUTE AUTO 0.87 K/mm3 (0.84-5.20); LYMPHOCYTES PERCENT AUTO 6 % (21-46); MONOCYTES ABSOLUTE AUTO 0.36 K/mm3 (0.16-1.47); MONOCYTES PERCENT AUTO 3 % (4-13); Mean Corpuscular HGB 34.7 pg (26.0-34.0); Mean Corpuscular HGB Conc 36.2 g/dL (31.5-36.5); Mean Corpuscular Volume 96 fL (80-100); Mean Platelet Volume 10.4 fL (9.1-12.4); NEUTROPHILS ABSOLUTE AUTO 12.63 K/mm3 (1.96-9.15); NEUTROPHILS PERCENT AUTO 90 % (41-73); Platelet Count 173 K/mm3 (150-400); RDW Coefficient Variation 13.5 % (11.7-14.2); Red Blood Cell Count 3.66 M/mm3 (4.30-5.90); White Blood Cell Count 13.97 K/mm3 (4.00-11.30)
[2021-11-20 22:54] LABS: Albumin, Blood 4.3 g/dL (3.4-5.0); Albumin/Globulin Ratio 0.9 (0.8-1.8); Bilirubin, Total 1.1 mg/dL (0.1-1.0); Bun/Creatinine Ratio 9.6 (12.0-20.0); Calcium, Blood 10.5 mg/dL (8.5-10.1); Creatinine, Blood 6.23 mg/dL (0.60-1.20); Globulin, Blood 4.6 g/dL (2.2-4.0); Potassium, Blood 5.5 mmol/L (3.5-5.5); Total Protein, Blood 8.9 g/dL (6.4-8.2)
[2021-11-20 23:07] LABS: Beta-hydroxybutyrate 31.6 mg/dL (0.2-2.8)
[2021-11-20 23:26] LABS: Source, Urine Clean Catch
[2021-11-20 23:30] LABS: Bilirubin, Urine Neg (Neg); Blood, Urine 2+ (Neg); Glucose Qualitative, Urine 4+ (Neg); Ketones, Urine 2+ (Neg); Leukocyte Esterase, Urine Neg (Neg); Nitrite, Urine Neg (Neg); Protein, Urine 3+ (Neg); Urobilinogen, Urine NORM (Normal)
[2021-11-20 23:39] LABS: Base Excess Venous -1.4 mmol/L; Bicarbonate Venous 23.4 mmol/L (24.0-30.0); PCO2 Venous 39.5 mmHg (38-42); PO2 Venous 103 mmHg (38-42); pH Blood Venous 7.39 (7.34-7.37)
[2021-11-20 23:42] LABS: Appearance, Urine Clear (Clear); Color, Urine Yellow (P-Yellow)
[2021-11-20 23:45] LABS: Bacteria Not Seen /hpf; Red Blood Cells, Urine 0-2 /hpf (0-2); Squamous Epithelial Cells Not Seen /hpf (Few); White Blood Cells, Urine Not Seen /hpf (0-5)
[2021-11-22] MEDS ORDERED: HUMALOG KW100 UNIT/1 SC ×2 (20:37→20:39)
[2021-11-23] MEDS ORDERED: ASPI81CH PO (12:43)
[2021-11-23] MEDS ORDERED: CLOP75 PO (12:43)
[2021-11-23] MEDS ORDERED: PANT40 PO (12:44)
== END 2021-11-21 01:27 | disposition home or self-care (01) ==
LOC: ER 21:43
PROVIDERS: Physician Assistant; Student in an Organized Health Care Education/Training Program
DX: R10.31 Right lower quadrant pain (principal); E11.65 Type 2 diabetes mellitus with hyperglycemia; E11.22 Type 2 diabetes mellitus with diabetic chronic kidney disease; I13.2 Hypertensive heart and chronic kidney disease with heart failure and with stage 5 chronic kidney disease, or end stage renal disease; N18.6 End stage renal disease; I50.32 Chronic diastolic (congestive) heart failure; D64.9 Anemia, unspecified; R79.89 Other specified abnormal findings of blood chemistry; E78.5 Hyperlipidemia, unspecified; I25.10 Atherosclerotic heart disease of native coronary artery without angina pectoris; Z79.82 Long term (current) use of aspirin; Z79.899 Other long term (current) drug therapy; Z79.4 Long term (current) use of insulin; Z95.1 Presence of aortocoronary bypass graft; Z99.2 Dependence on renal dialysis
CPT/HCPCS: 36415; 71045; 74176; 80053; 81001; 82010; 82803; 83690; 83880; 84484; 85025; 93005; 93010; 96374; 96375; 96376; 99284-25; A9270; J1170; J2405; J7030

== ENCOUNTER 2021-11-27 02:39 | Emergency (ER) | payer OTHER ==
[~2021-11-27] VITALS: Ht 180.3 cm; Wt 99.8 kg
[2021-11-27 04:24] LABS: BASOPHILS ABSOLUTE AUTO 0.02 K/mm3 (0.00-0.23); BASOPHILS PERCENT AUTO 0 % (0-2); EOSINOPHILS ABSOLUTE AUTO 0.18 K/mm3 (0.00-0.68); EOSINOPHILS PERCENT AUTO 2 % (0-6); Hematocrit 28.7 % (37.0-53.0); Hemoglobin 10.1 g/dL (13.5-17.5); IMMATURE GRAN ABSOLUTE AUTO 0.05 K/mm3 (0.00-0.10); IMMATURE GRAN PERCENT AUTO 1 % (0-1); LYMPHOCYTES ABSOLUTE AUTO 0.89 K/mm3 (0.84-5.20); LYMPHOCYTES PERCENT AUTO 8 % (21-46); MONOCYTES ABSOLUTE AUTO 0.64 K/mm3 (0.16-1.47); MONOCYTES PERCENT AUTO 6 % (4-13); Mean Corpuscular HGB 34.6 pg (26.0-34.0); Mean Corpuscular HGB Conc 35.2 g/dL (31.5-36.5); Mean Corpuscular Volume 98 fL (80-100); Mean Platelet Volume 10.4 fL (9.1-12.4); NEUTROPHILS PERCENT AUTO 83 % (41-73); Platelet Count 131 K/mm3 (150-400); RDW Coefficient Variation 13.7 % (11.7-14.2); RDW Standard Deviation 49.5 fL (35.1-46.3); Red Blood Cell Count 2.92 M/mm3 (4.30-5.90); White Blood Cell Count 10.78 K/mm3 (4.00-11.30)
[2021-11-27 04:46] LABS: Albumin, Blood 3.6 g/dL (3.4-5.0); Albumin/Globulin Ratio 0.9 (0.8-1.8); Bilirubin, Total 0.8 mg/dL (0.1-1.0); Bun/Creatinine Ratio 6.8 (12.0-20.0); Calcium, Blood 9.8 mg/dL (8.5-10.1); Creatinine, Blood 6.19 mg/dL (0.60-1.20); Globulin, Blood 3.8 g/dL (2.2-4.0); Potassium, Blood 4.8 mmol/L (3.5-5.5); Total Protein, Blood 7.4 g/dL (6.4-8.2)
[2021-11-27 04:59] LABS: Source, Urine Clean Catch
[2021-11-27 05:02] LABS: Bilirubin, Urine Neg (Neg); Blood, Urine Neg (Neg); Glucose Qualitative, Urine 4+ (Neg); Ketones, Urine Neg (Neg); Leukocyte Esterase, Urine Neg (Neg); Nitrite, Urine Neg (Neg); Protein, Urine 3+ (Neg); Urobilinogen, Urine NORM (Normal)
[2021-11-27 05:14] LABS: Amorphous Light (0-Heavy); Appearance, Urine Clear (Clear); Bacteria Not Seen /hpf; Color, Urine Yellow (P-Yellow); Red Blood Cells, Urine Not Seen /hpf (0-2); Squamous Epithelial Cells Rare /hpf (Few); White Blood Cells, Urine Not Seen /hpf (0-5)
== END 2021-11-27 08:09 | disposition home or self-care (01) ==
LOC: ER 02:39
PROVIDERS: Student in an Organized Health Care Education/Training Program
DX: R10.13 Epigastric pain (principal); R11.2 Nausea with vomiting, unspecified; I13.2 Hypertensive heart and chronic kidney disease with heart failure and with stage 5 chronic kidney disease, or end stage renal disease; E11.22 Type 2 diabetes mellitus with diabetic chronic kidney disease; N18.6 End stage renal disease; I50.32 Chronic diastolic (congestive) heart failure; I25.10 Atherosclerotic heart disease of native coronary artery without angina pectoris; G47.33 Obstructive sleep apnea (adult) (pediatric); K21.9 Gastro-esophageal reflux disease without esophagitis; Z95.1 Presence of aortocoronary bypass graft; Z99.2 Dependence on renal dialysis; Z79.899 Other long term (current) drug therapy; Z79.4 Long term (current) use of insulin; Z79.82 Long term (current) use of aspirin; Z79.02 Long term (current) use of antithrombotics/antiplatelets
CPT/HCPCS: 36415; 74176; 80053; 81001; 83690; 84484; 85025; 93005; 93010; C9113; J3010

== ENCOUNTER 2021-12-03 11:26 | Emergency (ER) | payer OTHER ==
[~2021-12-03] VITALS: Ht 180.3 cm; Wt 99.8 kg
[2021-12-03 12:12] LABS: BASOPHILS ABSOLUTE AUTO 0.02 K/mm3 (0.00-0.23); BASOPHILS PERCENT AUTO 0 % (0-2); EOSINOPHILS PERCENT AUTO 7 % (0-6); Hematocrit 29.9 % (37.0-53.0); Hemoglobin 10.6 g/dL (13.5-17.5); IMMATURE GRAN ABSOLUTE AUTO 0.03 K/mm3 (0.00-0.10); IMMATURE GRAN PERCENT AUTO 0 % (0-1); LYMPHOCYTES ABSOLUTE AUTO 1.22 K/mm3 (0.84-5.20); LYMPHOCYTES PERCENT AUTO 14 % (21-46); MONOCYTES ABSOLUTE AUTO 0.66 K/mm3 (0.16-1.47); MONOCYTES PERCENT AUTO 8 % (4-13); Mean Corpuscular HGB 34.5 pg (26.0-34.0); Mean Corpuscular HGB Conc 35.5 g/dL (31.5-36.5); Mean Corpuscular Volume 97 fL (80-100); Mean Platelet Volume 9.8 fL (9.1-12.4); NEUTROPHILS ABSOLUTE AUTO 6.11 K/mm3 (1.96-9.15); NEUTROPHILS PERCENT AUTO 71 % (41-73); Platelet Count 149 K/mm3 (150-400); RDW Coefficient Variation 13.5 % (11.7-14.2); RDW Standard Deviation 48.4 fL (35.1-46.3); Red Blood Cell Count 3.07 M/mm3 (4.30-5.90); White Blood Cell Count 8.64 K/mm3 (4.00-11.30)
[2021-12-03 12:31] LABS: Albumin, Blood 3.3 g/dL (3.4-5.0); Albumin/Globulin Ratio 0.8 (0.8-1.8); Bilirubin, Total 0.6 mg/dL (0.1-1.0); Bun/Creatinine Ratio 5.2 (12.0-20.0); Calcium, Blood 9.8 mg/dL (8.5-10.1); Creatinine, Blood 4.81 mg/dL (0.60-1.20); Globulin, Blood 4.3 g/dL (2.2-4.0); Potassium, Blood 3.9 mmol/L (3.5-5.5); Total Protein, Blood 7.6 g/dL (6.4-8.2)
[2021-12-03] MEDS ORDERED: HYDR10 PO (17:15)
[2021-12-03] MEDS ORDERED: LOSA50 PO (17:15)
== END 2021-12-03 17:38 | disposition home or self-care (01) ==
LOC: ER 11:26
PROVIDERS: Emergency Medicine
DX: I13.2 Hypertensive heart and chronic kidney disease with heart failure and with stage 5 chronic kidney disease, or end stage renal disease (principal); E11.22 Type 2 diabetes mellitus with diabetic chronic kidney disease; N18.6 End stage renal disease; I50.32 Chronic diastolic (congestive) heart failure; R07.9 Chest pain, unspecified; I25.10 Atherosclerotic heart disease of native coronary artery without angina pectoris; G47.33 Obstructive sleep apnea (adult) (pediatric); I25.2 Old myocardial infarction; Z95.1 Presence of aortocoronary bypass graft; F32.A Depression, unspecified; Z99.2 Dependence on renal dialysis; Z79.4 Long term (current) use of insulin; Z79.899 Other long term (current) drug therapy; Z79.82 Long term (current) use of aspirin; Z79.02 Long term (current) use of antithrombotics/antiplatelets
CPT/HCPCS: 36415; 71045; 80053; 84484; 85025; A9270; J2270; J2405

== ENCOUNTER 2022-02-15 09:14 | Emergency (ER) | payer OTHER ==
[~2022-02-15] VITALS: Ht 182.9 cm; Wt 90.7 kg
[~2022-02-15 09:14] MED LIST changes: +AMIL5 PO; +CALCITRIOL0.5 MC1 PO; +COLACE100 MG PO; +GABAPENTIN250 MG/51 PO; +HYDROCODONE-AC1 EA18 PO; +INSULANI SC; +LOSA50 PO; +THERA-D2000 UNIT PO
[2022-02-15 09:46] LABS: BASOPHILS ABSOLUTE AUTO 0.03 K/mm3 (0.00-0.23); BASOPHILS PERCENT AUTO 0 % (0-2); EOSINOPHILS PERCENT AUTO 4 % (0-6); Hemoglobin 9.9 g/dL (13.5-17.5); IMMATURE GRAN ABSOLUTE AUTO 0.08 K/mm3 (0.00-0.10); IMMATURE GRAN PERCENT AUTO 1 % (0-1); LYMPHOCYTES ABSOLUTE AUTO 0.76 K/mm3 (0.84-5.20); LYMPHOCYTES PERCENT AUTO 8 % (21-46); MONOCYTES ABSOLUTE AUTO 0.92 K/mm3 (0.16-1.47); MONOCYTES PERCENT AUTO 10 % (4-13); Mean Corpuscular HGB 33.6 pg (26.0-34.0); Mean Corpuscular HGB Conc 34.1 g/dL (31.5-36.5); Mean Corpuscular Volume 98 fL (80-100); Mean Platelet Volume 9.4 fL (9.1-12.4); NEUTROPHILS ABSOLUTE AUTO 7.13 K/mm3 (1.96-9.15); NEUTROPHILS PERCENT AUTO 76 % (41-73); Platelet Count 143 K/mm3 (150-400); RDW Coefficient Variation 13.2 % (11.7-14.2); RDW Standard Deviation 46.8 fL (35.1-46.3); Red Blood Cell Count 2.95 M/mm3 (4.30-5.90); White Blood Cell Count 9.32 K/mm3 (4.00-11.30)
[2022-02-15 10:36] LABS: Bun/Creatinine Ratio 3.6 (12.0-20.0); Calcium, Blood 9.6 mg/dL (8.5-10.1); Creatinine, Blood 16.7 mg/dL (0.60-1.20); Potassium, Blood 4.5 mmol/L (3.5-5.5)
[2022-02-15] MEDS ORDERED: INSULIN (11:28)
[2022-02-15] MEDS ORDERED: CREON DR 12,001 EACH PO (11:30)
[2022-02-15] MEDS ORDERED: VITAMIN D310 MC4 PO (11:32)
[2022-02-15] MEDS ORDERED: HYDR1TAB94 PO (12:24)
== END 2022-02-15 12:45 | disposition home or self-care (01) ==
LOC: ER 09:14
PROVIDERS: Emergency Medicine
DX: S09.90XA Unspecified injury of head, initial encounter (principal); S40.011A Contusion of right shoulder, initial encounter; M54.2 Cervicalgia; I13.2 Hypertensive heart and chronic kidney disease with heart failure and with stage 5 chronic kidney disease, or end stage renal disease; E11.22 Type 2 diabetes mellitus with diabetic chronic kidney disease; N18.6 End stage renal disease; I50.32 Chronic diastolic (congestive) heart failure; I25.10 Atherosclerotic heart disease of native coronary artery without angina pectoris; I25.2 Old myocardial infarction; Z95.1 Presence of aortocoronary bypass graft; Z99.2 Dependence on renal dialysis; G47.33 Obstructive sleep apnea (adult) (pediatric); Z79.899 Other long term (current) drug therapy; Z79.02 Long term (current) use of antithrombotics/antiplatelets; Z79.4 Long term (current) use of insulin; W18.30XA Fall on same level, unspecified, initial encounter; Y92.009 Unspecified place in unspecified non-institutional (private) residence as the place of occurrence of the external cause
CPT/HCPCS: 70450; 71045; 72125; 73030; 80048; 85025; 93005; 93010; 96374; 99285-25; A9270; J3010

== ENCOUNTER 2022-03-05 21:35 | Emergency (ER) | payer OTHER ==
[~2022-03-05] VITALS: Ht 182.9 cm; Wt 90.7 kg
[~2022-03-05 21:35] MED LIST changes: +CREON DR 12,001 EACH PO; +INSULIN; +VITAMIN D310 MC4 PO
[2022-03-06] MEDS ORDERED: OXYC5 PO (00:16)
== END 2022-03-06 01:49 | disposition home or self-care (01) ==
LOC: ER 21:35
DX: S82.62XA Displaced fracture of lateral malleolus of left fibula, initial encounter for closed fracture (principal); S76.012A Strain of muscle, fascia and tendon of left hip, initial encounter; S80.02XA Contusion of left knee, initial encounter; W19.XXXA Unspecified fall, initial encounter; Z79.899 Other long term (current) drug therapy; Z79.82 Long term (current) use of aspirin; Z79.4 Long term (current) use of insulin
CPT/HCPCS: 73502; 73562-LT; 73610; A9270

== ENCOUNTER 2022-03-11 16:30 | Observation (INO) | payer OTHER ==
[~2022-03-11] VITALS: Ht 182.9 cm; Wt 87.8 kg
[~2022-03-11 16:30] MED LIST changes: +OXYC5 PO
[2022-03-11 19:18] LABS: BASOPHILS ABSOLUTE AUTO 0.02 K/mm3 (0.00-0.23); BASOPHILS PERCENT AUTO 0 % (0-2); EOSINOPHILS PERCENT AUTO 1 % (0-6); Hematocrit 24.5 % (37.0-53.0); Hemoglobin 8.3 g/dL (13.5-17.5); IMMATURE GRAN ABSOLUTE AUTO 0.08 K/mm3 (0.00-0.10); IMMATURE GRAN PERCENT AUTO 1 % (0-1); LYMPHOCYTES ABSOLUTE AUTO 0.56 K/mm3 (0.84-5.20); LYMPHOCYTES PERCENT AUTO 5 % (21-46); MONOCYTES ABSOLUTE AUTO 0.69 K/mm3 (0.16-1.47); MONOCYTES PERCENT AUTO 6 % (4-13); Mean Corpuscular HGB 32.8 pg (26.0-34.0); Mean Corpuscular HGB Conc 33.9 g/dL (31.5-36.5); Mean Corpuscular Volume 97 fL (80-100); Mean Platelet Volume 10.7 fL (9.1-12.4); NEUTROPHILS ABSOLUTE AUTO 10.37 K/mm3 (1.96-9.15); NEUTROPHILS PERCENT AUTO 88 % (41-73); NRBC ABSOLUTE 0.02 K/mm3 (0.00-0.02); NRBC Auto 0.2 /100 WBC (0.0-0.2); Platelet Count 125 K/mm3 (150-400); RDW Coefficient Variation 14.2 % (11.7-14.2); RDW Standard Deviation 48.7 fL (35.1-46.3); Red Blood Cell Count 2.53 M/mm3 (4.30-5.90); White Blood Cell Count 11.82 K/mm3 (4.00-11.30)
[2022-03-11 19:38] LABS: Ethanol (Alcohol), Blood, Med <3 mg/dL; Magnesium, Blood 2.6 mg/dL (1.6-2.4); Salicylate 2.8 mg/dL (2.8-20.0)
[2022-03-11 19:48] LABS: Alanine Aminotransfer (ALT/SGP 24 U/L (12-78); Albumin, Blood 1.5 g/dL (3.4-5.0); Albumin/Globulin Ratio 0.3 (0.8-1.8); Alk Phos 397 U/L (50-136); Anion Gap 18 mmol/L (6-16); Aspartate Aminotrans (AST/SGOT 26 U/L (12-37); Bilirubin, Total 0.6 mg/dL (0.1-1.0); Blood Urea Nitrogen 57 mg/dL (8-24); Bun/Creatinine Ratio 4.1 (12.0-20.0); CO2, Blood 22 mmol/L (21-32); Calcium, Blood 9.3 mg/dL (8.5-10.1); Chloride, Blood 88 mmol/L (98-108); Globulin, Blood 5.3 g/dL (2.2-4.0); Glomerular Filtration Rate 3 (60-); Glucose, Blood 232 mg/dL (70-99); Potassium, Blood 4.3 mmol/L (3.5-5.5); Sodium, Blood 128 mmol/L (136-145); Total Protein, Blood 6.8 g/dL (6.4-8.2)
[2022-03-11 19:49] LABS: Acetaminophen, Random <2.0 ug/mL (10.0-30.0)
[2022-03-11 20:47] LABS: Bicarbonate Venous 22.9 mmol/L (24.0-30.0); PCO2 Venous 39.4 mmHg (38-42); pH Blood Venous 7.38 (7.34-7.37)
[2022-03-11 21:24] LABS: Influenza A, PCR NEGATIVE (NEGATIVE); Influenza B, PCR NEGATIVE (NEGATIVE); Resp Syncytial Virus, PCR NEGATIVE (NEGATIVE); SARS-Cov-2 (COVID-19) PCR, MMC NEGATIVE (NEGATIVE)
--- NOTE | 2022-03-12 06:07 | NUR ---
SHIFT SUMMARY PATIENT ALERT AND ORIENTED X3. MEDICATED PER EMAR FOR PAIN. NO ACUTE ISSUES NOTED OVERNIGHT. CALL LIGHT WITHIN REACH. REPORT GIVEN TO ONCOMING RN.
[2022-03-12 06:11] LABS: BASOPHILS ABSOLUTE AUTO 0.02 K/mm3 (0.00-0.23); BASOPHILS PERCENT AUTO 0 % (0-2); EOSINOPHILS ABSOLUTE AUTO 0.13 K/mm3 (0.00-0.68); EOSINOPHILS PERCENT AUTO 1 % (0-6); Hematocrit 22.1 % (37.0-53.0); Hemoglobin 7.5 g/dL (13.5-17.5); IMMATURE GRAN ABSOLUTE AUTO 0.07 K/mm3 (0.00-0.10); IMMATURE GRAN PERCENT AUTO 1 % (0-1); LYMPHOCYTES ABSOLUTE AUTO 1.17 K/mm3 (0.84-5.20); LYMPHOCYTES PERCENT AUTO 12 % (21-46); MONOCYTES PERCENT AUTO 9 % (4-13); Mean Corpuscular HGB 32.5 pg (26.0-34.0); Mean Corpuscular HGB Conc 33.9 g/dL (31.5-36.5); Mean Corpuscular Volume 96 fL (80-100); Mean Platelet Volume 10.5 fL (9.1-12.4); NEUTROPHILS ABSOLUTE AUTO 7.89 K/mm3 (1.96-9.15); NEUTROPHILS PERCENT AUTO 78 % (41-73); Platelet Count 124 K/mm3 (150-400); RDW Coefficient Variation 14.2 % (11.7-14.2); Red Blood Cell Count 2.31 M/mm3 (4.30-5.90); White Blood Cell Count 10.18 K/mm3 (4.00-11.30)
[2022-03-12 06:22] LABS: Albumin, Blood 1.9 g/dL (3.4-5.0); Albumin/Globulin Ratio 0.4 (0.8-1.8); Bilirubin, Total 0.5 mg/dL (0.1-1.0); Bun/Creatinine Ratio 4.2 (12.0-20.0); Creatinine, Blood 14.8 mg/dL (0.60-1.20); Globulin, Blood 4.6 g/dL (2.2-4.0); Potassium, Blood 3.9 mmol/L (3.5-5.5); Total Protein, Blood 6.5 g/dL (6.4-8.2)
[2022-03-12] MEDS ORDERED: GENT15TO TOP (10:57)
[2022-03-12] MEDS ORDERED: HEMATEX PO (11:00)
[2022-03-12] MEDS ORDERED: RENAL VITAMIN0.8 MG PO (11:02)
[2022-03-12 11:03] LABS: Percent Saturation 64.9 % (20.0-50.0)
--- NOTE | 2022-03-12 18:57 | NUR ---
SHIFT SUMMARY PT AxOx4. PT WORKED WITH PHYSICAL AND OCCUPATIONAL THERAPY THIS SHIFT. PT IS ON BEDREST OR LIFT FOR TRANSFER TO RECLINER FOR SIGNIFICANT WEAKNESS AND FX OF LEFT ANKLE. ORTHO CONSULTED. L KNEE IN IMMOBILIZER. PT REPORTS PAIN IN L LEG AND BACK. MEDICATED PER EMAR. MEDS RECONCILED. IN ROOM TODAY, UPDATED ON PLAN OF CARE. PT IS SCHEDULED FOR PD TONIGHT IN ROOM. PT CURRENTLY RESTING IN BED. CALL LIGHT IN REACH. DENIES NEEDS AT THIS TIME.
--- NOTE | 2022-03-12 20:05 | NUR ---
DIALYSIS-PD PT IN BED C/O FOOT PAIN. CLEANED AND REDRESSED SITE PER PROTOCAL. SITE CLEAR. CONNECTED TO TX PER PROTOCAL. STARTED TX AT 1830. COMPLETED ID WITH OUT ALARMS, TOTAL VOLUME [id number] ML. 9 HOURS TX. FILL VOLUMNE 2400 ML. LAST FILL 1400 ML. 4 CYCLES. 1HR AND 42 MINS DWELL. 1.5% DEXTROSE DIANEAL BAGS X 2.
--- NOTE | 2022-03-13 04:45 | NUR ---
SUMMARY: PT A/OX4, CALLS APPROPRIATELY TO SPECIFY NEEDS AND IS PLEASANT AND COOPERATIVE W/CARE. PERITONEAL DIALYSIS RECIEVED T/O NOCTE. HE REMAINS ON BEDREST D/T L.ANKLE FRACTURE W/LEG IMMOBILIZER IN PLACE AND [place] WRAP INTACT UP TO [facility]. ORTHO CX PENDING. PT MEDICATED FOR TOLERABLE RELIEF OF LEG PAIN W/DILAUDID AND TYLENOL. FENTANYL RX'D FOR BREAK THROUGH PRN. HE USED BEDPAN FOR BM AND STATES HE RARELY MAKES URINE. NO ACUTE CHANGES, VSS/AFEBRILE. WCTM AND REPORT TO DAY RN.
[2022-03-13 05:32] LABS: BASOPHILS ABSOLUTE AUTO 0.02 K/mm3 (0.00-0.23); BASOPHILS PERCENT AUTO 0 % (0-2); EOSINOPHILS ABSOLUTE AUTO 0.16 K/mm3 (0.00-0.68); EOSINOPHILS PERCENT AUTO 2 % (0-6); Hematocrit 21.7 % (37.0-53.0); Hemoglobin 7.6 g/dL (13.5-17.5); IMMATURE GRAN ABSOLUTE AUTO 0.05 K/mm3 (0.00-0.10); IMMATURE GRAN PERCENT AUTO 1 % (0-1); LYMPHOCYTES ABSOLUTE AUTO 0.81 K/mm3 (0.84-5.20); LYMPHOCYTES PERCENT AUTO 10 % (21-46); MONOCYTES ABSOLUTE AUTO 0.74 K/mm3 (0.16-1.47); MONOCYTES PERCENT AUTO 9 % (4-13); Mean Corpuscular HGB 33.2 pg (26.0-34.0); Mean Corpuscular Volume 95 fL (80-100); Mean Platelet Volume 10.4 fL (9.1-12.4); NEUTROPHILS PERCENT AUTO 78 % (41-73); Platelet Count 123 K/mm3 (150-400); RDW Coefficient Variation 14.2 % (11.7-14.2); RDW Standard Deviation 48.5 fL (35.1-46.3); Red Blood Cell Count 2.29 M/mm3 (4.30-5.90); White Blood Cell Count 8.08 K/mm3 (4.00-11.30)
[2022-03-13 06:06] LABS: Magnesium, Blood 2.6 mg/dL (1.6-2.4)
[2022-03-13 06:21] LABS: Albumin, Blood 1.7 g/dL (3.4-5.0); Anion Gap 16 mmol/L (6-16); Blood Urea Nitrogen 57 mg/dL (8-24); Bun/Creatinine Ratio 4.4 (12.0-20.0); CO2, Blood 23 mmol/L (21-32); Calcium, Blood 8.9 mg/dL (8.5-10.1); Chloride, Blood 90 mmol/L (98-108); Glomerular Filtration Rate 4 (60-); Glucose, Blood 171 mg/dL (70-99); Phosphorus, Blood 6.5 mg/dL (2.5-4.9); Potassium, Blood 3.9 mmol/L (3.5-5.5); Sodium, Blood 129 mmol/L (136-145)
--- NOTE | 2022-03-13 07:15 | NUR ---
PT AWAKE / ALERT / ORIENTED. VERB NO COMPLAINT. OVERNIGHT CCPD COMPLETE ORDERED. EFFLUENT DARK MARY / CLEAR. PT AESEPTICALLY DISCONNECTED AND CAPPED. CYCLER STRIPPED AND CLEANED. DR MÉNDEZ CONSULTED VIA PHONE FOR NEW ORDERS / PLAN OF CARE.
--- NOTE | 2022-03-13 09:38 | NUR ---
ORTHO ([facility]) UP ON FLOOR TO REMOVE LEG MOBILIZER AND SPLINT. THEY ARE ORDERING PATIENT A CAM BOOT. THEY INSTRUCTED THE PATIENT THAT ONCE THE PAIN LESSENS IN A FEW WEEKS, HE WILL BE ABLE TO MOBILZE/WEIGHT BEAR TOLERTED.
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
--- NOTE | 2022-03-13 13:50 | NUR ---
DISCHARGE 1345 PATIENT WAS DISCHARGED TO HOME. PRESENT AND TRANSPORTING. IV WAS REMOVED. PATIENT AND WERE PRESENT FOR DISCHARGE INSTRUCTIONS, PATIENT EDUCATION. PATIENT HAD [facility], [facility] WILL SENIOR PATROL AGENT SLIDE BOARD AND OTHER ITEMS. MEDICATIONS ARE ALSO FILL[facility] THROUGH THE [facility].
== END 2022-03-13 13:49 | disposition home or self-care (01) ==
LOC: ER 16:30 → MEDS 16:31
PROVIDERS: Internal Medicine; Internal Medicine Nephrology; Student in an Organized Health Care Education/Training Program; ADMIT Internal Medicine
DX: G93.40 Encephalopathy, unspecified (principal); R55 Syncope and collapse; I13.2 Hypertensive heart and chronic kidney disease with heart failure and with stage 5 chronic kidney disease, or end stage renal disease; I50.32 Chronic diastolic (congestive) heart failure; N18.6 End stage renal disease; E11.22 Type 2 diabetes mellitus with diabetic chronic kidney disease; D63.1 Anemia in chronic kidney disease; J96.01 Acute respiratory failure with hypoxia; S82.62XA Displaced fracture of lateral malleolus of left fibula, initial encounter for closed fracture; E87.1 Hypo-osmolality and hyponatremia; E86.9 Volume depletion, unspecified; E88.09 Other disorders of plasma-protein metabolism, not elsewhere classified; E86.0 Dehydration; K86.1 Other chronic pancreatitis; I25.10 Atherosclerotic heart disease of native coronary artery without angina pectoris; J44.9 Chronic obstructive pulmonary disease, unspecified; E78.00 Pure hypercholesterolemia, unspecified; K21.9 Gastro-esophageal reflux disease without esophagitis; I25.2 Old myocardial infarction; Z79.899 Other long term (current) drug therapy; Z79.4 Long term (current) use of insulin; Z79.82 Long term (current) use of aspirin; Z79.02 Long term (current) use of antithrombotics/antiplatelets; Z99.2 Dependence on renal dialysis; Z95.1 Presence of aortocoronary bypass graft; W19.XXXA Unspecified fall, initial encounter
CPT/HCPCS: 0241U; 36415; 70450; 71045; 80053; 80069; 82140; 82728; 82803; 82947; 83540; 83550; 83605; 83690; 83735; 83880; 84484; 85025; 93005; 93010; 96372; 97110; 97162; 97166; 97530; 97535; 99285-25; A9270; G0257; G0378; G0480; J1644; J1815; J3010; J7030; P9047

== ENCOUNTER 2022-04-26 10:16 | Emergency (ER) | payer OTHER ==
[~2022-04-26] VITALS: Ht 182.9 cm; Wt 90.7 kg
[~2022-04-26 10:16] MED LIST changes: +EPLE25 PO; +FLUDROCORTISON0.1 M1 PO; +GENT15TO TOP; +HEMATEX PO; +SENNA LAXATIVE8.6 MG PO
[2022-04-26] MEDS ORDERED: OXYC5 PO (11:11)
== END 2022-04-26 11:31 | disposition home or self-care (01) ==
LOC: ER 10:16
DX: R55 Syncope and collapse (principal)
CPT/HCPCS: 93005; 93010; 99284-25; A9270

== ENCOUNTER 2022-06-03 06:33 | Inpatient (IN) | payer OTHER ==
[~2022-06-03] VITALS: Ht 182.9 cm; Wt 86.1 kg
[2022-06-03 08:54] LABS: Albumin, Blood 2.3 g/dL (3.4-5.0); Albumin/Globulin Ratio 0.4 (0.8-1.8); Bilirubin, Total 0.6 mg/dL (0.1-1.0); Bun/Creatinine Ratio 4.1 (12.0-20.0); Calcium, Blood 9.8 mg/dL (8.5-10.1); Creatinine, Blood 7.77 mg/dL (0.60-1.20); Potassium, Blood 2.9 mmol/L (3.5-5.5); Total Protein, Blood 8.3 g/dL (6.4-8.2)
[2022-06-03 10:03] LABS: BASOPHILS PERCENT AUTO 0 % (0-2); EOSINOPHILS ABSOLUTE AUTO 0.01 K/mm3 (0.00-0.68); EOSINOPHILS PERCENT AUTO 0 % (0-6); Hematocrit 19.7 % (37.0-53.0); Hemoglobin 6.3 g/dL (13.5-17.5); IMMATURE GRAN ABSOLUTE AUTO 0.04 K/mm3 (0.00-0.10); IMMATURE GRAN PERCENT AUTO 1 % (0-1); LYMPHOCYTES ABSOLUTE AUTO 0.33 K/mm3 (0.84-5.20); LYMPHOCYTES PERCENT AUTO 4 % (21-46); MONOCYTES PERCENT AUTO 7 % (4-13); Mean Corpuscular HGB 30.6 pg (26.0-34.0); Mean Corpuscular Volume 96 fL (80-100); Mean Platelet Volume 9.1 fL (9.1-12.4); NEUTROPHILS ABSOLUTE AUTO 6.82 K/mm3 (1.96-9.15); NEUTROPHILS PERCENT AUTO 89 % (41-73); Platelet Count 109 K/mm3 (150-400); RDW Coefficient Variation 13.5 % (11.7-14.2); RDW Standard Deviation 47.3 fL (35.1-46.3); Red Blood Cell Count 2.06 M/mm3 (4.30-5.90)
[2022-06-03] MEDS ORDERED: SENN187 PO (12:40)
[2022-06-03] MEDS ORDERED: Calcium Acetat667 MG PO (12:40)
[2022-06-03] MEDS ORDERED: FERSU300 PO (12:40)
[2022-06-03] MEDS ORDERED: ONDA4ODT MM (12:40)
[2022-06-03] MEDS ORDERED: ACET500 PO (12:40)
[2022-06-03] MEDS ORDERED: GENT15TO TOP (12:40)
[2022-06-03] MEDS ORDERED: SEVEC800 PO (12:41)
[2022-06-03 13:10] LABS: Source, Urine Straight Cath
[2022-06-03 13:17] LABS: Bilirubin, Urine Neg (Neg); Blood, Urine 2+ (Neg); Color, Urine Yellow (P-Yellow); Glucose Qualitative, Urine 2+ (Neg); Ketones, Urine Neg (Neg); Leukocyte Esterase, Urine Neg (Neg); Nitrite, Urine Neg (Neg); Protein, Urine 4+ (Neg); Specific Gravity, Urine 1.015 (1.003-1.022); Urobilinogen, Urine NORM (Normal)
[2022-06-03 13:40] LABS: Appearance, Urine Hazy (Clear)
[2022-06-03 13:42] LABS: Bacteria Many /hpf; Squamous Epithelial Cells Rare /hpf (Few)
[2022-06-03 13:43] LABS: Amorphous Light (0-Heavy); Mucus Light (0-Heavy); Renal Epithelial Rare /hpf (0-Rare); Transitional Epithelial Cells Rare /hpf (0-Rare)
[2022-06-03 13:44] LABS: Hyaline Casts 0-2 /lpf (0-2)
[2022-06-03 15:22] LABS: Percent Saturation 29.4 % (20.0-50.0)
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
[2022-06-03 18:40] LABS: Hematocrit 30.7 % (37.0-53.0); Hemoglobin 10.8 g/dL (13.5-17.5)
[2022-06-03 18:51] LABS: Potassium, Blood 3.1 mmol/L (3.5-5.5)
--- NOTE | 2022-06-03 18:54 | NUR ---
DIALYSIS-PD CAME IN TO INSPECTOR BRAKE LINING PATIENT FOR NIGHT ROUTINE PD TREATMENT. HE IS EXPERIENCING NAUSEA AND VOMITING. HIS FOOT IS CAUSING HIM PAIN. PD DIALYSIS TREATMENT STARTED AT 1850 THIS EVENING.
[2022-06-04 05:34] LABS: BASOPHILS ABSOLUTE AUTO 0.03 K/mm3 (0.00-0.23); BASOPHILS PERCENT AUTO 0 % (0-2); EOSINOPHILS ABSOLUTE AUTO 0.03 K/mm3 (0.00-0.68); EOSINOPHILS PERCENT AUTO 0 % (0-6); Hematocrit 31.2 % (37.0-53.0); Hemoglobin 10.8 g/dL (13.5-17.5); IMMATURE GRAN ABSOLUTE AUTO 0.03 K/mm3 (0.00-0.10); IMMATURE GRAN PERCENT AUTO 0 % (0-1); LYMPHOCYTES ABSOLUTE AUTO 0.74 K/mm3 (0.84-5.20); LYMPHOCYTES PERCENT AUTO 8 % (21-46); MONOCYTES ABSOLUTE AUTO 0.65 K/mm3 (0.16-1.47); MONOCYTES PERCENT AUTO 7 % (4-13); Mean Corpuscular HGB 31.6 pg (26.0-34.0); Mean Corpuscular HGB Conc 34.6 g/dL (31.5-36.5); Mean Platelet Volume 8.8 fL (9.1-12.4); NEUTROPHILS ABSOLUTE AUTO 7.49 K/mm3 (1.96-9.15); NEUTROPHILS PERCENT AUTO 84 % (41-73); Platelet Count 176 K/mm3 (150-400); RDW Standard Deviation 47.2 fL (35.1-46.3); Red Blood Cell Count 3.42 M/mm3 (4.30-5.90); White Blood Cell Count 8.97 K/mm3 (4.00-11.30)
[2022-06-04 05:36] LABS: Mean Corpuscular Volume 91 fL (80-100)
[2022-06-04 05:52] LABS: Alanine Aminotransfer (ALT/SGP 23 U/L (12-78); Albumin, Blood 1.8 g/dL (3.4-5.0); Albumin/Globulin Ratio 0.4 (0.8-1.8); Alk Phos 315 U/L (50-136); Anion Gap 10 mmol/L (6-16); Aspartate Aminotrans (AST/SGOT 21 U/L (12-37); Bilirubin, Total 0.6 mg/dL (0.1-1.0); Blood Urea Nitrogen 34 mg/dL (8-24); Bun/Creatinine Ratio 4.5 (12.0-20.0); CO2, Blood 28 mmol/L (21-32); Chloride, Blood 99 mmol/L (98-108); Creatinine, Blood 7.55 mg/dL (0.60-1.20); Globulin, Blood 4.9 g/dL (2.2-4.0); Glomerular Filtration Rate 7 (60-); Glucose, Blood 202 mg/dL (70-99); Magnesium, Blood 1.8 mg/dL (1.6-2.4); Sodium, Blood 137 mmol/L (136-145); Total Protein, Blood 6.7 g/dL (6.4-8.2); Vancomycin, Random 24.7 ug/mL
--- NOTE | 2022-06-04 06:08 | NUR ---
SHIFT SUMMARY PT A&Ox4, CALLS AND COMMUNICATES NEEDS APPROPRIATELY. PT SLEEPS SOUNDLY, ONCE WOKEN UP HE BEGINS COMPLAINING OF IMMENSE PAIN, STARTS CRYING, AND BEGINS TO DRY HEAVE. MEDICATED PER EMAR, DID NOT ADMINISTER ZOFRAN D/T QTc BEING 0.52. BP ELEVATED, ADMINISTERED SCHEDULED BP MEDICATIONS, BP DONE ON LEFT UPPER ARM IS MORE ACCURATE. SINUS 70-90's, DENIES CP/PRESSURE. Sp02> 92% RA, DENIES SOB. PT RECIENVED PERITONEAL DIALYSIS DURING THIS SHIFT. PT ON CLEAR LIQUID DIET UNTIL 0600, PT NOW NPO. NO OTHER EVENTS THIS SHIFT, WILL REPORT TO DAY SHIFT RN.
--- NOTE | 2022-06-04 08:51 | NUR ---
Upon receiving a patient request for spiritual care from pt's RN, I visit pt. Pt is lying in bed and alert and pt's spouse, Ai is bedside. 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 Pt is tearful at times. I reinforce helpful attitudes and perspectives, normalize his feelings and provide therapeutic listening, anxiety containment, gentle agency legal counsel and prayer. Pt responds well, states that he is very uplifted by the visit and prayer and asks if I could return again this day for more support. I will continue to reamin available to pt and family.
--- NOTE | 2022-06-04 09:52 | NUR ---
DIALYSIS NOTE PT AWAKE / ALERT / RESTING IN BED / NO COMPLAINTS. OVERNIGHT CCPD COMPLETE ORDERED. EFFLUENT CLEAR. NO FIBRIN NOTED. PT AESEPTICALLY DISCONNECTED AND CAPPED. IDRAIN 2343, TUF 475, AVG DWELL TIME 1HR 8MIN. CYCLER STRIPPED AND CLEANED. EXIT SITE CARE AND DRSG CHANGE PROVIDED. DR MÉNDEZ CONSULTED FOR NEW ORDERS / PLAN OF CARE.
--- NOTE | 2022-06-04 17:14 | NUR ---
History, Chart, Medications and Allergies reviewed before start of procedure. PT BROUGHT FROM PCU 20 ON TELE VIA [employer].
--- NOTE | 2022-06-04 18:19 | NUR ---
SHIFT SUMMARY: PT A&Ox4 T/OUT SHIFT, ABLE TO COMMUNICATE NEEDS, USING CALL LIGHT APPROPRIATELY. O2 SATS MAINTAINED >92% ON RA, SR ON MONITOR W/RATE IN 70s. PT C/O L HEEL PAIN, MEDICATED OFTEN W/PRN PAIN MEDICATION. PERITONEAL DIALYSIS COMPLETED THIS AM, DIALYSIS NURSE VERBALIZES PLAN TO RETURN ONCE PT IS DONE W/SURGERY THIS EVENING TO START DIALYSIS. NPO STATUS MAINTAINED T/OUT SHIFT IN PREPARATION FOR SURGERY. PT IS IN SURGERY AT THIS TIME.
--- NOTE | 2022-06-04 19:05 | NUR ---
PT RETURNS TO ROOM PCU 20 POST I&D TO LEFT HEEL. PER BUSINESS LIBRARIAN PT RECEIVED LOCAL ANESTHETIC FOR PROCEDURE. PT IS NOTED AWAKE AND TEARFUL, CRYING OUT REGARDING AMOUNT OF PAIN TO LEFT LOWER EXTREMITY AND STATING THAT HE WANTS MORPHINE OR HE WILL START YELLING. OFFGOING RN IS CURRENTLY OBTAINING PAIN MEDICATIONS FROM [facility] AND PT IS REASSURED OF THIS. DRESSING TO LEFT LOWER EXTREMITY IS NOTED DRY AND INTACT. PULSES PRESENT TO BILAT LE, CAP REFILL BRISK. POST OP VITAL SIGNS INITIATED, WILL MONTIOR. WILL MONITOR FOR PAIN CONTROL. MONITOR FOR BLEEDING, MAINTAIN CDI DRESSING TO LEFT LOWER EXTREMITY. LEFT LOWER EXTREMITY ELEVATED ON PILLOWS.
--- NOTE | 2022-06-04 20:36 | NUR ---
DIALYSIS NOTE PT RESTING WITH EYES CLOSED, AWAKENS EASILY. PT A&O AND APPROPRIATE WITH CARE. NIGHT PD TX SET UP AND PT CONNECTED PER POLICY. PT TOLERATED WELL. NO C/O.
[2022-06-05 04:30] LABS: Hematocrit 32.8 % (37.0-53.0); Hemoglobin 11.3 g/dL (13.5-17.5)
[2022-06-05 04:53] LABS: Albumin, Blood 1.8 g/dL (3.4-5.0); Anion Gap 13 mmol/L (6-16); Blood Urea Nitrogen 35 mg/dL (8-24); Bun/Creatinine Ratio 4.5 (12.0-20.0); CO2, Blood 25 mmol/L (21-32); Calcium, Blood 8.7 mg/dL (8.5-10.1); Chloride, Blood 100 mmol/L (98-108); Creatinine, Blood 7.79 mg/dL (0.60-1.20); Glomerular Filtration Rate 7 (60-); Glucose, Blood 191 mg/dL (70-99); Magnesium, Blood 2.2 mg/dL (1.6-2.4); Phosphorus, Blood 5.1 mg/dL (2.5-4.9); Sodium, Blood 138 mmol/L (136-145); Vancomycin, Random 21.5 ug/mL
--- NOTE | 2022-06-05 06:12 | NUR ---
PT IS NOTED TEARFUL WHEN AWAKENED AND COMPLAINS OF HIGH PAIN LEVELS. WHEN UNDISTURBED PT IS NOTED TO HAVE REPIRATORY RATE NEAR 14 AND SATS DECREASE TO LOW 80S ON ROOM AIR WELL NEED FOR LOUDLY SPOKEN NAME TO ROUSE. HE DID STATE AT 1905 THAT NURSING STAFF NEEDED TO HURRY AND GET HIM HIS MORPHINE OR HE WAS GOING TO START YELLING, OF NOTE AT THE TIME PT STATED THIS PT'S PRIMARY DAY SHIFT RN WAS OBTAINING MORPHINE FROM [facility]. SATS MAINTAINED LOW 90S WITH INTERMITTENT BRIEF DECREASES TO HIGH 80S WHEN PT APPEARS TO BE SLEEPING AFTER OXYGEN VIA NASAL CANNULA WAS APPLIED AT 2 L/MIN. DRESSING IN PLACE TO LEFT LOWER EXTREMITY WITH SMALL AMOUNT OF SANGUINOUS OOZING NOTED, PT REQURES FREQUENT REMINDER TO KEEP THAT EXTREMITY ELEVATED ON PILLOWS. HE DOES STATE THAT HE DOESN'T FEEL LIKE HE IS GETTING ADEQUATE PAIN CONTROL WITH CURRENT DOSE OF MORPHINE AND WANTS DOSE INCREASED. EFFECT OF CURRENT DOSE ON PT'S RESPIRATOY STATUS IS DISCUSSED WITH HIM WELL CONCERN FOR RISK OF WITH INCREASE IN DOSE AND REPIRATORY DEPRESSIVE EFFECT. ATTEMPTED TO DISCUSS NONPHARMACOLOGIC INTERVENTIONS FOR PAIN CONTROL AND PT IS NONRECEPTIVE AND YELLS AT THIS RN "NOT YOU TOO!"
--- NOTE | 2022-06-05 07:00 | NUR ---
PATIENT LAYING IN BED AWAKE, ALERT. SOME NAUSEA AND PAIN REPORTED. OVERNIGHT CCPD COMPLETE OREDERED. PT AESEPTICALLY DISCONNECED AND CAPPED. CYCLER STRIPPED AND CLEANED. EFFLUENT CLEAR. DR MÉNDEZ CONSULTED FOR NEW ORDERS/ PLAN OF CARE.
--- NOTE | 2022-06-05 14:31 | NUR ---
Pt is sleeping but awakens when I open the door. Pt mentioned last visit that he loves crucifixes and so I bring him a wall haning crucifix and rosary. Pt is extremly grateful and is tearful at the gesture of kindness. I provide a blessing and let pt return to resting.
--- NOTE | 2022-06-05 18:00 | NUR ---
PT RESTING QUIETLY UPON ENTERING ROOM. WAKENS EASILY TO ORIENT. CYCLER STRUNG, PRIMED AND PROGRAMMED PER RX. EXIT SITE CARE DONE. NEW STERILE DRESSING APPLIED. EXIT SITE CLEAR, DRY, TIGHT AND NON-TENDER. PT AESEPTICALLY CONNECTED WHEN PRIME COMPLETE. PATIENT MONITORED THROUGH ID AND FILL #1 WITH NO REPORT OF DISCOMFORT. PCU STAFF AWARE OF OVERNIGHT THERAPY IN PROGRESS.
--- NOTE | 2022-06-05 18:14 | NUR ---
PT SUMMARY: PT WAS UPSET THIS MORNING ABOUT HIS PAIN MEDS ROUTINE, PER REPORT PT DESATS TO LOW 80'S LAST NIGHT WHILE ASLEEP NOTICED THAT PT HAS BEEN GETTING HIS PRN MORPHINE 4MG Q4HRS AND PT IS STILL WANTING TO GET IV MORPHINE CONSISTENTLY. THIS RN EXPLAINED TO THE PT THAT HE HAS PO OXYCODONE TO TAKE IN BETWEEN FOR BREAKTHROUGH PAIN, PT GOT REALLY UPSET YELLED "I WANT MY MOPRHINE IV NOW! I WANT TO SLEEP!" PT REFUSED TO LISTEN MUMBLING "IM GONNA GET OUT OF HERE! I CAN GET SOME IV MORPHINE OUT THERE I KNOW A FRIEND WHO CAN HELP ME!" EDUCATION WAS REINFORCED AGAIN EXPLAINED THAT PT IS NOT GOING HOME WITH IV PAIN MEDICINE AND THAT WE'RE TRYING TO FIND A ROUTINE PO PAIN MEDICINE THAT WILL WORK FOR WHEN HE GETS HOME, PT STILL IN DENIAL BUT EVENTUALLY TOOK HIS PO OXYCODONE 10 MG STILL INSISTING HE WANTS HIS IV MORPHINE WHEN ITS READY. CALLED DR ERICKSON OFFICE WELL FOR ORDERS FOR THE WOUND DRESSING/WOUND VAC PLACEMENT ORDER IN PLACE FOR WOUND CONSULTATION TO FF-UP IN AM TO GET WOUND VAC PLACED. PT ALSO HASNT BEEN EATING ALL DAY HAD JUST MILK WITH MEAL TIMES, HAS NAUSEA MOSTLY AFTER IV MORPHINE WAS GIVEN THATS WHY PT ALSO WAS ENCOURAGE TO START TAKING PO OXYCODONE, ZOFRAN GIVEN X1 WAS NOT EFFECTIVE WAS OFFERED AMPHOGEL AND PT FINALLY VERBALIZED EFFECTIVENESS. HAS ABD MOSTLY LEFT HEEL PAIN, PAIN MED CHANGES IV MORPHINE 1-2MG PRN AND OXYCODONE 5-10MG PO PRN BOTH Q4HRS, GABAPENTIN 200MG TID WAS ALSO ADDED. PERITONEAL DIALYSIS HAS JUST NOW STARTED IN THE ROOM. PT ONLY HAD 100MLS URINE OUTPUT FOR THE DAY. PT NOW RESTING IN BED, CALL LIGHTS IN REACH, ABLE TO MAKE NEEDS KNOWN, WILL REPORT TO ONCOMING SHIFT
[2022-06-06 05:12] LABS: Hemoglobin 9.9 g/dL (13.5-17.5)
[2022-06-06 05:48] LABS: Albumin, Blood 1.6 g/dL (3.4-5.0); Anion Gap 11 mmol/L (6-16); Blood Urea Nitrogen 35 mg/dL (8-24); Bun/Creatinine Ratio 4.6 (12.0-20.0); CO2, Blood 27 mmol/L (21-32); Calcium, Blood 8.5 mg/dL (8.5-10.1); Chloride, Blood 101 mmol/L (98-108); Creatinine, Blood 7.69 mg/dL (0.60-1.20); Glomerular Filtration Rate 7 (60-); Glucose, Blood 175 mg/dL (70-99); Magnesium, Blood 2.1 mg/dL (1.6-2.4); Phosphorus, Blood 4.5 mg/dL (2.5-4.9); Potassium, Blood 3.3 mmol/L (3.5-5.5); Sodium, Blood 139 mmol/L (136-145); Vancomycin, Random 19.7 ug/mL
--- NOTE | 2022-06-06 06:24 | NUR ---
PERITONEAL DIALYSIS ONGOING OVERNIGHT, PT REFUSED V/S AT MIDNIGHT, TREATED FOR L FOOT PAIN X'S 2 WITH MORPHINE 2MG, RESTING IN BED, CALL LIGHT IN REACH
--- NOTE | 2022-06-06 07:00 | NUR ---
DIALYSIS NOTE PT AWAKE / ALERT / RESTING IN BED / NO COMPLAINTS. OVERNIGHT CCPD COMPLETE ORDERED. EFFLUENT CLEAR. NO FIBRIN NOTED. PT AESEPTICALLY DISCONNECTED AND CAPPED. IDRAIN 1343, TUF 773, AVG DWELL TIME 1HR 8MIN. CYCLER STRIPPED AND CLEANED. EXIT SITE CARE AND DRSG CHANGE PROVIDED. DR MÉNDEZ CONSULTED FOR NEW ORDERS / PLAN OF CARE.
--- NOTE | 2022-06-06 10:00 | NUR ---
PATIENT TRANSFERRED FROM PCU 20 TO ROOM 328. REPORT RECEIVED FROM RACHAEL SUAREZ. PATIENT A/OX4, NWB TO L FOOT. SPOKE WITH CEDRIC THE WOUND CARE NURSE AND SHE WILL BE BY THIS AFTERNOON TO PLACE WOUND VAC ON THAT FOOT. DRESSING TO L FOOT CURRENTLY C/D/I. VSS THIS AM. ACHS BLOOD SUGARS. PATIENT REPORTS NAUSEA AND 8/10 PAIN TO L FOOT. WILL MEDICATE PER EMAR. PERITONEAL DIALYSIS AT [facility]. ORIENTED PATIENT TO ROOM AND USE OF CALL LIGHT AND DISCUSSED FALL PRECAUTIONS.
--- NOTE | 2022-06-06 10:31 | NUR ---
REPORT GIVEN TO YULY CANO, PT TRANSFERRED TO ROOM 328, ALL BELONGINGS SENT WITH THE PT.
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
--- NOTE | 2022-06-06 18:01 | NUR ---
PATIENT A/OX4, NWB TO LLE. VSS, ON RA. MIDRODRINE SCHEDULED FOR HYPOTENSION, NOT NEEDED THIS EVENING. DIALYSIS NURSE TO COME SET UP PERITONEAL DIALYSIS THIS EVENING. POWERGLIDE TO RUE WNL AND SL. PATIENT REPORTS SEVERE PAIN IN L FOOT, MEDICATING WITH OXYCODONE AND MORPHINE WITH GOOD RELIEF. WOUND NURSE CAME TODAY AND DID NOT THINK THAT THE PATIENTS WOUND WAS APPROPRIATE FOR A WOUND VAC AND REPLACED DRESSING. PATIENT CONTINUES TO BE NWB TO L FOOT. TOLERATING DIET, ACHS BLOOD SUGARS AND NO COVERAGE WAS NEEDED THIS SHIFT.
--- NOTE | 2022-06-06 18:41 | NUR ---
DIALYSIS- PD CONNECTED PT TO TX PER PROTOCRODRIGO. PT STATES HE THINKS HIS FOOT ISN'T HEALING AND HE WANTS IT REMOVED. NO CHANGES TO PROGRAM. CLEANED AND DRESSED HIS SITE. AREA LIKE GOOD.
[2022-06-07 06:10] LABS: Vancomycin, Random 23.8 ug/mL
--- NOTE | 2022-06-07 06:34 | NUR ---
PROFESSOR OF FRENCH SUMMARY: A&Ox4. PLEASANT AND COOPERATIVE WITH CARE. CALLS APPROPRIATELY AND COMMUNICATES NEEDS EFFECTIVELY. REQUESTS PAIN MANAGEMENT Q4H PRN ALTERNATING OXY AND MS MORPHINE DUE TO FOOT PAIN. PERITONEAL DIALYSIS RUNNING ALL NIGHT. NO ACUTE EVENTS T/O THE NIGHT. WILL REPORT TO ONCOMING RN.
--- NOTE | 2022-06-07 08:18 | NUR ---
WOUND VAC NOT PLACED D/T ESCHAR IN WOUND BED. WOULD RECOMMEND MEPITEL TO CALCANEUS, CACIUM ALGINATE, EXU-DRY, ROLLED GAUZE WITH DAILY DRESSING CHANGES.
--- NOTE | 2022-06-07 09:01 | NUR ---
DIALYSIS PD PT RESTLESS, WANTS TO GO HOME.SAYS NO ONE IS COMMUNICATING WITH HIM THREATING AMA. RACHAEL HOOD HAS BEEN VERY REASSURING TO HIM. TX DC'ED, SOLUTION VERY CLEAR, ID [id number], UF 186 ML. SITE CLEAR. PT DC'ED FROM TX PER PROTOCAL.
--- NOTE | 2022-06-07 13:19 | NUR ---
WOUND CARE, DR HOBSON, AND DR ERICKSON HAVE ROUNDED ON PATIENT, ORTHO CONSULT TO BE ENTERED FOR LEFT HEEL/FOOT, POSSIBLE AMPUTATION, AT BEDSIDE, ALERT AND ORIENTED, MAKES NEEDS KNOWN, CALL LIGHT WITH IN REACH, DR ERICKSON CHANGED THE DRESSING, PATIENT AND EDUCATED ON THE POSSIBLE NEED FOR AMPUTATION, PATIENT AND PLEASANT TO CARE
--- NOTE | 2022-06-07 16:59 | NUR ---
PATIENT LAYING IN BED. ALERT, WATCHING TV. CYCLER STRUNG, PRIMED AND PROGRAMMED PER DR MÉNDEZ'S ORDER. WHEN PRIME COMPLETE, PT CONNECTED AND OVERNIGHT CCPD THERAPY STARTED. PT MONITORED THROUGH ID AND FILL #1 WITHOUT ANY REPORT OF DISCOMFORT. EXIT SITE CARE DONE. NEW STERILE DRESSING APPLIED. MED FLOOR STAFF AWARE OF OVERNIGHT THERAPY IN PROGRESS.
--- NOTE | 2022-06-07 17:33 | NUR ---
"Spiritual Care | Pt. request Pt. is awake in bed and welcomes my visit. Pt. is unsettled because of a scheduled amputation for the day. Pt. displays evidence of anxiety. With theraputic listening and the establishing of rapport I facilitated a life review. Prayed with Pt. Pt. verbalized gratitude for [facility] spiritual care visit."
--- NOTE | 2022-06-07 18:50 | NUR ---
ALERT AND ORIENTED, PULL WORKER CONSULTED TODAY FOR LEFT FOOT, PATEINT IS NOT A CANDIDATE FOR A WOUND VAC, DR ERICKSON ORDERED A ORTHO CONSULT, DR Anatoliy OCONNELL LEFT, SURGICAL CONSENT SIGNED, AMPUTATION TO BE SCHEDULED FOR TOMORROW AFTERNOON, HEEL 8X5, UNDERMINNING, HEEL BONE IS BROWN, NEUROPATHY UP TO BELOW THE KNEE, PATIENT AND EDUCATED ON OPTIONS AND THE PROCEDURES. MAKES NEEDS KNOWN, CALL LIGHT WITH IN REACH, PAIN MEDICATIONS ALTERNATING MORPHINE AND OXYCODONE, PERITONEAL DIALYSIS INFUSING NOW, WILL RELAY TO PM RACHAEL
[2022-06-08 05:54] LABS: Hematocrit 31.4 % (37.0-53.0); Hemoglobin 10.7 g/dL (13.5-17.5)
--- NOTE | 2022-06-08 06:07 | NUR ---
SOLICITOR PATENT SUMMARY: A&Ox4. COOPERATIVE WITH CARE. NERVOUS AND ANXIOUS REGARDING PROCEDURE TODAY. THERAPEUTIC COMMUNICATION PROVIDED; DISCUSSED PT'S ANXIETIES AND WORRIES. ASSURED HIM OF PROVIDER'S ABILITIES AND KNOWLEDGE. VERY PAINFUL THIS EVENING; ADMINISTERED PRN OXYCODONE AND ALTERNATED MS CONTIN Q2-4H. LABS DRAWN THIS AM. NPO SINCE MIDNIGHT; CONCERNED GLUCOSE WILL DROP. ENSURED HIM WE WILL BE MONITORING IT. WILL REPORT TO ONCOMING RN.
[2022-06-08 06:12] LABS: Albumin, Blood 1.7 g/dL (3.4-5.0); Anion Gap 10 mmol/L (6-16); Blood Urea Nitrogen 38 mg/dL (8-24); Bun/Creatinine Ratio 4.9 (12.0-20.0); CO2, Blood 28 mmol/L (21-32); Calcium, Blood 8.9 mg/dL (8.5-10.1); Chloride, Blood 98 mmol/L (98-108); Glomerular Filtration Rate 7 (60-); Glucose, Blood 180 mg/dL (70-99); Magnesium, Blood 1.9 mg/dL (1.6-2.4); Phosphorus, Blood 3.6 mg/dL (2.5-4.9); Potassium, Blood 3.9 mmol/L (3.5-5.5); Sodium, Blood 136 mmol/L (136-145); Vancomycin, Random 22.8 ug/mL
--- NOTE | 2022-06-08 07:39 | NUR ---
DIALYSIS NOTE PT AWAKE / ALERT / RESTING IN BED / NO COMPLAINTS. OVERNIGHT CCPD COMPLETE ORDERED. EFFLUENT CLEAR. NO FIBRIN NOTED. PT AESEPTICALLY DISCONNECTED AND CAPPED. IDRAIN 1186, TUF 1060, AVG DWELL TIME 1HR 22MIN. CYCLER STRIPPED AND CLEANED. EXIT SITE CARE AND DRSG CHANGE PROVIDED. DR MÉNDEZ CONSULTED FOR NEW ORDERS / PLAN OF CARE.
--- NOTE | 2022-06-08 09:16 | NUR ---
Patient is lying in bed and alert. Pt tells me about his upcoming amputation and his fears. Then talks at length about his life and the many adventures he has had. I provide healthy distraction, anxiety containment, gentle certified credit counselor and prayer. Pt responds well and shows signs of reduced stress. I will continue to remain available to pt and family.
--- NOTE | 2022-06-08 14:12 | NUR ---
PT RESTING QUIETLY AT START OF SHIFT. WOKE EASILY FOR CARE. 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 MEDICATED PER EMAR FOR C/O PAIN TO LLE. PT DECLINED PO PAIN MEDICATION WHEN AVAILABLE, BUT LATER AGREED. PT NPO AFTER MN FOR L BKA THIS AFTERNOON. PT REQUESTED IV MORPHINE LATER THIS AM. PT HAVING SOME ANXIETY WAITING FOR SX. EMILY IN TO VISIT FOR A WHILE WHICH SEEM TO HELP. PT'S S/O AT BS PRIOR TO PT GOING DOWN FOR SX. PT TX'D TO JUDITH AND TOOK PT'S BELONGINGS WITH HER. 1400 REPORT CALLED TO TESSA CANO, PT WILL TX TO RM 211 POST OP.
--- NOTE | 2022-06-08 16:22 | NUR ---
06/08/22 1622 Deepali Conrad 750MG VANCOMYCIN GIVEN BY ANESTHESIA AT 1604
--- NOTE | 2022-06-08 17:36 | NUR ---
PT ARRIVED TO THE ROOM FROM PACU AT 1736. PT ALERT AND ORIENTED. PT DENIED PAIN AT TIME OF ARRIVAL TO THE ROOM. PT'S WAS AT THE BEDSIDE FOR SUPPORT. STUMP SOCK IN PLACE TO L AMPUTATION SITE, DRESSING C/D/I.
--- NOTE | 2022-06-08 18:15 | NUR ---
LOW BLOOD PRESSURE PT'S BP DROPPED TO 81/62 WITH A HR OF 80; PT ASYMPTOMATIC. DR. HOBSON NOTIFIED AND 1L FLUID BOLUS ORDERED AND STARTED.
--- NOTE | 2022-06-08 18:45 | NUR ---
LOW BP PT HAS HX OF HEART FAILURE; DR. HOBSON CONTACTED AND NOTIFIED; PLAN TO ADMINISTER FLUID BOLUS OVER 2 HOURS AND GIVE MIDODRINE.
--- NOTE | 2022-06-08 20:02 | NUR ---
SHIFT SUMMARY PT IS POD#0 FROM L BKA WITH DR. GAMA. LOW BP POST OP (SEE NOTE). PT COMPLAINS OF PHANTOM PAIN DESPINTE POPLITEAL AND FEMORAL NERVE BLOCK BY DR. BAUM; PT EDUCATED THAT BP WILL NEED TO IMPROVE PRIOR TO PAIN MED ADMINISTRATION. PT IS ALERT AND ORIENTED. REPORT GIVEN TO ANIVAL CANO.
--- NOTE | 2022-06-08 22:50 | NUR ---
DIALYSIS-PD PT IS NOW ON SURGERY FLOOR AFTER SURGERY ON HIS LEG. AWAKE AND ALERT. WATCHING TV. VERY TALKATIVE. CONNECTED TO TX PER PEDRO. SPOKE TO HIS RN ABOUT ALARMS, GAVE HER MY PHONE NUMBER FOR PROBLEMS.
[2022-06-09 06:33] LABS: BASOPHILS ABSOLUTE AUTO 0.02 K/mm3 (0.00-0.23); BASOPHILS PERCENT AUTO 0 % (0-2); EOSINOPHILS ABSOLUTE AUTO 0.01 K/mm3 (0.00-0.68); EOSINOPHILS PERCENT AUTO 0 % (0-6); Hematocrit 25.6 % (37.0-53.0); Hemoglobin 8.6 g/dL (13.5-17.5); IMMATURE GRAN ABSOLUTE AUTO 0.06 K/mm3 (0.00-0.10); IMMATURE GRAN PERCENT AUTO 1 % (0-1); LYMPHOCYTES PERCENT AUTO 7 % (21-46); MONOCYTES ABSOLUTE AUTO 0.75 K/mm3 (0.16-1.47); MONOCYTES PERCENT AUTO 6 % (4-13); Mean Corpuscular HGB 31.2 pg (26.0-34.0); Mean Corpuscular HGB Conc 33.6 g/dL (31.5-36.5); Mean Corpuscular Volume 93 fL (80-100); Mean Platelet Volume 9.8 fL (9.1-12.4); NEUTROPHILS ABSOLUTE AUTO 11.48 K/mm3 (1.96-9.15); NEUTROPHILS PERCENT AUTO 87 % (41-73); Platelet Count 182 K/mm3 (150-400); RDW Coefficient Variation 13.5 % (11.7-14.2); RDW Standard Deviation 46.1 fL (35.1-46.3); Red Blood Cell Count 2.76 M/mm3 (4.30-5.90); White Blood Cell Count 13.22 K/mm3 (4.00-11.30)
[2022-06-09 06:58] LABS: Albumin, Blood 1.7 g/dL (3.4-5.0); Anion Gap 11 mmol/L (6-16); Blood Urea Nitrogen 41 mg/dL (8-24); Bun/Creatinine Ratio 5.3 (12.0-20.0); CO2, Blood 25 mmol/L (21-32); Calcium, Blood 8.6 mg/dL (8.5-10.1); Chloride, Blood 100 mmol/L (98-108); Creatinine, Blood 7.67 mg/dL (0.60-1.20); Glomerular Filtration Rate 7 (60-); Glucose, Blood 247 mg/dL (70-99); Phosphorus, Blood 5.3 mg/dL (2.5-4.9); Potassium, Blood 4.4 mmol/L (3.5-5.5); Sodium, Blood 136 mmol/L (136-145); Vancomycin, Random 26.8 ug/mL
--- NOTE | 2022-06-09 08:12 | NUR ---
SHIFT SUMMARY POD1 L BKA WITH GAUZE AND STUMP SOCK NO DRAINAGE. PT REPORTS CHRONIC BILATERAL NEUROPATHY. BP IS IMPROVED THIS MORNING. SOFT AT THE BEGINNING OF SHIFT. PT IS ASYMPTOMATIC. DENIES CHEST PAIN AND SOB. IV FLUIDS INFUSING. TOLERATING PO INTAKE. DENIES N/V. DM2, REFUSE FINGERSTICK AT HS. PT REPORTS MINIMAL VOIDS AT BASELINE. BLADDER SCANNED THIS MORNING AT 0500 AM, WITH 111 ML. PT REPORTS L LEG PAIN, MEDICATED WITH MORPHINE 2MG AND 0.5ML DILAUDID. BEDREST. CALL LIGHT WITHIN REACH. REPORT GIVEN TO NAVYA CANO.
--- NOTE | 2022-06-09 08:53 | NUR ---
TX COMPLETED ORDER BY MD. NAYLOR
--- NOTE | 2022-06-09 08:57 | NUR ---
TX DC'C PER MD ORDERS. CATHETHER DISCONNECTED PER ASEPTIC TECHNIQUE. MACHINE STRIPPED AND CLEANED. PT GABBI PROCEDURE WELL. LEFT IN STABLE CONDITION. CYNDY
--- NOTE | 2022-06-09 09:50 | NUR ---
ENTERED ROOM TO DISCONNECT PATIENT FROM HIS IV WHILE WORKING WITH THERAPY, PATIENT WAS STANDING AT BEDSIDE. HEARD PATIENT CALL OUT AND TURNED AROUND TO SEE THERAPIST HOLDING HIS GAIT BELT AND PATIENT STANDING ON HIS GOOD LEG WITH STUMP TOUCHING THE GROUND. HELPED PATIENT BACK TO BED WITH THERAPIST PATIENT THEN QUICKLY MOVED HIS LEGS BACK INTO BED AND LAYED BACK. NOTIFIED DR. GAMA. NO BLOOD ON DRESSING, PT RESTING IN BED.
--- NOTE | 2022-06-09 15:45 | NUR ---
PT LYING IN BED, CHEERFUL AND PLEASANT. VSS. PD SITE IS CLEAN WITHOUT REDNESS OR DRAINAGE. SITE ACESSED PER PROTOCOL UNDER ASEPTIC TECHNIQUE PER MD ORDERS. PT TOLERATED WELL. CYNDY
--- NOTE | 2022-06-09 17:59 | NUR ---
SHIFT SUMMARY POD 1 L BKA PT PAIN DIFFICULT TO MANAGE SINCE FALL THIS AM. PT DRESSING REMAINS CDI. PT IND WITH MOVEMENT IN BED. TOLERATING PO WELL. PT HAS DECLINED PO PAIN MEDICATIONS "THEY DONT WORK". APPEARS COMFORTABLE IN BED WHILE RESTING. PLAN IS TO CONTINUE WORKING WITH THERAPY.
--- NOTE | 2022-06-10 04:38 | NUR ---
SHIFT SUMMARY POD2 FOR L BKA, STUMP SOCK WITH GAUZE C/D/I. PATIENT REFUSING GLUCOSE CHECKS SO HAS NOT BEEN MEDICATED WITH INSULIN THIS SHIFT. TOLERATING PO INTAKE. SCANT AMOUNT OF VOID THIS SHIFT, ON PERITONEAL DIALYSIS. MANAGED FOR PAIN PER EMAR. VSS, CALL LIIGHT IN REACH.
[2022-06-10 04:57] LABS: BASOPHILS ABSOLUTE AUTO 0.04 K/mm3 (0.00-0.23); BASOPHILS PERCENT AUTO 0 % (0-2); EOSINOPHILS ABSOLUTE AUTO 0.65 K/mm3 (0.00-0.68); EOSINOPHILS PERCENT AUTO 7 % (0-6); Hematocrit 23.9 % (37.0-53.0); Hemoglobin 8.3 g/dL (13.5-17.5); IMMATURE GRAN ABSOLUTE AUTO 0.09 K/mm3 (0.00-0.10); IMMATURE GRAN PERCENT AUTO 1 % (0-1); LYMPHOCYTES ABSOLUTE AUTO 1.94 K/mm3 (0.84-5.20); LYMPHOCYTES PERCENT AUTO 20 % (21-46); MONOCYTES ABSOLUTE AUTO 1.03 K/mm3 (0.16-1.47); MONOCYTES PERCENT AUTO 11 % (4-13); Mean Corpuscular HGB 30.7 pg (26.0-34.0); Mean Corpuscular HGB Conc 34.7 g/dL (31.5-36.5); Mean Corpuscular Volume 89 fL (80-100); NEUTROPHILS ABSOLUTE AUTO 5.97 K/mm3 (1.96-9.15); NEUTROPHILS PERCENT AUTO 61 % (41-73); RDW Coefficient Variation 13.5 % (11.7-14.2); RDW Standard Deviation 43.7 fL (35.1-46.3); White Blood Cell Count 9.72 K/mm3 (4.00-11.30)
[2022-06-10 05:38] LABS: Mean Platelet Volume 9.8 fL (9.1-12.4); Platelet Count 174 K/mm3 (150-400)
--- NOTE | 2022-06-10 08:03 | NUR ---
TO ROOM 211 TO DC PD TX PER MD ORDERS. PT LAYING QUIETLY, PLEASANT AND COOPERATIVE. PT IS A SIGNIFICANT AMT OF PAIN TO HIS LEFT LEG SURGICAL SITE. PRIMARY RN IS GIVING PO PAIN MEDICINE. PD TX DC'C UNDER ASEPTIC TECHNIQUE WITHOUT DIFFICULTY. PT TOLERATED WELL. MACHINCE CLEANED AND STRIPPED. PD SITE REINFORCED WITH CLEAN TAPE. PT PLANS DC THIS AFTERNOON. LEFT IN STABLE CONDITION. CYNDY
[2022-06-10 09:37] LABS: Albumin, Blood 1.7 g/dL (3.4-5.0); Anion Gap 10 mmol/L (6-16); Blood Urea Nitrogen 34 mg/dL (8-24); Bun/Creatinine Ratio 5.1 (12.0-20.0); CO2, Blood 26 mmol/L (21-32); Calcium, Blood 8.2 mg/dL (8.5-10.1); Chloride, Blood 99 mmol/L (98-108); Creatinine, Blood 6.64 mg/dL (0.60-1.20); Glomerular Filtration Rate 8 (60-); Glucose, Blood 198 mg/dL (70-99); Magnesium, Blood 1.7 mg/dL (1.6-2.4); Phosphorus, Blood 3.9 mg/dL (2.5-4.9); Potassium, Blood 4.4 mmol/L (3.5-5.5); Sodium, Blood 135 mmol/L (136-145)
[2022-06-10] MEDS ORDERED: ENOX30I SC (12:05)
[2022-06-10] MEDS ORDERED: DOCU100 PO (12:05)
[2022-06-10] MEDS ORDERED: PANT20 PO (12:06)
[2022-06-10] MEDS ORDERED: OXAYDO5 M1 PO (12:06)
[2022-06-10] MEDS ORDERED: GABA100 PO (12:06)
--- NOTE | 2022-06-10 13:15 | NUR ---
DISCHARGE POD 2 L BKA DRESSING CHANGED BY DR. GAMA THIS MORNING. IT REMAINS CDI. DISCHARGE INSTRUCTIONS GONE OVER WITH PATIENT AND HIS SPOUSE. DRESSING CHANGE INSTRUCTIONS ALSO GONE OVER WITH PATIENT AND SPOUSE. SUPPLIES FOR DRESSING CHANGES SENT HOME. PATIENT REPORTS PAIN WELL CONTROLLED AT THIS TIME. SCRIPT FOR PAIN MEDICINE SENT WITH PATIENT. POWERGLIDE REMOVED. SITE IS FREE FROM REDNESS. PT DENIED FURTHER QUESTIONS AT THIS TIME AND REPORTS BEING EXCITED TO LEAVE. HE DENIES ANY WEAKNESS OR LIGHTHEADEDNESS.
== END 2022-06-10 13:40 | disposition home health service (06) | DRG 474 ==
LOC: ER 06:33 → PCU 14:29 → MEDS 14:29 → SURS 14:29 → PCU 15:51 → MEDS 06-06 10:02 → SURS 06-08 13:45
PROVIDERS: Emergency Medicine; Internal Medicine Nephrology; Nurse Practitioner Acute Care; Podiatrist; Student in an Organized Health Care Education/Training Program; ADMIT Family Medicine
PROC: 30233N1 Transfusion of Nonautologous Red Blood Cells into Peripheral Vein, Percutaneous Approach (ICD-10-PCS; 2022-06-03)
PROC: 0QBM0ZX Excision of Left Tarsal, Open Approach, Diagnostic (ICD-10-PCS; principal; 2022-06-04 16:30)
PROC: 0Y6J0Z1 Detachment at Left Lower Leg, High, Open Approach (ICD-10-PCS; 2022-06-08)
DX: M86.8X7 Other osteomyelitis, ankle and foot (principal); N18.6 End stage renal disease; E87.1 Hypo-osmolality and hyponatremia; N12 Tubulo-interstitial nephritis, not specified as acute or chronic; I13.2 Hypertensive heart and chronic kidney disease with heart failure and with stage 5 chronic kidney disease, or end stage renal disease; E11.52 Type 2 diabetes mellitus with diabetic peripheral angiopathy with gangrene; I96 Gangrene, not elsewhere classified; N25.81 Secondary hyperparathyroidism of renal origin; I50.32 Chronic diastolic (congestive) heart failure; F11.20 Opioid dependence, uncomplicated; E11.621 Type 2 diabetes mellitus with foot ulcer; E11.22 Type 2 diabetes mellitus with diabetic chronic kidney disease; L97.524 Non-pressure chronic ulcer of other part of left foot with necrosis of bone; I95.89 Other hypotension; E87.6 Hypokalemia; D63.1 Anemia in chronic kidney disease; K74.60 Unspecified cirrhosis of liver; B18.2 Chronic viral hepatitis C; B95.2 Enterococcus as the cause of diseases classified elsewhere; M10.9 Gout, unspecified; E11.65 Type 2 diabetes mellitus with hyperglycemia; E78.5 Hyperlipidemia, unspecified; I25.10 Atherosclerotic heart disease of native coronary artery without angina pectoris; M19.90 Unspecified osteoarthritis, unspecified site; K21.9 Gastro-esophageal reflux disease without esophagitis; F32.A Depression, unspecified; E86.9 Volume depletion, unspecified; F43.10 Post-traumatic stress disorder, unspecified; G47.33 Obstructive sleep apnea (adult) (pediatric); G89.29 Other chronic pain; E11.42 Type 2 diabetes mellitus with diabetic polyneuropathy; I48.0 Paroxysmal atrial fibrillation; W19.XXXA Unspecified fall, initial encounter; Z99.2 Dependence on renal dialysis; I25.2 Old myocardial infarction; Z87.19 Personal history of other diseases of the digestive system; Z98.890 Other specified postprocedural states; Z98.1 Arthrodesis status; Z90.49 Acquired absence of other specified parts of digestive tract; Z95.1 Presence of aortocoronary bypass graft; Z88.8 Allergy status to other drugs, medicaments and biological substances; Z79.2 Long term (current) use of antibiotics; Z95.828 Presence of other vascular implants and grafts; Z79.899 Other long term (current) drug therapy; Z79.4 Long term (current) use of insulin; Z79.82 Long term (current) use of aspirin
CPT/HCPCS: 36415; 36430; 51701; 73650; 73701; 74177; 80053; 80069; 80202; 81001; 82728; 82947; 83540; 83550; 83605; 83735; 84100; 84132; 85014; 85018; 85025; 86140; 86850; 86870; 86900; 86901; 86902; 86922; 87040; 87071; 87075; 87077; 87086; 87186; 87205; 88305; 88311; 93005; 93010; 93922; 94760; 96365-59; 96366-59; 96367-59; 96375-59; 96376-59; 97110; 97162; 97530; 99285-25; A9270; C1751; C9113; J0290; J0690; J0692; J0696; J0881; J1100; J1170; J1885; J2250; J2270; J2370; J2405; J2704; J2795; J3010; J3370; J3480; J7030; J7050; P9016; Q9967

== ENCOUNTER 2022-06-25 18:09 | Emergency (ER) | payer OTHER ==
[~2022-06-25] VITALS: Ht 172.7 cm; Wt 72.6 kg
[~2022-06-25 18:09] MED LIST changes: +ACET500 PO; +ENOX30I SC; +OXAYDO5 M1 PO; +PANT20 PO
[2022-06-25 18:41] LABS: BASOPHILS ABSOLUTE AUTO 0.04 K/mm3 (0.00-0.23); BASOPHILS PERCENT AUTO 1 % (0-2); EOSINOPHILS ABSOLUTE AUTO 0.19 K/mm3 (0.00-0.68); EOSINOPHILS PERCENT AUTO 3 % (0-6); Hematocrit 31.4 % (37.0-53.0); Hemoglobin 10.6 g/dL (13.5-17.5); IMMATURE GRAN ABSOLUTE AUTO 0.02 K/mm3 (0.00-0.10); IMMATURE GRAN PERCENT AUTO 0 % (0-1); LYMPHOCYTES ABSOLUTE AUTO 1.14 K/mm3 (0.84-5.20); LYMPHOCYTES PERCENT AUTO 15 % (21-46); MONOCYTES ABSOLUTE AUTO 0.52 K/mm3 (0.16-1.47); MONOCYTES PERCENT AUTO 7 % (4-13); Mean Corpuscular HGB 30.5 pg (26.0-34.0); Mean Corpuscular HGB Conc 33.8 g/dL (31.5-36.5); Mean Corpuscular Volume 91 fL (80-100); Mean Platelet Volume 9.1 fL (9.1-12.4); NEUTROPHILS ABSOLUTE AUTO 5.72 K/mm3 (1.96-9.15); NEUTROPHILS PERCENT AUTO 75 % (41-73); Platelet Count 272 K/mm3 (150-400); RDW Coefficient Variation 14.1 % (11.7-14.2); RDW Standard Deviation 46.7 fL (35.1-46.3); Red Blood Cell Count 3.47 M/mm3 (4.30-5.90); White Blood Cell Count 7.63 K/mm3 (4.00-11.30)
[2022-06-25 19:00] LABS: Albumin, Blood 1.7 g/dL (3.4-5.0); Albumin/Globulin Ratio 0.3 (0.8-1.8); Bilirubin, Total 0.5 mg/dL (0.1-1.0); Bun/Creatinine Ratio 2.7 (12.0-20.0); Calcium, Blood 9.4 mg/dL (8.5-10.1); Creatinine, Blood 6.92 mg/dL (0.60-1.20); Globulin, Blood 5.4 g/dL (2.2-4.0); Total Protein, Blood 7.1 g/dL (6.4-8.2)
[2022-06-25 19:52] LABS: Automated BF WBC Count 0.006 K/mm3 (0-999); Body Fluid WBC Count 6 /mm3 (0-999)
[2022-06-25 20:14] LABS: Color, Body Fluid L Yellow (None-Yellow); RBC Count, Body Fluid 7 /mm3 (0-0)
[2022-06-25 20:15] LABS: Appearance, Body Fluid Clear (Clear)
[2022-06-25 20:52] LABS: Total Cell Count, Body Fluid 100
[2022-06-25] MEDS ORDERED: METO25ER PO (22:05)
== END 2022-06-25 22:36 | disposition home or self-care (01) ==
LOC: ER 18:09
PROVIDERS: Student in an Organized Health Care Education/Training Program
DX: R10.13 Epigastric pain (principal); I48.91 Unspecified atrial fibrillation; I13.2 Hypertensive heart and chronic kidney disease with heart failure and with stage 5 chronic kidney disease, or end stage renal disease; E11.22 Type 2 diabetes mellitus with diabetic chronic kidney disease; N18.6 End stage renal disease; I50.30 Unspecified diastolic (congestive) heart failure; Z99.2 Dependence on renal dialysis; Z88.8 Allergy status to other drugs, medicaments and biological substances; Z79.899 Other long term (current) drug therapy; Z79.82 Long term (current) use of aspirin
CPT/HCPCS: 74176; 80053; 83690; 85025; 89051; 93005; 93010; A9270; J2405; J3010; J7030

== ENCOUNTER 2022-08-21 09:40 | Day surgery (SDC) | payer OTHER ==
[~2022-08-21] VITALS: Ht 180.3 cm; Wt 86.0 kg
[~2022-08-21 09:40] MED LIST changes: +METO25ER PO
[2022-08-21 10:41] LABS: BASOPHILS ABSOLUTE AUTO 0.03 K/mm3 (0.00-0.23); BASOPHILS PERCENT AUTO 1 % (0-2); EOSINOPHILS ABSOLUTE AUTO 0.73 K/mm3 (0.00-0.68); EOSINOPHILS PERCENT AUTO 11 % (0-6); Hematocrit 36.8 % (37.0-53.0); Hemoglobin 12.8 g/dL (13.5-17.5); IMMATURE GRAN ABSOLUTE AUTO 0.03 K/mm3 (0.00-0.10); IMMATURE GRAN PERCENT AUTO 1 % (0-1); LYMPHOCYTES ABSOLUTE AUTO 1.36 K/mm3 (0.84-5.20); LYMPHOCYTES PERCENT AUTO 21 % (21-46); MONOCYTES ABSOLUTE AUTO 0.62 K/mm3 (0.16-1.47); MONOCYTES PERCENT AUTO 10 % (4-13); Mean Corpuscular HGB 30.2 pg (26.0-34.0); Mean Corpuscular HGB Conc 34.8 g/dL (31.5-36.5); Mean Corpuscular Volume 87 fL (80-100); Mean Platelet Volume 9.1 fL (9.1-12.4); NEUTROPHILS ABSOLUTE AUTO 3.62 K/mm3 (1.96-9.15); NEUTROPHILS PERCENT AUTO 57 % (41-73); Platelet Count 182 K/mm3 (150-400); RDW Coefficient Variation 14.6 % (11.7-14.2); RDW Standard Deviation 46.1 fL (35.1-46.3); Red Blood Cell Count 4.24 M/mm3 (4.30-5.90); White Blood Cell Count 6.39 K/mm3 (4.00-11.30)
[2022-08-21 10:58] LABS: Bun/Creatinine Ratio 4.3 (12.0-20.0); Calcium, Blood 9.8 mg/dL (8.5-10.1); Creatinine, Blood 6.81 mg/dL (0.60-1.20); Potassium, Blood 3.3 mmol/L (3.5-5.5)
--- NOTE | 2022-08-21 16:25 | NUR ---
PATIENT DISCHARGED HOME AT THIS TIME VIA WHEELCHAIR. PD CATHETER SITE C/D/I, SUTURES IN PLACE WITH STAY FIX DRESSING. PATIENT DENYING ANY PAIN. WOUND CARE INSTRUCTIONS AND DISCHARGE INSTRUCTIONS REVIEWED AND DISCUSSED WITH , FRANK AND PATIENT. ALL CONCERNS AND QUESTIONS WERE ANSWERED. PATIENT INSTRUCTED TO RESUME HOME MEDS AND CONTINUE HOME PD THIS EVENING. PATIENT SITTING UP IN BED IN RECOVERY ROOM CONVERSING APPROPRIATELY. PATIENT TOLERATING PO INTAKE WITHOUT DIFFICULTY. VSS ON ROOM AIR. PIV REMOVED, CATHETER TIP INTACT.
== END 2022-08-21 16:28 | disposition home or self-care (01) ==
LOC: MHTC 09:40
PROVIDERS: Radiology Diagnostic Radiology
DX: N18.6 End stage renal disease (principal); Z99.2 Dependence on renal dialysis
CPT/HCPCS: 80048; 85025; 99152; 99153; J2250; J3010; J7030; J7040; Q9967

== ENCOUNTER 2022-11-27 17:14 | Emergency (ER) | payer OTHER ==
[~2022-11-27] VITALS: Ht 180.3 cm; Wt 79.4 kg
[~2022-11-27 17:14] MED LIST changes: +AMOCLA500 PO; +CATAPRES0.1 MG PO; +POTA10T PO
[2022-11-27 18:45] LABS: Albumin, Blood 1.8 g/dL (3.4-5.0); Albumin/Globulin Ratio 0.3 (0.8-1.8); Bilirubin, Total 0.7 mg/dL (0.1-1.0); Bun/Creatinine Ratio 6.2 (12.0-20.0); Calcium, Blood 9.7 mg/dL (8.5-10.1); Creatinine, Blood 7.75 mg/dL (0.60-1.20); Globulin, Blood 5.7 g/dL (2.2-4.0); Potassium, Blood 3.6 mmol/L (3.5-5.5); Total Protein, Blood 7.5 g/dL (6.4-8.2)
[2022-11-27 19:05] LABS: BASOPHILS ABSOLUTE AUTO 0.05 K/mm3 (0.00-0.23); BASOPHILS PERCENT AUTO 0 % (0-2); EOSINOPHILS ABSOLUTE AUTO 0.17 K/mm3 (0.00-0.68); EOSINOPHILS PERCENT AUTO 1 % (0-6); Hematocrit 40.2 % (37.0-53.0); Hemoglobin 13.4 g/dL (13.5-17.5); IMMATURE GRAN PERCENT AUTO 1 % (0-1); LYMPHOCYTES ABSOLUTE AUTO 1.19 K/mm3 (0.84-5.20); LYMPHOCYTES PERCENT AUTO 9 % (21-46); MONOCYTES ABSOLUTE AUTO 0.97 K/mm3 (0.16-1.47); MONOCYTES PERCENT AUTO 7 % (4-13); Mean Corpuscular HGB 30.2 pg (26.0-34.0); Mean Corpuscular HGB Conc 33.3 g/dL (31.5-36.5); Mean Corpuscular Volume 91 fL (80-100); Mean Platelet Volume 9.4 fL (9.1-12.4); NEUTROPHILS ABSOLUTE AUTO 10.86 K/mm3 (1.96-9.15); NEUTROPHILS PERCENT AUTO 81 % (41-73); Platelet Count 228 K/mm3 (150-400); RDW Coefficient Variation 15.9 % (11.7-14.2); RDW Standard Deviation 53.2 fL (35.1-46.3); Red Blood Cell Count 4.43 M/mm3 (4.30-5.90); White Blood Cell Count 13.34 K/mm3 (4.00-11.30)
[2022-11-27 19:30] VITALS: BP 105/86
== END 2022-11-27 19:57 | disposition home or self-care (01) ==
LOC: ER 17:14
PROVIDERS: Student in an Organized Health Care Education/Training Program
DX: R42 Dizziness and giddiness (principal); I13.2 Hypertensive heart and chronic kidney disease with heart failure and with stage 5 chronic kidney disease, or end stage renal disease; E11.22 Type 2 diabetes mellitus with diabetic chronic kidney disease; N18.6 End stage renal disease; I50.30 Unspecified diastolic (congestive) heart failure; D63.1 Anemia in chronic kidney disease; I25.2 Old myocardial infarction; Z99.2 Dependence on renal dialysis; Z79.4 Long term (current) use of insulin; Z79.899 Other long term (current) drug therapy; Z79.82 Long term (current) use of aspirin
CPT/HCPCS: 36415; 71045; 80053; 85025; 93005; 93010; 96374; 99284-25; J3010

== ENCOUNTER 2022-12-08 12:34 | Emergency (ER) | payer OTHER ==
[~2022-12-08] VITALS: Ht 180.3 cm; Wt 79.8 kg
[2022-12-08 12:40] VITALS: BP 120/90
[2022-12-08 13:19] LABS: BASOPHILS ABSOLUTE AUTO 0.03 K/mm3 (0.00-0.23); BASOPHILS PERCENT AUTO 0 % (0-2); EOSINOPHILS ABSOLUTE AUTO 0.29 K/mm3 (0.00-0.68); EOSINOPHILS PERCENT AUTO 3 % (0-6); Hematocrit 46.1 % (37.0-53.0); Hemoglobin 15.2 g/dL (13.5-17.5); IMMATURE GRAN ABSOLUTE AUTO 0.04 K/mm3 (0.00-0.10); IMMATURE GRAN PERCENT AUTO 1 % (0-1); LYMPHOCYTES PERCENT AUTO 22 % (21-46); MONOCYTES ABSOLUTE AUTO 0.68 K/mm3 (0.16-1.47); MONOCYTES PERCENT AUTO 8 % (4-13); Mean Corpuscular HGB 29.6 pg (26.0-34.0); Mean Corpuscular Volume 90 fL (80-100); Mean Platelet Volume 9.5 fL (9.1-12.4); NEUTROPHILS PERCENT AUTO 67 % (41-73); Platelet Count 282 K/mm3 (150-400); RDW Coefficient Variation 16.1 % (11.7-14.2); RDW Standard Deviation 53.6 fL (35.1-46.3); Red Blood Cell Count 5.14 M/mm3 (4.30-5.90); White Blood Cell Count 8.84 K/mm3 (4.00-11.30)
[2022-12-08 13:49] LABS: Albumin, Blood 2.3 g/dL (3.4-5.0); Albumin/Globulin Ratio 0.4 (0.8-1.8); Bilirubin, Total 0.5 mg/dL (0.1-1.0); Bun/Creatinine Ratio 4.4 (12.0-20.0); Calcium, Blood 10.6 mg/dL (8.5-10.1); Creatinine, Blood 6.83 mg/dL (0.60-1.20); Globulin, Blood 6.2 g/dL (2.2-4.0); Potassium, Blood 3.2 mmol/L (3.5-5.5); Total Protein, Blood 8.5 g/dL (6.4-8.2)
[2022-12-08] MEDS ORDERED: OXYC5 PO (13:53)
== END 2022-12-08 14:03 | disposition home or self-care (01) ==
LOC: ER 12:34
PROVIDERS: Physician Assistant
DX: E83.59 Other disorders of calcium metabolism (principal); L98.499 Non-pressure chronic ulcer of skin of other sites with unspecified severity; N18.6 End stage renal disease; Z99.2 Dependence on renal dialysis; Z88.8 Allergy status to other drugs, medicaments and biological substances
CPT/HCPCS: 80053; 85025; 96374; 96375; 99283-25; J2270; J2405

== ENCOUNTER 2022-12-15 03:47 | Inpatient (IN) | payer OTHER ==
[2022-12-15] VITALS (51 sets, daily range): BP systolic 70–122; BP diastolic 45–91
[~2022-12-15] VITALS: Ht 180.3 cm; Wt 67.5 kg
[2022-12-15 04:30] LABS: BASOPHILS ABSOLUTE AUTO 0.05 K/mm3 (0.00-0.23); BASOPHILS PERCENT AUTO 0 % (0-2); EOSINOPHILS ABSOLUTE AUTO 0.11 K/mm3 (0.00-0.68); EOSINOPHILS PERCENT AUTO 1 % (0-6); Hematocrit 43.2 % (37.0-53.0); Hemoglobin 14.5 g/dL (13.5-17.5); IMMATURE GRAN ABSOLUTE AUTO 0.07 K/mm3 (0.00-0.10); IMMATURE GRAN PERCENT AUTO 0 % (0-1); LYMPHOCYTES ABSOLUTE AUTO 1.47 K/mm3 (0.84-5.20); LYMPHOCYTES PERCENT AUTO 9 % (21-46); MONOCYTES ABSOLUTE AUTO 1.21 K/mm3 (0.16-1.47); MONOCYTES PERCENT AUTO 7 % (4-13); Mean Corpuscular HGB 29.2 pg (26.0-34.0); Mean Corpuscular HGB Conc 33.6 g/dL (31.5-36.5); Mean Corpuscular Volume 87 fL (80-100); Mean Platelet Volume 9.3 fL (9.1-12.4); NEUTROPHILS ABSOLUTE AUTO 13.64 K/mm3 (1.96-9.15); NEUTROPHILS PERCENT AUTO 82 % (41-73); NRBC ABSOLUTE 0.02 K/mm3 (0.00-0.02); NRBC Auto 0.1 /100 WBC (0.0-0.2); Platelet Count 269 K/mm3 (150-400); RDW Coefficient Variation 16.3 % (11.7-14.2); RDW Standard Deviation 51.5 fL (35.1-46.3); Red Blood Cell Count 4.96 M/mm3 (4.30-5.90); White Blood Cell Count 16.55 K/mm3 (4.00-11.30)
[2022-12-15 04:51] LABS: Albumin/Globulin Ratio 0.4 (0.8-1.8); Bilirubin, Total 0.6 mg/dL (0.1-1.0); Bun/Creatinine Ratio 3.5 (12.0-20.0); Creatinine, Blood 7.38 mg/dL (0.60-1.20); Globulin, Blood 5.6 g/dL (2.2-4.0); Potassium, Blood 2.6 mmol/L (3.5-5.5); Total Protein, Blood 7.6 g/dL (6.4-8.2)
[2022-12-15] MEDS ORDERED: DROXIDOPA100 MG PO (08:51)
[2022-12-15] MEDS ORDERED: ELIQUIS2.5 MG PO (08:51)
--- NOTE | 2022-12-15 10:27 | NUR ---
ARRIVAL TO ICU PT ARRIVED TO ICU AT THIS TIME. PT IS ALERT AND ORIENTED. HE C/O CHEST PAIN AND NAUSEA. CHEST PAIN INCREASES WITH PALPATION MID-STERNUM AND L CHEST. PT HAS SMALL MID-STERNUM HERNIA. PT HAS EMESIS BAG WITH SMALL AMOUNT OF GREEN LIQUID. PT STS HE HAS BEEN NAUSEOUS AND VOMITTING FOR "A COUPLE MONTHS". BP LABILE WITH MAP 50S-60S. MULTIPLE WOUNDS, PHOTOS IN CHART. HOSPITALIST AND PACKAGING SALES CONSULTANT ROUNDING AND UPDATING PT AND SPOUSE ON PLAN OF CARE. SPOUSE FRANK AT BEDSIDE AND ABLE TO PROVIDE HEALTH HISTORY.
[2022-12-15 11:05] LABS: Anti-Xa UFH, PHA Monitoring 0.76 IU/mL; International Normalized Ratio 1.07; Prothrombin Time Results 11.2 Sec (9.7-11.5)
[2022-12-15 12:01] LABS: Automated BF WBC Count 0.003 K/mm3 (0-999)
[2022-12-15 12:03] LABS: Body Fluid WBC Count 3 /mm3 (0-999)
[2022-12-15 13:00] LABS: Appearance, Body Fluid Hazy (Clear); Color, Body Fluid No color (None-Yellow)
[2022-12-15 13:06] LABS: Total Cell Count, Body Fluid 15
--- NOTE | 2022-12-15 13:27 | NUR ---
"Spiritual Care Call Back | Pt. request Pt. is awake in bed and welcomes my visit. Spouse is present. Pt. is alert and interactive but displays evidence of great discomfort. Listen with interest and empathy and a calming presence. Pt. verbalized he had hope to see spray rig operator Tim, but to give him greetings. Prayed with Pt. During prayer Pt. expressed great discomfort in his bedpan area. When his assisted him, there was evidence of blood in his stool. Called nurse Eda to attend. Pt. verbalized gratitude for the spiritual care visit."
--- NOTE | 2022-12-15 17:54 | NUR ---
SHIFT SUMMARY PT IS ALERT AND ORIENTED. HE HAS CHEST/ABDOMEN PAIN THAT IS EXACERBATED WITH PALPATION AND GENERALIZED DISCOMFORT. SINUS RHYTHM ON MONITOR WITH RATE 60S-70S. MAP VARIES BETWEEN 50S-70S. GOAL TO MAINTAIN MAP >60. BOWEL TONES HYPOACTIVE, ABDOMEN SOFT. PT HAD ONE SMALL BM THAT WAS RED/MUCOUS. PT STS HE IS ANURIC. PT REPOSITIONS SELF SIDE TO SIDE. ECHO COMPLETED TODAY. BED IN LOW POSITION AND CALL LIGHT WITHIN REACH.
--- NOTE | 2022-12-15 21:10 | NUR ---
ASSUMPTION OF CARE NOTE UPON ASSESSMENT PT WAS VERY UPSET AND WITHDRAWN, WANTED TO EAT, AND IS VERY TIRED UNDERSTANDABLY. CURRENTLY ON 2L NC, LUNG SOUNDS CLEAR. C/O DIFFUSE PAIN THROUGHOUT BUT DID NOT WANT TO RECIEVE ANY PAIN MEDICATIONS. STATES "I JUST DON'T WANT ANY". DID WANT MEDICATION FOR NAUSEA AND WAS ABLE TO TAKE A COUPLE BITES OF JELLO. CURRENTLY IN FIRST DEGREE HEART BLOCK. PLAN FOR PERITONEAL DIALYSIS TONIGHT. PT REPORTS HE IS ANURIC AT BASELINE.
--- NOTE | 2022-12-15 21:39 | NUR ---
UPDATE NOTIFIED DR. DAVIS ABOUT 1ST DEGREE HEART BLOCK IT IS NOT IN ANY OTHER NOTE. ALSO AWARE ABOUT THE POTENTIAL NEED FOR CARDIOLOGY CONSULT. ORDER TO PLACE A REPEAT TROPONIN IN AM.
--- NOTE | 2022-12-15 22:28 | NUR ---
DIALYSIS: PD NOTE TO ICU 15 FOR CCPD OVERNIGHT TX INITIATION. DIALYSIS CYCLER SET-UP PER ORDERS USING ASEPTIC TECHNIQUE. PATIENT IS ALERT AND OREINTED X4. PATIENT TO RUN FOR 11 HOURS WITH 5 EXCHANGES OF 2500 ML AND LAST FILL OF 1500 ML. PD CATHETER DRESSING IS CDI. PATIENT CONNECTED TO CYCLER AND TREATMENT STARTED AND RUNNING WITHOUT PROBLEMS. REPORT GIVEN TO PRIMARY RN.
[2022-12-16] VITALS (25 sets, daily range): BP systolic 75–131; BP diastolic 47–80
[2022-12-16 03:51] LABS: Hemoglobin 12.1 g/dL (13.5-17.5); Mean Corpuscular HGB 29.4 pg (26.0-34.0); Mean Corpuscular HGB Conc 33.6 g/dL (31.5-36.5); Mean Corpuscular Volume 87 fL (80-100); Mean Platelet Volume 9.4 fL (9.1-12.4); Platelet Count 243 K/mm3 (150-400); RDW Coefficient Variation 16.4 % (11.7-14.2); RDW Standard Deviation 51.8 fL (35.1-46.3); Red Blood Cell Count 4.12 M/mm3 (4.30-5.90); White Blood Cell Count 15.98 K/mm3 (4.00-11.30)
[2022-12-16 04:04] LABS: Albumin, Blood 1.7 g/dL (3.4-5.0); Albumin/Globulin Ratio 0.4 (0.8-1.8); Bilirubin, Total 0.4 mg/dL (0.1-1.0); Bun/Creatinine Ratio 3.7 (12.0-20.0); Calcium, Blood 9.6 mg/dL (8.5-10.1); Creatinine, Blood 7.21 mg/dL (0.60-1.20); Globulin, Blood 4.6 g/dL (2.2-4.0); Magnesium, Blood 1.9 mg/dL (1.6-2.4); Phosphorus, Blood 3.9 mg/dL (2.5-4.9); Potassium, Blood 2.9 mmol/L (3.5-5.5); Total Protein, Blood 6.3 g/dL (6.4-8.2)
--- NOTE | 2022-12-16 04:19 | NUR ---
UPDATE PT NOW COMPLAINING OF L ARM NUMBNESS ALONG WITH CHEST PAIN. 12 LEAD EKG REDONE WITH NO VISIBLE CHANGES. TROPONIN DRAWN, AWAITING RESULTS.
--- NOTE | 2022-12-16 05:47 | NUR ---
SHIFT SUMMARY PT SLEPT MAJORITY OF SHIFT. WHEN HE WAS AWAKE HE DID CONTINUE TO COMPLAIN OF CONSTANT CHEST PAIN. AROUND 2 AM PT ALSO REPORTED A NUMB L ARM. REPEAT 12 LEAD COMPLETED WITH NO VISIBLE CHANGES. THIS AM TROPONIN LABS DO CONTINUE TO INCREASE. MD AWARE. PT IS CURRENTLY RECIEVING HEMODIALYSIS. POTASSIUM REPLACEMENT OCCURING FOR POTASSIUM OF 2.9. 1 SCANT BLOOD TINGED BM OVERNIGHT. MAP REMAINED OVER 60 WITHOUT ANY INTERVENTION THIS SHIFT
[2022-12-16 09:16] LABS: Vancomycin, Random 25.1 ug/mL
--- NOTE | 2022-12-16 11:19 | NUR ---
DIALYSIS - PD TX NOT COMPLETED AT 0800. 0900 DC'ED TX PER PEDRO. ID [id number], UF [id number]. FLUID CLEAR. PT STATES HE DIDN'T SLEEP WELL.
[2022-12-16] MEDS ORDERED: SODBIC650 PO (11:34)
--- NOTE | 2022-12-16 14:01 | NUR ---
SHIFT ASSESSMENT ASSUMED CARE OF PT @ 0700. PT A&OX4, TENA, COOPERATING WITH CARE. INIITIALLY THIS AM PT WAS NAUSEATED, VOMITED A SMALL AMNT OF LIQUID EMESIS. MEDICATED c PRN ANTIEMETICS. PT ALSO C/O MODERATE PAIN TO CHEST & ABDOMEN, HOSPITALIST AWARE, MEDICATED PT c PRN PAIN MEDS, PAIN CURRENTLY CONTROLLED. PT MILDLY HYPOTENSIVE, DAY PROGRESSED BP HAS STABILIZED. PT TOLERATING MIDODRINE, LAST SBP OF 109, MAP 76. NSR ON THE MONITOR. SUPPLEMENTAL O2 DC'D, SATS >95% ON RA. PT CONTINUALLY REMOVES SPO2 PROBE, SPOT CHECKING NOW. SKIN IN FAIR TO POOR CONDITION, MULTIPLE WOUNDS (SEE PHOTOS IN CHART). WOUNDS TO L HAND AND FINGERS DRESSED WITH PETROLEUM DRESSING AND KERLEX, PT DECLINED DRESSING TO GROIN. NEW MEPILEX TO COCCYX. PT APPETITE POOR BUT TOLERATING SNACKS. CBG ELEVATED DURING LUNCH, CONSULTED HOSP, ONE TIME DOSE OF 8U GLARGINE GIVEN, WILL MONITOR AND REASSESS NEED FOR HOME DOSING THIS EVENING. PT NOW PCU STATUS.
[2022-12-16 17:25] LABS: Hematocrit 35.5 % (37.0-53.0); Hemoglobin 11.9 g/dL (13.5-17.5)
--- NOTE | 2022-12-16 17:30 | NUR ---
TX NOTE PT TRANSFERED FROM ICU TO PCU 4. PT SETTLED IN ROOM. VITAL SIGNS REMAIN STABLE. PT SITTING UP EATING DINNER TRAY. CUPOLA OPERATOR INSULATION AT BEDSIDE SETTING UP PERITONEAL DIALYSIS. WILL CONTINUE TO MONITOR PT AND REPORT OFF TO ONCOMING RN.
--- NOTE | 2022-12-16 18:04 | NUR ---
DIALYSIS PD PT WATCHING TV. MORE ALERT AND APPEARS TO FEEL BETTER. VERY TALKATIVE. CONNECTED TO TX PER PROTOCAL . 11 HRS 15373 TOTAL 4 EXHANGES, 2:11 DWELL TIME, LAST FILL 1999. 2.5 % DEXTROSE DIANEAL. HEPARIN ADDED TO EACH BAG.
--- NOTE | 2022-12-16 18:50 | NUR ---
I have reviewed the student services advisor documentation and am in agreement
[2022-12-17 00:59] VITALS: BP 108/65
--- NOTE | 2022-12-17 02:23 | NUR ---
END OF SHIFT: PATIENT CONCERNS: NEUROPATHY WITH INCREASED BLE PAIN. OF NOTE HIS CALF OF HIS BKA HAS BEEN SPECIFICALY STARTING TO HURT IN THE LAST DAY OR TWO, TO WHICH IS UNUSUAL FOR THE PATIENT. PATIENT RECENT NEW ORDER FOR CBG, NO INSULIN COVERAGE AT THIS TIME. PATIENT HIMSELF, HAS ENDORSED SOME MORE DECREASE TO HIS ABILITY TO SWALLOW, WILL INFORM DAY RN. PATIENT SINCE CONTINUING MIDODINE, VSS, NO CONCERNS FORM THIS RN IN THAT RESPECT, DENIES PAIN EXCEPT FOR BKA CALF AND GROIN. RA SPO2 >95%. PATIENT HAS BEEN ABLE TO MAKE NEEDS KNOWN. PD STILL RUNNING AT THIS TIME. WILL CONTINUE TO MONITOR AT THIS TIME.
[2022-12-17 04:00] LABS: Hematocrit 36.6 % (37.0-53.0); Hemoglobin 12.2 g/dL (13.5-17.5); Mean Corpuscular HGB 29.3 pg (26.0-34.0); Mean Corpuscular HGB Conc 33.3 g/dL (31.5-36.5); Mean Corpuscular Volume 88 fL (80-100); Mean Platelet Volume 9.4 fL (9.1-12.4); Platelet Count 228 K/mm3 (150-400); RDW Coefficient Variation 16.8 % (11.7-14.2); RDW Standard Deviation 53.4 fL (35.1-46.3); Red Blood Cell Count 4.17 M/mm3 (4.30-5.90); White Blood Cell Count 14.47 K/mm3 (4.00-11.30)
[2022-12-17 04:26] LABS: Albumin, Blood 1.7 g/dL (3.4-5.0); Anion Gap 17 mmol/L (6-16); Blood Urea Nitrogen 24 mg/dL (8-24); Bun/Creatinine Ratio 3.7 (12.0-20.0); CO2, Blood 21 mmol/L (21-32); Calcium, Blood 9.7 mg/dL (8.5-10.1); Chloride, Blood 101 mmol/L (98-108); Creatinine, Blood 6.44 mg/dL (0.60-1.20); Glomerular Filtration Rate 9 (60-); Glucose, Blood 223 mg/dL (70-99); Magnesium, Blood 1.7 mg/dL (1.6-2.4); Phosphorus, Blood 3.2 mg/dL (2.5-4.9); Potassium, Blood 2.9 mmol/L (3.5-5.5); Sodium, Blood 139 mmol/L (136-145); Vancomycin, Random 25.2 ug/mL
[2022-12-17 07:43] VITALS: BP 125/99
--- NOTE | 2022-12-17 08:29 | NUR ---
DIALYSIS - PD PT AWAKE AND ALERT. DC'D PD TX PER PROTOCAL. ID [id number] ML. UF [id number] ML. SITE CLEAR. LEFT A DRESSING IN CASE HE SHOWERS. FLUID CLEAR.
--- NOTE | 2022-12-17 09:56 | NUR ---
AM NOTE PT IS ALERT AND ORIENTATED TO PERSON, PLACE, DATE, AND SITUATION. PT IS IRRITABLE WITH INTERACTION. PT COMPLAINS OF CHEST ACHING, HAND PAIN, AND LEFT CALF PAIN. PT HAS BEEN ACTIVELY VOMITTING, MEDICATED PER EMAR. PT HAS NOT SUBSIDED ACTIVELY VOMITTING. PROVIDER CONTACTED FOR INSULIN COVERAGE AND DIFFERENT NAUSEA MEDICATION. WILL CONTINUE TO MONITOR PT.
[2022-12-17 11:12] VITALS: BP 100/52
[2022-12-17 11:45] LABS: RBC Count, Body Fluid 0 /mm3 (0-0)
[2022-12-17 15:31] VITALS: BP 108/91
--- NOTE | 2022-12-17 16:13 | NUR ---
SHIFT SUMMARY PT REMAINED ALERT AND ORIENTATED THROUGHOUT THE SHIFT. VITAL SIGNS HAVE REMIANED STABLE. PT HAS BEEN INTERMITTENTLY VOMITTING THROUGHOUT THE SHIFT MEDICATED PER EMAR. PT COMPLAINS OF CHRONIC CHEST ACHING, L CALF PAIN, AND L HAND PAIN, MEDICATED PER EMAR. FIRST PORTION OF STRESS TEST COMPLETED TODAY, SECOND PORTION WILL BE COMPLETED IN THE AM. WOUNDS ON LEFT HAND REDRESSED WITH XEROFORM AND KERLIX. PT WILL BE NPO, EXCEPT WATER, AFTER MIDNIGHT AWAITING STRESS TEST. WILL MONITOR OFF TO ONCOMING RN.
--- NOTE | 2022-12-17 18:21 | NUR ---
I have reviewed the director school of nursing documentation and am in agreement.
[2022-12-17 19:40] VITALS: BP 142/72
--- NOTE | 2022-12-17 20:06 | NUR ---
DIALYSIS-PD NURSERY HELPER SAYS HIS VSS. HE NOT LIKELY BE TRANSFERRED TO ANOTHER FLOOR. STARTED TX PER PROTOCAL. HE WAS CRYING, SAYING HE DID NOT WANT TO . PT REFUSED TO LET ME SEE HIS PORT.
--- NOTE | 2022-12-17 22:39 | NUR ---
UPDATE PT REFUSED ALL PO MEDICATIONS THIS PM. PT STATED "IF ITS NOT IV, I DONT WANT IT". PT EDUCATED ON NEED TO CONTINUE WITH SCHEDULED MEDICATIONS AND THE RISK FACTORS OF MISSING DOSES OF SAID MEDICATIONS. PT VERBALLY CONFIRMED HIS REFUSAL AGAIN. WILL CONTINUE TO ENCOURAGE PT TO TAKE MEDICATIONS ORDERED VIA EMAR. NO NEW ORDERS AT THIS TIME.
[2022-12-17 23:34] VITALS: BP 107/70
[2022-12-18] VITALS (9 sets, daily range): BP systolic 86–138; BP diastolic 48–96
[2022-12-18 04:21] LABS: Hematocrit 37.2 % (37.0-53.0); Hemoglobin 12.8 g/dL (13.5-17.5)
[2022-12-18 04:49] LABS: Albumin, Blood 1.8 g/dL (3.4-5.0); Anion Gap 26 mmol/L (6-16); Blood Urea Nitrogen 23 mg/dL (8-24); Bun/Creatinine Ratio 3.5 (12.0-20.0); CO2, Blood 16 mmol/L (21-32); Calcium, Blood 9.9 mg/dL (8.5-10.1); Chloride, Blood 98 mmol/L (98-108); Creatinine, Blood 6.52 mg/dL (0.60-1.20); Glomerular Filtration Rate 9 (60-); Glucose, Blood 238 mg/dL (70-99); Magnesium, Blood 1.8 mg/dL (1.6-2.4); Phosphorus, Blood 2.7 mg/dL (2.5-4.9); Potassium, Blood 3.6 mmol/L (3.5-5.5); Sodium, Blood 140 mmol/L (136-145); Vancomycin, Random 20.3 ug/mL
--- NOTE | 2022-12-18 05:09 | NUR ---
SHIFT SUMMARY PT IS A/Ox4 AND MOSTLY COOPERATIVE WITH CARE PROVIDED BY STAFF. MOOD CAN BE VERY LABILE FOR PT CAN BECOME AGITATED WITH STAFF VERY EASILY WELL REFUSE CARE. WITH THIS BEING SAID, NO ACUTE EVENTS OVERNIGHT. CARDIAC LOUIS, REMAINED IN SR-ST W/INTERMITTENT PVC'S 80-100'S. NO C/O CP OR PRESSURE FOR ME LAST NIGHT. PRESSURES HAVE BEEN SOFT, BUT STABLE. PT REFUSED HIS SCHEDULED DOSE OF MIDODRINE CITING THAT HE CANNOT SWALLOW IT. LOOKING BACK AT EMAR RECORDS, PT HAS BEEN TAKING THIS MEDICATION FOR SEVERAL DAYS W/O APPARENT ISSUE. SEE UPDATE NOTE FOR DETAILS. PT HAS BEEN NPO SINCE MDN FOR SECOND PART OF STRESS TEST TODAY. RESPIRATORY LOUIS, REMAINS ON RA WITH NO C/O SOB OR DYSPNEA. PT RECEIVED PERITONEAL DIALYSIS LAST NIGHT W/O ISSUE. SPEECH THERAPY CONSULTED TO SEE PT THIS AM WELL. PT REPOSITIONED PER HIS REQUEST. NO NEW ORDERS AT THIS TIME, WILL REPORT TO ONCOMING RN. LUNA OF THIS NOTE.
--- NOTE | 2022-12-18 09:15 | NUR ---
TO PCU 4 FOR PD DISCONNECT PER MD ORDERS. PT LYING ON RIGHT SIDE, STATES VERY UNCOMFORTABLE. CONTINUES WITH ABDOMINAL PAIN. NUCLEAR STUDY IN PROCESS. PD SITE IS CLEAR, FLUID IS CLEAR. DISCONNECTED ASEPTICALLY PER PROTOCOL. PT TOLERATED FAIR. LEFT IN FAIR CONDITION. CYNDY
--- NOTE | 2022-12-18 09:53 | NUR ---
AM NOTE PT IS ALERT AND ORIENTATED TO PERSON, PLACE, TIME, AND SITUATION. VITAL SIGNS REMAIN STABLE. PT MAINTAINING A SPO2 >95% ON ROOM AIR. FOLLOWING PARITETNEAL DIALYSIS, PT HAS BECAME NAUSEOUS AND VOMMITING, MEDICATED PER EMAR, STILL ACTIVLY VOMITTING. PROVIDER NOTFIED. PT COMPLAINS OF CHEST ACHING, L CALF PAIN, AND L HAND PAIN. PT UNABLE TO TAKE MORNING PO MEDICATIONS AT THIS TIME R/T VOMITTING WILL PROVIDE LATER DOSES IF POSSIBLE. PT REFUSED TO WORK WITH SPEECH THERAPY R/T VOMMITING. 2ND HALF OF STRESS TEST WILL HAPPEN AT 1100. WILL CONTINUE TO MONITOR PT.
--- NOTE | 2022-12-18 13:02 | NUR ---
Spiritual care visit conducted. Patient immediately tells me that he has had horrible medical issues that have resulted in a below the knee amputation, and other parts cut and removed. He shares about his personal struggles to maintain hope and a reason to not give up completely. We explore sources of meaning and purpose, spiritual inspiration and strengths of those who support and care for him. I normalize his experience, reinforce helpful attitudes and perspectives, and provide therapeutic listening and prayer. Patient responds well and shows signs of increased hope and greater sense of self. I will continue to remain available to patient and family.
--- NOTE | 2022-12-18 17:21 | NUR ---
SHIFT SUMMARY PT REMAINED ALERT AND ORIENTATED THROUGHOUT THE SHIFT. PT HAD AN IMMENSE AMOUNT OF NAUSEA AND VOMITTING THIS AM, MEDICATED WITH PRN ANTIEMETICS. PT COMPLAINING OF ACHING CHEST PAIN. PROVIDER NOTIFIED AND MEDICATED WITH GI COCKTAIL. PT HAS REFUSED TO TAKE PO MEDICATIONS, ALONG WITH PO PAIN MEDICATIONS, REQUESTING IV PAIN MEDICATIONS. PT REMINDED THAT WE ARE UNABLE TO PROVIDE IV PAIN MEDICATION WITH THE LOWERED B/P PT'S B/P LOWERED TO 73/46, PT ACCEPTED PO MIDODRINE, B/P IMPROVED TO 138/82. PT HAS BEEN EXTREMELY LABILE, IRRITABLE, AND VERBALLY LASHING OUT AT STAFF. PT WENT FOR THE STRESS TEST AND RESULTED WITH NORMAL FUNCTIONING. PT'S SIGNIFICANT OTHER HAS BEEN CONTACTING THE [facility] AND WISHING FO THE PATIENT TO BE TRANSFERED. ATTENDING PROVIDER NOTIFIED. WILL REPORT OFF TO ONCOMING RN.
--- NOTE | 2022-12-18 21:15 | NUR ---
PD RN TO PT RM [id number] TO SET UP CCPD CYCLER FOR PD NIGHT TREATMENT. MACHINE PRIMED AND READY TO CONNECT AT APPROX 0920PM. PT CONNECTED PER LIZ PROTOCOL AND PT ORDERS.
[2022-12-19] VITALS (9 sets, daily range): BP systolic 81–140; BP diastolic 52–93
[2022-12-19 03:42] LABS: Hematocrit 39.3 % (37.0-53.0); Hemoglobin 13.3 g/dL (13.5-17.5)
[2022-12-19 04:04] LABS: Albumin, Blood 1.9 g/dL (3.4-5.0); Anion Gap 21 mmol/L (6-16); Blood Urea Nitrogen 33 mg/dL (8-24); Bun/Creatinine Ratio 4.8 (12.0-20.0); CO2, Blood 20 mmol/L (21-32); Calcium, Blood 10.3 mg/dL (8.5-10.1); Chloride, Blood 95 mmol/L (98-108); Creatinine, Blood 6.81 mg/dL (0.60-1.20); Glomerular Filtration Rate 8 (60-); Glucose, Blood 248 mg/dL (70-99); Magnesium, Blood 2.1 mg/dL (1.6-2.4); Phosphorus, Blood 3.4 mg/dL (2.5-4.9); Potassium, Blood 4.1 mmol/L (3.5-5.5); Sodium, Blood 136 mmol/L (136-145); Vancomycin, Random 20.8 ug/mL
--- NOTE | 2022-12-19 04:38 | NUR ---
SHIFT SUMMARY REMAINS A/Ox4 AND MOSTLY COOPERATIVE WITH CARE PROVIDED BY MEMBERS OF STAFF. ANSWERS QUESTIONS APPROPRIATELY AND ABLE TO MAKE HIS NEEDS KNOWN. NO ACUTE EVENTS LAST NIGHT FOR PT WAS ABLE TO SLEEP T/O MOST OF THE SHIFT. PT WAS MUCH MORE PLEASANT AND NOT IRRATIBLE HE HAS BEEN THE LAST COUPLE OF DAYS. CARDIAC LOUIS, REMAINS IN SR 70-90'S WITH OCCASIONAL PVC'S. SOME REPORT OF CP, PAIN REDUCED WITH PRN GI COCKTAIL MIXTURE. SBP HAS CONTINUED TO BE SOFT, LIKELY RELATED TO REFUSAL OF SCHEDULED MIDODRINE. RESPIRATORY LOUIS, MAINTAINS SPO2 >94% ON RA WITH NO REPORTS OF SOB OR DYSPNEA. CONTINUES TO HAVE INTERMITTENT EPISODES OF N/V, MEDICATED ORDERED PER EMAR. PT RECEIVED PD THIS SHIFT WITH NO REPORTS OF ANY COMPLAINTS. PER DAYSHIFT REPORT, SPOUSE OF PT WOULD LIKE TO DISCUSS PLAN OF CARE WITH CASE MANAGMENT. WILL PASS ALONG TO DAY SHIFT RN. NO NEW ORDERS, NADN OF THIS NOTE.
--- NOTE | 2022-12-19 09:46 | NUR ---
DIALYSIS NOTE CCPD TX COMPLETED PRESCRIBED. PT'S , PRIMARY RN AND STUDENT RN AT BEDSIDE PROVIDING CARE. PT DISCONNECTED FROM CYCLER ASEPTICALLY PER P&P. IDRAIN 236 TUF 1487, AVG DWELL 1:56. EFFLUENT CLEAR, NO FIBRIN NOTED. PT REPORTS HE TOLERATED TX WELL WITH NO ALARMS DURING NIGHT. REPORT GIVEN TO PRIMARY RN PEDRO.
--- NOTE | 2022-12-19 12:08 | NUR ---
PT A&OX4. PLEASANT/IRRITABLE, COOPERATIVE WITH CARE. LUNG SOUNDS CLEAR THROUGHOUT, 02 SATURATION ABOVE 94% ON ROOM AIR, PT DENIES SOB. HR SR 70'S-90'S, DENIES CHEST PAIN/PRESSURE. PT COMPLAINS OF 8/10 UPPER ABD PAIN & DISCOMFORT WHEN SWALLOWING, GI COCKTAIL GIVEN PER MAR, PAIN MEDS ADMINISTERED PER SEP. SCATTERED SCABS THROUGHOUT SKIN, ALL CLEANED, SCABS ON L HAND COVERED. OPEN WOUND ON GENITALIA CLEANED. PTS IN ROOM WITH HIM, CALL LIGHT WITHIN REACH.
--- NOTE | 2022-12-19 12:43 | NUR ---
1130 BLOOD SUGAR READING 467. CALL PLACED TO DR. HERNANDEZ. ORDERS TO GIVE 5 UNITS OF HUMALOG PER SLIDING SCALE AND TO RECHECK IN ONE HOUR. BLOOD SUGAR RECHECKED IN ONE HOUR AND READING ABOVE 500. LAB IN TO DRAW. CALL PLACED TO DR. HERNANDEZ. ORDERS FOR ADDITIONAL DOSE OF 10 UNITS OF HUMALOG. ORDERS IN PLACE AND GIVEN. WILL RECHECK BLOOD SUGAR IN ONE HOUR.
[2022-12-19 13:09] LABS: Glucose, Blood 544 mg/dL (70-99)
--- NOTE | 2022-12-19 15:08 | NUR ---
DR. HERNANDEZ CALLED TO UPDATE ON BLOOD SUGAR READING 412 AND TRENDING DOWN. NO NEW ORDERS FOR THIS RN TO PLACE. PATIENT CHANGED TO MEDIUM SLIDING SCALE AND LONG ACTING INSULIN INCREASED. REMAINS AT BEDSIDE AND UPDATED. DR. HERNANDEZ IN TO DISCUSS PLAN OF CARE WITH AND PATIENT. OTHER VISITORS AT BEDSIDE AT THIS TIME.
--- NOTE | 2022-12-19 15:18 | NUR ---
PT'S WENT HOME. PT IS RESTING IN BED AND VISITING WITH TWO FRIENDS/FAMILY MEMBERS. CALL LIGHT WITHIN REACH.
--- NOTE | 2022-12-19 15:20 | NUR ---
Spiritual care visit conducted. Patient is lying in bed and alert. He is tearful about the tension he feels about his health care needs not being met. He balances his statements by voicing his appreciation for the medical staff and how it seems like everyone is currently on the same page. He talks about his fears, personal struggles and family. He seems deeply moved by prayer and asks if we could pray tomorrow as well and call his brother in [place] to join us. I listen empathically, point out the excellence and intent to care that our staff possess and provide theological insights and prayer. Patient displayed evidence of greater peace about himself, his care and his future. I will continue to remain available to patient and family.
--- NOTE | 2022-12-19 16:38 | NUR ---
PD RN TO PT RM [id number] AT APPROX 1615. PT WAS IN THE MIDDLE OF GETTING A NEW IV PLACED. PT REPORTED PAIN OF 6 ON A SCALE OF 0-10. HE WAS CONNECTED AT APPROX 1630PM TO HIS EVENING PD TREATMENT. PT WAS IN BETTER SPIRITS AND MORE POSITIVE TODAY THEN HE IN[place] I SAW HIM LAST NIGHT. HE THANKED ME AND SHOOK MY HAND AFTER CONNECTING HIM AND REQUESTED TAHT I TURN OFF HIS LIGHT I EXITED HIS RM.
--- NOTE | 2022-12-19 17:01 | NUR ---
NO ACUTE CHANGES, SEE PREVIOUS NOTES. PT RESTING IN BED WATCHING TV. PT CONTINUES TO DENY SOB, 02 SATURATION ABOVE 94% ON RA. PT CONTINUES TO DENY CHEST PAIN/PRESSURE, HR SR 70'S-90'S. PT STATED UPPER ABD PAIN HAS SUBSIDED. POWERGLIDE DRESSING CHANGED PER PROTOCOL, PT HANDLED PROCEDURE WELL. PT DUE TO TRANSFER TO MEDICAL UNIT TONIGHT, WAITING FOR ROOM TO BE CLEANED AND TO GIVE REPORT TO NURSE ON MEDICAL FLOOR. CALL LIGHT WITHIN REACH.
--- NOTE | 2022-12-19 17:53 | NUR ---
PT TRANSFERRED TO MEDICAL FLOOR ROOM 338. THIS STUDENT NURSE AND PEDRO BURROWS GAVE REPORT TO NURSE TAKING OVER HIS CARE ON MEDICAL FLOOR. PT TRANSFERRED WITH ALL OF HIS BELONGINGS. PARAMEDIC RN ASSISTED WITH PD TRANSFER.
--- NOTE | 2022-12-19 17:59 | NUR ---
PD RN TO PT RM PCU04 TO DISCONNECT CCPD NIGHT TREATMENT DUE TO PATIENT BEING TRASFERED FROM PCU TO [facility] FLOOR. DISCONNECTED AT APPROX 1735 AND RECONECTED AT APPROX 1745PM. TREATMENT WAS ON DWELL 1 OF 5 AND THE CYCLER CONTINUED AFTER RECONNECT WITH CCPD NIGHT TREATMENT.
--- NOTE | 2022-12-19 18:08 | NUR ---
ARRIVAL ON MEDICAL FLOOR AT 1748, RECIEVED BY THIS RN. MANAGER FIRE ALSO PRESENT AND REHOOKED PATIENT BACK UP TO DIALYSIS. NO COMPLAINTS BY PATIENT AT THIS TIME. VITALS STABLE FOR PATIENT. AOX4 BED IN LOW POSITION. CALL LIGHT IN REACH. WILL CONTINUE TO MONITOR.
[2022-12-20 03:14] VITALS: BP 90/62
[2022-12-20 05:24] LABS: Hematocrit 37.6 % (37.0-53.0); Hemoglobin 12.9 g/dL (13.5-17.5)
--- NOTE | 2022-12-20 05:53 | NUR ---
PATIENT IS ORIENTED X4, NON COOPERATIVE AT TIMES WELL VERBALLY ABUSIVE, THEN WILL APOLOGISE. AT START OF SHIFT POC BLOOD SUGAR WAS 56, PATIENT REFUSED GLUGOSE GELL, YELLED AND SENT STAFF OUT OF THE ROOM. AT ABOUT 45 MIN AFTER, HE WAS ACCEPTING OF TREATMENT, AND BS WENT UP TO 229 AFTER 15 MIN. LONG ACTING INSULIN OK TO ADMINISTER PER MD. A 0300 POC GLUCOSE WAS 121. PATIENT HYPOTENSIVE AND TAKES MIDODRINE. PERITONEAL DIALYSIS THROUGHOUT THE NIGHT. LBKA STUMP IS GOOD CONDITION WITH HEALED SKIN/NO OPEN AREAS. MULTI SCATTERED WOUNDS THROUGHOUT, PATIENT REMOVED DRESSINGS AND REFUSED APPLICATION. NO OTHER ISSUES TO REPORT.
[2022-12-20 05:58] LABS: Albumin, Blood 1.8 g/dL (3.4-5.0); Anion Gap 25 mmol/L (6-16); Blood Urea Nitrogen 48 mg/dL (8-24); Bun/Creatinine Ratio 8.1 (12.0-20.0); CO2, Blood 19 mmol/L (21-32); Calcium, Blood 10.2 mg/dL (8.5-10.1); Chloride, Blood 89 mmol/L (98-108); Glomerular Filtration Rate 10 (60-); Glucose, Blood 167 mg/dL (70-99); Magnesium, Blood 2.1 mg/dL (1.6-2.4); Phosphorus, Blood 2.1 mg/dL (2.5-4.9); Potassium, Blood 3.7 mmol/L (3.5-5.5); Sodium, Blood 133 mmol/L (136-145); Vancomycin, Random 17.7 ug/mL
[2022-12-20 07:43] VITALS: BP 85/58
--- NOTE | 2022-12-20 09:27 | NUR ---
DIALYSIS NOTE CCPD TX COMPLETED PRESCRIBED. PT RESTING WITH EYES CLOSED AND AWAKENS EASILY. PT DISCONNECTED FROM CYCLER ASEPTICALLY PER P&P. IDRAIN 1792 TUF 862, AVG DWELL 1:24. EFFLUENT CLEAR, NO FIBRIN NOTED. RN REPORTS MULTIPLE ALARMS DURING NIGHT THAT WERE TROUBLE SHOOTED AND RESOLVED. REPORT GIVEN TO PRIMARY RN.
--- NOTE | 2022-12-20 12:58 | NUR ---
Spiritual care visit conducted. Patient is in resting when I enter the room but wakes up with the sound of his name. He expresses his desire to go home and also his concerns about being well enough to manage. He is tired and asks for prayer so he can return to resting. Just as I finish praying he gets a cell phone call and takes the call I allow him his privacy. I will continue to remain available to patient and family.
[2022-12-20] MEDS ORDERED: JUVEN PACKET1 EAC3 PO (13:22)
[2022-12-20] MEDS ORDERED: FAMO20 PO (13:23)
[2022-12-20] MEDS ORDERED: NEPHRO VITAMIN0.8 MG PO (13:23)
[2022-12-20] MEDS ORDERED: LIQUACEL PO (13:24)
[2022-12-20] MEDS ORDERED: B-1100 MG PO (13:24)
--- NOTE | 2022-12-20 14:23 | NUR ---
DISCHARGE NOTE PT DISCHARGED TO HOME, TRANSPORTED BY HIS . BOTH PG AND IV REMOVED SUCCESSFULLY. DISCHAREGE INFORMATION AND EDUCATION PROVIDED. PERSONAL BELONGINGS RETURNED.
== END 2022-12-20 14:27 | disposition home health service (06) | DRG 871 ==
LOC: ER 03:47 → ICUW 07:25 → MEDS 07:25 → PCU 07:25 → ICUW 10:16 → PCU 12-16 17:20 → MEDS 12-19 17:47
PROVIDERS: Emergency Medicine; Family Medicine; Internal Medicine Nephrology; ADMIT Hospitalist
DX: A41.9 Sepsis, unspecified organism (principal); N18.6 End stage renal disease; I13.2 Hypertensive heart and chronic kidney disease with heart failure and with stage 5 chronic kidney disease, or end stage renal disease; E87.20 Acidosis, unspecified; I50.32 Chronic diastolic (congestive) heart failure; E87.1 Hypo-osmolality and hyponatremia; R65.20 Severe sepsis without septic shock; I95.9 Hypotension, unspecified; E11.22 Type 2 diabetes mellitus with diabetic chronic kidney disease; D63.1 Anemia in chronic kidney disease; E87.6 Hypokalemia; M10.9 Gout, unspecified; K74.60 Unspecified cirrhosis of liver; K22.0 Achalasia of cardia; E86.1 Hypovolemia; I48.91 Unspecified atrial fibrillation; G47.33 Obstructive sleep apnea (adult) (pediatric); I49.5 Sick sinus syndrome; R07.9 Chest pain, unspecified; K21.9 Gastro-esophageal reflux disease without esophagitis; I25.9 Chronic ischemic heart disease, unspecified; R77.8 Other specified abnormalities of plasma proteins; E11.649 Type 2 diabetes mellitus with hypoglycemia without coma; B18.2 Chronic viral hepatitis C; E83.52 Hypercalcemia; L94.2 Calcinosis cutis; E86.9 Volume depletion, unspecified; I25.2 Old myocardial infarction; Z87.81 Personal history of (healed) traumatic fracture; Z98.1 Arthrodesis status; Z90.49 Acquired absence of other specified parts of digestive tract; Z87.39 Personal history of other diseases of the musculoskeletal system and connective tissue; Z98.890 Other specified postprocedural states; Z99.2 Dependence on renal dialysis; Z88.8 Allergy status to other drugs, medicaments and biological substances; Z79.891 Long term (current) use of opiate analgesic; Z79.82 Long term (current) use of aspirin; Z89.512 Acquired absence of left leg below knee; Z95.1 Presence of aortocoronary bypass graft; Z79.4 Long term (current) use of insulin; Z79.899 Other long term (current) drug therapy
CPT/HCPCS: 36415; 71045; 73560-LT; 74176; 78452; 80053; 80069; 80202; 82947; 83605; 83735; 84100; 84132; 84145; 84484; 85014; 85018; 85025; 85027; 85520; 85610; 85730; 87040; 87070; 87205; 89051; 92610; 93005; 93010; 93017; 93306; 96365; 96367; 96375; 96376; 99285-25; A9270; A9500; C1751; C9113; J0280; J0692; J0780; J1644; J1815; J2405; J2765; J2785; J3010; J3370; J3480; J7030; J7050; J7060; J7120

== ENCOUNTER 2023-01-19 14:10 | Emergency (ER) | payer OTHER ==
[~2023-01-19] VITALS: Ht 180.3 cm; Wt 68.0 kg
[~2023-01-19 14:10] MED LIST changes: +B-1100 MG PO; +DROXIDOPA100 MG PO; +ELIQUIS2.5 MG PO; +JUVEN PACKET1 EAC3 PO; +LIQUACEL PO; +NEPHRO VITAMIN0.8 MG PO
[2023-01-19 14:39] LABS: BASOPHILS ABSOLUTE AUTO 0.04 K/mm3 (0.00-0.23); BASOPHILS PERCENT AUTO 0 % (0-2); EOSINOPHILS ABSOLUTE AUTO 0.04 K/mm3 (0.00-0.68); EOSINOPHILS PERCENT AUTO 0 % (0-6); Hematocrit 41.5 % (37.0-53.0); Hemoglobin 13.9 g/dL (13.5-17.5); IMMATURE GRAN ABSOLUTE AUTO 0.05 K/mm3 (0.00-0.10); IMMATURE GRAN PERCENT AUTO 0 % (0-1); LYMPHOCYTES ABSOLUTE AUTO 1.45 K/mm3 (0.84-5.20); LYMPHOCYTES PERCENT AUTO 12 % (21-46); MONOCYTES ABSOLUTE AUTO 0.73 K/mm3 (0.16-1.47); MONOCYTES PERCENT AUTO 6 % (4-13); Mean Corpuscular HGB 29.9 pg (26.0-34.0); Mean Corpuscular HGB Conc 33.5 g/dL (31.5-36.5); Mean Corpuscular Volume 89 fL (80-100); Mean Platelet Volume 9.3 fL (9.1-12.4); NEUTROPHILS ABSOLUTE AUTO 9.63 K/mm3 (1.96-9.15); NEUTROPHILS PERCENT AUTO 81 % (41-73); Platelet Count 245 K/mm3 (150-400); RDW Coefficient Variation 17.1 % (11.7-14.2); RDW Standard Deviation 54.1 fL (35.1-46.3); Red Blood Cell Count 4.65 M/mm3 (4.30-5.90); White Blood Cell Count 11.94 K/mm3 (4.00-11.30)
[2023-01-19] MEDS ORDERED: NITR.4SL SL (14:41)
[2023-01-19 15:03] LABS: Albumin, Blood 2.1 g/dL (3.4-5.0); Albumin/Globulin Ratio 0.4 (0.8-1.8); Bilirubin, Total 0.4 mg/dL (0.1-1.0); Bun/Creatinine Ratio 4.5 (12.0-20.0); Calcium, Blood 10.5 mg/dL (8.5-10.1); Creatinine, Blood 8.05 mg/dL (0.60-1.20); Globulin, Blood 5.5 g/dL (2.2-4.0); Potassium, Blood 3.2 mmol/L (3.5-5.5); Total Protein, Blood 7.6 g/dL (6.4-8.2)
[2023-01-19 15:04] LABS: Magnesium, Blood 2.6 mg/dL (1.6-2.4); Phosphorus, Blood 6.3 mg/dL (2.5-4.9)
[2023-01-19 16:00] VITALS: BP 92/62
== END 2023-01-19 16:16 | disposition home or self-care (01) ==
LOC: ER 14:10
PROVIDERS: Emergency Medicine
DX: R06.02 Shortness of breath (principal); E87.6 Hypokalemia; I13.2 Hypertensive heart and chronic kidney disease with heart failure and with stage 5 chronic kidney disease, or end stage renal disease; E11.22 Type 2 diabetes mellitus with diabetic chronic kidney disease; N18.6 End stage renal disease; I50.30 Unspecified diastolic (congestive) heart failure; D63.1 Anemia in chronic kidney disease; B19.20 Unspecified viral hepatitis C without hepatic coma; Z99.2 Dependence on renal dialysis; Z88.8 Allergy status to other drugs, medicaments and biological substances; Z79.01 Long term (current) use of anticoagulants; Z79.4 Long term (current) use of insulin; Z79.899 Other long term (current) drug therapy; M10.9 Gout, unspecified; I25.2 Old myocardial infarction
CPT/HCPCS: 71045; 80053; 83735; 84100; 84484; 85025; 93005; 93010; 99285-25; A9270; J7030

== ENCOUNTER 2023-01-24 11:17 | Observation (INO) | payer OTHER ==
[~2023-01-24] VITALS: Ht 180.3 cm; Wt 62.2 kg
[2023-01-24 12:21] LABS: BASOPHILS ABSOLUTE AUTO 0.02 K/mm3 (0.00-0.23); BASOPHILS PERCENT AUTO 0 % (0-2); EOSINOPHILS ABSOLUTE AUTO 0.03 K/mm3 (0.00-0.68); EOSINOPHILS PERCENT AUTO 0 % (0-6); Hematocrit 44.8 % (37.0-53.0); Hemoglobin 15.5 g/dL (13.5-17.5); IMMATURE GRAN PERCENT AUTO 1 % (0-1); LYMPHOCYTES ABSOLUTE AUTO 1.83 K/mm3 (0.84-5.20); LYMPHOCYTES PERCENT AUTO 10 % (21-46); MONOCYTES ABSOLUTE AUTO 1.16 K/mm3 (0.16-1.47); MONOCYTES PERCENT AUTO 7 % (4-13); Mean Corpuscular HGB 30.6 pg (26.0-34.0); Mean Corpuscular HGB Conc 34.6 g/dL (31.5-36.5); Mean Corpuscular Volume 89 fL (80-100); Mean Platelet Volume 10.2 fL (9.1-12.4); NEUTROPHILS ABSOLUTE AUTO 14.75 K/mm3 (1.96-9.15); NEUTROPHILS PERCENT AUTO 82 % (41-73); Platelet Count 269 K/mm3 (150-400); RDW Coefficient Variation 18.4 % (11.7-14.2); Red Blood Cell Count 5.06 M/mm3 (4.30-5.90); White Blood Cell Count 17.89 K/mm3 (4.00-11.30)
[2023-01-24 13:08] LABS: Albumin, Blood 2.5 g/dL (3.4-5.0); Albumin/Globulin Ratio 0.4 (0.8-1.8); Bilirubin, Total 0.4 mg/dL (0.1-1.0); Bun/Creatinine Ratio 4.5 (12.0-20.0); Calcium, Blood 11.6 mg/dL (8.5-10.1); Creatinine, Blood 8.5 mg/dL (0.60-1.20); Potassium, Blood 3.2 mmol/L (3.5-5.5); Total Protein, Blood 8.5 g/dL (6.4-8.2)
[2023-01-24 13:54] LABS: Base Excess Venous -10.3 mmol/L; Bicarbonate Venous 16.7 mmol/L (24.0-30.0); PCO2 Venous 36.7 mmHg (38-42)
[2023-01-24 13:55] LABS: pH Blood Venous 7.26 (7.34-7.37)
--- NOTE | 2023-01-24 15:03 | NUR ---
pt in Emergency room from home. End stage critically ill pt on peritoneal dialysis with significant co-morbid conditions. states recent changes to dialysis treatment. state pt has been irving and constipated. Notified inpatient team and called [facility] of pt needs. They thought he was on hospice. clarified he is not on hospice. They have an appointment at the end of the month With the palliative team for review of support for his pain management. states the are not ready for hospice. Pt listed as DNI will address code status. pt kps score is 30%. Brief supportive visit with she is tearful and revieweing their life together will follow up with plan of care.
[2023-01-24 17:28] VITALS: BP 112/69
[2023-01-24] MEDS ORDERED: MIRALAX17 GM PO (18:22)
[2023-01-24] MEDS ORDERED: SEVEC800 PO (18:24)
[2023-01-24] MEDS ORDERED: EPLE25 PO (18:26)
--- NOTE | 2023-01-24 19:57 | NUR ---
PCU ADMIT / END OF SHIFT PT BROUGHT TO PCU-7 BY JUDITH FROM ER @ APPROX 1720. PT SLID OVER FROM GURNEY TO PCU BED D/T PT REPORT OF INABILITY TO STAND & BEING WHEELCHAIR BOUND AT BASELINE. PT A&O X4 BUT POOR HISTORIAN W/ MEDICAL HX & MEDICATIONS. PT PROVIDING HISTORY. PT VSS. SPO2 > 92% ON RA. MONITOR SHOWING NSR. PT REPORTING BP MUST BE DONE ON R SIDE D/T "BACK FLOW ON L ARM THAT MAKES A 30 POINT DIFFERENCE." PT W/ PD PORT RLQ. PT REPORTING PT DOES 11 HRS PD Q NIGHT BUT LAST NIGHT WAS ONLY ABLE TO PERFORM 9 HRS THEN PT WOKE UP NOT FEELING WELL THIS AM. PT REPORTS PT DOES NOT PRODUCE URINE. PT ALSO REPORTING PT UNABLE TO EAT ANYTHING FOR A FEW DAYS D/T INABILITY TO KEEP ANYTHING DOWN BUT STATES PT DRINKING A LOT OF FLUID. PT W/ EXTENSIVE WOUNDS W/ WOUNDS NOTED TO BILAT HANDS/FINGERS, COCCYX, PENIS, BILAT KNEES, THIGHS, & R FOOT/TOES. WOUND PHOTOS IN CHART. WHEN CLARIFYING CODE STATUS W/ PT , PT STATING FULL CODE STATUS DESIRED BY PT & THAT PT JUST DOES NOT WANT TO REMAIN ON A VENTILATOR FOR A LONG TIME.
[2023-01-24 20:24] LABS: Automated BF WBC Count 0.056 K/mm3 (0-999)
--- NOTE | 2023-01-24 20:32 | NUR ---
TO PCU 7 FOR EVENING PD TX, PT IS LYING ON RIGHT SIDE SLEEPING. TX INITIATED ASEPTICALLY AND PER DR MEZA ORDERS. SITE IS CLEAND AND INTACT. FLUID IS CLEAR. PT TOLERATED WELL. LEFT IN STABLE CONDITION. CYNDY
[2023-01-24 20:40] LABS: Body Fluid WBC Count 56 /mm3 (0-999)
[2023-01-24 20:50] LABS: RBC Count, Body Fluid 17 /mm3 (0-0)
[2023-01-24 20:54] LABS: Appearance, Body Fluid Clear (Clear); Color, Body Fluid L Yellow (None-Yellow)
[2023-01-24 21:11] LABS: Total Cell Count, Body Fluid 100
[2023-01-24 21:13] VITALS: BP 102/52
--- NOTE | 2023-01-24 21:22 | NUR ---
1900 TO PCU 7 TO COLLECT PERITONEAL FLUID FOR MICRO STUDIES. PT LYING ON R SIDE. PLEASANT AND COOPERATIVE. ABD SOFT AND NONTENDER. FLUID COLLECTED ASEPTICALLY PER PROTOCOL AND DR MEZA ORDERS. LABELED AND HAND CARRIED TO LAB FOR ANALYSIS. FLUID IS CLEAR. DR MÉNDEZ UPDATED. PD SITE CLEAN AND DRY, INTACT. CYNDY
[2023-01-24 23:00] VITALS: BP 101/63
[2023-01-25 03:18] VITALS: BP 101/59
[2023-01-25 04:33] LABS: BASOPHILS ABSOLUTE AUTO 0.03 K/mm3 (0.00-0.23); BASOPHILS PERCENT AUTO 0 % (0-2); EOSINOPHILS ABSOLUTE AUTO 0.12 K/mm3 (0.00-0.68); EOSINOPHILS PERCENT AUTO 1 % (0-6); IMMATURE GRAN ABSOLUTE AUTO 0.08 K/mm3 (0.00-0.10); IMMATURE GRAN PERCENT AUTO 1 % (0-1); LYMPHOCYTES ABSOLUTE AUTO 1.48 K/mm3 (0.84-5.20); LYMPHOCYTES PERCENT AUTO 11 % (21-46); MONOCYTES ABSOLUTE AUTO 1.16 K/mm3 (0.16-1.47); MONOCYTES PERCENT AUTO 8 % (4-13); Mean Corpuscular HGB 30.2 pg (26.0-34.0); Mean Corpuscular HGB Conc 33.3 g/dL (31.5-36.5); Mean Corpuscular Volume 91 fL (80-100); Mean Platelet Volume 9.3 fL (9.1-12.4); NEUTROPHILS ABSOLUTE AUTO 11.23 K/mm3 (1.96-9.15); NEUTROPHILS PERCENT AUTO 80 % (41-73); NRBC ABSOLUTE 0.02 K/mm3 (0.00-0.02); NRBC Auto 0.1 /100 WBC (0.0-0.2); Platelet Count 187 K/mm3 (150-400); RDW Coefficient Variation 17.8 % (11.7-14.2); RDW Standard Deviation 57.5 fL (35.1-46.3)
--- NOTE | 2023-01-25 05:08 | NUR ---
SHIFT SUMMARY NO ACUTE CHANGES OVERNIGHT. PT FINISHING PERITONEAL DIALYSIS CURRENTLY. PT IS ALERT AND ORIENTED X3-4. EASILY AGGITATED. CURSED/YELLED AT STAFF MULTIPLE TIMES. EDUCATION PROVIDED ABOUT NPO STATUS. PT REPORTS NAUSEA DURING THIS SHIFT WITH NO VOMITING. BP STABLE. ON RA WITH SPO2 >92%. SR ON MONITOR WITH PAC'S/PVC'S NOTED, HR 70-80'S. DENIES CHEST PAIN/PRESSURE. DENIES SOB. AFEBRILE. PT REQUESTING TO BE LEFT ALONE MUCH POSSIBLE DURING THIS SHIFT. IRRITATED FREQUENTLY BY NEED FOR THIS RN TO TAKE VITALS OR DO ASSESSMENTS. ASSESSED PATIENT/FAMILY FOR IGNITION RISK, EDUCATED ABOUT FIRE SAFETY. BED IN LOWEST POSITION AND CALL LIGHT WITHIN REACH. THIS RN WILL CONTINUE TO MONITOR UNTIL SHIFT CHANGE AT 0700.
[2023-01-25 06:14] LABS: Albumin/Globulin Ratio 0.4 (0.8-1.8); Bilirubin, Total 0.3 mg/dL (0.1-1.0); Bun/Creatinine Ratio 4.4 (12.0-20.0); Calcium, Blood 10.5 mg/dL (8.5-10.1); Creatinine, Blood 7.95 mg/dL (0.60-1.20); Globulin, Blood 4.9 g/dL (2.2-4.0); Potassium, Blood 3.1 mmol/L (3.5-5.5); Total Protein, Blood 6.9 g/dL (6.4-8.2)
[2023-01-25 07:29] VITALS: BP 94/61
--- NOTE | 2023-01-25 08:29 | NUR ---
DIALYSIS-PD PT SLEEPING BUT EASILY AROUSED. SITE CLEAR, FLUID CLEAR. DRESSING CLEAN AND IN PLACE. UF [id number] ML, ID [id number] ML. TX DC'ED PER PROTOCAL.
[2023-01-25 11:35] VITALS: BP 108/67
[2023-01-25 15:20] VITALS: BP 106/59
--- NOTE | 2023-01-25 17:26 | NUR ---
SHIFT SUMMARY: PT REMAINS ALERT AND ORIENTED X3-4. WITHDRAWN/IRRITABLE AT TIMES. BP SOFT, MEDICATED W/ MIDODRINE PER EMAR, HR STABLE, AFEBRILE, SATS >95% ON ROOM AIR. RESPIRATIONS EVEN AND UNLABORED. CBG 110-130'S THIS SHIFT. PT WITH NO URINARY OUTPUT, NO BM. IN THIS AM AND UPDATED ON PT CARE. PLAN FOR POSSIBLE D/C TOMORROW. BED IN LOW, CALL LIGHT IN REACH, WILL REPORT TO ONCOMING RN.
--- NOTE | 2023-01-25 17:36 | NUR ---
pt more alert has appetite doing much better today. He is till very frail kps score is 40%. Called and updated his dialysis nurse at [facility]. Willtalk to the about his Ultrafiltration and his slow decline to help her with acceptance. Will suggest [facility].
--- NOTE | 2023-01-25 18:50 | NUR ---
FIRE SAFETY: PATIENT EDUCATED REGARDING IGNITION SOURCES AND RISK OF INJURY WHILE OXYGEN IS IN USE. PATIENT VERBALIZE UNDERSTANDING.
--- NOTE | 2023-01-25 19:24 | NUR ---
DIALYSIS PD PT ALMOSTLY COMPLETELY UNDER HIS BLANKETS. I SET UP HIS TRAY FOR HIM TO EAT. HE ONLY TOOK A FEW BITES. I CONNECTED HIM TO HIS PD PER PROTOCAL. CHANGED HIS DRESSING PER PROTOCAL. TX STARTED AT 1814. REPORTED TO HIS NURSE.
[2023-01-25 20:16] VITALS: BP 111/71
--- NOTE | 2023-01-25 21:15 | NUR ---
ASSUMED PT CARE FROM SHELTON CHAUDHRY RN ON . PT A&OX4. IRRITABLE BUT ALLOWING CARE. DENIES ANY SOB OR CHEST PAIN THIS EVENING. O2 SATS > 92% ON RA. HR IS SINUS RUPA IN THE 50'S. BP INDICATES MIDODRINE DOSE PER PRN ORDERS BUT PT HAS ALREADY RECEIVED [address] VIVAS INFORMED, INSTRUCTED TO MONITOR, NO NEW ORDERS AT THIS TIME. COMPLAINING OF PAIN WITH IV FLUSHING, NO REDNESS OR SWELLING NOTED. PT REFUSING NEW IV SITE AT THIS TIME.
--- NOTE | 2023-01-25 23:02 | NUR ---
IV ANTIBIOTIC INFUSING WITHOUT ANY REDNESS OR SWELLING NOTED.
[2023-01-25 23:22] VITALS: BP 97/60
[2023-01-26 04:14] VITALS: BP 121/77
[2023-01-26 04:44] LABS: Hematocrit 40.6 % (37.0-53.0); Hemoglobin 13.7 g/dL (13.5-17.5)
[2023-01-26 04:59] LABS: Albumin, Blood 1.9 g/dL (3.4-5.0); Anion Gap 23 mmol/L (6-16); Blood Urea Nitrogen 34 mg/dL (8-24); Bun/Creatinine Ratio 4.4 (12.0-20.0); CO2, Blood 13 mmol/L (21-32); Chloride, Blood 101 mmol/L (98-108); Creatinine, Blood 7.65 mg/dL (0.60-1.20); Glomerular Filtration Rate 7 (60-); Glucose, Blood 205 mg/dL (70-99); Magnesium, Blood 2.2 mg/dL (1.6-2.4); Phosphorus, Blood 4.5 mg/dL (2.5-4.9); Potassium, Blood 3.9 mmol/L (3.5-5.5); Sodium, Blood 137 mmol/L (136-145)
--- NOTE | 2023-01-26 05:13 | NUR ---
SHIFT SUMMARY: NO ACUTE CHANGES NOTED DURING THIS SHIFT. BP CONTINUES TO BE SOFT, PT ASYMPTOMATIC. PT HAS DECLINED ALL ATTEMPTS TO REPOSITION THROUGHOUT SHIFT, IS ABLE TO SHIFT SELF IN BED. SLEPT MAJORITY OF SHIFT. HR REMAINS SR WITH PVC'S. CALL LIGHT IN REACH. BED ALARM ON.
[2023-01-26 07:26] VITALS: BP 110/70
--- NOTE | 2023-01-26 07:48 | NUR ---
DIALYSIS-PD PT AWAKE AND ALERT. HE SAYS HE IS GOING HOME TODAY. ID [id number] ML, UF 850 ML. SOLUTION CLEAR. SITTING UP IN BED DRINKING A CUP OF COFFEE AND SAYING HOW MUCH HE LOVES COFFEE.
[2023-01-26 08:55] LABS: PCO2 Arterial 28.9 mmHg (35-45); PO2 Arterial 104 mmHg (80-100); pH Blood Arterial 7.39 (7.35-7.45)
--- NOTE | 2023-01-26 10:20 | NUR ---
UPDATE: 0745: PT WITH L AC IV, COMPLAINING OF MILD PAIN, HARD TO FLUSH. PT REFUSING NEW IV PLACEMENT. 0815: PT REFUSING ABG DRAW. REQUESTING DR. MÉNDEZ AT BEDSIDE. 0845: DR MÉNDEZ AT BEDSIDE, PT AGREEABLY TO ABG. 1000: PT EXPRESSING WANTING TO LEAVE BY 1130 AM OR WILL LEAVE AGAINST MEDICAL ADVICE. EUCATION PROVIDED. AGREEABLE TO STAY AT THIS TIME.
[2023-01-26 11:40] VITALS: BP 111/71
[2023-01-26 11:59] LABS: Bun/Creatinine Ratio 4.4 (12.0-20.0); Calcium, Blood 9.7 mg/dL (8.5-10.1); Creatinine, Blood 7.89 mg/dL (0.60-1.20); Potassium, Blood 3.5 mmol/L (3.5-5.5)
--- NOTE | 2023-01-26 13:22 | NUR ---
DISCHARGE: PT DISCHARGE @1322 VIA WHEELCHAIR. ALL BELONGINGS WITH PT. DISCHARGE EDUCATION AND INSTRUCTIONS PROVIDED.
== END 2023-01-26 13:28 | disposition home or self-care (01) ==
LOC: ER 11:17 → MEDS 11:18 → PCU 11:18
PROVIDERS: Emergency Medicine; Internal Medicine Nephrology; ADMIT Internal Medicine
DX: E86.0 Dehydration (principal); G93.41 Metabolic encephalopathy; N18.6 End stage renal disease; I96 Gangrene, not elsewhere classified; Z99.2 Dependence on renal dialysis; E11.43 Type 2 diabetes mellitus with diabetic autonomic (poly)neuropathy; K31.84 Gastroparesis; E11.52 Type 2 diabetes mellitus with diabetic peripheral angiopathy with gangrene; I48.91 Unspecified atrial fibrillation; E87.6 Hypokalemia; D63.1 Anemia in chronic kidney disease; E11.22 Type 2 diabetes mellitus with diabetic chronic kidney disease; Z79.4 Long term (current) use of insulin; E44.1 Mild protein-calorie malnutrition; K74.60 Unspecified cirrhosis of liver; B18.2 Chronic viral hepatitis C; Z89.512 Acquired absence of left leg below knee; Z79.01 Long term (current) use of anticoagulants; I95.89 Other hypotension; E87.1 Hypo-osmolality and hyponatremia; E87.20 Acidosis, unspecified; E83.52 Hypercalcemia; I49.5 Sick sinus syndrome; E11.51 Type 2 diabetes mellitus with diabetic peripheral angiopathy without gangrene; I25.2 Old myocardial infarction; I50.32 Chronic diastolic (congestive) heart failure; I13.2 Hypertensive heart and chronic kidney disease with heart failure and with stage 5 chronic kidney disease, or end stage renal disease; Z68.1 Body mass index [BMI] 19.9 or less, adult
CPT/HCPCS: 36415; 36600; 71045; 80048; 80053; 80069; 82010; 82803; 82947; 83605; 83735; 84145; 85014; 85018; 85025; 87040; 87070; 87075; 87077; 87186; 87205; 89051; 93005; 93010; 96361; 96365; 96366; 96367; 96375; 96376; 99285-25; A9270; G0257; G0378; J1815; J2405; J2543; J3480; J7030; J7050

== ENCOUNTER 2023-01-31 20:33 | Inpatient (IN) | payer OTHER ==
[~2023-01-31] VITALS: Ht 165.1 cm; Wt 64.0 kg
[2023-01-31 21:10] LABS: Calcium, Ionized (POC) 1.15 mmol/L (1.10-1.46); Chloride (POC) 100 mmol/L (98-108); Glucose (ISTAT POC) 185 mg/dL (70-99); Hemoglobin (POC) 16.7 g/dL (13.5-17.5); Potassium (POC) 3.9 mmol/L (3.5-5.5); Sodium (POC) 135 mmol/L (135-148); Total CO2 (POC) 23 mmol/L (21-32)
[2023-01-31 21:13] LABS: BASOPHILS ABSOLUTE AUTO 0.04 K/mm3 (0.00-0.23); BASOPHILS PERCENT AUTO 0 % (0-2); EOSINOPHILS ABSOLUTE AUTO 0.04 K/mm3 (0.00-0.68); EOSINOPHILS PERCENT AUTO 0 % (0-6); Hematocrit 44.6 % (37.0-53.0); IMMATURE GRAN PERCENT AUTO 1 % (0-1); LYMPHOCYTES ABSOLUTE AUTO 1.14 K/mm3 (0.84-5.20); LYMPHOCYTES PERCENT AUTO 7 % (21-46); MONOCYTES ABSOLUTE AUTO 0.93 K/mm3 (0.16-1.47); MONOCYTES PERCENT AUTO 6 % (4-13); Mean Corpuscular HGB Conc 33.6 g/dL (31.5-36.5); Mean Corpuscular Volume 92 fL (80-100); Mean Platelet Volume 10.7 fL (9.1-12.4); NEUTROPHILS PERCENT AUTO 86 % (41-73); NRBC ABSOLUTE 0.03 K/mm3 (0.00-0.02); NRBC Auto 0.2 /100 WBC (0.0-0.2); Platelet Count 189 K/mm3 (150-400); RDW Coefficient Variation 18.4 % (11.7-14.2); RDW Standard Deviation 61.1 fL (35.1-46.3); Red Blood Cell Count 4.84 M/mm3 (4.30-5.90); White Blood Cell Count 15.85 K/mm3 (4.00-11.30)
[2023-01-31 21:35] LABS: International Normalized Ratio 1.05
[2023-01-31 21:59] LABS: Albumin, Blood 1.9 g/dL (3.4-5.0); Albumin/Globulin Ratio 0.4 (0.8-1.8); Bilirubin, Total 0.8 mg/dL (0.1-1.0); Bun/Creatinine Ratio 4.7 (12.0-20.0); Creatinine, Blood 7.29 mg/dL (0.60-1.20); Globulin, Blood 5.3 g/dL (2.2-4.0); Total Protein, Blood 7.2 g/dL (6.4-8.2)
--- NOTE | 2023-01-31 22:21 | NUR ---
DIALYSIS NOTE EFFLUENT SAMPLE OBTAINED PER P&P PER MD ORDER. EFLUENT CLEAR, NO FIBRIN NOTED. PT TOLERATED WELL WITH C/O. TRANSFER SET CLAMPED, CAPPED AND SECUREED. HANDOFF REPORT GIVEN TO ROC PALOMINO.
[2023-01-31 22:54] LABS: Automated BF WBC Count 0.008 K/mm3 (0-999)
[2023-01-31 22:58] LABS: Body Fluid WBC Count 8 /mm3 (0-999)
[2023-01-31] MEDS ORDERED: DROXIDOPA100 MG PO (23:03)
[2023-01-31 23:04] LABS: RBC Count, Body Fluid 1 /mm3 (0-0)
[2023-01-31 23:05] LABS: Appearance, Body Fluid Clear (Clear); Color, Body Fluid No color (None-Yellow)
[2023-01-31 23:20] LABS: Glucose, Body Fluid 317 mg/dL; Protein, Body Fluid 0.2 g/dL
[2023-01-31 23:26] LABS: Base Excess Venous -6.7 mmol/L; Bicarbonate Venous 18.4 mmol/L (24.0-30.0); PCO2 Venous 50.8 mmHg (38-42)
[2023-01-31 23:28] LABS: pH Blood Venous 7.22 (7.34-7.37)
[2023-01-31 23:58] LABS: Total Cell Count, Body Fluid 25
[2023-02-01] VITALS (33 sets, daily range): BP systolic 54–138; BP diastolic 32–110
[2023-02-01 04:22] LABS: BASOPHILS ABSOLUTE AUTO 0.03 K/mm3 (0.00-0.23); BASOPHILS PERCENT AUTO 0 % (0-2); EOSINOPHILS ABSOLUTE AUTO 0.01 K/mm3 (0.00-0.68); EOSINOPHILS PERCENT AUTO 0 % (0-6); Hematocrit 39.6 % (37.0-53.0); Hemoglobin 13.1 g/dL (13.5-17.5); IMMATURE GRAN ABSOLUTE AUTO 0.08 K/mm3 (0.00-0.10); IMMATURE GRAN PERCENT AUTO 0 % (0-1); LYMPHOCYTES ABSOLUTE AUTO 1.03 K/mm3 (0.84-5.20); LYMPHOCYTES PERCENT AUTO 6 % (21-46); MONOCYTES ABSOLUTE AUTO 0.75 K/mm3 (0.16-1.47); MONOCYTES PERCENT AUTO 4 % (4-13); Mean Corpuscular HGB Conc 33.1 g/dL (31.5-36.5); Mean Corpuscular Volume 94 fL (80-100); Mean Platelet Volume 10.1 fL (9.1-12.4); NEUTROPHILS ABSOLUTE AUTO 15.98 K/mm3 (1.96-9.15); NEUTROPHILS PERCENT AUTO 89 % (41-73); Platelet Count 125 K/mm3 (150-400); RDW Coefficient Variation 18.4 % (11.7-14.2); RDW Standard Deviation 62.2 fL (35.1-46.3); Red Blood Cell Count 4.23 M/mm3 (4.30-5.90); White Blood Cell Count 17.88 K/mm3 (4.00-11.30)
[2023-02-01 04:43] LABS: Albumin, Blood 1.6 g/dL (3.4-5.0); Albumin/Globulin Ratio 0.3 (0.8-1.8); Bilirubin, Total 0.6 mg/dL (0.1-1.0); Bun/Creatinine Ratio 4.7 (12.0-20.0); Calcium, Blood 9.2 mg/dL (8.5-10.1); Creatinine, Blood 7.24 mg/dL (0.60-1.20); Globulin, Blood 4.6 g/dL (2.2-4.0); Magnesium, Blood 2.1 mg/dL (1.6-2.4); Phosphorus, Blood 5.5 mg/dL (2.5-4.9); Total Protein, Blood 6.2 g/dL (6.4-8.2)
[2023-02-01 06:36] LABS: Adenovirus F 40/41 Not Detected (NOT DETECT); Astrovirus Not Detected (NOT DETECT); Campylobacter Sp Not Detected (NOT DETECT); Cryptosporidium Not Detected (NOT DETECT); Cyclospora Cayetanensis Not Detected (NOT DETECT); E. Coli O157 Not Detected (NOT DETECT); Entamoeba Histolytica Not Detected (NOT DETECT); Enteroaggregative E. coli-EAEC Not Detected (NOT DETECT); Enteropathogenic E. coli-EPEC Not Detected (NOT DETECT); Enterotoxigenic E. coli-ETEC Not Detected (NOT DETECT); Giardia Lamblia Not Detected (NOT DETECT); Norovirus GI/GII Not Detected (NOT DETECT); Plesiomonas Shigelloides Not Detected (NOT DETECT); Rotavirus A Not Detected (NOT DETECT); Salmonella Sp Not Detected (NOT DETECT); Sapovirus Not Detected (NOT DETECT); Shiga Toxin-prod E. coli-STEC Not Detected (NOT DETECT); Shigella/Enteroin E. coli-EIEC Not Detected (NOT DETECT); Vibrio Cholerae Not Detected (NOT DETECT); Vibrio Sp Not Detected (NOT DETECT); Yersinia Enterocolitica Not Detected (NOT DETECT)
--- NOTE | 2023-02-01 07:26 | NUR ---
ARRIVAL TO ICU/END OF SHIFT SUMMARY PT ARRIVED TO ICU 4 AT 0325 VIA ED BED AND TRANSFERED OVER TO ICU BED VIA SLIDE SHEET. HE IS A/O X4; LABILE WITH MOOD, ONE MOMENT VERY APPRICIATIVE OF RN HELP, THE NEXT MOMENT CRYING, TO THE NEXT MOMENT OF DISCUSSING HIS FAMILY. PAIN IN THE ABD COMES AND GOES; IMPROVES WHEN LAYING ON THE LT SIDE. SPO2 VERY CHALLENGING TO GET A READING ON; NO C/O SOB; OCCATIONAL READING FROM SPO2 READ 90-95%. NSR WITH RATE IN THE 70'S; FREQUENT PVC'S NOTED WHEN HE FIRST ARRIVED BUT HAS SLOWED DOWN. CHALLENGING TO GET AN ACCURATE BP; CONSISTANTLY HYPOTENSIVE REGARDLESS OF PATIENT POSITION; A CALL WAS MADE TO DR MACEDO WHO PROVIDED NEW ORDERS TO GIVE A DOSE OF MIDODRINE NOW AND START LEVOPHED; LEVOPHED NOW INFUSING AT 3MCG/MIN; WHILE AWAKE SBP 110-120; WHILE SLEEPING SBP 70-80'S AND MAPS 50'S. TOLERATING SIPS OF WATER WELL; TWO SMALL LIQUID STOOLS SINCE ARRIVAL TO ICU; BOTH JANET RED, AND BLACK; STOOL SAMPLE SENT OUT. PERITONEAL DIALYSIS CATH TO ABD; NO SIGNS OF REDNESS. DRY GANGRENE WOUNDS NOTED T/O EXTREMITIES INCLUDING FINGERS, KNEES, TOES, AND HEEL; REDNESS NOTED TO COCCYX MEPILEX PLACED; PICTURES OF WOUNDS AND COCCYX TAKEN AND IN CHART. A CALL WAS MADE TO DR MACEDO REGARDING AM POTASSIUM; NEW ORDERS PROVIDED FOR 20MEQ OF KCL; VARIFIED THAT DR MACEDO WANTED LR TO INFUSING AT 75ML/HR. REPORT GIVEN TO MIHCELE CANO. SPECIFIC CONVERSATION MADE WITH PATIENT REGARDING CODE STATUS. HE ORIGINALLY WAS A LIMITED CODE/DNI; AFTER A CONVERSATION WITNESS BY THE CHARGE NURSE TOO; PT HAS NOW DECIDED TO BE A FULL CODE. DR MACEDO MADE AWEAR AND CODE STATUS UPDATED.
[2023-02-01 11:22] LABS: Hemoglobin 12.7 g/dL (13.5-17.5)
--- NOTE | 2023-02-01 13:00 | NUR ---
DIALYSIS NOTE CYCLER SET UP FOR EVENING CCPD TX. PT CONNECTED PER P&P, DRSG CHANGE CMPLETED, EXIT SITE IN PERFECT CONDITION. EFFLUENT CLEAR/YELLOW DURING INITIAL DRAIN. HANDOFF REPORT GIVEN TO MICHELE PALOMINO RN.
--- NOTE | 2023-02-01 14:18 | NUR ---
Received call from supervisor opening and picking Nolan who reports having a conversation with Pt regarding hospice. Pt may benefit from further conversation. Pt resting in bed upon arrival. Engaged in therapuetic listening as Pt confirms considering hospice. Pt reports significant decrease in quality of life. He reports becoming tired of dialysis and suffers from pain on a regular basis. Continued therapeutic listening. Educated on hospice philosophy and answered questions. Pt reports he will consider this option further and discuss with his spouse. He states being unsure if his completly ready to stop dialysis. Pt expresses appreciation and reports no other concerns at this time. Palliative Care will remain available
[2023-02-01 17:21] LABS: Hematocrit 35.4 % (37.0-53.0); Hemoglobin 11.6 g/dL (13.5-17.5)
--- NOTE | 2023-02-01 18:22 | NUR ---
SUMMARY PT RESTING IN BED, A/O X4. HAS CHRONIC PAIN ALL OVER. MULTIPLE GANGRENOUS WOUNDS AND FINGERS. OXYCODONE FOR PAIN. PT ABLE TO REPOSITION SELF IN BED BUT STATES HE DOES NOT GET OOB TO THE BATHROOM. INCONTINENT OF ONE STOOL THAT WAS YELLOW WITH MAROON FLAKES. H&H STABLE TODAY. OFF LEVOPHED TODAY AND BP STABLE. DIFFICULT TO GET SPO2 READING BUT IN THE 90'S WHEN SPOT CHECKED. ONE DOSE OF HYDROCORTISONE THIS AM. SS INSULIN STARTED TODAY. GOOD APPETITE. SET UP ON PEROTINEAL DIALYSIS THIS AFTERNOON. USES CALL LIGHT APPROPRIATELY.
--- NOTE | 2023-02-01 20:17 | NUR ---
ASSUMED CARE PT IS A&O X4; SPO2 >92% ON RA; MAP >65; SINUS RUPA/RHYTHM. PT STATES HE HAS 6/10 CP THAT HAS BEEN PRESENT FOR "MONTHS AND MONTHS"; DOES NOT RADIATE AND CHANGES W/ BREATHING.
--- NOTE | 2023-02-01 20:45 | NUR ---
UPDATE PT REFUSED INSULIN. EDUCATED ON IMPORTANCE OF TREATING HYPERGLYCEMIA AND PT STATED "I'VE HAD MY BLOOD SUGAR IN THE 600'S, JUST LET IT COME DOWN ON IT'S OWN.". LEATHER CASE FINISHER NOTIFIED.
[2023-02-01 23:04] LABS: Hematocrit 32.7 % (37.0-53.0)
[2023-02-02] VITALS (10 sets, daily range): BP systolic 84–119; BP diastolic 48–69
[2023-02-02 03:23] LABS: BASOPHILS ABSOLUTE AUTO 0.03 K/mm3 (0.00-0.23); BASOPHILS PERCENT AUTO 0 % (0-2); EOSINOPHILS ABSOLUTE AUTO 0.03 K/mm3 (0.00-0.68); EOSINOPHILS PERCENT AUTO 0 % (0-6); Hematocrit 33.9 % (37.0-53.0); Hemoglobin 11.4 g/dL (13.5-17.5); IMMATURE GRAN ABSOLUTE AUTO 0.07 K/mm3 (0.00-0.10); IMMATURE GRAN PERCENT AUTO 0 % (0-1); LYMPHOCYTES ABSOLUTE AUTO 1.69 K/mm3 (0.84-5.20); LYMPHOCYTES PERCENT AUTO 10 % (21-46); MONOCYTES ABSOLUTE AUTO 1.28 K/mm3 (0.16-1.47); MONOCYTES PERCENT AUTO 7 % (4-13); Mean Corpuscular HGB 31.1 pg (26.0-34.0); Mean Corpuscular HGB Conc 33.6 g/dL (31.5-36.5); Mean Corpuscular Volume 93 fL (80-100); Mean Platelet Volume 9.7 fL (9.1-12.4); NEUTROPHILS PERCENT AUTO 82 % (41-73); Platelet Count 120 K/mm3 (150-400); RDW Coefficient Variation 18.1 % (11.7-14.2); RDW Standard Deviation 60.7 fL (35.1-46.3); Red Blood Cell Count 3.66 M/mm3 (4.30-5.90)
[2023-02-02 03:40] LABS: Albumin, Blood 1.5 g/dL (3.4-5.0); Anion Gap 11 mmol/L (6-16); Blood Urea Nitrogen 33 mg/dL (8-24); Bun/Creatinine Ratio 5.5 (12.0-20.0); CO2, Blood 22 mmol/L (21-32); Calcium, Blood 9.1 mg/dL (8.5-10.1); Chloride, Blood 100 mmol/L (98-108); Creatinine, Blood 6.05 mg/dL (0.60-1.20); Glomerular Filtration Rate 9 (60-); Glucose, Blood 299 mg/dL (70-99); Phosphorus, Blood 4.1 mg/dL (2.5-4.9); Potassium, Blood 3.1 mmol/L (3.5-5.5); Sodium, Blood 133 mmol/L (136-145)
--- NOTE | 2023-02-02 05:19 | NUR ---
SHIFT SUMMARY PT IS MUCH MORE COOPERATIVE W/ CARE THIS AM. NO C/O SOB OR NAUSEA. SLEPT/RESTED QUIETLY FOR MAJORITY OF NIGHT. LAST BM DID NOT HAVE ANY VISIBLE BLOOD. PT'S MOOD IS STILL LABILE.
--- NOTE | 2023-02-02 08:01 | NUR ---
DIALYSIS-PD PT AWAKE, ALERT AND APPEARS TO BE IN A GOOD MOOD, WAS ON THE PHONE TALKING TO HIS . DC TX PER PROTOCAL. UF 773 ML ID [id number] ML. FLUID CLEAR.
--- NOTE | 2023-02-02 08:10 | NUR ---
AM NOTE... ASSUMED CARE OF PT AT 0700. PT IS A&Ox4. HE IS ON RA WITH O2 SATS>92% L/S CLEAR T/O. BP IS SOFT BUT STABLE WITH MAPS >65 NOT ON PRESSORS. BT PRESENT AND HYPOACTIVE, ABD IS TENDER TO PALPATION. PT DENIES ABD PAIN WITHOUT PALPATION AT THIS TIME. PT'S H&H HAS BEEN STABLE SINCE ADMIT. CALL LIGHT IN REACH WILL CONTINUE TO MONITOR.
[2023-02-02] MEDS ORDERED: POTCHL20ER PO (11:13)
[2023-02-02] MEDS ORDERED: BANATROL PLUS1 EAC1 PO (11:13)
--- NOTE | 2023-02-02 12:05 | NUR ---
PT D/C HOME... PT D/C HOME WITH . PT'S NEW MEDS WERE FAXED TO THE [facility]. PT'S IVs REMOVED WNL. ALL OF THE PT'S BELONGINGS WERE PACKED AND SENT WITH THE PT.
== END 2023-02-02 11:53 | disposition home or self-care (01) | DRG 391 ==
LOC: ER 20:33 → ICUE 20:34
PROVIDERS: Family Medicine; Internal Medicine; Internal Medicine Nephrology; Student in an Organized Health Care Education/Training Program; ADMIT Internal Medicine
PROC: 3E033XZ Introduction of Vasopressor into Peripheral Vein, Percutaneous Approach (ICD-10-PCS; 2023-02-01)
PROC: 3E1M39Z Irrigation of Peritoneal Cavity using Dialysate, Percutaneous Approach (ICD-10-PCS; principal; 2023-02-02)
DX: K52.9 Noninfective gastroenteritis and colitis, unspecified (principal); N18.6 End stage renal disease; E87.4 Mixed disorder of acid-base balance; I48.20 Chronic atrial fibrillation, unspecified; I13.2 Hypertensive heart and chronic kidney disease with heart failure and with stage 5 chronic kidney disease, or end stage renal disease; I50.32 Chronic diastolic (congestive) heart failure; I96 Gangrene, not elsewhere classified; E46 Unspecified protein-calorie malnutrition; E11.52 Type 2 diabetes mellitus with diabetic peripheral angiopathy with gangrene; E87.1 Hypo-osmolality and hyponatremia; L97.929 Non-pressure chronic ulcer of unspecified part of left lower leg with unspecified severity; L97.919 Non-pressure chronic ulcer of unspecified part of right lower leg with unspecified severity; E11.622 Type 2 diabetes mellitus with other skin ulcer; E88.09 Other disorders of plasma-protein metabolism, not elsewhere classified; E86.9 Volume depletion, unspecified; E87.6 Hypokalemia; K74.60 Unspecified cirrhosis of liver; I95.89 Other hypotension; I49.5 Sick sinus syndrome; D72.829 Elevated white blood cell count, unspecified; E11.51 Type 2 diabetes mellitus with diabetic peripheral angiopathy without gangrene; M10.9 Gout, unspecified; D63.1 Anemia in chronic kidney disease; B18.2 Chronic viral hepatitis C; E11.69 Type 2 diabetes mellitus with other specified complication; E66.9 Obesity, unspecified; E83.39 Other disorders of phosphorus metabolism; R79.89 Other specified abnormal findings of blood chemistry; E27.9 Disorder of adrenal gland, unspecified; Z99.2 Dependence on renal dialysis; Z88.8 Allergy status to other drugs, medicaments and biological substances; Z79.01 Long term (current) use of anticoagulants; Z79.899 Other long term (current) drug therapy; Z79.4 Long term (current) use of insulin; Z79.891 Long term (current) use of opiate analgesic; I25.2 Old myocardial infarction; Z87.19 Personal history of other diseases of the digestive system; Z98.1 Arthrodesis status; Z90.49 Acquired absence of other specified parts of digestive tract; Z89.512 Acquired absence of left leg below knee; Z95.1 Presence of aortocoronary bypass graft; Z86.19 Personal history of other infectious and parasitic diseases; Z68.20 Body mass index [BMI] 20.0-20.9, adult
CPT/HCPCS: 36415; 51798; 71045; 74174; 80047; 80053; 80069; 82140; 82272; 82533; 82803; 82945; 82947; 83690; 83735; 84100; 84157; 85014; 85018; 85025; 85610; 86850; 86870; 86880; 86900; 86901; 86902; 86920; 87070; 87075; 87205; 87507; 89051; 93005; 93010; 96361; 96365-59; 96367-59; 96375; 96375-59; 96376; 99285-25; A9270; C9113; G0378; J0692; J1720; J1815; J3370; J3480; J7030; J7060; J7120; Q9967

== ENCOUNTER 2023-02-27 14:04 | Inpatient (IN) | payer OTHER ==
[2023-02-27] VITALS (18 sets, daily range): BP systolic 48–128; BP diastolic 24–93
[~2023-02-27] VITALS: Ht 165.1 cm; Wt 61.5 kg
[~2023-02-27 14:04] MED LIST changes: +BANATROL PLUS1 EAC1 PO; +POTCHL20ER PO
[2023-02-27 14:55] LABS: Calcium, Ionized (POC) 0.94 mmol/L (1.10-1.46); Chloride (POC) 102 mmol/L (98-108); Creatinine (POC) 6.7 mg/dL (0.8-1.3); Glucose (ISTAT POC) 227 mg/dL (70-99); Potassium (POC) 4.1 mmol/L (3.5-5.5); Sodium (POC) 133 mmol/L (135-148); Total CO2 (POC) 18 mmol/L (21-32)
[2023-02-27 15:03] LABS: BASOPHILS ABSOLUTE AUTO 0.07 K/mm3 (0.00-0.23); BASOPHILS PERCENT AUTO 1 % (0-2); EOSINOPHILS ABSOLUTE AUTO 0.16 K/mm3 (0.00-0.68); EOSINOPHILS PERCENT AUTO 2 % (0-6); Hematocrit 41.6 % (37.0-53.0); Hemoglobin 13.3 g/dL (13.5-17.5); IMMATURE GRAN ABSOLUTE AUTO 0.06 K/mm3 (0.00-0.10); IMMATURE GRAN PERCENT AUTO 1 % (0-1); LYMPHOCYTES ABSOLUTE AUTO 1.65 K/mm3 (0.84-5.20); LYMPHOCYTES PERCENT AUTO 18 % (21-46); MONOCYTES ABSOLUTE AUTO 0.87 K/mm3 (0.16-1.47); MONOCYTES PERCENT AUTO 10 % (4-13); Mean Corpuscular HGB 31.2 pg (26.0-34.0); Mean Corpuscular Volume 98 fL (80-100); Mean Platelet Volume 9.6 fL (9.1-12.4); NEUTROPHILS ABSOLUTE AUTO 6.38 K/mm3 (1.96-9.15); NEUTROPHILS PERCENT AUTO 69 % (41-73); Platelet Count 219 K/mm3 (150-400); RDW Coefficient Variation 17.2 % (11.7-14.2); RDW Standard Deviation 61.6 fL (35.1-46.3); Red Blood Cell Count 4.26 M/mm3 (4.30-5.90); White Blood Cell Count 9.19 K/mm3 (4.00-11.30)
[2023-02-27 15:15] LABS: LDL/HDL RATIO 1.2; Magnesium, Blood 2.5 mg/dL (1.6-2.4); Very Low Density Lipoprot Chol 42 mg/dL (6-32)
[2023-02-27 15:16] LABS: Alanine Aminotransfer (ALT/SGP 28 U/L (12-78); Albumin, Blood 1.8 g/dL (3.4-5.0); Albumin/Globulin Ratio 0.4 (0.8-1.8); Alk Phos 317 U/L (50-136); Anion Gap 16 mmol/L (6-16); Aspartate Aminotrans (AST/SGOT 41 U/L (12-37); Bilirubin, Total 0.6 mg/dL (0.1-1.0); Blood Urea Nitrogen 27 mg/dL (8-24); Bun/Creatinine Ratio 4.5 (12.0-20.0); CHOL/HDL RATIO 3.4; CO2, Blood 22 mmol/L (21-32); Calcium, Blood 9.9 mg/dL (8.5-10.1); Chloride, Blood 97 mmol/L (98-108); Cholesterol 119 mg/dL (50-200); Creatinine, Blood 5.98 mg/dL (0.60-1.20); Globulin, Blood 4.8 g/dL (2.2-4.0); Glomerular Filtration Rate 10 (60-); Glucose, Blood 229 mg/dL (70-99); HDL Cholesterol 35 mg/dL (>39); Low Density Lipoprotein Chol 42 mg/dL (0-110); Potassium, Blood 4.3 mmol/L (3.5-5.5); Sodium, Blood 135 mmol/L (136-145); Total Protein, Blood 6.6 g/dL (6.4-8.2); Triglycerides 211 mg/dL (30-160)
--- NOTE | 2023-02-27 16:48 | NUR ---
ASSUMPTION OF CARE PT BROUGHT TO ICU 3 WITH DIRECTOR UNIVERSITY STAFF. L GROIN SITE VISUALIZED. TEGADERM CHG DRESSING IN PLACE. SURROUNDING TISSUE SOFT, NO HEMATOMA, NO BLEEDING. PT IS ALERT AND ORIENTED. REQUESTS FOR ADMIT INFO TO BE OBTAINED FROM SPOUSE FRANK. FRANK AT BEDSIDE AND PROVIDES HEALTH HISTORY. SHE EXPRESSES THEY HAVE A MEETING ON 03/11 WITH THE [facility] TEAM. SHE ALSO REPORTS NOTIFYING DR MÉNDEZ OF HOSPITALIZATION. HE CURRENTLY RECEIVES DAILY PERITONEAL DIALYSIS. SHE STATES THEY HAVE BEEN DISCUSSING SWITCHING TO HEMODIALYSIS. PT REPORTS HAVING AN APPOINTMENT NEXT SATURDAY WITH DR MACK. SERA VOCATIONAL ADVISER AT BEDSIDE FOR HOSPITALIST CONSULT. DR GALLEGOS AT BEDSIDE TO REVIEW POST-PROCEDURE EKG. NO ADDITIONAL ORDERS AT THIS TIME. NSR ON MONITOR WITH RATE 80S. SBP 80S. HE DENIES CP AT THIS TIME.
--- NOTE | 2023-02-27 17:30 | NUR ---
Brief supportive visit this afternoon. Pt just recently back from [facility] post stents placement. Pt is known to this literary writer from previous hospital stay as he was inquiring about hospice. After discussion at that time Pt was not ready to stop dialysis. Today upon arrival Pt is resting in bed with his eyes closed. Pt's spouse Ai at bedside as Primary RN Marifer goes through admission process. Listened as Ai reports Pt having an appointment with the [facility]. She reports currently Pt receives [facility]. She confirms that Pt would still like to continue dialysis but will have to start hemo dialysis now. Continued therapeutic listening. Ended visit to allow Primary RN to continue admitting assessment. Palliative Care will F/U at a later time with Pt when awake.
--- NOTE | 2023-02-27 18:42 | NUR ---
UPDATE 1620: PT C/O SUDDEN ONSET FLANK PAIN, BACK PAIN ADN ABDOMINAL PAIN. L GROIN SITE DRESSING IS C/D/I. NO SWELLING AROUND SITE. ABOVE SITE SMALL CORDLIKE STRUCTURE PALPATED. DR GALLEGOS NOTIFIED AT 1626. ORDERS RECEIVED TO MONITOR SITE FOR CHANGES. H+H ORDERED. DR MÉNDEZ AT BEDSIDE FOR EVAL. ORDER RECEIVED FOR SCHEDULED MIDODRINE VS PRN. PLAN FOR DIALYSIS TONIGHT.
[2023-02-27 18:43] LABS: Hematocrit 39.9 % (37.0-53.0); Hemoglobin 13.2 g/dL (13.5-17.5)
--- NOTE | 2023-02-27 19:38 | NUR ---
ASSUMED CARE OF PT AT 1900. REPORT RECEIVED AT BEDSIDE. PT PRESENTS IN BED. WITHDRAWN AFFECT. WILL ANSWER QUESTIONS WITH HEAD NOD. WHEN ASKED IF HE NORMALLY HAS VERY LOW BLOOD PRESSURES HE ACKNOWLEDGES. DIALYSIS NURSE COMES TO ROOM. PT IS TO BE SET UP WITH PEROTINEAL DIALYSIS THIS NIGHT. WILL REVIEW CHART AND PLAN OF CARE FOR THIS PT. PT HAS JUST COMPLETED 250 ML NORMAL SALINE BOLUS.
--- NOTE | 2023-02-27 19:42 | NUR ---
VIEW OF PREVIOUS VISITS INDICATES THAT PT HAVING LOWER BLOOD PRESSURES HAVE BEEN A TREND. WILL MONITOR CLOSELY
--- NOTE | 2023-02-27 20:48 | NUR ---
PD RN NOTIFIED OF PT ADMIT TO ICU AT APPROX 1530. ONLY 2 PD CYCLER MACHINES ON SITE AND THIS PT MADE 3 IN HOSPITAL CCPD NIGHT TREATMENTS. CONTACTED [facility] FOR A BARROWED CYCLER. PUCKED UP AT APPROX 1800. PD RM TO PTS BED SIDE ICU03 AT APPROX 1930 TO SEE PT AND GET REPORT FROM NURSE. PT WAS UNABLE TO SIGN CONSENT BUT VERBALLY CONSENTED TO TREATMENT. SET UP PD CYCLER AND PROGRAMMED MACHINE. PT CONNECTED AT APPROX 5 AND ONCE FILL 1 OF 5 STARTED I LEFT BAILEY ROOM. EFFLUENT OBSERVED WAS CLEAR AND SITE WNL. PT EXPERIENCING SOME TENDERNESS IN ABDOMEN. FILL STARTED WITH NO ALARMS. LEFT PT ROOM AT APPROX 2100.
[2023-02-27 22:25] LABS: Hematocrit 44.4 % (37.0-53.0); Hemoglobin 14.6 g/dL (13.5-17.5)
--- NOTE | 2023-02-27 22:43 | NUR ---
WHEN APPROACHING PT TO DISCUSS Q 2 HOUR TURNS, PT VERY ADAMENT THAT HE REFUSES ANY TURN. BECAME AGITATED. STATES HE WILL ALLOW TURNING DURING THE NEXT DAY. PT DID RELUCTANTLY ALLOW A MEPILEX DRESSING TO BE PLACED OVER SACRAL WOUND. EDUCTATION AND CAUTION CONCERNING NOT ALLOWING TURNS, AND EXISTING SKIN ISSUES. PT STATES HE UNDERSTANDS THAT HIS WOUNDS ARE AT HIGHER RISK FOR BECOMING WORSE AND STATES THAT HE WAS ACCEPTING OF THIS. WILL ATTEMPT AT LATER TIME TO SEE IF PT WILL ALLOW TURNS. PT IN PROCESS OF PERITONEAL DIALYSIS. TOLERATING THIS WELL.
[2023-02-28] VITALS (30 sets, daily range): BP systolic 62–117; BP diastolic 48–76
--- NOTE | 2023-02-28 00:38 | NUR ---
LAB ARRIVES TO DRAW FOR TROPONIN LEVEL. DID REQUEST TO GROUP WITH AM LABS AND TO DELAY SECONDARY TO PT HAVING VERY POOR VEIN ACCESS. LAB HAS BEEN HAVING MAJOR ISSUES GETTING SAMPLES FROM PT.
--- NOTE | 2023-02-28 03:40 | NUR ---
LAB ATTEMPTED BLOOD DRAW TWICE AND WAS UNSUCCESSFUL. PT STATES THAT HE HAS BEEN STUCK "TWENTY TIMES" SINCE ADMIT, AND IS ADAMENTLY REFUSING ANY MORE NEEDLE STICKS. PT VERBALIZES UNDERSTANDING THAT LAB DRAW IS IMPORTANT FOR HIS MD TO MAKE DECISIONS FOR HIS CARE. PT CONTINUES TO REFUSE. CALL MADE TO LAB TO INFORM THEM OF PT'S DECISION. HE DID, THOUGH, ALLOW TURN TO HIS LEFT SIDE.
--- NOTE | 2023-02-28 05:37 | NUR ---
PT HAS REFUSED MOST ADL'S THIS SHIFT. ONLY ALLOWED FOR ONE TURN. PT HAD LAB ATTEMPTS THIS MORNING THAT WENT UNSUCCESSFUL, AND PT HAS REFUSED LAB TO MAKE ANY OTHER ATTEMPTS. DID USE ULTRASOUND TO LOCATE LEFT UPPER ARM BASILIC BEIN. PT REFUSED ATTEMPT TO PLACE POWERGLIDE. STATES THAT HE DOES NOT ANY MORE NEEDLE STICKS. PT HAS BEEN SUCCESSFUL THIS NIGHT IN HAVING LARGE BM PER BEDPAN. STOOL WNL. PT HAS MAINTAINED ON ROOM AIR THROUGH THE NIGHT WHEREAS HE CONTINUES > 90 PERCENT SATURATIONS. BLOOD PRESSURES HAVE BEEN SOMEWHAT LABILE. CURRENTLY 94/76 WITH MAP 83. WITH LOWER BLOOD PRESSURES, PT HAS REMAINED ASYMPTOMATIC. WILL CONTINUE TO MONITOR PT, AND WILL REPORT OFF TO ONCOMING RN.
--- NOTE | 2023-02-28 06:43 | NUR ---
DR MÉNDEZ COMES IN TO SEE PT. WAS INFORMED THAT PT HAS REFUSED TO HAVE ANY MORE BLOOD DRAWS. ALSO, PT'S CALLS THIS AM TO CHECK ON PT. UPDATE GIVEN.
--- NOTE | 2023-02-28 07:00 | NUR ---
ASSUMPTION FO CARE PT RESTING, WAKENS TO VERBAL STIMULI. HE IS ALERT AND ORIENTED. C/O INTERMITTENT CHEST PAIN THAT WORSENS WITH DEEP BREATHES AND MOVEMENT. PT STS IT HAS FELT LIKE THIS "FOR AWHILE" PRIOR TO ADMISSION. DENIES R GROIN DISCOMFORT, DRESSING C/D/I. SURROUNDING AREA SOFT, NONTENDER. PERITONEAL DIALYSIS HAS BEEN GOING THROUGH THE NIGHT. HE IS IN SINUS RHTYHM WITH RATE IN 60S. SBP 70S-80S, MAP >65. LUNGS ARE CLEAR THROUGHOUT, DENIES SOB, ON RA. CALL LIGHT WITHIN REACH. SEE SHIFT ASSESSMENT.
[2023-02-28 08:19] LABS: BASOPHILS ABSOLUTE AUTO 0.06 K/mm3 (0.00-0.23); BASOPHILS PERCENT AUTO 1 % (0-2); EOSINOPHILS ABSOLUTE AUTO 0.15 K/mm3 (0.00-0.68); EOSINOPHILS PERCENT AUTO 2 % (0-6); Hematocrit 37.9 % (37.0-53.0); Hemoglobin 12.6 g/dL (13.5-17.5); IMMATURE GRAN ABSOLUTE AUTO 0.04 K/mm3 (0.00-0.10); IMMATURE GRAN PERCENT AUTO 0 % (0-1); LYMPHOCYTES ABSOLUTE AUTO 2.22 K/mm3 (0.84-5.20); LYMPHOCYTES PERCENT AUTO 24 % (21-46); MONOCYTES ABSOLUTE AUTO 0.95 K/mm3 (0.16-1.47); MONOCYTES PERCENT AUTO 10 % (4-13); Mean Corpuscular HGB 31.7 pg (26.0-34.0); Mean Corpuscular HGB Conc 33.2 g/dL (31.5-36.5); Mean Corpuscular Volume 96 fL (80-100); Mean Platelet Volume 9.4 fL (9.1-12.4); NEUTROPHILS ABSOLUTE AUTO 5.84 K/mm3 (1.96-9.15); NEUTROPHILS PERCENT AUTO 63 % (41-73); Platelet Count 173 K/mm3 (150-400); RDW Coefficient Variation 17.3 % (11.7-14.2); RDW Standard Deviation 60.1 fL (35.1-46.3); Red Blood Cell Count 3.97 M/mm3 (4.30-5.90); White Blood Cell Count 9.26 K/mm3 (4.00-11.30)
[2023-02-28 08:29] LABS: Magnesium, Blood 2.5 mg/dL (1.6-2.4)
[2023-02-28 08:30] LABS: Albumin, Blood 1.7 g/dL (3.4-5.0); Anion Gap 10 mmol/L (6-16); Blood Urea Nitrogen 25 mg/dL (8-24); Bun/Creatinine Ratio 4.3 (12.0-20.0); CO2, Blood 26 mmol/L (21-32); Calcium, Blood 9.1 mg/dL (8.5-10.1); Chloride, Blood 100 mmol/L (98-108); Glomerular Filtration Rate 10 (60-); Glucose, Blood 192 mg/dL (70-99); Phosphorus, Blood 3.4 mg/dL (2.5-4.9); Potassium, Blood 3.7 mmol/L (3.5-5.5); Sodium, Blood 136 mmol/L (136-145)
--- NOTE | 2023-02-28 10:42 | NUR ---
Spiritual care visit conducted. Patient is lying in bed and alert. He is confused about times and what procedures were done yesterday but is able to be fully in the moment and is easily encouraged by gentle admissions counselor and prayer. He voices concerns for his spouse Ai and his ability to continue with all the medical treatments. He does express gratitude for being alive and for making it through yesterday. We end discussion on a high note of lashaun for life and living. I then allow patient to rest.
--- NOTE | 2023-02-28 11:07 | NUR ---
WAS NOTIFIED AT APPROX 0800 TODAY THAT HIS PD CYCLER WAS ALARMING AND STOPPED DURING TX. TX WAS TO END AROUND 0700 THIS MORING AND UNAWARE HOW LONG IT WAS ALARMING. WHEN I WENT INTO THE ROOM I TRACED LINES AND CONNECTIONS AND FOUND NOTHING THAT SEEMED TO BE CAUSING ANY ISSUES. I PRESSED GO AND LEFT BAILEY TREATMENT TO FINISH ITS LAST DRAIN . I CAME BACK AT APPROX 1000 AM TO DISCONNET HIS CCPD NIGHT TX. HE HAD AN IDRAIN: 759, TOTAL UF: 556, AVG DWELL: 1:41, LOST DWELL: 0:23 PT WAS DICONNECTED AT APPROX 1030AM.
--- NOTE | 2023-02-28 13:25 | NUR ---
UPDATE PT REQUESTING REST, USES CALL LIGHT APPROPRIATE. HE REMAINS ALERT AND ORIENTED. AM LABS AND GLUCOSE CHECKS DRAWN FROM L WRIST IV. PREVIOUSLY AT BEDSIDE AND UPDATED ON PLAN OF CARE. R GROIN SITE DRESSING C/D/I. SURROUNDING TISSUE SOFT, NONTENDER. PT TRANSITIONED TO PCU STATUS.
--- NOTE | 2023-02-28 18:50 | NUR ---
SHIFT SUMMARY PT HAD AN UNEVENTFUL DAY. R GROIN SITE IS SOFT, NONTENDER. DRESSING C/D/I. NO CP THIS AFTERNOON. 1ST DEGREE BLOCK ON MONITOR WITH RATE IN 50S-60S. PT HYPOTENSIVE AT TIMES, GIVEN SCHEDULED MIDODRINE TO MAINTAIN MAP >65. PT ASYMPTOMATIC. PT ATE MINIMAL AMOUNT OF BREAKFAST AND ONLY HAD GLUCERNA DRINK FOR LUNCH. GLUCOSE 81, PT AWARE AND STS "I BETTER EAT SOME DINNER THEN". PT PROVIDED TRAY. HE REMAINS ANURIC. PT REPOSITIONS SELF SIDE TO SIDE. BOOSTED IN BED THROUGHOUT THE DAY. CALL LIGHT WITHIN REACH.
--- NOTE | 2023-02-28 20:37 | NUR ---
ASSUMPTION OF CARE THIS RN ASSUMED CARE OF PATIENT AT 1900. REPORT TAKEN FROM SIMON CANO. PT A&O, ABLE TO MAKE NEEDS KNOWN. DENIES CHEST PAIN/PRESSURE. MEDICATED FOR HAND/LEG PAIN PER EMAR AT BEGINNING OF SHIFT. BP STABLE, MAP >65. SR WITH 1ST DEGREE HB, HR 60'S. AFEBRILE. ON RA WITH SPO2 >92%. RT FEMORAL SITE SOFT/NONTENDER; DRESSING C/D/I. PT ABLE TO REPOSITION SELF ON SIDE, REFUSED ASSISTANCE. BED IN LOWEST POSITION AND CALL LIGHT WITHIN REACH.
--- NOTE | 2023-02-28 20:42 | NUR ---
PD RN TO PT ROOM ICU03 TO SET UP CYCLER FOR CCPD NIGHT TREATMENT. PT SITTING UP IN BED WATCHING TV. WHEN ASKED HOW HE WAS DOING HE SAID TIRED. I CONNECTED AND PRIMED BAGS AND WHILE SETIING UP HE STARTED TO SAY THAT HIS HANDS WERE HURTING AND YELLED OUT IN PAIN. MACHINE PRIMED AND PT CONNECTED PER PROTOCOL AND ASEPTIC TECHNIQUE AT APPROX 2100.
[2023-03-01 03:35] VITALS: BP 80/56
[2023-03-01 03:50] LABS: Hematocrit 37.8 % (37.0-53.0); Hemoglobin 12.5 g/dL (13.5-17.5)
--- NOTE | 2023-03-01 05:56 | NUR ---
SHIFT SUMMARY NO ACUTE CHANGES OVERNIGHT. CONTINUES TO HAVE HYPOTENSION. MAP >65. ASYMPTOMATIC. PT MEDICATED FOR HAND PAIN PER EMAR. OTHER VITALS STABLE; NO CHANGES SINCE PREVIOUS NOTE. PT REPOSITIONING SELF IN BED. RT FEMORAL SITE FULLY RECOVERED, DRESSING C/D/I. BED IN LOWEST POSITION AND CALL LIGHT WITHIN REACH. THIS RN WILL CONTINUE TO MONITOR UNTIL SHIFT CHANGE AT 0700.
[2023-03-01 06:46] LABS: Albumin, Blood 1.6 g/dL (3.4-5.0); Anion Gap 9 mmol/L (6-16); Blood Urea Nitrogen 29 mg/dL (8-24); Bun/Creatinine Ratio 4.9 (12.0-20.0); CO2, Blood 26 mmol/L (21-32); Calcium, Blood 9.1 mg/dL (8.5-10.1); Chloride, Blood 99 mmol/L (98-108); Glomerular Filtration Rate 10 (60-); Glucose, Blood 133 mg/dL (70-99); Magnesium, Blood 2.3 mg/dL (1.6-2.4); Phosphorus, Blood 2.7 mg/dL (2.5-4.9); Potassium, Blood 3.9 mmol/L (3.5-5.5); Sodium, Blood 134 mmol/L (136-145)
--- NOTE | 2023-03-01 09:30 | NUR ---
DIALYSIS - PD WENT [place] PD [place]. TX NOT COMPLETED. RETURNED AT 0830 AND DC PT FROM TX. ID [id number] ML [id number]. PT TALKING ABOUT HIS QUALITY OF LIFE, HIS GANRENE, ESPECIALLY ON HIS FINGERS. HIS AMPUTATION AND HIS HEART. HE IS WORRIED AND SCARED.
[2023-03-01] MEDS ORDERED: Aspir 8181 MG PO (11:56)
[2023-03-01] MEDS ORDERED: CLOP75 PO (11:57)
[2023-03-01 12:00] VITALS: BP 93/63
== END 2023-03-01 12:52 | disposition home or self-care (01) | DRG 246 ==
LOC: ER 14:04 → ICUE 14:32
PROVIDERS: Emergency Medicine; Internal Medicine Nephrology; Nurse Practitioner Acute Care; ADMIT Internal Medicine Cardiovascular Disease
PROC: 027034Z Dilation of Coronary Artery, One Artery with Drug-eluting Intraluminal Device, Percutaneous Approach (ICD-10-PCS; principal; 2023-02-27)
PROC: 4A023N7 Measurement of Cardiac Sampling and Pressure, Left Heart, Percutaneous Approach (ICD-10-PCS; 2023-02-27)
PROC: B2151ZZ Fluoroscopy of Left Heart using Low Osmolar Contrast (ICD-10-PCS; 2023-02-27)
PROC: B2111ZZ Fluoroscopy of Multiple Coronary Arteries using Low Osmolar Contrast (ICD-10-PCS; 2023-02-27)
DX: I21.3 ST elevation (STEMI) myocardial infarction of unspecified site (principal); N18.6 End stage renal disease; I13.2 Hypertensive heart and chronic kidney disease with heart failure and with stage 5 chronic kidney disease, or end stage renal disease; I50.32 Chronic diastolic (congestive) heart failure; E11.52 Type 2 diabetes mellitus with diabetic peripheral angiopathy with gangrene; I96 Gangrene, not elsewhere classified; E87.1 Hypo-osmolality and hyponatremia; Z66 Do not resuscitate; M10.9 Gout, unspecified; D63.1 Anemia in chronic kidney disease; K74.60 Unspecified cirrhosis of liver; E11.51 Type 2 diabetes mellitus with diabetic peripheral angiopathy without gangrene; I48.0 Paroxysmal atrial fibrillation; I25.10 Atherosclerotic heart disease of native coronary artery without angina pectoris; E11.22 Type 2 diabetes mellitus with diabetic chronic kidney disease; I95.9 Hypotension, unspecified; B19.20 Unspecified viral hepatitis C without hepatic coma; K21.9 Gastro-esophageal reflux disease without esophagitis; I49.5 Sick sinus syndrome; Z95.1 Presence of aortocoronary bypass graft; I25.2 Old myocardial infarction; Z90.49 Acquired absence of other specified parts of digestive tract; Z79.4 Long term (current) use of insulin; Z98.890 Other specified postprocedural states; Z87.39 Personal history of other diseases of the musculoskeletal system and connective tissue; Z99.2 Dependence on renal dialysis; Z87.81 Personal history of (healed) traumatic fracture; Z79.01 Long term (current) use of anticoagulants; Z79.899 Other long term (current) drug therapy; Z79.891 Long term (current) use of opiate analgesic; Z89.512 Acquired absence of left leg below knee; Z98.1 Arthrodesis status; Z88.8 Allergy status to other drugs, medicaments and biological substances
CPT/HCPCS: 36415; 71045; 76937; 80047; 80053; 80061; 80069; 82947; 83735; 84484; 85014; 85018; 85025; 85347; 86850; 86870; 86900; 86901; 92953; 93005; 93010; 93459; 96374-59; 96375-59; 99152; 99153; 99291-25; A9270; C1725; C1751; C1760; C1769; C1874; C1887; C1894; C9606; J0461; J1644; J1815; J2250; J2270; J2405; J3010; J3246; J7030; J7050; Q9967

== ENCOUNTER 2023-03-27 01:52 | Inpatient (IN) | payer OTHER ==
[2023-03-27] VITALS (48 sets, daily range): BP systolic 51–97; BP diastolic 26–82
[~2023-03-27] VITALS: Ht 180.3 cm; Wt 61.3 kg
[~2023-03-27 01:52] MED LIST changes: +Aspir 8181 MG PO
[2023-03-27 04:30] LABS: BASOPHILS ABSOLUTE AUTO 0.04 K/mm3 (0.00-0.23); BASOPHILS PERCENT AUTO 0 % (0-2); EOSINOPHILS ABSOLUTE AUTO 0.01 K/mm3 (0.00-0.68); EOSINOPHILS PERCENT AUTO 0 % (0-6); Hematocrit 29.9 % (37.0-53.0); Hemoglobin 9.5 g/dL (13.5-17.5); IMMATURE GRAN ABSOLUTE AUTO 0.27 K/mm3 (0.00-0.10); IMMATURE GRAN PERCENT AUTO 2 % (0-1); LYMPHOCYTES ABSOLUTE AUTO 0.63 K/mm3 (0.84-5.20); LYMPHOCYTES PERCENT AUTO 4 % (21-46); MONOCYTES ABSOLUTE AUTO 1.06 K/mm3 (0.16-1.47); MONOCYTES PERCENT AUTO 6 % (4-13); Mean Corpuscular HGB 32.9 pg (26.0-34.0); Mean Corpuscular HGB Conc 31.8 g/dL (31.5-36.5); Mean Corpuscular Volume 104 fL (80-100); Mean Platelet Volume 11.1 fL (9.1-12.4); NEUTROPHILS PERCENT AUTO 89 % (41-73); NRBC ABSOLUTE 0.03 K/mm3 (0.00-0.02); NRBC Auto 0.2 /100 WBC (0.0-0.2); Platelet Count 119 K/mm3 (150-400); RDW Standard Deviation 63.9 fL (35.1-46.3); Red Blood Cell Count 2.89 M/mm3 (4.30-5.90); White Blood Cell Count 17.71 K/mm3 (4.00-11.30)
[2023-03-27 04:52] LABS: Bun/Creatinine Ratio 7.2 (12.0-20.0); Calcium, Blood 9.4 mg/dL (8.5-10.1); Creatinine, Blood 5.3 mg/dL (0.60-1.20); Magnesium, Blood 2.7 mg/dL (1.6-2.4); Potassium, Blood 5.2 mmol/L (3.5-5.5)
[2023-03-27 05:48] LABS: Beta-hydroxybutyrate 7.1 mg/dL (0.2-2.8)
[2023-03-27 06:53] LABS: Bicarbonate Venous 15.7 mmol/L (24.0-30.0); PCO2 Venous 37.5 mmHg (38-42); pH Blood Venous 7.23 (7.34-7.37)
[2023-03-27 06:54] LABS: Base Excess Venous -11.7 mmol/L
--- NOTE | 2023-03-27 08:24 | NUR ---
ARRIVAL TO ICU PT BROUGHT TO ICU 15 VIA GURNEY. PT A&OX2, SOMNOLENT. HE ANSWERS "I DON'T KNOW" TO MOST QUESTIONS. CHEST PAIN HAS RESOLVED. HE REPORTS FEELING DIZZY AND NAUSEOUS. HE HAD AN INCONTINENT DARK RUST COLORED STOOL. WHEN ASKED IF HE HAS BEEN HAVING BLOODY STOOL HE STS "I DON'T KNOW" AND WHEN ASKED IF HE HAS BEEN VOMITING BLOOD HE STS "YES" BUT IS UNABLE TO TELL STAFF HOW LONG THIS HAS BEEN GOING ON. BOWEL TONES ACTIVE, ABDOMEN SOFT AND TENDER TO PALPATION. PT HYPOTENSIVE WITH MAP IN LOW 50S. ORDER RECEIVED FOR SCHEDULED MIDODRINE. 500ML NS BOLUS ADMINISTERED PER DR RIDER THEN CONTINUED NS 100ML/HR. INSULIN GTT STARTED AT 2UNITS/HR. PLAN TO START PROTONIX. PT HAS ONE PIV IN THE WRIST. CHARGE NURSE AT BEDSIDE TO PLACE PICC LINE.
[2023-03-27 09:33] LABS: Hematocrit 36.3 % (37.0-53.0); Hemoglobin 12.1 g/dL (13.5-17.5)
[2023-03-27 10:11] LABS: Stool Occult Bld Immuno 1 Positive (NEGATIVE)
[2023-03-27 12:00] LABS: Base Excess Venous -5.5 mmol/L; Bicarbonate Venous 19.7 mmol/L (24.0-30.0); PCO2 Venous 45.8 mmHg (38-42); pH Blood Venous 7.28 (7.34-7.37)
[2023-03-27 12:20] LABS: Bun/Creatinine Ratio 7.1 (12.0-20.0); Calcium, Blood 9.8 mg/dL (8.5-10.1); Creatinine, Blood 5.62 mg/dL (0.60-1.20); Potassium, Blood 3.9 mmol/L (3.5-5.5)
[2023-03-27 12:51] LABS: Bun/Creatinine Ratio 7.6 (12.0-20.0); Creatinine, Blood 5.36 mg/dL (0.60-1.20); Potassium, Blood 3.6 mmol/L (3.5-5.5)
[2023-03-27] MEDS ORDERED: SENN187 PO (13:04)
[2023-03-27] MEDS ORDERED: PERCOCET 10-321 EA10 PO (13:05)
[2023-03-27] MEDS ORDERED: LACT PO (13:08)
[2023-03-27] MEDS ORDERED: SERT25 PO (13:11)
[2023-03-27] MEDS ORDERED: RENVELA800 MG PO (13:11)
[2023-03-27] MEDS ORDERED: GABA300 PO (13:12)
[2023-03-27] MEDS ORDERED: INSULANI SC (13:12)
[2023-03-27] MEDS ORDERED: NITR.4SL SL (13:12)
[2023-03-27] MEDS ORDERED: DROXIDOPA100 MG PO (13:13)
[2023-03-27] MEDS ORDERED: ACET500 PO (13:13)
[2023-03-27] MEDS ORDERED: NEPHRO VITAMIN0.8 MG PO (13:14)
[2023-03-27] MEDS ORDERED: FAMO20 PO (13:14)
[2023-03-27] MEDS ORDERED: MIRALAX17 GM PO (13:14)
[2023-03-27] MEDS ORDERED: ONDA4 PO (13:15)
[2023-03-27] MEDS ORDERED: FLUT.05NI (13:15)
[2023-03-27] MEDS ORDERED: NARCAN4 M1 (13:31)
[2023-03-27 13:42] LABS: Hematocrit 32.7 % (37.0-53.0)
[2023-03-27] MEDS ORDERED: Aspir 8181 MG PO (15:28)
[2023-03-27 16:01] LABS: International Normalized Ratio 1.04; Prothrombin Time Results 10.9 Sec (9.7-11.5)
--- NOTE | 2023-03-27 17:14 | NUR ---
UPDATE PT HAS BEEN A&OX2-A&OX3. HE REMAINS DROWSY BUT RESPONDS TO VERBAL STIMULI. LEVOPHED STARTED AND TITRATED TO 12MCG/MIN. MAP REMAINS IN MID 50S. DR MÉNDEZ ROUNDED, GOAL TO MAINTAIN SBP >80. PLAN FOR PERITONEAL DIALYSIS TONIGHT. LITIGATION CLAIM REPRESENTATIVE NOTIFIED BY PALLIATIVE CARE.
--- NOTE | 2023-03-27 17:59 | NUR ---
Review of pt with nursing. 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 Updated the dialysis nurse on his prognosis and needs. 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 states [facility]. Pt is service connected. Pt on pressors and midodrine. He has been having difficulty draining during dialysis. They have not been able to get a good blood draw to measure his KT/v. Discussed with his prognosis and the futility of escalating care. We also discussed his past wishes and him being a and wants to be tough and fight. Advised he we can still try today and see if he responds. Advised the time has come to call the children and consider DNR. Advised that woudl be extrodianry suffering to do cpr and vent him. Advised we want to give him dignity and comfort and limit suffering form and and his family. She is calling his children to tell them to come see him and to advise DNR. She will call after to talks to them. Advise dher is he declines further she may get a call tonight. Pt precarious and fragile for tolerating much more time on pressors due to circulatory disease. kps score is 30%.
--- NOTE | 2023-03-27 18:26 | NUR ---
UPDATE RESIDENT TEAM ROUNDED THIS AFTERNOON. PT REMAINS HYPOTENSIVE WITH MAP IN 50S. PT RECEIVING LEVOPHED AND SCHEDULED MIDODRINE. BLOOD CULTURES ORDERED. DUE TO LEVOPHED DOSE, ORDER RECEIVED FOR VASOPRESSIN. PER PT'S , SBP IS 70S-80S AT BASELINE WITH SCHEDULED MIDODRINE. PT IS A&OX3. DROWSY BUT WAKENS TO VERBAL STIMULI. C/O CHRONIC GENERALIZED PAIN AND ABDOMINAL PAIN. ASSISTS WITH REPOSITIONING IN BED. DENIES CP. DISCUSSED VASOPRESSORS WITH HOSPITALIST, PLAN TO CONTINUE WITH LEVOPHED AND MIDODRINE.
--- NOTE | 2023-03-27 18:38 | NUR ---
SUMMARY PT RECEIVING LEVOPHED 12MCG/MIN, BICARB 75ML/HR, HEPARIN 12UNITS/KG/HR, PROTONIX GTT, AND INSULIN 2UNITS/HR. PT IS A&OX3. HE WAKENS EASILY TO VERBAL STIMULI AND IS ABLE TO MAKE NEEDS KNOWN. PT REFUSED SECOND BLOOD CULTURE DRAW. CONTINUING TO HAVE DIFFICULTY OBTAINING BP. ATTEMPTED ARMS AND R LEG. DISCUSSED HYPOTENSION WITH DR MÉNDEZ AND DR HOBSON WHO AGREE WITH PLAN TO CONTINUE MIDODRINE AND LEVOPHED AND ASSESS MENTATION. PLAN FOR PERITONEAL DIALYSIS TONIGHT. DR MÉNDEZ NOTIFIED OF PM LABS. PLAN TO D/C BICARB AND START NS 75ML/HR. MIDODRINE DOSE INCREASED TO 10MG QID AND GIVE ONE TIME DOSE OF SOLU-CORTEF. HOSPITALIST NOTIFIED OF PM LABS. PLAN TO TRANSITION PT OFF OF INSULIN GTT AND BEGIN SC REGIMEN. PT'S SPOUSE FRANK CALLED THIS EVENING. SHE STS SHE HAS TALKED TO THEIR CHILDREN AND THEY MAY COME TO VISIT. SHE VERBALIZES TO MAINTAIN FULL CODE STATUS THROUGH DIALYSIS TONIGHT AND MAY TRANSITION TO CODE STATUS TOMORROW.
[2023-03-27 18:39] LABS: Bun/Creatinine Ratio 7.9 (12.0-20.0); Calcium, Blood 9.3 mg/dL (8.5-10.1); Creatinine, Blood 5.21 mg/dL (0.60-1.20); Potassium, Blood 3.2 mmol/L (3.5-5.5)
--- NOTE | 2023-03-27 18:58 | NUR ---
CONTACT BRIGITTE FRANK [phone] (CALL FIRST) [phone] CALL ANYTIME WITH UPDATES
[2023-03-27 19:47] LABS: Hematocrit 31.2 % (37.0-53.0); Hemoglobin 10.6 g/dL (13.5-17.5)
--- NOTE | 2023-03-27 23:06 | NUR ---
PD RN NOTIFIED AT 2150PM BY PHONE THAT PT WAS IN ICU15 AND NEEDED TO BE CONNECTED TO CCPD NIGHT TX KIP. I CAME IN AND HAD MACHINE TO ROOM BY 2230PM. PT WAS RESTING QUIETLY IN BED. WHEN I INTRODUCED MYSELF AND EXPLAINED WHY I WAS HERE HE GRUNTED. I ASKED IF HE WAS ABLE TO SIGN CONSENT FORM AND HE DID NOT REPLY. HE HAS A BANDAGE COVERING HIS WHOLE LEFT HAND WITH WOUNDS ON HIS RIGHT HAND. I ASKED IF HE WANTED TO JUST VERBALLY CONSENT TO PD TREATMENT AND HE GRUNTED. I SET UP THE CYCLER AND PROGRAMED AND PRIMED MACHINE. PT WAS CONNECTED TO MACHINE AT APPROX 2320PM. TX STARTED, STAYED FOR INITIAL DRAIN AND START OF 1ST FILL. ' CWOW WAS DOWN AND UNABLE TO BE ACCESSED TO RETRIVE CCPD NIGHT PERCRIPTION. CONSULTED EXPERIENCED PD NURSE FOR APPROPRIATE ORDERS FOR TONIGHTS TX. WILL CONSULT WITH DR MÉNDEZ AND YAMILET IN THE AM FOR ORDERS GOING FORWARD FOR TOMORROWS TX IF STILL IN HOSPITAL NEEDING TX. DRESSING CHANGED AND SITE PREPED FOR TX. SOME BROWNISH RED DISCHARGE ON EXIT SITE BANDAGE WHEN REMOVED.
[2023-03-28] VITALS (84 sets, daily range): BP systolic 52–192; BP diastolic 34–160
[2023-03-28 01:25] LABS: Percent Saturation 26.6 % (20.0-50.0)
[2023-03-28 01:30] LABS: Bun/Creatinine Ratio 7.9 (12.0-20.0); Creatinine, Blood 5.31 mg/dL (0.60-1.20); Potassium, Blood 3.7 mmol/L (3.5-5.5)
[2023-03-28 06:20] LABS: BASOPHILS ABSOLUTE AUTO 0.03 K/mm3 (0.00-0.23); BASOPHILS PERCENT AUTO 0 % (0-2); EOSINOPHILS PERCENT AUTO 0 % (0-6); Hemoglobin 9.7 g/dL (13.5-17.5); IMMATURE GRAN ABSOLUTE AUTO 0.22 K/mm3 (0.00-0.10); IMMATURE GRAN PERCENT AUTO 1 % (0-1); LYMPHOCYTES ABSOLUTE AUTO 0.64 K/mm3 (0.84-5.20); LYMPHOCYTES PERCENT AUTO 3 % (21-46); MONOCYTES ABSOLUTE AUTO 0.59 K/mm3 (0.16-1.47); MONOCYTES PERCENT AUTO 3 % (4-13); Mean Corpuscular HGB 32.3 pg (26.0-34.0); Mean Corpuscular HGB Conc 33.4 g/dL (31.5-36.5); Mean Platelet Volume 10.9 fL (9.1-12.4); NEUTROPHILS ABSOLUTE AUTO 20.97 K/mm3 (1.96-9.15); NEUTROPHILS PERCENT AUTO 93 % (41-73); NRBC ABSOLUTE 0.02 K/mm3 (0.00-0.02); NRBC Auto 0.1 /100 WBC (0.0-0.2); Platelet Count 156 K/mm3 (150-400); RDW Coefficient Variation 16.6 % (11.7-14.2); RDW Standard Deviation 57.8 fL (35.1-46.3); White Blood Cell Count 22.45 K/mm3 (4.00-11.30)
[2023-03-28 06:21] LABS: Mean Corpuscular Volume 97 fL (80-100)
--- NOTE | 2023-03-28 06:33 | NUR ---
SHIFT SUMMARY PATIENT LETHARGIC AND ORIENTED X3. 02 SATS DIFFICULT TO GET A READING, SPOT CHECKED AND SATS APPROX 92%. HR SR WITH PVCs 94. BP HYPOTENSIVE, ALSO DIFFICULT TO GET ACCURATE MEASUREMENT, LEVOPHED INFUSING AND PATIENT RESPONDS TO VERBAL STIMULI. MIDODRINE PO ALSO GIVEN. PATIENT RECIEVING PERITONEAL DIALYSIS THROUGH THE NIGHT. HEPARIN REMAINS INFUSING WELL PROTONIX. PATIENT INDEPENDENT WITH REPOSITIONING. UPDATED MULTIPLE TIMES THROUGH THE NIGHT.
[2023-03-28 06:41] LABS: BASOPHILS PERCENT MAN 0 % (0-2); EOSINOPHILS PERCENT MAN 0 % (0-6); LYMPHOCYTES ABSOLUTE MAN 0.22 K/mm3 (0.84-5.20); LYMPHOCYTES PERCENT MAN 1 % (21-46); MONOCYTES ABSOLUTE MAN 0.44 K/mm3 (0.16-1.47); MONOCYTES PERCENT MAN 2 % (4-13); NEUTROPHILS ABSOLUTE MAN 21.77 K/mm3 (1.96-9.15); SEG NEUTROPHILS PERCENT MAN 97 % (41-73); TOTAL CELLS COUNTED 100
[2023-03-28 06:46] LABS: Albumin, Blood 1.5 g/dL (3.4-5.0); Albumin/Globulin Ratio 0.3 (0.8-1.8); Bilirubin, Total 0.4 mg/dL (0.1-1.0); Bun/Creatinine Ratio 7.8 (12.0-20.0); Calcium, Blood 9.1 mg/dL (8.5-10.1); Globulin, Blood 4.3 g/dL (2.2-4.0); Magnesium, Blood 2.2 mg/dL (1.6-2.4); Phosphorus, Blood 4.8 mg/dL (2.5-4.9); Potassium, Blood 3.5 mmol/L (3.5-5.5); Total Protein, Blood 5.8 g/dL (6.4-8.2)
--- NOTE | 2023-03-28 07:00 | NUR ---
ASSUMPTION OF CARE PT RECEIVING LEVOPHED 12MCG/MIN, HEPARIN 12UNITS/KG/HR, PROTONIX, AND NS 75ML/HR. HE IS A&OX2-3. HE STS HE DOES NOT KNOW WHAT DAY IT IS OR HOW HE GOT TO THE HOSPITAL. C/O PAIN AND DISCOMFORT. CURRENTLY RECEIVING PERITONEAL DIALYSIS. HOSPITALIST TEAM ROUNDED, PLAN TO DO CT AFTER DIALYSIS. PT REMAINS HYPOTENSIVE WITH MAP 40S-50S. PLAN TO START VASOPRESSIN. FRANK AT BEDSIDE AND STS FAMILY IS COMING TO HAVE A MEETING.
--- NOTE | 2023-03-28 07:55 | NUR ---
Stat CT ordered per Dr. Foreman. Pt remains connected to peritoneal dialysis. Spoke with farm boss and Dr. Foreman and pt ok to wait approx. 90 more minutes until dialysis finishes to go for imaging.
[2023-03-28 10:07] LABS: Glucose, Blood 561 mg/dL (70-99)
--- NOTE | 2023-03-28 10:39 | NUR ---
Spiritual care visit conducted. Patient immediately tells me that he is dying and asks me to pray. Patient becomes tearful during the prayer and following my prayer, he prays, "Negrito take me home now, take me now, please take me now." He tells me that he is [place] and [place]. He states that he wants to go there. He then talks about the wrong that he has done and asks for forgiveness. I provide theological insights and prayer again. Patient relaxes his body and smiles and thanks me. I will continue to remain available to patient and family.
--- NOTE | 2023-03-28 11:12 | NUR ---
UPDATE PT'S GLUCOSE >500. HOSPITALIST NOTIFIED. DISCUSSION WITH PT'S FRANK AND FAMILY. FRANK DECLINES CT SCAN AND STS "LET'S GIVE HIM WHAT HE WANTS AND KEEP HIM COMFORTABLE". WHEN DISCUSSING FURTHER PLAN, SHE WOULD LIKE TO FURTHER DISCUSS WITH FAMILY BEFORE TRANSITIONING CODE STATUS. FAMILY ASKS MANY QUESTIONS TO STAFF AND PALLIATIVE CARE REGARDING TRANSITION TO COMFORT CARE BECAUSE THEY FEEL PT WOULD BE MOST COMFORTABLE AT HOME. AT THIS TIME HE REMAINS A FULL CODE. HEPARIN GTT DISCONTINUED. PT HAD TWO LARGE STOOLS. ONE WAS BLACK TARRY, SECOND WAS DARK RED/TARRY. HE ALSO HAS PRASAD/PURPLE DISCOLORATION ON ABDOMEN AND BACK. HOSPITALIST NOTIFIED AND ORDERS RECEIVED FOR H+H. PT REFUSES BLOOD DRAW. DAUGHTER AT BEDSIDE. LEVOPHED TITRATED TO 16MCG/MIN AND VASOPRESSIN INFUSING.
--- NOTE | 2023-03-28 11:46 | NUR ---
PD RN IN AROUND 0830 AM TO SEE IF TX WAS COMPLETED, IT WAS IN DWELL 6 OUT OF 6. PT HAD A PROCEDURE THAT WAS AWAITING HIS DISCONNECT. BEDSIDE RN NOTIFIED ME AT APPROX 0945 AM THAT HIS TX WAS COMPLETED. PT WAS BEING TENDED TO BY BEDSIDE RN AND STARTED TO FEEL NAUSEATED, WAITED FOR THAT TO SUBSIDE SO I COULD DISCONNECT HIS TX WHILE HE WAS WEARING A MASK. DISCONNECTED AT APPROX 1005AM. EFFLUENT SAMPLE TAKEN PER ICU NURSE REQUEST AND SENT TO THE LAB.
[2023-03-28 12:43] LABS: Hematocrit 26.3 % (37.0-53.0); Hemoglobin 8.9 g/dL (13.5-17.5)
--- NOTE | 2023-03-28 12:53 | NUR ---
FAMILY DISCUSSION PER FRANK, PT IS TRANSITIONED TO DNR. SHE WOULD LIKE US TO CONTINUE MEDICATIONS "FOR AWHILE LONGER". AWAITING MORE OUT OF [place]OWN FAMILY TO ARRIVE. PALLIATIVE CARE INVOLVED.
--- NOTE | 2023-03-28 14:07 | NUR ---
UPDATE PT'S FAMILY DISCUSSING COMFORT CARE AND HOSPICE BUT HAVE NOT MADE FURTHER DECISIONS. PLAN TO PROCEED WITH BLOOD TRANSFUSION. BLOOD BANK NOTIFIED.
[2023-03-28 16:26] LABS: Hematocrit 25.6 % (37.0-53.0); Hemoglobin 8.8 g/dL (13.5-17.5)
--- NOTE | 2023-03-28 17:53 | NUR ---
UPDATE DISCUSSED MELENA WITH FRANK. AT THIS TIME SHE WOULD LIKE TO CONTINUE WITH THE UNIT OF BLOOD AND SEE IF HIS H+H STABILIZES. IF IT DOES NOT, SHE MAY DECIDE TO PURSUE GI CONSULT IF THE HOSPITALIST RECOMMENDS. PT CURRENTLY RECEIVING PRBCS.
--- NOTE | 2023-03-28 17:57 | NUR ---
SHIFT SUMMARY PT RECEIVING LEVOPHED 18MCG/MIN, VASOPRESSIN, PROTONIX, AND NS 75ML/HR. HEPARIN GTT STOPPED THIS AM DUE TO MELENA. HE HAS HAD 3 LARGE BLACK/RED TARRY STOOLS THIS SHIFT. HE IS CURRENTLY RECEIVING 1 UNIT OF PRBCS. PT'S MENTATION ALTERS BETWEEN A&OX1-3. HE CONTINUES TO HAVE EPIGASTRIC PAIN ALONG WITH GENERALIZED CHRONIC PAIN. FAMILY DISCUSSION TODAY AND PT TRANSITIONED TO DNR. FAMILY WANTS TO CONTINUE ALL OTHER TREATMENT. PLAN FOR PERITONEAL DIALYSIS TONIGHT. CALL LIGHT WITHIN REACH.
--- NOTE | 2023-03-28 18:05 | NUR ---
PD RN TO PT ROOM AT APPROX 1730PM. CYCLER MACHINE PROGRAMED AND SET UP FOR NIGHT CCPD TX. WHEN I ENTERED THE PT WAS RESTING QUIETLY. BEDSIDE RN WAS IN THE ROOM AND NOTIFIED ME OF BLOOD TRANSFUSION IN PROCESS. PT WAS CONNECTED TO CCPD TX PER PROTOCAL AND DRS ORDERS AT APPROX 1800PM. WAITED FOR INITIAL DRAIN TO COMPLETE AND FILL 1 OF 5 TO START. NO COMPLICATIONS OR ALARMS OCCURED.
--- NOTE | 2023-03-28 18:50 | NUR ---
Several visits with family and review of care with nurse. pt on two pressers getting blood. Having tarry stools minimal responses.Family struggling with acceptance. pt kps score is 20 to 30 percent. Concern for patients vascular system tolerance of high dose pressors and ultrafiltration form dialysis. He may have cirulatory colasp. Will have physicians speak with family. Pt needs comfort and dignity.
--- NOTE | 2023-03-28 19:00 | NUR ---
ASSUMED CARE CARE WAS ASSUMED OF THE PT AT 1900. REPORT GIVEN BY SIMON CANO. PT A/O X2, UNABLE TO SAY WHAT YEAR IT IS. PT ABLE TO MAKE NEEDS KNOWN. UPON SHIFT CHANGE PT STATED HE NEED TO HAVE A BM. PT PUT ON BED REAVES. PT HAD DARK, BLOODY STOOL. WHILE PT USING BED REAVES, PT VOICING WANTING TO GO ON COMFORT CARE, ONGOING DISCUSSION WITH FAMILY. PT ON 4L N/C, 02 SATS >95%. SBP 90s-100s. LEVOPHED INFUSING @ 18 MCG/MIN. VASOPRESSIN INFUSING @ 0.04 UNITS.MIN. PROTONIX AND NS TKO INFUSING.
[2023-03-28 20:40] LABS: Hematocrit 30.3 % (37.0-53.0); Hemoglobin 10.7 g/dL (13.5-17.5)
[2023-03-28 20:59] LABS: Bun/Creatinine Ratio 7.7 (12.0-20.0); Calcium, Blood 9.4 mg/dL (8.5-10.1); Creatinine, Blood 4.57 mg/dL (0.60-1.20); Potassium, Blood 2.9 mmol/L (3.5-5.5)
--- NOTE | 2023-03-28 22:18 | NUR ---
CONTACTED DR. MÉNDEZ REGARDING PT'S POTASSIUM COMING BACK 2.9 WITH RECENT LABS DRAWN. REPLACEMENT OF POTASSIUM ORDERS GIVEN.
[2023-03-29] VITALS (88 sets, daily range): BP systolic 66–128; BP diastolic 43–91
[2023-03-29 04:28] LABS: Hematocrit 30.3 % (37.0-53.0); Hemoglobin 10.8 g/dL (13.5-17.5)
[2023-03-29 04:46] LABS: Albumin, Blood 1.5 g/dL (3.4-5.0); Anion Gap 21 mmol/L (6-16); Blood Urea Nitrogen 34 mg/dL (8-24); CO2, Blood 18 mmol/L (21-32); Calcium, Blood 9.5 mg/dL (8.5-10.1); Chloride, Blood 99 mmol/L (98-108); Creatinine, Blood 4.27 mg/dL (0.60-1.20); Glomerular Filtration Rate 14 (60-); Glucose, Blood 174 mg/dL (70-99); Magnesium, Blood 2.1 mg/dL (1.6-2.4); Phosphorus, Blood 3.2 mg/dL (2.5-4.9); Potassium, Blood 3.1 mmol/L (3.5-5.5); Sodium, Blood 138 mmol/L (136-145)
--- NOTE | 2023-03-29 06:21 | NUR ---
SHIFT SUMMARY PT CONTINUES TO BE A/O X2. PT IS ABLE TO MAKE NEEDS KNOWN. N/C 4 L, 02 SATS >95%. CARDIAC MONITORING REFLECTED 1ST DEGREE HEART BLOCK, HR 70s, SBP 80s-90s WITH MAP >65. LEVOPHED QUAD STRENGTH IN NS INFUSING @ 18 MCG/MIN, VASOPRESSIN 0.04 UNITS/MIN. REPLACING MORE POTASSIUM THIS AM PER ORDERS FROM DR. MÉNDEZ. PROTONIX INFUSING @10, NS TKO INFUSING. PT HAD 3 SMALL-MEDIUM MAROON STOOLS THIS SHIFT. PT HAS HAD NO URINE OUTPUT THIS SHIFT. PERITONEAL DIALYSIS RUNNING DURING SHIFT. WILL CONTINUE TO MONITOR UNTIL CARE IS TRANSITIONED TO DAY SHIFT.
--- NOTE | 2023-03-29 08:00 | NUR ---
DIALYSIS-PD PT LOOKS A LOT THINNER THAN THE LAST TIME I SAW. DC PT'S TX PER PROTOCAL. SITE CLEAR. PT AWAKE AND ALERT. FLUID CLEAR. UF [id number] ML, ID [id number] ML. PT A&O. PT COLD, I GOT SOME WARM BLANKETS AND WRAPPED HIM FOR HIM.
--- NOTE | 2023-03-29 10:30 | NUR ---
Spiritual Care Visit. Pt. is awake in bed and welcomes my visit. Pt. is unsettled about his condition and verbalizes "I just want to go" "I'm ready to go." Pt. verbalized that his family has not been in agreement with his desires. Prayed with pt. Pt. tok this chaplains hand an verbalized gratitude for the spiritual car visit. Updated attending nurse, and will be available to Pt. and family.
--- NOTE | 2023-03-29 11:58 | NUR ---
Spoke with Primary RN Mamie. Family indicating family is ready to move forward with comfort care. Pt resting in bed upon arrival. Lots of family at bedside including Pt's . Offered supportive visit and answered questions regarding comfort care philosophy. Family confirms ready for comfort care but would like it implimented once one more family member arrives. Called and spoke with Dr Valle. Placed comfort care order, comfort care order set, and D/C maintenance medications per V/O from Dr Valle. Will wait to impliment orders once additional family arrives. Palliative Care will remain available
--- NOTE | 2023-03-29 17:24 | NUR ---
Case Conference Note Spoke with Primary RN Mamie and discussed case. Family has more questions regarding plan of care. Met with family and offered therapeutic listening as they inquire about prognosis and if Pt can make it home on hospice. Answered questions and continued therapeutic listening. Family reports feeling exhausted and would like to wait to implement comfort measures only in the AM. Spoke with RACHAEL Hatch and relayed family's request. Palliative Care will remain available
--- NOTE | 2023-03-29 17:30 | NUR ---
SUMMARY PT RESTING IN BED. A/O TO PERSON, PLACE, AND FAMILY. PT AND FAMILY DECIDED THIS AM TO MAKE PT COMFORT CARE. PER FAMILY'S WISHES THEY WANT PT KEPT ON PRESSORS UNTIL ALL OF THE FAMILY CAN BE HERE WHICH WILL BE TOMORROW MORNING. PALLIATIVE CARE RN AND THIS RN EDUCATED FAMILY ABOUT THE POSSIBILITY THAT PT WILL NOT MAKE IT THROUGH THE NIGHT. FAMILY SEEMED TO UNDERSTAND. LEVOPHED AND VASOPRESSIN REMAIN AT SAME RATE ALL DAY AND ALL OTHER MEDS WERE STOPPED COMFORT CARE. PT WILL SAY HE IS HUNGRY BUT GETS NAUSEATED WHEN HE TRIES TO EAT. ZOFRAN GIVEN. PT IS LETHARGIC MOST OF THE DAY BUT CAN MAKE NEEDS KNOWN. PT CAN REPOSITION SELF WHEN HE FEELS LIKE IT BUT MOSTLY WANTED TO SLEEP TODAY.
--- NOTE | 2023-03-29 19:36 | NUR ---
ASSUMED CARE ASSUMED CARE OF PT AT 1900, REPORT GIVEN BY MICHELE CANO. PT RESTING UPON ENTERING, ACCEPTED WARM BLANKET. NO COMPLAINTS AT THIS TIME. PER FAMILY'S REQUEST, LEVOPHED AND VASOPRESSIN INFUSING WITH COMFORT CARE ORDERS IN PLACE.
[2023-03-30] VITALS (38 sets, daily range): BP systolic 86–129; BP diastolic 56–104
--- NOTE | 2023-03-30 06:40 | NUR ---
SHIFT SUMMARY CESIA CONTINUES TO BE A/O X3. PT DID NOT HAVE ANY ACUTE CHANGES THIS SHIFT. PT ON 4 L N/C, O2 SATS >95% WHEN SPOT CHECKED. PT CONTINUES TO HAVE LEVOPHED INFUSING @ 18 MCG/MIN AND VASOPRESSIN @ 0.04 UNITS/MIN PER FAMILY'S REQUEST WITH COMFORT CARE ORDERS IN PLACE. SBP 110s, MAP >65. PT HAD 2 MAROON STOOLS THIS SHIFT. PT WAS ABLE TO MAKE NEEDS KNOWN THIS SHIFT, PROVIDED CARE ACCORDINGLY.
--- NOTE | 2023-03-30 10:44 | NUR ---
PT WIDE AWAKE, CRYING OUT IN PAIN, SOBBING, RESTLESS IN BED. ASSISTING PRIMARY RN. MS 4MG IVP GIVEN W LITTLE EFFECT, WILL NOTIFY PRIMARY RN.
--- NOTE | 2023-03-30 13:09 | NUR ---
PT RESTING IN BED. WAS MADE COMFORT CARE YESTERDAY WITH THE EXCEPTION OF LEVOPHED AND VASOPRESSIN. THE FAMILY WANTED TO WAIT UNTIL TODAY TO TAKE HIM OFF PRESSORS DUE TO FAMILY COMING FROM OUT OF STATE. AT 1015 FAMILY WAS READY FOR PRESSORS TO BE TURNED OFF. PT HAS BEEN IN A LOT OF PAIN FROM CHRONIC NECROTIC FINGERS. PRN PAIN MEDS GIVEN. ALSO GAVE ATIVAN AND CALLED DR. LABOY WHO ORDERED AN ADDITIONAL DOSE OF ATIVAN. PT IS STILL A LITTLE RESTLESS IN BED BUT NOT MOANING IN PAIN ANYMORE. FAMILY AT BEDSIDE ARE SUPPORTIVE AND ASSIST WITH PT'S NEEDS WELL. PT WILL BE TRANSFERING TO ROOM 364, REPORT GIVEN TO SHERRY CANO.
--- NOTE | 2023-03-30 14:53 | NUR ---
PT ARRIVED TO THE MEDICAL FLOOR VIA BED FROM THE ICU. PTS FAMILY AT THE BEDSIDE. THE PT APPEARS TO BE COMFORTABLE AT THIS TIME PER FAMILY. FAMILY ORIENTED TO THE ROOM LAYOUT AND CALL SYSTEM. CALL LIGHT IN REACH.
--- NOTE | 2023-03-31 04:53 | NUR ---
PT HAS BEEN COMFORTABLE THROUGH THE NIGHT. HAS BEEN WITH PT AND ALL PAIN HAS BEEN TREATED PER EMAR. PT HAS NOT BEEN TALKING WHEN BEING CARED FOR THIS SHIFT. WILL CONTINUE TO MONITOR.
--- NOTE | 2023-03-31 15:36 | NUR ---
SHIFT SUMMARY PATIENT HAS BEEN EXPERIENCING RESTLESSNESS AND AGITATION FREQUENTLY THIS SHIFT. EACH TIME PATIENT WAKES HE YELLS OUT IN PAIN DESPITE MULTIPLE DOSES OF MEDICATIONS. WILL CONTINUE TO MEDICATE NEEDED FOR COMFORT, WILL CONTIUE TO MONITOR
--- NOTE | 2023-04-01 01:21 | NUR ---
PT IS ON COMFORT CARE WITH AT BEDSIDE RESPONDS TO PAINFUL STIMULI WHEN REPOSITIONED OPENS EYES AND VERBALIZES PAIN WANTS TO BE LEFT ON BACK. PT HAS BEEN GIVEN PRN MEDICATIONS ORDERED. PT GROANS LOUDLY AND SHIFTS IN BED. BREATHING IS LABORED AND EVEN, PIC IN RIGHTARM IS PATENT. WILL CONTINUE TO MONITOR.
--- NOTE | 2023-04-01 13:59 | NUR ---
PATIENT IS COMFORTABLE AND SLEEPING IN SUPINE POSITION. FAMILY REQUESTS HAT PATIENT NOT BE MOVED DUE TO HOW PAINFUL HE WAS T/O THE NIGHT. MEDICATED PER EMAR PROTOCOL.
--- NOTE | 2023-04-01 17:46 | NUR ---
SHIFT SUMMARY PATIENT SLEPT T/O HE SHIFT. MEDICATED WITH 20MG ROXANOL AT 1330 AND 10MG AT 1720. REPOSITIONED ON L SIDE AT 1730. NO VERBAL OR FACIAL EXPRESSIONS OF PAIN NOTED. PATIENT'S RESPIRATIONS REMAINED SHALLOW AND UNEVEN T/O SHIFT. NO COUGHING NOTED. SNORING NOTED BUT NO GURGLING. ORAL CAR PERFORMED EVERY 3 HRS DO TO VERY DRY MOUTH. PATIENT HAD NO OUTPUT. NO ACUTE CHANGES. PATIENT APPEARS COMFORTABLE WITH NO SIGNS OF PAIN OR AIR HUNGER AT THIS TIME. SON IS CURRENTLY PRESENT WITH PATIENT.
--- NOTE | 2023-04-01 23:54 | NUR ---
PT CONTINUES ON COMFORT CARE MEDICATED PER EMAR PROTOCOL. PT REPOSITIONED AND PERICARE GIVEN NO VOID OR STOOL ATTEND CHANGED. RESPIRATORY RATE IS SHALLOW LABORED, PT GROAN AND OPEN EYES WITH STIMULI. PT RESTING COMFORTABLY FAMILY AT BEDSIDE. WILL CONTINUE TO MONITOR.
--- NOTE | 2023-04-02 05:58 | NUR ---
ASSUMED CARE OF PT AT 0400. HE REMAINS MOSTLY NONRESPONSIVE, OCC.OPENING EYES TO PAINFUL STIMULI AND MOANS AT TIMES. FREQ PRN'S BEING RECIEVED (ROXINOL, ATIVAN AND HALDOL) TO MAINTAIN COMFORT. REPOSITIONING ATTENDED TO W/PILLOWS PLACED FOR SUPPORT. UO NEGLIGABLE T/O NOCTE. PT'S SON REMAINS AT BEDSIDE. PLAN FOR HOME ON HOSPICE IF ABLE. WCTM AND REPORT TO DAY RN.
--- NOTE | 2023-04-02 11:26 | NUR ---
Pt resting in bed with his eyes partly opened. Pt non responsive and appears comfortable with no S/S of distress at this time. Pt's spouse and friends at bedside. Offered supportive visit for family and answered questions. Spoke with Pt's Primary RN Karen and discussed case. Pt appears to be transitioning. Palliative Care will remain available
--- NOTE | 2023-04-02 14:48 | NUR ---
Spiritual Care visit. Pt. is in bed and is generally non responsive with eyes open. know family are present. Spoke words of encouoragement, hope and blessing to this man of mora. Prayed for Pt. WIll remain available to Pt. and family today, but will request Sales Consulting Director Samir to respond tomorrow should the Pt. linger.
--- NOTE | 2023-04-02 16:03 | NUR ---
PATIENT PATIENT'S WAS PRESENT AND REPORTED THAT SHE SAW HIM TAKE HIS LAST BREATH. CONFIRMED EXPIRATION WITH RACHAEL VILLALBA AT 1438. NURSING SUP DENNISE LAU AND DR. OH INFORMED. FINAL DISCHARGE AND POST MORTEM CARE COMPLETED BY RACHAEL VILLALBA. RUDY WITH [facility] PICKED PATIENT UP AT 1550.
== END 2023-04-02 14:38 ==
LOC: ER 01:52 → ICUE 01:53 → MEDS 03-30 13:44
PROVIDERS: Family Medicine; Internal Medicine; Internal Medicine Nephrology; Student in an Organized Health Care Education/Training Program; ADMIT Internal Medicine
PROC: 3E033XZ Introduction of Vasopressor into Peripheral Vein, Percutaneous Approach (ICD-10-PCS; principal; 2023-03-28)
PROC: 30233N1 Transfusion of Nonautologous Red Blood Cells into Peripheral Vein, Percutaneous Approach (ICD-10-PCS; 2023-03-28)
PROC: 3E1M39Z Irrigation of Peritoneal Cavity using Dialysate, Percutaneous Approach (ICD-10-PCS; 2023-03-29)
DX: I21.4 Non-ST elevation (NSTEMI) myocardial infarction (principal); E11.10 Type 2 diabetes mellitus with ketoacidosis without coma; N18.6 End stage renal disease; K27.4 Chronic or unspecified peptic ulcer, site unspecified, with hemorrhage; E87.1 Hypo-osmolality and hyponatremia; I96 Gangrene, not elsewhere classified; I50.32 Chronic diastolic (congestive) heart failure; K86.1 Other chronic pancreatitis; R64 Cachexia; R57.9 Shock, unspecified; Z68.1 Body mass index [BMI] 19.9 or less, adult; N25.81 Secondary hyperparathyroidism of renal origin; I13.2 Hypertensive heart and chronic kidney disease with heart failure and with stage 5 chronic kidney disease, or end stage renal disease; E87.3 Alkalosis; E11.52 Type 2 diabetes mellitus with diabetic peripheral angiopathy with gangrene; Z66 Do not resuscitate; Z51.5 Encounter for palliative care; I25.10 Atherosclerotic heart disease of native coronary artery without angina pectoris; K74.60 Unspecified cirrhosis of liver; E11.65 Type 2 diabetes mellitus with hyperglycemia; E11.43 Type 2 diabetes mellitus with diabetic autonomic (poly)neuropathy; K31.84 Gastroparesis; E86.0 Dehydration; E83.59 Other disorders of calcium metabolism; K22.0 Achalasia of cardia; E11.22 Type 2 diabetes mellitus with diabetic chronic kidney disease; E86.9 Volume depletion, unspecified; D63.1 Anemia in chronic kidney disease; K21.9 Gastro-esophageal reflux disease without esophagitis; B18.2 Chronic viral hepatitis C; E83.41 Hypermagnesemia; E88.09 Other disorders of plasma-protein metabolism, not elsewhere classified; E87.6 Hypokalemia; E11.649 Type 2 diabetes mellitus with hypoglycemia without coma; D50.0 Iron deficiency anemia secondary to blood loss (chronic); M10.9 Gout, unspecified; Z79.899 Other long term (current) drug therapy; Z79.01 Long term (current) use of anticoagulants; Z95.5 Presence of coronary angioplasty implant and graft; Z99.2 Dependence on renal dialysis; Z79.82 Long term (current) use of aspirin; Z91.158 Patient's noncompliance with renal dialysis for other reason; Z79.891 Long term (current) use of opiate analgesic; Z86.79 Personal history of other diseases of the circulatory system; Z79.02 Long term (current) use of antithrombotics/antiplatelets; Z88.8 Allergy status to other drugs, medicaments and biological substances; Z98.1 Arthrodesis status; Z98.890 Other specified postprocedural states; Z90.49 Acquired absence of other specified parts of digestive tract; Z95.1 Presence of aortocoronary bypass graft; Z89.512 Acquired absence of left leg below knee; Z79.4 Long term (current) use of insulin
CPT/HCPCS: 36415; 36430; 36569; 71045; 80048; 80053; 80069; 82010; 82274; 82533; 82728; 82803; 82947; 83540; 83550; 83605; 83690; 83735; 83970; 84100; 84484; 85014; 85018; 85025; 85610; 85730; 86850; 86870; 86900; 86901; 86902; 86905; 86922; 87040; 87070; 87075; 87205; 93005; 93010; 93306; 94762; 96361; 96365; 96366; 96367; 96368; 96374; 96375; 96376; 99285-25; A9270; C1751; C9113; G0378; J0881; J1630; J1644; J1720; J1815; J2060; J2270; J2405; J2543; J3480; J7030; J7050; J7060; P9016